=== PATIENT | female | born 1965 | race Caucasian/White ===

== ENCOUNTER 2024-04-18 10:30 | Outpatient (RCR) | payer BC, SELFPAY ==
[2024-04-18 10:52] VITALS: BMI 33.0
== END 2024-07-08 09:36 | disposition home or self-care (01) ==
LOC: ANHDMC 10:30
PROVIDERS: Visit Provider Internal Medicine
DX: E66.89 Other obesity not elsewhere classified (principal); Z71.3 Dietary counseling and surveillance; Z68.33 Body mass index [BMI] 33.0-33.9, adult
CPT/HCPCS: 97802

== ENCOUNTER 2024-08-15 00:47 | Day surgery (SDC) | payer BC, SELFPAY ==
[2024-08-01 14:28] VITALS: BMI 32.9
--- OUTSIDE RECORDS SUMMARY | 2024-08-15 00:50 | XMS_ITS | Clinical Summary ---
Author Organization [facility] Lorena Gaxiola Address [address] [place] [address] Care Team Providers Care Appetizer Packer Name Role Phone Sim Meza MD Primary Care Provider [phone] Source Comments [facility] Lorena Gaxiola,non-owned Affiliates and Associated Physician Practices is amultiple site organization consisting of ambulatory clinics and hospital sitesin [place], [place], [place] and [place]. This disclosure is being madepursuant to the Care Everywhere program and may not contain all information available regarding this patient. Last updated 18.[facility] Lorena Gaxiola Allergies Active Allergy Reactions Criticality Noted Date Comments Codeine Itching,Nausea and/or Vomiting Medium 01/09 Penicillins Urticaria,Swelling Medium 01/09/2019 Medications * Be aware that medications may not be up to date on this document. Alwaysverify current medications with the patient. Medication Sig Dispensed Refills Start Date End Date Status pantoprazole EC (PROTONIX) 40 MG tablet Take 40 mg by mouth once daily Active escitalopram (LEXAPRO) 10 MG tablet Take 10 mg by mouth once daily Active traZODone (DESYREL) 50 MG tablet Take 50 mg by mouth at bedtime Active mirabegron ER 24hr (MYRBETRIQ) 50 MG tablet Take 50 mg by mouth once daily Active Family History Medical History Relation Name Comments CAD (Coronary Artery Disease) Father Cancer - Esophageal Mother Relation Name Status Comments Father Mother Social History Tobacco Use Types Packs/Day Years Used Date Smoking Tobacco: Never Smokeless Tobacco: Never Alcohol Use Standard Drinks/Week Comments No 0 (1 standard drink = 0.6 oz pur e alcohol) Sex and Gender Information Value Date Recorded Sex Assigned at Not on file Gender Identity Not on file Sexual Orientation Not on file Last Filed Vital Signs Vital Sign Reading Time Taken Comments Blood Pressure - - Pulse - - Temperature - - Respiratory Rate - - Oxygen Saturation - - Inhaled Oxygen Concentration - - Weight 75.8 kg (167 lb) 01/09/2019 8:03 AM CDT Height 157.5 cm (5' 2 ) 01/09/2019 8:03 AM CDT Body Mass Index 30.54 01/09/2019 8:03 AM CDT Plan of Treatment Health Maintenance Due Date Last Done Comments COLOGUARD (AGES 45-75) - COL ON CA SCREENING 1963 COLON MONITORING 1963 COLONOSCOPY - COLON CA SCREENING 1963 CT COLONOGRAPHY - COLON CA SCREENING 1963 Colorectal Cancer Screening 1963 FIT - COLON CA SCREENING 1963 FLEX SIG - COLON CA SCREENING 1963 LIPID TESTING 1963 MAMMOGRAM 1963 PAP SMEAR 1963 HIV SCREENING 1978 HEPATITIS C SCREENING 02/10/1981 DTAP/TDAP/TD VACCINES (1 - Tdap) 1982 PNEUMOCOCCAL VACCINE 50+ (1 of 1 - PCV) 2013 ZOSTER VACCINE (1 of 2) 2013 COVID-19 VACCINE ( - 2023-2 5 season) 2024 INFLUENZA VACCINE (#1) 2024 DEPRESSION SCREENING 07/10/2024 Respiratory Syncytial Virus (RSV) Vaccine Pt: or over 60 yrs (1 - 1-dose 75+ series) 2038 HEPATITIS B VACCINE Aged Out No longe r eligible based on patient's age to complete this topic HIB VACCINE Aged Out No longer eligi ble based on patient's age to complete this topic HPV VACCINE Aged Out No longer eligi ble based on patient's age to complete this topic MENINGOCOCCAL (Group B) VACCINE Aged Out No longer eligible based on patient's age to complete this topic MENINGOCOCCAL VACCINE Aged Out No osmin davidson eligible based on patient's age to complete this topic PNEUMOCOCCAL VACCINE Aged Out No long er eligible based on patient's age to complete this topic Care Teams Appetizer Packer Relationship Specialty Start Date End Date Sim Meza MD PCP - General Internal Medicine 01/03/19
--- OUTSIDE RECORDS SUMMARY | 2024-08-15 00:50 | XMS_ITS | Data Portability ---
Author Organization [facility] OMARDaisha Address [address] [facility] [address] 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 [email or web address] Not available 10/21/2023 18:46:48 03/01/2024 03/01/2024 blood work consider halting statin for a while can try coenzyme Q10 ABIs NCS leg we will follow up in 4 months continue other meds [email or web address] Not available 03/02/2024 12:32:53 03/29/2024 03/29/2024 physical therapy for her back healthy lifestyle care instructions for obesity dietary referral as where as well. 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 Healthy lifestyle care instructions discussed. Routine food production associate well-woman referral colonoscopy. Mammogram all ordered all questions answered no changes in medications no side effects from medications and she is taking medications as prescribed follow up in 4 months [email or web address] Not available 06/22/2024 12:46:44 Plan of Treatment Reminders Order Date Submit Date Provider Last Modified By Organization Details Last Modified Time Details Appointments ANY 15 2024 10:30A M Parish Meza MD Not available Not available Not available Lab lipid panel, serum 2023 024 RICARDA Thompson, [address], [place], [address], 10/21/2023 07:13:37 CBC w/ auto diff 2023 024 RICARDA Thompson, [address], [address], [place], [address], 10/21/2023 07:13:39 CMP, serum or plasma 2023 024 RICARDA Thompson, [address], [address], [place], [address], 10/21/2023 07:13:38 TSH, ultra-sen sitive, serum 2023 024 RICARDA Thompson, [address], [address], [place], [address], 10/21/2023 07:13:39 T3, free, serum or plasma 2023 024 RICARDA Thompson, [address], [address], [place], [address], 10/21/2023 07:13:40 unlisted lab - T4, free 2023 024 RICARDA Thompson, [address], [address], [place], [address], 10/21/2023 07:13:37 lipid panel, serum 2023 024 RICARDA Thompson [address], [address], [place], [address], 03/02/2024 08:22:56 TSH, ultra-sen sitive, serum 2023 024 RICARDA Thompson, [address], [address], [place], [address], 03/02/2024 08:22:58 T3, free, serum or plasma 2023 024 [facility], [address], [address], [place], [address], 03/02/2024 08:23:00 unlisted lab - T4, free 2023 024 [facility], [address], [address], [place], [address], 03/02/2024 08:22:56 CBC w/ auto diff 2023 024 [facility], [address], [address], [place], [address], 03/02/2024 08:22:59 CMP, serum or plasma 2023 024 [facility], [address], [address], [place], [address], 03/02/2024 08:22:57 vitamin D, 25-hydrox y, total, serum 2023 024 [facility], [address], [address], [place], [address], 03/02/2024 08:23:00 vitamin B12 + folate, serum or blood 2023 024 [facility], [address], [address], [place], [address], 03/02/2024 08:22:58 CMP, serum or plasma [address], [address], [address], [place], [address], 06/21/2024 13:34:55 lipid panel, serum [email or web address], [address], [address], [place], [address], 06/21/2024 13:34:55 CBC w/ auto diff 2023 025 [email or web address] [facility], [address], [address], [place], [address], 06/21/2024 13:34:55 vitamin D, 25-hydrox y, total, serum 2023 025 [facility], [address], [address], [place], [address], 06/21/2024 13:34:55 Referral nutrition ist/dieti moira referral 2023 024 [facility], [address], [place], [address], 06/07/2024 16:31:56 physical therapist referral 2023 024 [facility] [place], [facility], [place], [address], 04/15/2024 14:11:54 gynecolog ist referral 2023 024 [email or web address] Ирина Rawls MD, [address], [address], [place], [address], 07/16/2024 13:09:35 Procedures colonosco py screening (PROC) [address] [facility], [address], [address], [place], [address], 08/13/2024 11:05:22 Surgeries None recorded. Imaging home sleep study 2023 024 [facility] ([facility]), [address] [facility], [place], [address], 11/24/2023 13:56:28 nerve conductio n study - NCS B/L Legs 2023 024 mariano Archuleta Scheduling, [address] [facility], [place], [address], 06/21/2024 11:44:12 MAMMO, screening , digital, bilateral 2023 024 [facility] (Imaging), [address] [place] [address] [facility] [facility], [place], [address], 07/16/2024 13:06:34 Medication Orders pantopraz ole 40 mg tablet,de layed release [address] [facility] [address] [facility], [address] [place] [address], [address], 10/20/2023 13:56:52 losartan 25 mg tablet [address] [facility], [address] [place] [address], [address], 03/01/2024 12:33:35 ergocalci ferol (vitamin D2) 1,250 mcg (50,000 unit) capsule [address] [facility], [address] [place] [address], [address], 06/21/2024 13:34:55 Patient TargetsNo targets recorded. Patient Instructions Encounter Date Encounter Id Patient Instructions Last Modified By Organization Details Last Modified Time 03/01/2024 [id number] (ALEC) ankle brachial index* - B/L legs [email or web address] Not available 06/21/2024 11:44:39 03/29/2024 [id number] A healthy lifestyle: care instructions [email or web address] Not available 03/29/2024 13:04:48 06/21/2024 [id number] A healthy lifestyle: care instructions [email or web address] Not available 06/21/2024 13:34:55 Reason for Referral Physical Therapist Referral for Low back pain Referring Physician: Parish Meza, Internal Medicine, Encounter Date: 03/29/2024 Chemistry Lab Instructor/dietitian Refer ral for Obesity Referring Physician: Parish Meza, Internal Medicine, Encounter Date: 03/29/2024 Chip Machine Operator Referral for Gy necologic examination Referring Physician: Parish Meza, Internal Medicine, Encounter Date: 06/21/2024 Results Created Date Observation Date Name Description Value Unit Range Abnormal Flag Note LastModifiedBy Organization Detail LastModifiedTime 10/20/19 24 10/21/2023 LIPID PANEL cholesterol, total 210 mg/dL 100-19 9 above high normal Not Available [facility] ([facility]) [address] [place], [address], 10/21/2023 07:13:37 10/20/19 24 10/21/2023 LIPID PANEL triglyceride s 95 mg/dL 0-149 Not Available [facility] ([facility]) [address] [place], [address], 10/21/2023 07:13:37 10/20/19 24 10/21/2023 LIPID PANEL HDL cholesterol 90 mg/dL >39 Not Available [facility] ([facility]) [address] [place], [address], 10/21/2023 07:13:37 10/20/19 24 10/21/2023 LIPID PANEL VLDL cholesterol john 16 mg/dL 5-40 Not Available [facility] ([facility]) [address] [place], [address], 10/21/2023 07:13:37 10/20/19 24 10/21/2023 LIPID PANEL LDL chol calc ([facility]) 104 mg/dL 0-99 above high normal Not Available [facility] ([facility]) [address] [place], [address], 10/21/2023 07:13:37 10/20/19 24 10/21/2023 T4, FREE T4,free(dire ct) 1.48 NG/dL 0.82-1 .77 Not Available [facility] ([facility]) [address] [place], [address], 10/21/2023 07:13:37 10/20/19 24 10/21/2023 COMP. METAB OLIC PANEL (14) glucose 101 mg/dL 70-99 above high normal Not Available [facility] ([facility]) [address] [place], [address], 10/21/2023 07:13:38 10/20/19 24 10/21/2023 COMP. METAB OLIC PANEL (14) BUN 15 mg/dL 8-27 Not Available [facility] ([facility]) [address] [place], [address], 10/21/2023 07:13:38 10/20/19 24 10/21/2023 COMP. METAB OLIC PANEL (14) creatinine 0.89 mg/dL 0.57-1 .00 Not Available [facility] ([facility]) [address] [place], [address], 10/21/2023 07:13:38 10/20/19 24 10/21/2023 COMP. METAB OLIC PANEL (14) eGFR 74 mL/mi n/1.7 3 >59 Not Available [facility] ([facility]) [address] [place], [address], 10/21/2023 07:13:38 10/20/19 24 10/21/2023 COMP. METAB OLIC PANEL (14) BUN/creatini ne ratio 17 12-28 Not Available [facility] ([facility]) [address] [place], [address], 10/21/2023 07:13:38 10/20/19 24 10/21/2023 COMP. METAB OLIC PANEL (14) sodium 145 mmol/ L 134-14 4 above high normal Not Available [facility] ([facility]) [address] [place], [address], 10/21/2023 07:13:38 10/20/19 24 10/21/2023 COMP. METAB OLIC PANEL (14) potassium 4.7 mmol/ L 3.5-5. 2 Not Available [facility] ([facility]) [address] [place], [address], 10/21/2023 07:13:38 10/20/19 24 10/21/2023 COMP. METAB OLIC PANEL (14) chloride 107 mmol/ L 96-106 above high normal Not Available [facility] ([facility]) [address] [place], [address], 10/21/2023 07:13:38 10/20/19 24 10/21/2023 COMP. METAB OLIC PANEL (14) carbon dioxide, total 23 mmol/ L 20-29 Not Available [facility] ([facility]) [address] [facility] [place], [address], 10/21/2023 07:13:38 10/20/19 24 10/21/2023 COMP. METAB OLIC PANEL (14) calcium 9.4 mg/dL 8.7-10 .3 Not Available [facility] ([facility]) [address] [place], [address], 10/21/2023 07:13:38 10/20/19 24 10/21/2023 COMP. METAB OLIC PANEL (14) protein, total 6.8 g/dL 6.0-8. 5 Not Available [facility] ([facility]) [address] [facility] [place], [address], 10/21/2023 07:13:38 10/20/19 24 10/21/2023 COMP. METAB OLIC PANEL (14) albumin 4.5 g/dL 3.8-4. 9 Not Available [facility] ([facility]) [address] [facility] [place], [address], 10/21/2023 07:13:38 10/20/19 24 10/21/2023 COMP. METAB OLIC PANEL (14) globulin, total 2.3 g/dL 1.5-4. 5 Not Available [facility] ([facility]) [address] [facility], [place], [address], 10/21/2023 07:13:38 10/20/19 24 10/21/2023 COMP. METAB OLIC PANEL (14) A/G ratio 2.0 1.2-2. 2 Not Available [facility] ([facility]) [address] [facility], [place], [address], 10/21/2023 07:13:38 10/20/19 24 10/21/2023 COMP. METAB OLIC PANEL (14) bilirubin, total 0.6 mg/dL 0.0-1. 2 Not Available [facility] ([facility]) [address] [facility], [place], [address], 10/21/2023 07:13:38 10/20/19 24 10/21/2023 COMP. METAB OLIC PANEL (14) alkaline phosphatase 74 IU/L 44-121 Not Available [facility] ([facility]) [address] [facility], [place], [address], 10/21/2023 07:13:38 10/20/19 24 10/21/2023 COMP. METAB OLIC PANEL (14) AST (SGOT) 37 IU/L 0-40 Not Available [facility] ([facility]) [address] [facility] [place], [address], 10/21/2023 07:13:38 10/20/19 24 10/21/2023 COMP. METAB OLIC PANEL (14) ALT (SGPT) 48 IU/L 0-32 above high normal Not Available [facility] ([facility]) [address] [facility], [place], [address], 10/21/2023 07:13:38 10/20/19 24 10/21/2023 TSH TSH 3.520 uIU/m L 0.450- 4.500 Not Available [facility] ([facility]) [address] [place], [address], 10/21/2023 07:13:39 10/20/19 24 10/21/2023 CBC WITH DIFFE RENTI AL/PL ATELE T WBC 8.1 x10e3 /uL 3.4-10 .8 Not Available [facility] ([facility]) [address] [facility], [place], [address], 10/21/2023 07:13:39 10/20/19 24 10/21/2023 CBC WITH DIFFE RENTI AL/PL ATELE T RBC 4.97 x10e6 /uL 3.77-5 .28 Not Available [facility] ([facility]) [address] [place], [address], 10/21/2023 07:13:39 10/20/19 24 10/21/2023 CBC WITH DIFFE RENTI AL/PL ATELE T hemoglobin 14.7 g/dL 11.1-1 5.9 Not Available [facility] ([facility]) [address] [place], [address], 10/21/2023 07:13:39 10/20/19 24 10/21/2023 CBC WITH DIFFE RENTI AL/PL ATELE T hematocrit 44.9 % 34.0-4 6.6 Not Available [facility] ([facility]) [address] [place], [address], 10/21/2023 07:13:39 10/20/1910/21/2023 CBC WITH DIFFE RENTI AL/PL ATELE T MCV 90 fL 79-97 Not Available [facility] ([facility]) [address] [place], [address], 10/21/2023 07:13:39 10/20/19 24 10/21/2023 CBC WITH DIFFE RENTI AL/PL ATELE T MCH 29.6 pg 26.6-3 3.0 Not Available [facility] ([facility]) [address] [facility], [place], [address], 10/21/2023 07:13:39 10/20/19 24 10/21/2023 CBC WITH DIFFE RENTI AL/PL ATELE T MCHC 32.7 g/dL 31.5-3 5.7 Not Available [facility] ([facility]) [address] [facility], [place], [address], 10/21/2023 07:13:39 10/20/19 24 10/21/2023 CBC WITH DIFFE RENTI AL/PL ATELE T RDW 12.8 % 11.7-1 5.4 Not Available [facility] ([facility]) [address] [facility], [place], [address], 10/21/2023 07:13:39 10/20/19 24 10/21/2023 CBC WITH DIFFE RENTI AL/PL ATELE T platelets 340 x10e3 /uL 150-45 0 Not Available [facility] ([facility]) [address] [facility], [place], [address], 10/21/2023 07:13:39 10/20/19 24 10/21/2023 CBC WITH DIFFE RENTI AL/PL ATELE T neutrophils 53 % notest ab. Not Available [facility] ([facility]) [address] [facility], [place], [address], 10/21/2023 07:13:39 10/20/19 24 10/21/2023 CBC WITH DIFFE RENTI AL/PL ATELE T lymphs 35 % notest ab. Not Available [facility] ([facility]) [address] [facility], [place], [address], 10/21/2023 07:13:39 10/20/19 24 10/21/2023 CBC WITH DIFFE RENTI AL/PL ATELE T monocytes 8 % notest ab. Not Available [facility] ([facility]) [address] [facility], [place], [address], 10/21/2023 07:13:39 10/20/19 24 10/21/2023 CBC WITH DIFFE RENTI AL/PL ATELE T eos 3 % notest ab. Not Available [facility] ([facility]) [address] [facility], [place], [address], 10/21/2023 07:13:39 10/20/19 24 10/21/2023 CBC WITH DIFFE RENTI AL/PL ATELE T basos 1 % notest ab. Not Available [facility] ([facility]) [address] [facility], [place], [address], 10/21/2023 07:13:39 10/20/19 24 10/21/2023 CBC WITH DIFFE RENTI AL/PL ATELE T neutrophils (absolute) 4.3 x10e3 /uL 1.4-7. 0 Not Available [facility] ([facility]) [address] [facility], [place], [address], 10/21/2023 07:13:39 10/20/19 24 10/21/2023 CBC WITH DIFFE RENTI AL/PL ATELE T lymphs (absolute) 2.9 x10e3 /uL 0.7-3. 1 Not Available [facility] ([facility]) [address] [facility], [place], [address], 10/21/2023 07:13:39 10/20/19 24 10/21/2023 CBC WITH DIFFE RENTI AL/PL ATELE T monocytes(ab solute) 0.7 x10e3 /uL 0.1-0. 9 Not Available [facility] ([facility]) [address] [facility], [place], [address], 10/21/2023 07:13:39 10/20/19 24 10/21/2023 CBC WITH DIFFE RENTI AL/PL ATELE T eos (absolute) 0.2 x10e3 /uL 0.0-0. 4 Not Available [facility] ([facility]) [address] [place], [address], 10/21/2023 07:13:39 10/20/19 24 10/21/2023 CBC WITH DIFFE RENTI AL/PL ATELE T baso (absolute) 0.1 x10e3 /uL 0.0-0. 2 Not Available [facility] ([facility]) [address] [place], [address], 10/21/2023 07:13:39 10/20/1910/21/2023 CBC WITH DIFFE RENTI AL/PL ATELE T immature granulocytes 0 % notest ab. Not Available [facility] ([facility]) [address] [place], [address], 10/21/2023 07:13:39 10/20/19 24 10/21/2023 CBC WITH DIFFE RENTI AL/PL ATELE T immature grans (abs) 0.0 x10e3 /uL 0.0-0. 1 Not Available [facility] ([facility]) [address] [place], [address], 10/21/2023 07:13:39 10/20/1910/21/2023 TRIIO DOTHY BERT E (T3), FREE triiodothyro nine (T3), free 3.8 pg/mL 2.0-4. 4 Not Available [facility] ([facility]) [address] [place], [address], 10/21/2023 07:13:40 03/01/2003/02/2024 LIPID PANEL cholesterol, total 160 mg/dL 100-19 9 Not Available [facility] ([facility]) [address] [place], [address], 03/02/2024 08:22:56 08/23/03/02/2024 LIPID PANEL triglyceride s 69 mg/dL 0-149 Not Available [facility] ([facility]) [address] [place], [address], 03/02/2024 08:22:56 03/01/2003/02/2024 LIPID PANEL HDL cholesterol 83 mg/dL >39 Not Available [facility] ([facility]) [address] [place], [address], 03/02/2024 08:22:56 03/01/2003/02/2024 LIPID PANEL VLDL cholesterol john 13 mg/dL 5-40 Not Available [facility] ([facility]) [address] [place], [address], 03/02/2024 08:22:56 03/01/2003/02/2024 LIPID PANEL LDL chol calc ([facility]) 64 mg/dL 0-99 Not Available [facility] ([facility]) [address] [place], [address], 03/02/2024 08:22:56 03/01/2003/02/2024 T4, FREE T4,free(dire ct) 1.37 NG/dL 0.82-1 .77 Not Available [facility] ([facility]) [address] [place], [address], 03/02/2024 08:22:56 03/01/2003/02/2024 COMP. METAB OLIC PANEL (14) glucose 104 mg/dL 70-99 above high normal Not Available [facility] ([facility]) [address] [place], [address], 03/02/2024 08:22:57 03/01/2003/02/2024 COMP. METAB OLIC PANEL (14) BUN 15 mg/dL 8-27 Not Available [facility] ([facility]) [address] [place], [address], 03/02/2024 08:22:57 03/01/20 24 03/02/2024 COMP. METAB OLIC PANEL (14) creatinine 0.82 mg/dL 0.57-1 .00 Not Available [facility] ([facility]) [address] [facility], [place], [address], 03/02/2024 08:22:57 03/01/2003/02/2024 COMP. METAB OLIC PANEL (14) eGFR 81 mL/mi n/1.7 3 >59 Not Available [facility] ([facility]) [address] [facility], [place], [address], 03/02/2024 08:22:57 03/01/2003/02/2024 COMP. METAB OLIC PANEL (14) BUN/creatini ne ratio 18 12-28 Not Available [facility] ([facility]) [address] [facility], [place], [address], 03/02/2024 08:22:57 03/01/2003/02/2024 COMP. METAB OLIC PANEL (14) sodium 141 mmol/ L 134-14 4 Not Available [facility] ([facility]) [address] [facility] [place], [address], 03/02/2024 08:22:57 03/01/2003/02/2024 COMP. METAB OLIC PANEL (14) potassium 4.6 mmol/ L 3.5-5. 2 Not Available [facility] ([facility]) [address] [facility], [place], [address], 03/02/2024 08:22:57 03/01/2003/02/2024 COMP. METAB OLIC PANEL (14) chloride 105 mmol/ L 96-106 Not Available [facility] ([facility]) [address] [facility], [place], [address], 03/02/2024 08:22:57 03/01/2003/02/2024 COMP. METAB OLIC PANEL (14) carbon dioxide, total 22 mmol/ L 20-29 Not Available [facility] ([facility]) [address] [facility] [place], [address], 03/02/2024 08:22:57 03/01/2003/02/2024 COMP. METAB OLIC PANEL (14) calcium 9.2 mg/dL 8.7-10 .3 Not Available [facility] ([facility]) [address] [facility], [place], [address], 03/02/2024 08:22:57 03/01/2003/02/2024 COMP. METAB OLIC PANEL (14) protein, total 6.5 g/dL 6.0-8. 5 Not Available [facility] ([facility]) [address] [facility], [place], [address], 03/02/2024 08:22:57 03/01/2003/02/2024 COMP. METAB OLIC PANEL (14) albumin 4.4 g/dL 3.9-4. 9 Not Available [facility] ([facility]) [address] [facility] [place], [address], 03/02/2024 08:22:57 03/01/2003/02/2024 COMP. METAB OLIC PANEL (14) globulin, total 2.1 g/dL 1.5-4. 5 Not Available [facility] ([facility]) [address] [facility] [place], [address], 03/02/2024 08:22:57 03/01/2003/02/2024 COMP. METAB OLIC PANEL (14) bilirubin, total 0.4 mg/dL 0.0-1. 2 Not Available [facility] ([facility]) [address] [facility] [place], [address], 03/02/2024 08:22:57 03/01/2003/02/2024 COMP. METAB OLIC PANEL (14) alkaline phosphatase 75 IU/L 44-121 Not Available [facility] ([facility]) [address] [place], [address], 03/02/2024 08:22:57 03/01/2003/02/2024 COMP. METAB OLIC PANEL (14) AST (SGOT) 27 IU/L 0-40 Not Available [facility] ([facility]) [address] [place], [address], 03/02/2024 08:22:57 03/01/2003/02/2024 COMP. METAB OLIC PANEL (14) ALT (SGPT) 37 IU/L 0-32 above high normal Not Available [facility] ([facility]) [address] [facility] [place], [address], 03/02/2024 08:22:57 03/01/2003/02/2024 VITAM IN B12 AND FOLAT E vitamin B12 695 pg/mL 232-12 45 Not Available [facility] ([facility]) [address] [facility] [place], [address], 03/02/2024 08:22:58 03/01/2003/02/2024 VITAM IN B12 AND FOLAT E folate (folic acid), serum 15.5 NG/mL >3.0 A serum folat e violetta ntrat ion of less than 3.1 ng/mL is consi dered to repre sent clini john defic iency . Not Available [facility] ([facility]) [address] [facility], [place], [address], 03/02/2024 08:22:58 03/01/2003/02/2024 TSH TSH 2.620 uIU/m L 0.450- 4.500 Not Available [facility] ([facility]) [address] [facility] [place], [address], 03/02/2024 08:22:58 03/01/2003/02/2024 CBC WITH DIFFE RENTI AL/PL ATELE T WBC 7.4 x10e3 /uL 3.4-10 .8 Not Available [facility] ([facility]) [address] [facility], [place], [address], 03/02/2024 08:22:59 03/01/2003/02/2024 CBC WITH DIFFE RENTI AL/PL ATELE T RBC 4.83 x10e6 /uL 3.77-5 .28 Not Available [facility] ([facility]) [address] [facility], [place], [address], 03/02/2024 08:22:59 03/01/2003/02/2024 CBC WITH DIFFE RENTI AL/PL ATELE T hemoglobin 14.9 g/dL 11.1-1 5.9 Not Available [facility] ([facility]) [address] [facility], [place], [address], 03/02/2024 08:22:59 03/01/2003/02/2024 CBC WITH DIFFE RENTI AL/PL ATELE T hematocrit 45.5 % 34.0-4 6.6 Not Available [facility] ([facility]) [address] [place], [address], 03/02/2024 08:22:59 03/01/2003/02/2024 CBC WITH DIFFE RENTI AL/PL ATELE T MCV 94 fL 79-97 Not Available [facility] ([facility]) [address] [place], [address], 03/02/2024 08:22:59 03/01/2003/02/2024 CBC WITH DIFFE RENTI AL/PL ATELE T MCH 30.8 pg 26.6-3 3.0 Not Available [facility] ([facility]) [address] [place], [address], 03/02/2024 08:22:59 03/01/2003/02/2024 CBC WITH DIFFE RENTI AL/PL ATELE T MCHC 32.7 g/dL 31.5-3 5.7 Not Available [facility] ([facility]) [address] [facility] [address], [place], [address], 03/02/2024 08:22:59 03/01/2003/02/2024 CBC WITH DIFFE RENTI AL/PL ATELE T RDW 12.6 % 11.7-1 5.4 Not Available [facility] ([facility]) [address] [facility] [address], [place], [address], 03/02/2024 08:22:59 03/01/2003/02/2024 CBC WITH DIFFE RENTI AL/PL ATELE T platelets 316 x10e3 /uL 150-45 0 Not Available [facility] ([facility]) [address] [facility] [address], [place], [address], 03/02/2024 08:22:59 03/01/2003/02/2024 CBC WITH DIFFE RENTI AL/PL ATELE T neutrophils 52 % notest ab. Not Available [facility] ([facility]) [address] [facility] [address], [place], [address], 03/02/2024 08:22:59 03/01/2003/02/2024 CBC WITH DIFFE RENTI AL/PL ATELE T lymphs 36 % notest ab. Not Available [facility] ([facility]) [address] [facility] [address], [place], [address], 03/02/2024 08:22:59 03/01/2003/02/2024 CBC WITH DIFFE RENTI AL/PL ATELE T monocytes 8 % notest ab. Not Available [facility] ([facility]) [address] [facility] [address], [place], [address], 03/02/2024 08:22:59 03/01/20 24 03/02/2024 CBC WITH DIFFE RENTI AL/PL ATELE T eos 3 % notest ab. Not Available [facility] ([facility]) [address] [facility] [address], [place], [address], 03/02/2024 08:22:59 03/01/2003/02/2024 CBC WITH DIFFE RENTI AL/PL ATELE T basos 1 % notest ab. Not Available [facility] ([facility]) [address] [facility] [address], [place], [address], 03/02/2024 08:22:59 03/01/2003/02/2024 CBC WITH DIFFE RENTI AL/PL ATELE T neutrophils (absolute) 3.8 x10e3 /uL 1.4-7. 0 Not Available [facility] ([facility]) [address] [facility] [address], [place], [address], 03/02/2024 08:22:59 03/01/2003/02/2024 CBC WITH DIFFE RENTI AL/PL ATELE T lymphs (absolute) 2.7 x10e3 /uL 0.7-3. 1 Not Available [facility] ([facility]) [address] [facility] [address], [place], [address], 03/02/2024 08:22:59 03/01/2003/02/2024 CBC WITH DIFFE RENTI AL/PL ATELE T monocytes(ab solute) 0.6 x10e3 /uL 0.1-0. 9 Not Available [facility] ([facility]) [address] [facility] [address], [place], [address], 03/02/2024 08:22:59 03/01/2003/02/2024 CBC WITH DIFFE RENTI AL/PL ATELE T eos (absolute) 0.2 x10e3 /uL 0.0-0. 4 Not Available [facility] ([facility]) [address] [facility] [address], [place], [address], 03/02/2024 08:22:59 03/01/20 24 03/02/2024 CBC WITH DIFFE RENTI AL/PL ATELE T baso (absolute) 0.1 x10e3 /uL 0.0-0. 2 Not Available [facility] ([facility]) [address] [facility] [address], [place], [address], 03/02/2024 08:22:59 03/01/20 24 03/02/2024 CBC WITH DIFFE RENTI AL/PL ATELE T immature granulocytes 0 % notest ab. Not Available [facility] ([facility]) [address] [facility] [address], [place], [address], 03/02/2024 08:22:59 03/01/20 24 03/02/2024 CBC WITH DIFFE RENTI AL/PL ATELE T immature grans (abs) 0.0 x10e3 /uL 0.0-0. 1 Not Available [facility] ([facility]) [address] [facility] [address], [place], [address], 03/02/2024 08:22:59 03/01/20 24 03/02/2024 TRIIO DOTHY BERT E (T3), FREE triiodothyro nine (T3), free 3.3 pg/mL 2.0-4. 4 Not Available [facility] ([facility]) [address] [place], [address], 03/02/2024 08:22:59 03/01/20 24 03/02/2024 VITAM IN D, 25-HY DROXY vitamin D, 25-hydroxy 24.8 NG/mL 30.0-1 00.0 below low normal Vitam in D defic iency has been defin ed by the Insti tute of Medic ine and an Endoc rine Socie ty pract ice guide line as a level of serum 25-OH vitam in D less than 20 ng/mL (1,2) . The Endoc rine Socie ty went on to furth er defin e vitam in D insuf ficie ncy as a level betwe en 21 and 29 ng/mL (2). 1. IOM (Inst itute of Medic ine). 2010. Dieta ry refer ence samuel es for calci um and D. Honey anaya [place]: [facility] [employer] . 2. Yara LEE, Janey WHALEY, Bisch off-F ashtyn CANO, et al. Evalu ation , treat ment, and preve ntion of vitam in D defic iency : an Endoc rine Socie ty clini john pract ice guide line. JCEM. 2010; 96(7) :191 -. Not Available [facility] ([facility]) [address] [facility] [address], [place], [address], 03/02/2024 08:23:00 06/17/20 24 06/18/2024 VITAM IN D, 25-HY DROXY vitamin D, 25-hydroxy 26.3 NG/mL 30.0-1 00.0 below low normal Vitam in D defic iency has been defin ed by the Insti tute of Medic ine and an Endoc rine Socie ty pract ice guide line as a level of serum 25-OH vitam in D less than 20 ng/mL (1,2) . The Endoc rine Socie ty went on to furth er defin e vitam in D insuf ficie ncy as a level betwe en 21 and 29 ng/mL (2). 1. IOM (Inst itute of Medic ine). 2009. Dieta ry refer ence intak es for calci um and D. Honey anaya [place]: [facility] [employer] . 2. Yara LEE, Janey WHALEY, Nain off-F ashtyn CANO, et al. Evalu ation , treat ment, and preve ntion of vitam in D defic iency : an Endoc rine Socie ty clini john pract ice guide line. JCEM. 2010; 96(7) :191 -. Not Available [facility] ([facility]) [address] [facility] [address], [place], [address], 06/18/2024 07:14:52 Result Notes None recorded. Problems Name Problem SNOMED Code Status Onset Date Resolution Date Notes Provider Name and Address Organization Details Recorded Time Acid reflux 034316096 Active 2023 Dorothea Booker [place] null, [place] - [facility] 4 10:56:47 Environment al allergy 453117197 Active 2023 Dorothea [place] [facility] 4 10:57:31 Hypercholes terolemia 16141436 Active 2023 Dorothea Booker [place] [facility] 4 10:57:53 Hypersomnia 73740010 Active 2023 Lilian Hutson [place] [facility] 4 11:42:24 Fatigue 85309468 Active 2023 Lilian Hut[place] [facility] 4 11:42:25 Chronic rhinitis 19894495 Active 2023 Parish Meza MD Attn: Trini barger[address] [place], [address], [place] - [facility] 4 18:45:34 Vitamin D below reference range 948473849 Active 2023 Parish Meza MD Attn: Trini barger[address] [place], [address], [place] [facility] 4 18:45:46 Pain in bilateral legs 0739861191919 9108 Active 2023 Lilian Hut[place] [facility] 4 12:25:46 Long-term drug therapy Active 2023 Lilian Hut[place] [facility] 4 12:22:21 Reactive airway disease 087967290986 Active 2023 Parish Meza MD Attn: Trini barger[address] [place], [address], [place] [facility] 4 12:45:14 HIV screening declined 3910619152286 00 Active 2023 Parish Meza MD Attn: Trini barger[address] [place], [address], [place] [facility] 4 12:47:03 Problem Notes None recorded. Procedures Surgical History Date Name Laterality Status Provider Name and Address Organization Details Recorded Time Joint Replacement completed Dorothea Booker MA [facility] 10/20/2023 11:02:08 Knee Surgery completed Dorothea Booker MA [facility] 10/20/2023 11:02:15 Total hysterectomy completed Dolly Booker MA [facility] 10/20/2023 11:02:26 Tonsillectomy completed Dorothea Booker MA [facility] 10/20/2023 11:02:41 Imaging Results None recorded. Procedure Notes None recorded. Medical Equipment None Reported. Allergies Allergen ID Allergen Name Allergen Category Reaction Reaction Severity Criticality Documentation Date Start Date Code Code System Note Provider Name and Address Organization Details Recorded Time 915198 codeine medicatio n anaphylax is hives rash Not available Not available Not available high 10/20/2023 2670 RxNorm Not Available Not Available Not Available 233780 Product containin g penicilli n and antibioti c (product) medicatio n hives rash Not available Not available low 10/20/2023 55751 05 SNOMED Not Available Not Available Not Available Medications Name Sig Start Date Stop Date Status Note LastModified by Organization Details LastModified Time prednisone 10 mg tablet TAKE 4 TABS BY MOUTH ON DAYS 1-3, THEN TAKE 3 TABS ON DAYS 4-5, THEN TAKE 2 TABS ON DAY 6 AND 1 TAB ON DAY 7 03/01 completed Not Available Not Available Not Available azithromycin 250 mg tablet TAKE 2 TABLETS BY MOUTH ON DAY 1, AND THEN TAKE 1 TABLET BY MOUTH ONCE A DAY ON DAY 2 THROUGH DAY 5 10/19 completed Not Available Not Available Not Available benzonatate 200 mg capsule TAKE 1 CAPSULE BY MOUTH THREE TIMES DAILY NEEDED FOR COUGH 10/19 completed Not Available Not Available Not Available pantoprazole 40 mg tablet,delay ed release Take 1 tablet by mouth twice daily 2024 active Not Available Not Available Not Avai lable losartan 25 mg tablet Take 1 tablet by mouth once daily active Not Available Not Available No t Available montelukast 10 mg tablet TAKE 1 TABLET BY MOUTH ONCE DAILY active Not Available Not Available No t Available ergocalcifer ol (vitamin D2) 1,250 mcg (50,000 unit) capsule Take 1 capsule every week by oral route. 2023 active Not Available Not Available Not Avai lable albuterol sulfate HFA 90 mcg/actuatio n aerosol inhaler 03/01 completed Not Available Not Available Not Available fluticasone propionate 50 mcg/actuatio n nasal spray,suspen ellyn USE 1 SPRAY(S) IN EACH NOSTRIL ONCE DAILY active Not Available Not Available No t Available rosuvastatin 10 mg tablet Take 1 tablet by mouth once daily 2023 active Not Available Not Available Not Avai lable Breo Ellipta 100 mcg-25 mcg/dose powder for inhalation INHALE 1 PUFF BY MOUTH ONCE DAILY RINSE MOUTH AFTER USE active Not Available Not Available No t Available Arnuity Ellipta 100 mcg/actuatio n powder for inhalation INHALE 1 PUFF BY MOUTH ONCE DAILY 06/21 completed Not Available Not Available Not Available Vitals Date Recorded Body weight Heart rate Oxygen saturation Oxygen saturation in Arterial blood by Pulse oximetry Systolic blood pressure Diastolic blood pressure Provider Name and Address Organization Details Last Updated DateTime 4 18689.9 4 g 97 /min 97 % 97 % 140 mm[Hg] 82 mm[Hg] Dorothea Booker MA [facility] 4 10:54:43 Date Recorded Body height Body mass index (BMI) Body weight Heart rate Oxygen saturation Oxygen saturation in Arterial blood by Pulse oximetry Systolic blood pressure Diastolic blood pressure Provider Name and Address Organization Details Last Updated DateTime 4 157.48 cm 32.9 kg/m2 33533.6 3 g 78 /min 95 % 95 % 150 mm[Hg] 94 mm[Hg] Inocencia Tomlinson MA [facility] 4 11:46:11 Date Recorded Body height Body mass index (BMI) Body weight Heart rate Oxygen saturation Oxygen saturation in Arterial blood by Pulse oximetry Systolic blood pressure Diastolic blood pressure Provider Name and Address Organization Details Last Updated DateTime 4 157.48 cm 32.6 kg/m2 32355.8 g 74 /min 97 % 97 % 122 mm[Hg] 64 mm[Hg] Dorothea Booker MA [facility] 4 10:58:40 Date Recorded Body height Body mass index (BMI) Body weight Heart rate Oxygen saturation Oxygen saturation in Arterial blood by Pulse oximetry Systolic blood pressure Diastolic blood pressure Provider Name and Address Organization Details Last Updated DateTime 4 157.48 cm 33 kg/m2 38529.3 5 g 72 /min 96 % 96 % 126 mm[Hg] 84 mm[Hg] Karen Palacios MA [facility] 11:38:23 Social History Question Answer Notes LastModified by Organizat ion Details LastModified Time Tobacco Smoking Status Never Smoker Dorothea Booker [place] null, [place] - [facility] 10/20/2023 11:00:06 Do You Have An Advance Directive? No Information not available 03/01/2024 What Is Your Level Of Alcohol Consumption? None Information not available 10/20/2023 Are You Blind Or Do You Have Difficulty Seeing? Yes Glasses Information not available 10/20/2023 What Is Your Level Of Caffeine Consumption? Moderate Coffee Information not available 10/20/2023 In The 14 Days Before Symptom Onset, Have You Had Close Contact With A Laboratory-confir med COVID-19 While That Case Was Ill? No Information not available 10/20/2023 In The 14 Days Before Symptom Onset, Have You Had Close Contact With A Person Who Is Under Investigation For COVID-19 While That Person Was Ill? No Information not available 10/20/2023 Have You Been To An Area Known To Be High Risk For COVID-19? No Information not available 10/20/2023 Are You Currently Employed? Yes Information not available 10/20/2023 Are You Deaf Or Do You Have Serious Difficulty Hearing? Yes Ringing In Ears Information not available 10/20/2023 What Type Of Diet Are You Following? REGULAR Information not available 10/20/2023 What Is The Highest Grade Or Level Of School You Have Completed Or The Highest Degree You Have Received? 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 No Information not available 10/20/2023 What Was The Date Of Your Most Recent Tobacco Screening? 06/21/2024 [email or web address] Information not available 06/21/2024 What Is Your Relationship Status? Information not available 10/20/2023 Do You Use Your Seat Belt Or Car Seat Routinely? Yes Information not available 03/01/2024 Do You Have Smoke And Carbon Monoxide Detectors In Your Home? Yes Information not available 10/20/2023 Do You Feel Stressed (tense, Restless, Nervous, Or Anxious, Or Unable To Sleep At Night)? [id number] Information not available 10/20/2023 Do You Use Any Illicit Or Recreational Drugs? No Information not available 10/20/2023 Do You Use Sunscreen Routinely? Yes Information not available 10/20/2023 Has Tobacco Cessation Counseling Been Provided? No Information not available 03/01/2024 Do You Or Have You Ever Used Any Other Forms Of Tobacco Or Nicotine? No Information not available 03/01/2024 Sex: Female Functional Status Question Answer Note LastModified by Organization D etails LastModified Time Are you able to care for yourself? Yes Information not available 10/20/2023 What is your exercise level? Moderate Information not available 10/20/2023 Mental Status None recorded. Family History Relationship Description Onset Age of this Age Resolved Age Notes LastModified by Organization Details LastModified Time Mother Alcohol abuse mebyma Not available 2023 10:58:59 Mother Asthma mebyma Not available 06/2024 10:59:06 Mother Malignant tumor of breast mebyma Not available 2023 10:59:23 Mother Myocardial infarction bandersonma Not available 11:42:18 Mother Cerebrovascu lar accident bandersonma Not available 0 03/01/2024 11:42:51 Father Alcohol abuse mebyma Not available 2023 10:58:59 Father Myocardial infarction bandersonma Not available 11:42:18 Father Cerebrovascu lar accident bandersonma Not available 0 03/01/2024 11:42:51 Brother Alcohol abuse mebyma Not available 2023 10:58:59 Medical History Condition Response Coronary Artery Disease N Atrial Fibrillation N High Blood Pressure N Thyroid Problems N Kidney or Bladder Problems Y Depression N COPD N Blood Clots N GI Problems N Skin Problems Y Anemia Y Heart Attack (IN) N Diabetes N Anxiety Disorder N Muscle, Joint, or Bone Problems Y Seizures/Epilepsy N Acid Reflux (GERD) Y Cancer N Stroke N Allergies Y Asthma N High Cholesterol Y Hepatitis N Liver Disease N Headaches N Osteoporosis Y Heart Failure N Gynecological History Statement/Question Response If Post Menopausal, Age at Menopause 34 Obstetrics History GPAL:G 2 P 0 0 0 2 Type Value Living 2 Total 2 Immunizations Vaccine Type Date Status Note Provider Nam e and Address Organization Details Recorded Time zoster recombinant 10/16/2021 completed CH[place] - [facility] 03/01/2024 11:41:33 zoster recombinant 01/16/2022 [place] [facility] 03/01/2024 11:41:33 COVID-19, mRNA, LNP-S, PF, 100 mcg/0.5mL dose or 50 mcg/0.25mL dose 09/27/2020 [place] CH[place] [facility] 03/01/2024 11:41:33 COVID-19, mRNA, LNP-S, PF, 100 mcg/0.5mL dose or 50 mcg/0.25mL dose 10/02/2020 [place] CHUN [place] [facility] 03/01/2024 11:41:33 COVID-19, mRNA, LNP-S, PF, 100 mcg/0.5mL dose or 50 mcg/0.25mL dose 10/23/2020 [place] CHUN [place] [facility] 03/01/2024 11:41:33 COVID-19, mRNA, LNP-S, PF, 100 mcg/0.5mL dose or 50 mcg/0.25mL dose 05/31/2021 [place] CH[place] [facility] 03/01/2024 11:41:33 Tdap 06/07/2023 completed Inocencia [place] [facility] 03/01/2024 11:41:33 Influenza, split virus, quadrivalent, PF 04/18/2022 [place] [facility] 03/01/2024 11:41:33 Influenza, split virus, quadrivalent, PF 05/17/2020 completed Inocencia [place] [facility] 03/01/2024 11:41:33 Influenza, split virus, quadrivalent, PF 06/04/2019 completed Inocencia [place] [facility] 03/01/2024 11:41:33 Influenza, split virus, quadrivalent, PF 06/07/2023 completed Inocencia [place] [facility] 03/01/2024 11:41:33 Past Encounters Encounter ID Performer Location Encounter Start Date Encounter Closed Date Diagnosis/Indication Diagnosis SNOMED-CT Code Diagnosis ICD10 Code Diagnosis Note [id number] MD Lei Barrios (Adult Med) [address] [place] [address] 10/20/2023 10:27:49 10/20/2023 12:22:31 Hypersomnia 56305308 G47.10 Fatigue 07175899 R53.83 Acid reflux 933582712 K2 1.9 Hypercholesterolemia 136 56620 E78.00 Chronic rhinitis 6590054 6 J31.0 Vitamin D below reference range 327204877 E55.9 [id number] MD Lei Barrios (Adult Med) [address] [place] [address] 03/01/2024 11:21:56 03/01/2024 12:32:55 Fatigue 89393524 R53.83 Pain in bi lateral legs 0070862712 7714391 M79.604 M79.605 Hypercholesterolemia 136 36959 E78.00 Acid reflux 754366727 K2 1.9 Chronic rhinitis 7837441 6 J31.0 Vitamin D below reference range 320060030 E55.9 [id number] MD Lei Barrios (Adult Med) [address] [place] [phone] 0 03/29/2024 10:35:26 03/29/2024 11:57:31 Obesity 450897325 E66.8 Low back pain 063875246 M54.50 [id number] MD Lei Barrios (Adult Med) [address] [place] [phone] 0 06/21/2024 11:22:40 06/21/2024 12:33:51 Body mass index 30+ - obesity 366272522 Z68.33 Obesity 386275532 E66.9 Vitamin D deficiency 347 40321 E55.9 Hypercholesterolemia 136 61496 E78.00 Long-term drug therapy 060407398 Z79.899 Screening mammography 24 707653 Z12.31 Screening for malignant neoplasm of colon 638224360 Z12.11 Gynecologi c examination 87195632 Z01.419 Acid reflux 139445361 K2 1.9 Chronic rhinitis 5363590 6 J31.0 Vitamin D below reference range 367658656 E55.9 Reactive a irway disease 9093105874 06 J45.909 HIV screen ing declined 4727299412 74804 Z53.20 Health Concerns Section Related Observation LastModified by Organization Detai ls LastModified Time None Recorded Concern Status LastModified by Organization Details LastModified Time None Recorded Advance Directives Directive N: Payers Encounter Date Sequence Insurance Name Policy Number Policy Mccain Covered Member ID Mccain Member ID Guarantor Name 10/20/2023 1 [employer] [employer] ([place]O) [id number] 2 Hilary A Sharp [id number] Hilary Sharp 03/01/2024 1 [employer] [employer] [place] [id number] 2 Hilary A Sharp [id number] Hilary Sharp 03/29/2024 1 [employer] [employer] [place]) [id number] 2 Hilary A Sharp [id number] Hilary Sharp 06/21/2024 1 [employer] [place] [employer] [place]) [id number] 2 Hilary A Sharp [id number] Hilary Sharp Notes Date Note Type Note Provider Name and Address Organization Details Recorded Time 10/20/2023 text/html She has been hav ing some hypersomnia and a little bit of fatigue GERD has been relatively stable dyslipidemia she is taking her rosuvastatin osteoarthritis bothers her from time to time with her knees and her chronic rhinitis is doing okay she has had some intermittent problems with cough and she will be seeing pulmonary next month. Parish Meza MD Attn: [address] [place], [address], [facility] 10/21/2023 18:47:06 03/01/2024 text/html complains of lenore e fatigue with no specific complaints referable to that some pain in her legs she can not really say whether it is with activity or without activity dyslipidemia she does take the statin. Insomnia has been fair rhinitis has been controlled GERD no breakthrough Parish Meza MD Attn: Accounting, [address] , [place], [address], [facility] 03/02/2024 12:33:09 03/29/2024 text/html having some low back pain that shoots down the legs from time to time pretty significant and nerve conduction test was denied by her insurance company and she does not want to pay for her pain is afco-tl-morbklnn sometimes severe sometimes hard for her to get out of bed and walk in the morning no bowel or bladder incontinence. Obesity trouble losing weight. Chronic rhinitis stable on fluticasone hypertension no headache or dizziness GERD no nausea no vomiting dyslipidemia taking rosuvastatin and she is trying to follow a low-fat diet Parish Meza MD Attn: Accounting, [address] [facility], [place], [address], [facility] 03/29/2024 22:42:22 06/21/2024 text/html she is not going to pursue the numbness insurance denied nerve conduction and she says she is not going to fight it. Low vitamin-D level needs to be checked she is on supplementation. Needs a mammogram and some other screenings as well her GERD has been doing fine there has been no breakthrough symptoms chronic rhinitis she is taking her fluticasone and there has no signs or symptoms consistent with nasal perforation. Hypertension no headache no dizziness. Dyslipidemia she is taking rosuvastatin trying to follow a low-fat diabetic admittedly could be exercising a little bit more regularly. Parish Meza MD Attn: Accounting, [address] [facility], [place], [address], [facility] 06/22/2024 12:47:29 OBGyn Episode No OBEpisode recorded.
--- OUTSIDE RECORDS SUMMARY | 2024-08-15 00:51 | XMS_ITS | Patient Health Summary ---
Author Organization [facility] [employer] Address [address] [place] [address] Care Team Providers Care Nuclear Equipment Test Engineer Name Role Phone Sim Meza MD Primary Care Provider [phone] Note from [facility],non-owned Affiliates and Associated Physician Practices is amultiple site organization consisting of ambulatory clinics and hospital sitesin [place], [place], [place]. This disclosure is being madepursuant to the Care Everywhere program and may not contain all information available regarding this patient. Last updated 18.[facility] Allergies * Codeine(Itching,Nausea and/or Vomiting) -Medium Criticality * Penicillins(Urticaria,Swelling) -Medium Criticality Medications * Be aware that medications may not be up to date on this document. Alwaysverify current medications with the patient. * pantoprazole EC (PROTONIX) 40 MG tablet Take 40 mg by mouth once daily * escitalopram (LEXAPRO) 10 MG tablet Take 10 mg by mouth once daily * traZODone (DESYREL) 50 MG tablet Take 50 mg by mouth at bedtime * mirabegron ER 24hr (MYRBETRIQ) 50 MG tablet Take 50 mg by mouth once daily Social History Tobacco Use Types Packs/Day Years [...] Mass Index 30.54 01/09/2019 8:03 AM CDT Procedures * ESOPHAGEAL FUNCTION TEST(Performed 01/09/2019) Performed for Gastroesophageal reflux disease, esophagitis presence not specified * MOTILITY ESOPHAGEAL(Performed 01/09/2019) Performed for Gastroesophageal reflux disease, esophagitis presence not specified Care Teams Nuclear Equipment Test Engineer Relationship Specialty Start Date End Date Sim Meza MD PCP - General Internal Medicine 01/03/19
--- OUTSIDE RECORDS SUMMARY | 2024-08-15 00:51 | XMS_ITS | Referral Summary ---
Author Organization [facility] [employer] Address [address] [place] [address] Care Team Providers Care Proposal Coordinator Name Role Phone Sim Meza MD Primary Care Provider [phone] Source Comments [facility] [employer],non-owned Affiliates and Associated Physician Practices is amultiple site organization consisting of ambulatory clinics and hospital sitesin [place], [place], [place] and [place]. This disclosure is being madepursuant to the Care Everywhere program and may not contain all information available regarding this patient. Last updated 18.[facility] [employer] Allergies Active Allergy Reactions Criticality Noted Date [...] 50 mg by mouth once daily Active Social History Tobacco Use Types Packs/Day Years [...] 01/09/2019 8:03 AM CDT Plan of Treatment Not on file Care Teams Proposal Coordinator Relationship Specialty Start Date End Date Sim Meza MD PCP - General Internal Medicine 01/03/19
--- OUTSIDE RECORDS SUMMARY | 2024-08-15 00:51 | XMS_ITS | CONTINUITY OF CARE DOCUMENT ---
Author Name edmund shaffer Address Unknown Organization [facility] Address [address] [place] [id number] Phone [phone] Care Team Providers Care Production Director Name Role Phone Brady Fox MD Unavailable [phone] Brady Fox MD Unavailable [phone] PARISH EVANS MD Unavailable INSURANCE PROVIDERS Payer name Policy type / Coverage type [employer] party ID [facility] [id number]
--- OUTSIDE RECORDS SUMMARY | 2024-08-15 00:51 | XMS_ITS | Data Portability ---
Author Organization [facility], Main Office Address [address] [place] [address] Care Team Providers Care Extraction Supervisor Name Role Phone PARISH MEZA Primary Care Provider [phone] PARISH MEZA Referring Provider Assessment Encounter Date Assessment Date Assessment LastModified by Organization Details LastModified Time 12/30/2022 12/30/2022 Continue current therapy diagnosis discussed follow-up in 4 months [email or web address] Not available 07/02/2023 15:48:54 04/27/2023 04/27/2023 HPI: 58-year-old female came in today for evaluation of her right knee pain. Pain started about a month ago. She had been doing a lot a walking for exercise outside. She also has a job that involves her being feet for 8-10 a day. She started having more pain in the medial aspect of the knee about a month ago. She does not recall any injury or trauma that happened. She is not having any catching locking type sensations. She is just having soreness and pain over the medial aspect of the knee that occasionally radiate into the upper medial tibia. Patient has been taking Aleve usually home at night. She tries to limit the Aleve because there are lot times anti-inflammatori es will bother her stomach but if she takes it on very careful basis she avoids these side effects. Patient has had a history of partial knee replacement done on the left by Dr Reyna about 2 years ago. Physical exam: 58-year-old female alert pleasant. She is 5 ft 1 and 180 lb her BMI is 34. She walks without limp. She has a mild effusion right knee. She tends to hold the knee at about a 10 degree flexion contracture and it is painful for her to try to extend further than that. She flexes to 130 with moderate pain in the knee. Moderate tenderness over the medial joint line. No lateral joint line tenderness. No patellofemoral grind. Hip range of motion is full without discomfort. No swelling in the right lower extremity. 2+ dorsalis pedis pulse. After ChloraPrep was used on the skin 20 mg Kenalog and 3 cc of 0.5% ropivacaine was injected into the right knee. Risk of infection discussed. After the injection I did range her knee for several minutes to let the ropivacaine take effect. She was able to flex to 135 without any discomfort at that point. And she was also able to extend her knee to about 3 shy of extension. She has about the same degree of flexion contracture in the left knee. Impression: 58-year-old female who has early osteoarthritis medial compartment right knee. She most likely aggravated this from the excessive amount of walking for exercise as well as also having a job that requires her to be on her feet for 8-10 hours a day. I discussed options with her. Anti-inflammatori es are not a good option due to intolerance. Talked about cortisone injection in the knee to see if this would help quiet her symptoms down and she would like to proceed with that. She did have good relief after the injection initially, so hopefully this will work. We will see her in 3 weeks for re-evaluation. If she has continued symptoms then the next step would be is to get an MRI scan of the knee. Looking back at her x-rays on her left knee she did have an MRI scan which showed a tear of the root of the medial meniscus and did have a knee scope done by Dr. Tomlinson in the past. Unfortunately she had rapid progression of the arthritis necessitating partial knee replacement. There is always a possibility this could be what is happening again with her at this point as well. If she has satisfactory improvement from the cortisone injection she can repeat these often as every 3 months and this was discussed as well. 30 minutes was spent in treatment patient more half of this in [id number] conversation Not available 04/27/2023 12:09:01 05/03/2023 05/03/2023 Continue current therapy follow-up in 4 months [email or web address] Not available 05/06/2023 16:53:46 08/10/2023 08/10/2023 HPI: Patient returns. She is here for a cortisone injection in the right knee. She had a cortisone injection in April of last year which helped dramatically for almost 3 months. She has early medial compartment osteoarthritis in the knee. She is not able take anti-inflammatori es due to GI intolerance. She wished to have another injection today physical exam: 58-year-old female alert pleasant. She walks very well today without limp. She has a mild effusion in the right knee. Range of motion is from 3-135 degrees. Mild tenderness over the medial joint line to palpation. No increased swelling in either lower extremity. After Betadine and alcohol prep 20 mg Kenalog and 3 cc of pain% ropivacaine was injected into the right knee impression: 58-year-old female who has mild medial compartment osteoarthritis in the right knee. Cortisone injections are working very well for her. She will call when she feels she needs additional injection. [email or web address] Not available 08/10/2023 11:32:58 Plan of Treatment Reminders Order Date Submit Date Provider Last Modified By Organization Details Last Modified Time Details Appointments None recorded. Lab None recorded. Referral None recorded. Procedures injection/a spiration joint/bursa (PROC) - in office procedure, administere d by provider 2022 023 In-Office Order, Internal Use Only DO Not Attach Compendium DO Not Attach Compendium, Do Not Delete/merge, [id number] 12:03:13 injection/a spiration joint/bursa (PROC) - in office procedure, administere d by provider 2023 024 [email or web address] In-Office Order, Internal Use Only DO Not Attach Compendium DO Not Attach Compendium, Do Not Delete/merge, [id number] 4 11:10:36 Surgeries None recorded. Imaging XR, knee 2022 023 [email or web address] [facility], [place], [address], 3 12:40:46 Medication Orders Kenalog 10 mg/mL suspension for injection 2022 023 [facility] [facility], [place], [address], 3 12:03:13 ropivacaine (PF) 5 mg/mL (0.5 %) injection solution [address] [facility], [address] [place], [address], 3 12:03:13 Kenalog 10 mg/mL suspension for injection [address] [facility], [address] [place] [address], [address], 4 11:27:23 ropivacaine (PF) 5 mg/mL (0.5 %) injection solution [address], [address] [place] [address], [address], 4 11:27:23 Patient TargetsNo targets recorded. Patient Instructions Encounter Date Encounter Id Patient Instructions Last Modified By Organization Details Last Modified Time 12/29/2022 [id number] patient understands there is no current treatment for tinnitus. [email or web address] Not available 12/29/2022 10:50:54 Reason for Referral None Reported. Results Created Date Observation Date Name Description Value Unit Range Abnormal Flag Note LastModifiedBy Organization Detail LastModifiedTime 12/13/19 23 audio gram + tympa nogra m No observ ation record ed. [email or web address] Not Available 2022 14:44:54 04/27/20 23 XR, knee No observ ation record ed. [facility] [address] [facility], [place], [address], 04/27/2023 12:04:14 Result Notes None recorded. Problems Name Problem SNOMED Code Status Onset Date Resolution Date Notes Provider Name and Address Organization Details Recorded Time Edema of lower extremity 201133465 Active 2021 Not Available [facility] 3 06:03:14 Asthenia 96065220 Active Not Available [facility] 3 06:03:14 Chondromal acia of left knee 0178999034644 9102 Active 2019 Not Available [facility] 3 06:03:14 Abdominal pain 02976707 Active Not Available [facility] 3 06:03:14 Gastroesop hageal reflux disease 503342392 Active Not Available [facility] 3 06:03:14 Pure hyperchole sterolemia 182031583 Active Not Available [facility] 3 06:03:14 Malaise and fatigue 798309010 Active Not Available [facility] 3 06:03:14 Low back pain 852268339 Active Not Available [facility] 3 06:03:14 Current tear of medial cartilage AND/OR meniscus of knee Active 2019 Not Available [facility] 3 06:03:14 Vitamin D deficiency 45375368 Active Not Available [facility] 3 06:03:15 Pain of left knee joint 3627384352611 07 Active 2021 Not Available [facility] 3 06:03:15 Dysuria 43221377 Active 2021 Not Available [facility] 3 06:03:15 Cough 06231416 Active 2022 Not Available [facility] 3 06:03:15 Upper respirator y infection 94179027 Active Not Available [facility] 3 06:03:15 Hyperlipid emia 88011323 Active 2021 Not Available [facility] 3 06:03:15 Joint pain 15624817 Active Not Available [facility] 3 06:03:15 Osteoporos is 70034657 Active Not Available [facility] 3 06:03:15 Bilateral tinnitus 2342538252947 Active 2022 MARIVEL Barba, [facility] 3 10:23:54 Pain of right knee joint 9897629456139 00 Active 2022 Roselyn quintero, [facility] [employer] [facility] 3 16:15:03 Rhinitis 45627320 Active 2022 Parish Meza MD [address] [facility], [facility] [address], [place], [address] , [facility] [employer] [facility] 3 15:48:39 Osteoarthr itis of right knee joint 7776911518274 00 Active 2023 Asia Sellers, RMA null, [facility] [employer] [facility] 4 11:08:50 Problem Notes None recorded. Procedures Surgical History Date Name Laterality Status Provider Name and Address Organization Details Recorded Time 03/08/20 22 Knee Replacement completed Not Available [facility] 09/07/2022 05:56:31 02/10/20 21 Knee arthroscopy/ron debbie completed Not Available [facility] 09/07/2022 05:56:31 08/16/19 17 Excisions - Specify completed Not Available [facility] 09/07/2022 05:56:31 08/16/19 17 Exc tr-ext b9+margie 1.1-2 cm completed Not Available [facility] 09/07/2022 05:56:31 Arthrd ant ntrbd min dsc crv completed Not Available [facility] 09/07/2022 05:56:31 Breast Surgery completed Not Available [facility] 09/07/2022 05:56:31 Imaging Results Imaging Date Name Status LastModified by Organiz ation Details LastModified Time 12/12/2022 audiogram + tympanogram completed [email or web address] Information not available 12/12/2022 14:44:54 04/27/2023 XR, knee completed [facility] [place] [address] [facility], [place], [address], 04/27/2023 12:04:14 Procedure Notes None recorded. Medical Equipment None Reported. Allergies Allergen ID Allergen Name Allergen Category Reaction Reaction Severity Criticality Documentation Date Start Date Code Code System Note Provider Name and Address Organization Details Recorded Time 13954 tramadol medicatio n itching Not available Not available 09/07/2022 41227 RxNorm Not Available [facility] 06:08:55 19180 Product containin g penicilli n and antibioti c (product) medicatio n hives Not available Not available 09/07/2022 97209 05 SNOMED Not Available [facility] 3 06:08:55 63345 codeine medicatio n nausea vomiting Not available Not available Not available 09/07/2022 2670 RxNorm Not Available [facility] 3 06:08:56 Medications Name Sig Start Date Stop Date Status Note LastModified by Organization Details LastModified Time quetiapine 25 mg tablet 09/19 completed Not Available Not Available Not Available celecoxib 200 mg capsule Take 1 capsule every day by oral route. 06/04 completed Not Available Not Available Not Available cyclobenzap rine 10 mg tablet 04/06 completed Not Available Not Available Not Available prednisone 10 mg tablet TAKE 4 TABS BY MOUTH ON DAYS 1-3, THEN TAKE 3 TABS ON DAYS 4-5, THEN TAKE 2 TABS ON DAY 6 AND 1 TAB ON DAY 7 08/10 completed Not Available Not Available Not Available Carafate 100 mg/mL oral suspension 04/06 completed Not Available Not Available Not Available trazodone 50 mg tablet 09/19 completed Not Available Not Available Not Available atorvastati n 10 mg tablet TAKE 1 TABLET BY MOUTH ONCE DAILY active Not Available Not Available No t Available azithromyci n 250 mg tablet TAKE 2 TABLETS BY MOUTH ON DAY 1, AND THEN TAKE 1 TABLET BY MOUTH ONCE A DAY ON DAY 2 THROUGH DAY 5 11/18 completed Not Available Not Available Not Available benzonatate 200 mg capsule TAKE 1 CAPSULE BY MOUTH THREE TIMES DAILY NEEDED FOR COUGH 08/10 completed Not Available Not Available Not Available hydrocodone 5 mg-acetamin ophen 325 mg tablet 08/22 completed Not Available Not Available Not Available meloxicam 15 mg tablet TAKE 1 TABLET BY MOUTH ONCE DAILY 08/16 completed Not Available Not Available Not Available prednisone 20 mg tablet Take 2 tablets every day by oral route for 7 days. active Not Available Not Available No t Available sertraline 100 mg tablet 09/19 completed Not Available Not Available Not Available prednisone 5 mg tablet TAKE 1 TABLET BY MOUTH ONCE DAILY 08/16 completed Not Available Not Available Not Available ciprofloxac in 250 mg tablet Take 1 tablet every 12 hours by oral route for 7 days. 02/13 completed Not Available Not Available Not Available sulfamethox azole 800 mg-trimetho prim 160 mg tablet 02/13 completed Not Available Not Available Not Available aspirin 81 mg tablet,ame yed release TAKE 1 TABLET BY MOUTH TWICE DAILY 04/18 completed Not Available Not Available Not Available tramadol 50 mg tablet TAKE 1 TABLET BY MOUTH EVERY 4 HOURS NEEDED 03/18 completed Not Available Not Available Not Available ondansetron 8 mg disintegrat ing tablet 02/13 completed Not Available Not Available Not Available prednisone 10 mg tablets in a dose pack Take 1 tab by mouth, 3 times a day for 3 daysTake 1 tab by mouth 2 times a day for 2 daysTake 1 tab by mouth once a day for 1 day 04/06 completed Not Available Not Available Not Available meloxicam 7.5 mg tablet 06/04 completed Not Available Not Available Not Available methocarbam ol 750 mg tablet 04/06 completed Not Available Not Available Not Available temazepam 15 mg capsule 02/12 completed Not Available Not Available Not Available Kenalog 10 mg/mL suspension for injection in office 2023 active [facility]: 0003- 0494- 20 Not Available Not Available Not Available amitriptyli ne 10 mg tablet TAKE 2 TABLETS BY MOUTH EVERY NIGHT AT BEDTIME 11/12 completed Not Available Not Available Not Available pantoprazol e 40 mg tablet,ame yed release TAKE 1 TABLET BY MOUTH TWICE DAILY active Not Available Not Available No t Available acyclovir 5 % topical ointment APPLY TO THE AFFECTED AREA(S) BY TOPICAL ROUTE EVERY 3 HOURS 6 TIMES PER DAY 06/04 completed Not Available Not Available Not Available halobetasol propionate 0.05 % topical ointment 06/04 completed Not Available Not Available Not Available gabapentin 300 mg capsule TAKE 1 CAPSULE BY MOUTH NIGHTLY NEEDED 08/16 completed Not Available Not Available Not Available diclofenac sodium 75 mg tablet,ame yed release Take 1 tablet twice a day by oral route for 30 days. 01/16 completed Not Available Not Available Not Available montelukast 10 mg tablet TAKE 1 TABLET BY MOUTH ONCE DAILY active Not Available Not Available No t Available mupirocin 2 % topical ointment APPLY TO NOSTRILS TWICE A DAY FOR 5 DAYS PRIOR TO SURGERY 03/21 completed Not Available Not Available Not Available zolpidem 5 mg tablet TAKE 1 TABLET BY MOUTH EVERY NIGHT AT BEDTIME NEEDED FOR INSOMNIA 11/24 completed Not Available Not Available Not Available furosemide 20 mg tablet TAKE 1/2 TABLET (CUT 20MG IN HALF) BY MOUTH EVERY DAY FOR 10 DAYS 08/16 completed Not Available Not Available Not Available estradiol 0.5 mg tablet 08/24 completed Not Available Not Available Not Available levofloxaci n 500 mg tablet Take 1 tablet every 24 hours by oral route for 10 days. 03/03 completed Not Available Not Available Not Available albuterol sulfate HFA 90 mcg/actuati on aerosol inhaler INHALE 2 PUFFS BY MOUTH EVERY 4 HOURS 05/03 completed Not Available Not Available Not Available propranolol 20 mg tablet 02/13 completed Not Available Not Available Not Available fluticasone propionate 50 mcg/actuati on nasal spray,suspe nsion USE 1 SPRAY(S) IN EACH NOSTRIL ONCE DAILY active Not Available Not Available No t Available sertraline 50 mg tablet 09/19 completed Not Available Not Available Not Available dicyclomine 10 mg capsule 02/21 completed Not Available Not Available Not Available dextroamphe tamine-amph etamine 5 mg tablet 07/17 completed Not Available Not Available Not Available naproxen 500 mg tablet 09/19 completed Not Available Not Available Not Available Vitamin B-12 1,000 mcg tablet Take by oral route. 02/24 completed Not Available Not Available Not Available oxycodone 5 mg tablet TAKE 1 TABLET BY MOUTH EVERY 4 HOURS NEEDED FOR PAIN 03/21 completed Not Available Not Available Not Available escitalopra m 10 mg tablet TAKE 1 TABLET BY MOUTH ONCE DAILY IN THE MORNING 06/04 completed Not Available Not Available Not Available Vitamin D3 25 mcg (1,000 unit) capsule Take by oral route. 02/24 completed Not Available Not Available Not Available rosuvastati n 10 mg tablet active Not Available Not Available Not Available rosuvastati n 20 mg tablet Take 0.5 tablets every day by oral route. 08/10 completed Not Available Not Available Not Available Pain Reliever (acetaminop hen) 500 mg tablet TAKE 2 TABLETS BY MOUTH EVERY 8 HOURS 08/16 completed Not Available Not Available Not Available duloxetine 20 mg capsule,del ayed release 02/21 completed Not Available Not Available Not Available duloxetine 30 mg capsule,del ayed release TAKE 2 CAPSULES BY MOUTH ONCE DAILY 06/04 completed Not Available Not Available Not Available duloxetine 60 mg capsule,del ayed release 09/19 completed Not Available Not Available Not Available Vesicare 5 mg tablet 04/06 completed Not Available Not Available Not Available eszopiclone 2 mg tablet TAKE 1 TABLET BY MOUTH ONCE DAILY AT NIGHT AT BEDTIME 01/05 completed Not Available Not Available Not Available tizanidine 4 mg capsule Take 1 capsule every day by oral route at bedtime. active Not Available Not Available No t Available pregabalin 75 mg capsule TAKE 1 CAPSULE BY MOUTH EVERY 12 HOURS FOR 14 DAYS 04/18 completed Not Available Not Available Not Available Zovirax 03/03 completed Not Available Not Available Not Available levothyroxi ne 200 mg 02/24 completed Not Available Not Available Not Available Lipitor 01/05 completed Not Available Not Available Not Available Calcium 600 02/24 completed Not Available Not Available Not Available multivitami n 04/18 completed Not Available Not Available Not Available oxybutynin 10 mg 02/24 completed Not Available Not Available Not Available lidocaine (PF) 10 mg/mL (1 %) injection solution In office injection administe red by the provider 04/06 completed [facility]: 0409- 4276- 17 Not Available Not Available Not Available Amitiza 8 mcg capsule 02/21 completed Not Available Not Available Not Available Suprep Bowel Prep Kit 17.5 gram-3.13 gram-1.6 gram oral solution 02/21 completed Not Available Not Available Not Available ropivacaine (PF) 5 mg/mL (0.5 %) injection solution in office 2023 active Not Available Not Available Not Avai lable zolpidem 3.[address] 1 TABLET UNDER THE TONGUE ONCE DAILY AT NIGHT AT BEDTIME FOR INSOMNIA 11/24 completed Not Available Not Available Not Available Myrbetriq 50 mg tablet,exte nded release TAKE 1 TABLET BY MOUTH ONCE DAILY 06/04 completed Not Available Not Available Not Available Breo Ellipta 100 mcg-25 mcg/dose powder for inhalation INHALE 1 PUFF BY MOUTH ONCE DAILY, RINSE AND SPIT active Not Available Not Available No t Available Arnuity Ellipta 100 mcg/actuati on powder for inhalation INHALE 1 PUFF BY MOUTH ONCE DAILY 08/10 completed Not Available Not Available Not Available diclofenac 75 mg oral tablet delay rel-capsaic in 0.025 % topical cream 02/24 completed Not Available Not Available Not Available Fluzone Quad (PF) 60 mcg (15 mcg x 4)/0.5 mL IM syringe PHARMACIS T ADMINISTE RED IMMUNIZAT ION ADMINISTE RED AT TIME OF DISPENSIN G active Not Available Not Available No t Available Vitals Date Recorded Body height Body mass index (BMI) Body weight Body temperature Provider Name and Address Organization Details Last Updated DateTime 12/29/2022 157.48 cm 33.7 kg/m2 91731 g 97.6 [degF] Kelly Taylor RN [facility] 12/29/2022 10:36:46 Date Recorded Body height Body mass index (BMI) Body weight Body temperature Heart rate Oxygen saturation Oxygen saturation in Arterial blood by Pulse oximetry Systolic blood pressure Diastolic blood pressure Provider Name and Address Organization Details Last Updated DateTime 3 157.48 cm 33.7 kg/m2 12502 g 98.2 [degF] 80 /min 95 % 95 % 124 mm[Hg] 80 mm[Hg] Leidy Gary RN [facility] 3 12:28:13 Date Recorded Body height Body mass index (BMI) Body weight Provider Name and Address Organization Details Last Updated DateTime 04/27/2023 154.94 cm 34 kg/m2 30587.63 g MARIVEL More[place] Follica [facility] 04/27/2023 11:18:45 Date Recorded Body height Body mass index (BMI) Body weight Body temperature Heart rate Systolic blood pressure Diastolic blood pressure Provider Name and Address Organization Details Last Updated DateTime 3 154.94 cm 33.8 kg/m2 60798.0 3 g 97.2 [degF] 74 /min 136 mm[Hg] 86 mm[Hg] Rhea Gutierrez [place] [facility] 10:44:51 Date Recorded Body height Provider Name an d Address Organization Details Last Updated DateTime 08/10/2023 154.94 cm Asia Sellers [place] [facility] 08/10/2023 11:08:05 Social History Question Answer Notes LastModified by Organization Details LastModified Time Tobacco Smoking Status Never Smoker Not Available [facility] 09/07/2022 05:55:58 Do You Have An Advance Directive? No [id number] Information not available 09/07/2022 What Is Your Level Of Alcohol Consumption? None [id number].[id number] [id number] Information not available 09/07/2022 What Is Your Level Of Caffeine Consumption? Moderate MIGRATION.[id number] [id number] Information not available 09/07/2022 How Much Tobacco Do You Chew? None MIGRATION.0301 [id number] Information not available 09/07/2022 In The 14 Days Before Symptom Onset, Have You Had Close Contact With A Laboratory-confi rmed COVID-19 While That Case Was Ill? No [id number] Information not available 09/07/2022 In The 14 Days Before Symptom Onset, Have You Had Close Contact With A Person Who Is Under Investigation For COVID-19 While That Person Was Ill? No [id number].[id number] [id number] Information not available 09/07/2022 What Type Of Diet Are You Following? REGULAR MIGRATION.0301 [id number] Information not available 09/07/2022 Which Illicit Or Recreational Drugs Have You Used? None [email or web address].[id number] [id number] Information not available 09/07/2022 Do You Or Have You Ever Used E-cigarettes Or Vape? Never Used Electronic Cigarettes [id number] Information not available 09/07/2022 What Is The Highest Grade Or Level Of School You Have Completed Or The Highest Degree You Have Received? 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 No MIGRATION.0301 [id number] Information not available 09/07/2022 What Is The Fluoride Status Of Your Home? Unknown MIGRATION.0301 [id number] Information not available 09/07/2022 Are There Any Guns Present In Your Home? Yes MIGRATION.0301 [id number] Information not available 09/07/2022 Do You Use Insect Repellent Routinely? No MIGRATION.0301 [id number] Information not available 09/07/2022 Where Do You Live? SingleLevelHouse MIGRATION.0301 [id number] Information not available 09/07/2022 Do You Have A Medical Power Of String Winding Machine Operator? No MIGRATION.0301 [id number] Information not available 09/07/2022 What Was The Date Of Your Most Recent Tobacco Screening? 05/03/2023 [email or web address] Information not available 05/03/2023 Do You Have Any Pets? Yes MIGRATION.0301 [id number] Information not available 09/07/2022 What Is Your Relationship Status? [id number] [id number] Information not available 09/07/2022 Do You Use Your Seat Belt Or Car Seat Routinely? Yes MIGRATION.0301 [id number] Information not available 09/07/2022 Do You Have Smoke And Carbon Monoxide Detectors In Your Home? Yes MIGRATION.0301 [id number] Information not available 09/07/2022 Are You Passively Exposed To Smoke? No MIGRATION.0301 [id number] Information not available 09/07/2022 Do You Or Have You Ever Used Smokeless Tobacco? Never Used Smokeless Tobacco MIGRATION.0301 [id number] Information not available 09/07/2022 Are There Any Smokers In Your House? No MIGRATION.0301 [id number] Information not available 09/07/2022 How Much Tobacco Do You Smoke? No MIGRATION.0301 [id number] Information not available 09/07/2022 What Types Of Sporting Activities Do You Participate In? None MIGRATION.0301 [id number] Information not available 09/07/2022 Do You Feel Stressed (tense, Restless, Nervous, Or Anxious, Or Unable To Sleep At Night)? [id number] MIGRATION.0301 [id number] Information not available 09/07/2022 Do You Use Any Illicit Or Recreational Drugs? No MIGRATION.0301 130745 Information not available 09/07/2022 Do You Use Sunscreen Routinely? Yes MIGRATION.0301 [id number] Information not available 09/07/2022 Has Tobacco Cessation Counseling Been Provided? No Not Needed-n ever Smoked MIGRATION.0301 [id number] Information not available 09/07/2022 How Many Years Have You Smoked Tobacco? 0 MIGRATION.030 270529 Information not available 09/07/2022 Have You Recently Traveled Abroad? No MIGRATION.030 059008 Information not available 09/07/2022 Do You Have Any Dietary Restrictions? No MIGRATION.030 690330 Information not available 09/07/2022 Do You Or Have You Ever Used Any Other Forms Of Tobacco Or Nicotine? No MIGRATION.030 569862 Information not available 09/07/2022 Sex: Female Functional Status Question Answer Note LastModified by Organizat ion Details LastModified Time What is your exercise level? Occasional [id number] Information not available 09/07/2022 Mental Status None recorded. Family History Relationship Description Onset Age of this Age Resolved Age Notes LastModified by Organization Details LastModified Time Mother Malignant neoplastic disease MIGRATION.889 [id number] Not available 09/07/2022 05:56:38 Mother Alcoholism MIGRATION.815 [id number] Not available 09/07/2022 05:56:38 Mother Hypertensive disorder MIGRATION.834 [id number] Not available 09/07/2022 05:56:38 Mother Heart disease MIGRATION.040 [id number] Not available 09/07/2022 05:56:38 Mother Family history of stroke MIGRATION.621 [id number] Not available 09/07/2022 05:56:38 Father Alcoholism MIGRATION.330 [id number] Not available 09/07/2022 05:56:38 Father Heart disease MIGRATION.038 [id number] Not available 09/07/2022 05:56:38 Brother Alcoholism MIGRATION.842 [id number] Not available 09/07/2022 05:56:38 Brother Heart disease MIGRATION.647 [id number] Not available 09/07/2022 05:56:38 Brother Chronic obstructive pulmonary disease MIGRATION.887 [id number] Not available 09/07/2022 05:56:38 Unspecified Relation Diabetes mellitus MIGRATION.853 [id number] Not available 09/07/2022 05:56:38 Medical History Condition Response NERVE DISEASE N BLINDNESS N RHEUMATIC FEVER N KIDNEY STONES N BLADDER PROBLEMS N MRSA N OTHER # 1 N POLIO N LUNG DISEASE/DISORDER N RADIATION / CHEMOTHERAPY N COPD N Other # 2 N BLOOD DISEASES N EAR OR HEARING PROBLEMS N MUMPS N BOWEL PROBLEMS N DEPRESSION (INCLUDING POST ) N STROKE/TIA N ULCERS N BENIGN PROSTATIC HYPERPLASIA N MEASLES N MYOCARDIAL INFARCTION N OBESITY N GERD/NAUSEA Y ANEURYSM N URINARY/BLADDER/KIDNEY PROBLEMS N CORONARY ARTERY DISEASE (CAD) N ADDICTION CONCERNS N ENDOMETRIOSIS N Impotence N USE OF BLOOD THINNERS N SKIN PROBLEMS N GASTROINTESTINAL DISORDER N PERIPHERAL VASCULAR DISEASE N MUSCLE,JOINT OR BONE PROBLEMS N GASTROINTESTINAL BLEEDING N BLOOD CLOTS N ASTHMA N CATARACTS N ERECTILE DYSFUNCTION N VARICOSITIES N GI PROBLEMS N Low Testosterone N INFERTILITY N AIDS/HIV N CHEMOTHERAPY / RADIATION N LIVER DISEASE N MALE HYPOGONADISM N HYPERTENSION N Deficiency Y TOURETTE'S N ANXIETY DISORDER N BLOOD TRANSFUSION N ANEMIA/BLOOD DISORDER N CHRONIC EAR INFECTIONS N BRONCHITIS N TUBERCULOSIS N GLAUCOMA N FOOT PROBLEM N DIVERTICULITIS N SLEEP APNEA N CHICKENPOX N INFECTIOUS DISEASE N HEART ARRHYTHMIA N PROSTATE N INSOMNIA N HIGH CHOLESTEROL / HYPERLIPIDEMIA Y HYPERTHYROIDISM N EYE PROBLEMS N EDEMA N CHRONIC PAIN SYNDROME N HYPOTHYROIDISM N CAROTID BLOCKAGE N CONSTIPATION N BACK / NECK PROBLEMS Y HAVE YOU BEEN HOSPITALIZED OR SEEN IN [facility] ER IN THE PAST YEAR ? N ATHEROSCLEROSIS N BREAST PROBLEMS N DIALYSIS N ECZEMA N OSTEOPOROSIS Y ARTHRITIS N APPENDICITIS N DIABETES, TYPE N BAD TEETH N ENT N HEARTBURN / REFLUX N AUTISM SPECTRUM DISORDER (ASD) N HEPATITIS / LIVER DISEASE N GOUT N SLEEP DISORDER N ALZHEIMER'S DISEASE N Brain Problems N HERPES N DEMENTIA N HEADACHES/MIGRAINES N SEIZURES/EPILEPSY N VASCULAR DISEASE N PACEMAKER N Blood Disorder N DIZZINESS N HEART DISEASE/HEART PROBLEMS N KIDNEY DISEASE N MULTIPLE SCLEROSIS N CARDIAC ARRHYTHMIA N CANCER: SPECIFY N ANESTHESIA COMPLICATIONS Y ATRIAL FIBRILLATION N Gall Stones N PULMONARY EMBOLISM N AUTOIMMUNE DISEASE N Gynecological HistoryNo gynecological history recorded. Obstetrics History GPAL:G 0 P 0 0 0 0 Immunizations Vaccine Type Date Status Note Provider Nam e and Address Organization Details Recorded Time COVID-19, mRNA, LNP-S, PF, 100 mcg/0.5mL dose or 50 mcg/0.25mL dose 05/31/2021 completed Not Available [facility] 3 06:08:47 COVID-19, mRNA, LNP-S, PF, 100 mcg/0.5mL dose or 50 mcg/0.25mL dose 10/23/2020 completed Not Available [facility] 3 06:08:47 COVID-19, mRNA, LNP-S, PF, 100 mcg/0.5mL dose or 50 mcg/0.25mL dose 09/27/2020 completed Not Available [facility] 3 06:08:48 Influenza, split virus, quadrivalent, PF 06/04/2019 completed Not Available [facility] 3 06:08:48 Influenza, split virus, quadrivalent, PF 04/18/2022 completed Not Available [facility] 3 06:08:48 Past Encounters Encounter ID Performer Location Encounter Start Date Encounter Closed Date Diagnosis/Indication Diagnosis SNOMED-CT Code Diagnosis ICD10 Code Diagnosis Note [id number] [facility] [place] [address], [place] [address] 11/12/2020 00:00:00 11/12/2020 22:33:37 [id number] [facility] [place] [address] [facility] [address] [place] [address] 11/26/2020 00:00:00 11/26/2020 16:11:26 [id number] [facility] [place] [address] [place] [address] 01/05/2021 00:00:00 01/11/2021 21:55:15 [id number] [facility] [place] [address] [facility] [address] [place] [address] 02/04/2021 00:00:00 02/04/2021 09:13:51 [id number] [facility] [address] [address] 02/23/2021 00:00:00 02/23/2021 10:52:46 [id number] [facility] [place] [address] [facility] [address] [place] [address] 03/18/2021 00:00:00 03/18/2021 09:53:12 [id number] [facility] [place] [address] [place] [address] 04/06/2021 00:00:00 04/06/2021 22:52:24 [id number] [facility] [address] [place] [address] [place] [address] 08/09/2021 00:00:00 08/12/2021 21:30:54 [id number] [facility] [address] [place], [place] [address]e., [address] [address] 11/24/2021 00:00:00 11/28/2021 12:29:31 [id number] [facility] [address] [address] 12/14/2021 00:00:00 12/14/2021 18:45:43 [id number] [facility] [address] [address] 03/21/2022 00:00:00 03/22/2022 09:07:07 [id number] [facility] [address] [address] 04/18/2022 00:00:00 04/24/2022 15:12:56 [id number] [facility] [address] [address] 08/16/2022 00:00:00 08/16/2022 15:09:44 [id number] Parish Meza MD [facility] [address] [address] 11/18/2022 09:26:54 11/18/2022 10:22:14 Hyperlipidemia 16607446 E78.5 Cough 76329519 R05.9 Bilateral tinnitus 47927 05424 102 H93.13 [id number] Tera Brandt MD [facility] [place] [address] [place] [address] 12/29/2022 09:43:30 12/29/2022 10:56:26 Bilateral tinnitus 2789615650 102 H93.13 [id number] Parish Meza MD [facility] [address] [place] [address] Ave[address] [facility] [address] [place] [address] 12/30/2022 11:34:39 12/30/2022 12:45:23 Gastroesophageal reflux disease 087955211 K21.9 Hyperlipidemia 38728850 E78.5 Rhinitis 63079441 J00 [id number] SERGEY Piña [facility] [address] [address] 04/27/2023 10:20:21 04/27/2023 12:40:46 Pain of right knee joint 7152989254 15976 M25.102 [id number] Parish Meza MD [facility] [address] [place] [address] 1 05/03/2023 10:28:22 05/03/2023 11:17:41 Gastroesophageal reflux disease 090858262 K21.9 Hyperlipidemia 79216535 E78.5 Pure hypercholesterolemia 645973250 E78.00 [id number] SERGEY Piña [facility] [address] [address] 08/10/2023 11:00:43 08/10/2023 11:51:49 Osteoarthritis of right knee joint 5672307913 70598 M17.11 Health Concerns Section Related Observation LastModified by Organization Detai ls LastModified Time None Recorded Concern Status LastModified by Organization Details LastModified Time None Recorded Advance Directives Directive N: Payers Encounter Date Sequence Insurance Name Policy Number Policy Mccain Covered Member ID Mccain Member ID Guarantor Name 12/29/2022 1 [place] [id number] 2 Hilary A Sharp [id number] Hilary Sharp 12/30/2022 1 [place] [id number] 2 Hilary A Sharp [id number] Hilary Sharp 04/27/2023 1 [place] [id number] 2 Hilary A Sharp [id number] Hilary Sharp 05/03/2023 1 [place] [id number] 2 Hilary A Sharp [id number] Hilary Sharp 08/10/2023 1 [place] [id number] 2 Hilary Cox [id number] Hilary Cox Notes Date Note Type Note Provider Name and Address Organization Details Recorded Time 12/29/2022 text/html This patient developed tinnitus after receiving the COVID vaccine. She had an audiogram demonstrating mild high-frequency hearing loss with normal word recognition scores. Tera Brandt MD [address], [place], [address], [employer] 12/29/2022 10:51:26 12/30/2022 text/html Rhinitis stable GERD fine dyslipidemia trying to follow a low-fat diet Parish Meza MD [address], [place], [address], [employer] 07/02/2023 15:49:19 05/03/2023 text/html Rhinitis stable GERD fine dyslipidemia trying to follow low-fat knee seeing Ortho Parish Meza MD [address] [employer], [place], [address], [employer] [facility] [place] 05/06/2023 16:54:18 OBGyn Episode No OBEpisode recorded.
[2024-08-15 07:26] VITALS: BP 128/79; PULSE 97; RESP 16; TEMP 36.4; O2SAT 97; BMI 31.7
--- NOTE | 2024-08-15 07:28 | P.PNAN_ITS ---
Anes - Initial Pre Proc Eval Procedure: Operation Date: 08/15/24 09:00 Proposed Procedures p Screening Colonoscopy - Aakash Kapadia MD Date/Time: 08/15/24 07:28 Surgeon: Aakash Kapadia MD Pre Op Diagnosis: Screening Patient Data Age: 59 Gender: F Height: 1.57 m Weight: 78.8 kg Last Vital Signs Temp 36.4 C 08/15/24 07:26 Pulse 97 08/15/24 07:26 Resp 16 08/15/24 07:26 BP 128/79 08/15/24 07:26 Pulse Ox 97 08/15/24 07:26 O2 Del Method Room Air 08/15/24 07:26 Allergies Allergy/AdvReac Type Severity Reaction Status Date / Time Cephalosporins Allergy Mild HIVES Verified 08/15/24 07:25 codeine Allergy Unknown flushed Verified 08/15/24 07:25 hydrocodone Allergy Unknown swelling Verified 08/15/24 07:25 Penicillins Allergy Unknown Hives Verified 08/15/24 07:25 Sulfa (Sulfonamide Allergy Unknown hives Verified 08/15/24 07:25 Antibiotics) CEFACLOR (Generic Allergy) Allergy Unknown Y Uncoded 08/15/24 07:25 Home Medications ?Medication ?Instructions ?Recorded ?Confirmed ?Type ergocalciferol (vitamin D2) 1,250 1,250 mcg PO WEEKLY 08/01/24 08/15/24 History mcg (50,000 unit) capsule losartan 25 mg tablet 25 mg PO DAILY 08/01/24 08/15/24 History pantoprazole 40 mg tablet,delayed 40 mg PO DAILY 08/01/24 08/15/24 History release rosuvastatin 10 mg tablet 10 mg PO DAILY 08/01/24 08/15/24 History Patient hx anesthesia problems: none Family hx anesthesia problems: none Results Review: All pre-operative results and documents have been reviewed as part of the pre-operative evaluation. [facility] Past Medical History Medical History (Updated 08/15/24 @ 07:31 by Curly Jose MD) Hyperlipidemia Obesity HTN (hypertension) Surgical History Surgical History (Updated 08/15/24 @ 07:32 by Curly Jose MD) History of partial knee replacement H/O cervical spine surgery Social History Social History Smoking status: Never smoker Substance use type: does not use Living arrangements: alone Spiritual care concerns: No Anes - Eval Final PreProcedure Day of Procedure 08/15/24 07:28 Patient weight: obese Heart: regular rate and rhythm Lungs: clear to auscultation Airway: Mallampati scale class II Neurological: alert and oriented Last oral intake: >/= 8 hours ASA classification: III Emergent: no Anesthetic plan: proceed Anesthesia type and monitoring: general GIVS and standard monitoring Results Review: All pre-operative results and documents have been reviewed as part of the pre- operative evaluation. Informed Consent: The patient's anesthetic plan and its attendant risks and benefits were discussed with the patient/family/POA. Questions were solicited and answers provided to the satisfaction of the patient/family/POA.
[2024-08-15] MEDS: LACTATED RINGERS 1,000 ML 150 ML IV CONT (07:44)
--- NOTE | 2024-08-15 08:45 | P.HP_ITS ---
H&P: HPI History of Present Illness Date/Time: 08/15/24 08:45 Chief Complaint: Screening colonoscopy Narrative: This is the patient's 2nd colonoscopy. she had a normal screening more than 10 years ago. There are no GI symptoms and there is no family history of colorectal cancer. Review of Systems Review of Systems: All systems reviewed & are unremarkable except as noted in HPI and below PMFSH Past Medical History Medical History (Updated 08/15/24 @ 08:46 by Aakash Kapadia MD) Hyperlipidemia Obesity HTN (hypertension) Surgical History Surgical History (Updated 08/15/24 @ 07:32 by Curly Jose MD) History of partial knee replacement H/O cervical spine surgery Social History Social History Smoking status: Never smoker Substance use type: does not use Living arrangements: alone Spiritual care concerns: No Meds Home Medications and Allergies Home Medications ?Medication ?Instructions ?Recorded ?Confirmed ?Type ergocalciferol (vitamin D2) 1,250 1,250 mcg PO WEEKLY 08/01/24 08/15/24 History mcg (50,000 unit) capsule losartan 25 mg tablet 25 mg PO DAILY 08/01/24 08/15/24 History pantoprazole 40 mg tablet,delayed 40 mg PO DAILY 08/01/24 08/15/24 History release rosuvastatin 10 mg tablet 10 mg PO DAILY 08/01/24 08/15/24 History Allergies Allergy/AdvReac Type Severity Reaction Status Date / Time Cephalosporins Allergy Mild HIVES Verified 08/15/24 07:25 codeine Allergy Unknown flushed Verified 08/15/24 07:25 hydrocodone Allergy Unknown swelling Verified 08/15/24 07:25 Penicillins Allergy Unknown Hives Verified 08/15/24 07:25 Sulfa (Sulfonamide Allergy Unknown hives Verified 08/15/24 07:25 Antibiotics) CEFACLOR (Generic Allergy) Allergy Unknown Y Uncoded 08/15/24 07:25 Vital Signs Vital Signs - 24 hr 08/15/24 07:26 Temperature 97.6 F Pulse Rate 97 Respiratory Rate 16 Blood Pressure 128/79 Pulse Oximetry 97 Oxygen Delivery Room Air Exam Const: General: cooperative and healthy appearing Resp: Effort & Inspection: normal respiratory effort and able to speak in complete sentences Auscultation: clear to auscultation bilaterally Cardio: Rate: regular rate Rhythm: regular rhythm GI: Inspection: normal to inspection GI Palp: No No hepatosplenomegaly present Auscultation: normal bowel sounds Rectal Exam: deferred Skin: General skin exam: normal color Psych: Appearance: grossly normal Mental Status: mental status grossly n ormal Assessment and Plan Assessment and plan (1) Encounter for screening colonoscopy: Code(s): Z12.11 - Encounter for screening for malignant neoplasm of colon Status: Acute Assessment and Plan: The patient is deemed a good candidate for the procedure. Consent signed. Will proceed.
[2024-08-15 09:20] VITALS: BP 128/79; PULSE 74; RESP 20; O2SAT 98
[2024-08-15 09:30] VITALS: BP 134/82; PULSE 67; RESP 20; O2SAT 98
[2024-08-15 09:40] VITALS: BP 153/89; PULSE 66; RESP 18; O2SAT 99
== END 2024-08-15 09:54 | disposition home or self-care (01) ==
PROVIDERS: PCP Internal Medicine; Visit Provider Internal Medicine Gastroenterology
PROC: 0DJD8ZZ Inspection of Lower Intestinal Tract, Via Natural or Artificial Opening Endoscopic (ICD-10-PCS; CPT 45378; principal; 2024-08-15 09:00)
DX: Z12.11 Encounter for screening for malignant neoplasm of colon (principal); I10 Essential (primary) hypertension; E78.5 Hyperlipidemia, unspecified; E66.9 Obesity, unspecified; Z68.31 Body mass index [BMI] 31.0-31.9, adult
CPT/HCPCS: 45378; J2003; J2704; J7120

== ENCOUNTER 2024-11-17 18:03 | Emergency (ER) | payer BC, SELFPAY ==
--- NOTE | ~2024-11-17 | XR_ITS ---
XR wrist LT min 3V Ordering provider: Omar Roblero History: . injury . Comparison: None. FINDINGS: BONES: Comminuted fracture in the distal left radius extending to the joint space. Minimal posterior displacement is noted. With mild angulation of about 23 degrees.. JOINT SPACES: Well maintained. SOFT TISSUES: Normal. IMPRESSION: Comminuted fracture in the distal left radius. Reviewed, dictated and finalized at location A.
[2024-11-17 18:05] VITALS: BP 153/81; PULSE 94; RESP 18; TEMP 36.7; O2SAT 95
--- OUTSIDE RECORDS SUMMARY | 2024-11-17 18:05 | XMS_ITS | Data Portability ---
Author Organization [facility] Address [address] [place] [address] Care Team Providers Care Warper Creeler Name Role Phone PARISH MEZA Primary Care Provider Assessment Encounter Date Assessment Date Assessment LastModified by Organization Details LastModified Time 10/20/2023 10/20/2023 Home sleep study blood work diagnosis have been discussed old records will be retrieved she will follow-up with me in 4 months she did have some fatigue before and we stopped her cholesterol medicine which really did not make a whole lot of difference. Not available 10/21/2023 18:46:48 03/01/2024 03/01/2024 blood work consider halting statin for a while can try coenzyme Q10 ABIs NCS leg we will follow up in 4 months continue other meds [email or web address] Not available 03/02/2024 12:32:53 03/29/2024 03/29/2024 physical therapy for her back healthy lifestyle care instructions for obesity dietary referral as where as well. 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 Healthy lifestyle care instructions discussed. 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 Mammogram all ordered all questions answered no changes in medications no side effects from medications and she is taking medications as prescribed follow up in 4 months [email or web address] Not available 06/22/2024 12:46:44 10/18/2024 10/18/2024 Blood work healthy lifestyle care instructions sleep study follow up 4 months still needs to go see the data entry processor for routine visit Prevnar 20 today continue current therapy [email or web address] Not available 10/19/2024 13:23:46 Plan of Treatment Reminders Order Date Submit Date Provider Last Modified By Organization Details Last Modified Time Details Appointments ANY 15 2024 10:30A M Parish Meza MD Not available Not available Not available Lab [facility] w/ auto diff [facility]25 [facility] [address], [place], [address], 10/19/2024 09:06:09 CMP, serum or plasma 2024 025 CARTHAGE Sumitakcasper, [address], [address], [place], [address], 10/19/2024 09:06:08 lipid panel, serum 2024 025 CARTHAGE Jay, [address], [address], [place], [address], 10/19/2024 09:06:07 vitamin D, 25-hydrox y, total, serum 2024 025 [facility] [address], [address], [place], [address], 10/19/2024 09:06:11 CMP, serum or plasma 2023 025 mariano Thompson, [address], [address], [place], [address], 11/06/2024 12:55:19 lipid panel, serum 2023 025 mariano Thompson, [address], [address], [place], [address], 11/06/2024 12:55:04 CBC w/ auto diff 2023 025 marcelany Jay, [address], [address], [place], [address], 11/06/2024 12:54:51 vitamin D, 25-hydrox y, total, serum 2023 025 [facility], [address], [address], [place], [address], 11/06/2024 12:55:32 lipid panel, serum 2023 024 [facility], [address], [address], [place], [address], 03/02/2024 08:22:56 TSH, ultra-sen sitive, serum 2023 024 [facility], [address], [address], [place], [address], 03/02/2024 08:22:58 T3, free, serum or plasma 2023 024 [facility], [address], [address], [place], [address], 03/02/2024 08:23:00 unlisted lab - T4, free 2023 024 [facility], [address], [address], [place], [address], 03/02/2024 08:22:56 CBC w/ auto diff 2023 024 [facility], [address], [address], [place], [address], 03/02/2024 08:22:59 CMP, serum or plasma 2023 024 [facility], [address], [address], [place], [address], 03/02/2024 08:22:57 vitamin D, 25-hydrox y, total, serum 2023 024 [facility], [address], [address], [place], [address], 03/02/2024 08:23:00 vitamin B12 + folate, serum or blood 2023 024 [facility], [address], [address], [place], [address], 03/02/2024 08:22:58 lipid panel, serum 2023 024 [facility], [address], [address], [place], [address], 10/21/2023 07:13:37 CBC w/ auto diff 2023 024 [facility], [address], [address], [place], [address], 10/21/2023 07:13:39 CMP, serum or plasma 2023 024 [facility], [address], [address], [place], [address], 10/21/2023 07:13:38 TSH, ultra-sen sitive, serum 2023 [facility], [address], [address], [place], [address], 10/21/2023 07:13:39 T3, free, serum or plasma 2023 024 [facility], [address], [address], [place], [address], 10/21/2023 07:13:40 unlisted lab - T4, free 2023 [facility], [address], [address], [place], [address], 10/21/2023 07:13:37 Referral gynecolog ist referral 2023 024 [facility] Ирина Rawls MD, [address], [address], [place], [address], 11/11/2024 10:34:15 nutrition ist/dieti moira referral 2023 024 [facility], [address], [place], [address], 06/07/2024 16:31:56 physical therapist referral 2023 024 [facility] [place], [facility], [place], [address], 04/15/2024 14:11:54 Procedures home sleep testing (PROC) - Per Leidy this was approved auth number [id number] start 10/28/24-. 2024 025 [facility], [address], [address], [place], [address], 11/17/2024 12:16:58 colonosco py screening (PROC) 2023 024 [facility], [address], [address], [place], [address], 08/22/2024 09:49:57 Surgeries None recorded. Imaging MAMMO, screening , digital, bilateral 2023 024 [facility] (Imaging), [address], [place], [address], 11/14/2024 11:32:54 nerve conductio n study - NCS B/L Legs 2023 024 [facility], [address] [place], [address], 06/21/2024 11:44:12 home sleep study 2023 024 [facility] [address] [place], [address], 11/24/2023 13:56:28 Medication Orders ergocalci ferol (vitamin D2) 1,250 mcg (50,000 unit) capsule [address] [facility] [address] [facility], [address] [place] [address], [address], 06/21/2024 13:34:55 losartan 25 mg tablet [address] [facility] [address] [facility], [address] [place] [address], [address], 03/01/2024 12:33:35 pantopraz ole 40 mg tablet,de layed release [address] [facility], [address] [place] [address], [address], 10/20/2023 13:56:52 Patient TargetsNo targets recorded. Patient Instructions Encounter Date Encounter Id Patient Instructions Last Modified By Organization Details Last Modified Time 03/01/2024 [id number] (ALEC) ankle brachial index* - B/L legs [email or web address] Not available 06/21/2024 11:44:39 03/29/2024 [id number] A healthy lifestyle: care instructions Not available 03/29/2024 13:04:48 06/21/2024 [id number] A healthy lifestyle: care instructions [email or web address] Not available 06/21/2024 13:34:55 10/18/2024 [id number] A healthy lifestyle: care instructions [email or web address] Not available 10/18/2024 13:41:08 Reason for Referral Physical Therapist Referral for Low back pain Referring Physician: Parish Meza, Internal Medicine, Encounter Date: 03/29/2024 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 Manager/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 Refer ral for Obesity Referring Physician: Parish Meza, Internal Medicine, Encounter Date: 03/29/2024 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 necologic 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 Referring Physician: Parish Meza, Internal Medicine, Encounter Date: 06/21/2024 Results Created Date Observation Date Name Description Value Unit Range Abnormal Flag Note LastModifiedBy Organization Detail LastModifiedTime 10/20/19 24 10/21/2023 LIPID PANEL cholesterol, total 210 mg/dL 100-19 9 above high normal Not Available [facility] [address] [place], [address], 10/21/2023 07:13:37 10/20/19 24 10/21/2023 LIPID PANEL triglyceride s 95 mg/dL 0-149 Not Available [facility] [address] [place], [address], 10/21/2023 07:13:37 10/20/19 24 10/21/2023 LIPID PANEL HDL cholesterol 90 mg/dL >39 Not Available [facility] [address] [place], [address], 10/21/2023 07:13:37 10/20/19 24 10/21/2023 LIPID PANEL VLDL cholesterol john 16 mg/dL 5-40 Not Available [facility] [address] [place], [address], 10/21/2023 07:13:37 10/20/19 24 10/21/2023 LIPID PANEL LDL chol calc ([facility]) 104 mg/dL 0-99 above high normal Not Available [facility] [address] [place], [address], 10/21/2023 07:13:37 10/20/19 24 10/21/2023 T4, FREE T4,free(dire ct) 1.48 NG/dL 0.82-1 .77 Not Available [facility] [address] [place], [address], 10/21/2023 07:13:37 10/20/19 24 10/21/2023 COMP. METAB OLIC PANEL (14) glucose 101 mg/dL 70-99 above high normal Not Available [facility] [address] [place], [address], 10/21/2023 07:13:38 10/20/19 24 10/21/2023 COMP. METAB OLIC PANEL (14) BUN 15 mg/dL 8-27 Not Available [facility] [address] [place], [address], 10/21/2023 07:13:38 10/20/19 24 10/21/2023 COMP. METAB OLIC PANEL (14) creatinine 0.89 mg/dL 0.57-1 .00 Not Available [facility] [address] [facility], [place], [address], 10/21/2023 07:13:38 10/20/19 24 10/21/2023 COMP. METAB OLIC PANEL (14) eGFR 74 mL/mi n/1.7 3 >59 Not Available [facility] [address] [place], [address], 10/21/2023 07:13:38 10/20/19 24 10/21/2023 COMP. METAB OLIC PANEL (14) BUN/creatini ne ratio 17 12-28 Not Available [facility] [address] [place], [address], 10/21/2023 07:13:38 10/20/19 24 10/21/2023 COMP. METAB OLIC PANEL (14) sodium 145 mmol/ L 134-14 4 above high normal Not Available [facility] [address] [place], [address], 10/21/2023 07:13:38 10/20/19 24 10/21/2023 COMP. METAB OLIC PANEL (14) potassium 4.7 mmol/ L 3.5-5. 2 Not Available [facility] [address] [place], [address], 10/21/2023 07:13:38 10/20/19 24 10/21/2023 COMP. METAB OLIC PANEL (14) chloride 107 mmol/ L 96-106 above high normal Not Available [facility] [address] [place], [address], 10/21/2023 07:13:38 10/20/19 24 10/21/2023 COMP. METAB OLIC PANEL (14) carbon dioxide, total 23 mmol/ L 20-29 Not Available [facility] [address] [place], [address], 10/21/2023 07:13:38 10/20/19 24 10/21/2023 COMP. METAB OLIC PANEL (14) calcium 9.4 mg/dL 8.7-10 .3 Not Available [facility] [address], [place], [address], 10/21/2023 07:13:38 10/20/19 24 10/21/2023 COMP. METAB OLIC PANEL (14) protein, total 6.8 g/dL 6.0-8. 5 Not Available [facility] [address] [facility] [place], [address], 10/21/2023 07:13:38 10/20/19 24 10/21/2023 COMP. METAB OLIC PANEL (14) albumin 4.5 g/dL 3.8-4. 9 Not Available [facility] [address] [facility] [place], [address], 10/21/2023 07:13:38 10/20/19 24 10/21/2023 COMP. METAB OLIC PANEL (14) globulin, total 2.3 g/dL 1.5-4. 5 Not Available [facility] [address] [facility] [place], [address], 10/21/2023 07:13:38 10/20/19 24 10/21/2023 COMP. METAB OLIC PANEL (14) A/G ratio 2.0 1.2-2. 2 Not Available [facility] [address] [facility], [place], [address], 10/21/2023 07:13:38 10/20/19 24 10/21/2023 COMP. METAB OLIC PANEL (14) bilirubin, total 0.6 mg/dL 0.0-1. 2 Not Available [facility] [address] [facility] [place], [address], 10/21/2023 07:13:38 10/20/19 24 10/21/2023 COMP. METAB OLIC PANEL (14) alkaline phosphatase 74 IU/L 44-121 Not Available [facility] [address] [facility], [place], [address], 10/21/2023 07:13:38 10/20/19 24 10/21/2023 COMP. METAB OLIC PANEL (14) AST (SGOT) 37 IU/L 0-40 Not Available [facility] [address] [facility], [place], [address], 10/21/2023 07:13:38 10/20/19 24 10/21/2023 COMP. METAB OLIC PANEL (14) ALT (SGPT) 48 IU/L 0-32 above high normal Not Available [facility] [address] [facility], [place], [address], 10/21/2023 07:13:38 10/20/19 24 10/21/2023 TSH TSH 3.520 uIU/m L 0.450- 4.500 Not Available [facility] [address] [facility], [place], [address], 10/21/2023 07:13:39 10/20/19 24 10/21/2023 CBC WITH DIFFE RENTI AL/PL ATELE T WBC 8.1 x10e3 /uL 3.4-10 .8 Not Available [facility] [address] [facility], [place], [address], 10/21/2023 07:13:39 10/20/19 24 10/21/2023 CBC WITH DIFFE RENTI AL/PL ATELE T RBC 4.97 x10e6 /uL 3.77-5 .28 Not Available [facility] [address] [place], [address], 10/21/2023 07:13:39 10/20/19 24 10/21/2023 CBC WITH DIFFE RENTI AL/PL ATELE T hemoglobin 14.7 g/dL 11.1-1 5.9 Not Available [facility] [address] [place], [address], 10/21/2023 07:13:39 10/20/19 24 10/21/2023 CBC WITH DIFFE RENTI AL/PL ATELE T hematocrit 44.9 % 34.0-4 6.6 Not Available [facility] [address] [place], [address], 10/21/2023 07:13:39 10/20/19 24 10/21/2023 CBC WITH DIFFE RENTI AL/PL ATELE T MCV 90 fL 79-97 Not Available [facility] [address] [place], [address], 10/21/2023 07:13:39 10/20/19 24 10/21/2023 CBC WITH DIFFE RENTI AL/PL ATELE T MCH 29.6 pg 26.6-3 3.0 Not Available [facility] [address] [place], [address], 10/21/2023 07:13:39 10/20/19 24 10/21/2023 CBC WITH DIFFE RENTI AL/PL ATELE T MCHC 32.7 g/dL 31.5-3 5.7 Not Available [facility] [address] [facility], [place], [address], 10/21/2023 07:13:39 10/20/19 24 10/21/2023 CBC WITH DIFFE RENTI AL/PL ATELE T RDW 12.8 % 11.7-1 5.4 Not Available [facility] [address] [facility], [place], [address], 10/21/2023 07:13:39 10/20/19 24 10/21/2023 CBC WITH DIFFE RENTI AL/PL ATELE T platelets 340 x10e3 /uL 150-45 0 Not Available [facility] [address] [facility], [place], [address], 10/21/2023 07:13:39 10/20/19 24 10/21/2023 CBC WITH DIFFE RENTI AL/PL ATELE T neutrophils 53 % notest ab. Not Available [facility] [address] [facility], [place], [address], 10/21/2023 07:13:39 10/20/19 24 10/21/2023 CBC WITH DIFFE RENTI AL/PL ATELE T lymphs 35 % notest ab. Not Available [facility] [address] [facility], [place], [address], 10/21/2023 07:13:39 10/20/19 24 10/21/2023 CBC WITH DIFFE RENTI AL/PL ATELE T monocytes 8 % notest ab. Not Available [facility] [address] [facility], [place], [address], 10/21/2023 07:13:39 10/20/19 24 10/21/2023 CBC WITH DIFFE RENTI AL/PL ATELE T eos 3 % notest ab. Not Available [facility] [address] [facility], [place], [address], 10/21/2023 07:13:39 10/20/19 24 10/21/2023 CBC WITH DIFFE RENTI AL/PL ATELE T basos 1 % notest ab. Not Available [facility] [address] [facility], [place], [address], 10/21/2023 07:13:39 10/20/19 24 10/21/2023 CBC WITH DIFFE RENTI AL/PL ATELE T neutrophils (absolute) 4.3 x10e3 /uL 1.4-7. 0 Not Available [facility] [address] [facility], [place], [address], 10/21/2023 07:13:39 10/20/19 24 10/21/2023 CBC WITH DIFFE RENTI AL/PL ATELE T lymphs (absolute) 2.9 x10e3 /uL 0.7-3. 1 Not Available [facility] [address] [facility], [place], [address], 10/21/2023 07:13:39 10/20/19 24 10/21/2023 CBC WITH DIFFE RENTI AL/PL ATELE T monocytes(ab solute) 0.7 x10e3 /uL 0.1-0. 9 Not Available [facility] [address] [place], [address], 10/21/2023 07:13:39 10/20/19 24 10/21/2023 CBC WITH DIFFE RENTI AL/PL ATELE T eos (absolute) 0.2 x10e3 /uL 0.0-0. 4 Not Available [facility] [address] [facility], [place], [address], 10/21/2023 07:13:39 0410/21/2023 CBC WITH DIFFE RENTI AL/PL ATELE T baso (absolute) 0.1 x10e3 /uL 0.0-0. 2 Not Available [facility] [address] [place], [address], 10/21/2023 07:13:39 10/20/1910/21/2023 CBC WITH DIFFE RENTI AL/PL ATELE T immature granulocytes 0 % notest ab. Not Available [facility] [address] [facility], [place], [address], 10/21/2023 07:13:39 10/20/1910/21/2023 CBC WITH DIFFE RENTI AL/PL ATELE T immature grans (abs) 0.0 x10e3 /uL 0.0-0. 1 Not Available [facility] [address] [place], [address], 10/21/2023 07:13:39 10/20/1910/21/2023 TRIIO DOTHY BERT E (T3), FREE triiodothyro nine (T3), free 3.8 pg/mL 2.0-4. 4 Not Available [facility] [address] [place], [address], 10/21/2023 07:13:40 03/01/2003/02/2024 LIPID PANEL cholesterol, total 160 mg/dL 100-19 9 Not Available [facility] [address] [place], [address], 03/02/2024 08:22:56 03/01/2003/02/2024 LIPID PANEL triglyceride s 69 mg/dL 0-149 Not Available [facility] [address] [place], [address], 03/02/2024 08:22:56 03/01/2003/02/2024 LIPID PANEL HDL cholesterol 83 mg/dL >39 Not Available [facility] [address] [facility] [place], [address], 03/02/2024 08:22:56 03/01/2003/02/2024 LIPID PANEL VLDL cholesterol john 13 mg/dL 5-40 Not Available [facility] [address] [place], [address], 03/02/2024 08:22:56 03/01/2003/02/2024 LIPID PANEL LDL chol calc ([facility]) 64 mg/dL 0-99 Not Available [facility] [address] [place], [address], 03/02/2024 08:22:56 03/01/2003/02/2024 T4, FREE T4,free(dire ct) 1.37 NG/dL 0.82-1 .77 Not Available [facility] [address] [place], [address], 03/02/2024 08:22:56 03/01/2003/02/2024 COMP. METAB OLIC PANEL (14) glucose 104 mg/dL 70-99 above high normal Not Available [facility] [address] [place], [address], 03/02/2024 08:22:57 03/01/2003/02/2024 COMP. METAB OLIC PANEL (14) BUN 15 mg/dL 8-27 Not Available [facility] [address] [place], [address], 03/02/2024 08:22:57 03/01/2003/02/2024 COMP. METAB OLIC PANEL (14) creatinine 0.82 mg/dL 0.57-1 .00 Not Available [facility] [address] [place], [address], 03/02/2024 08:22:57 03/01/20 24 03/02/2024 COMP. METAB OLIC PANEL (14) eGFR 81 mL/mi n/1.7 3 >59 Not Available [facility] [address] [facility], [place], [address], 03/02/2024 08:22:57 03/01/20 24 03/02/2024 COMP. METAB OLIC PANEL (14) BUN/creatini ne ratio 18 12-28 Not Available [facility] [address] [facility], [place], [address], 03/02/2024 08:22:57 03/01/2003/02/2024 COMP. METAB OLIC PANEL (14) sodium 141 mmol/ L 134-14 4 Not Available [facility] [address] [facility], [place], [address], 03/02/2024 08:22:57 03/01/2003/02/2024 COMP. METAB OLIC PANEL (14) potassium 4.6 mmol/ L 3.5-5. 2 Not Available [facility] [address] [facility], [place], [address], 03/02/2024 08:22:57 03/01/20 24 03/02/2024 COMP. METAB OLIC PANEL (14) chloride 105 mmol/ L 96-106 Not Available [facility] [address] [place], [address], 03/02/2024 08:22:57 03/01/2003/02/2024 COMP. METAB OLIC PANEL (14) carbon dioxide, total 22 mmol/ L 20-29 Not Available [facility] [address] [place], [address], 03/02/2024 08:22:57 03/01/20 24 03/02/2024 COMP. METAB OLIC PANEL (14) calcium 9.2 mg/dL 8.7-10 .3 Not Available [facility] [address] [facility] [place], [address], 03/02/2024 08:22:57 03/01/20 24 03/02/2024 COMP. METAB OLIC PANEL (14) protein, total 6.5 g/dL 6.0-8. 5 Not Available [facility] [address] [facility] [place], [address], 03/02/2024 08:22:57 03/01/2003/02/2024 COMP. METAB OLIC PANEL (14) albumin 4.4 g/dL 3.9-4. 9 Not Available [facility] [address] [facility] [place], [address], 03/02/2024 08:22:57 03/01/20 24 03/02/2024 COMP. METAB OLIC PANEL (14) globulin, total 2.1 g/dL 1.5-4. 5 Not Available [facility] [address] [facility] [place], [address], 03/02/2024 08:22:57 03/01/20 24 03/02/2024 COMP. METAB OLIC PANEL (14) bilirubin, total 0.4 mg/dL 0.0-1. 2 Not Available [facility] [address] [facility] [place], [address], 03/02/2024 08:22:57 03/01/2003/02/2024 COMP. METAB OLIC PANEL (14) alkaline phosphatase 75 IU/L 44-121 Not Available [facility] [address] [facility] [place], [address], 03/02/2024 08:22:57 03/01/20 24 03/02/2024 COMP. METAB OLIC PANEL (14) AST (SGOT) 27 IU/L 0-40 Not Available [facility] [address] [facility] [place], [address], 03/02/2024 08:22:57 03/01/20 24 03/02/2024 COMP. METAB OLIC PANEL (14) ALT (SGPT) 37 IU/L 0-32 above high normal Not Available [facility] [address] [facility], [place], [address], 03/02/2024 08:22:57 03/01/20 24 03/02/2024 VITAM IN B12 AND FOLAT E vitamin B12 695 pg/mL 232-12 45 Not Available [facility] [address] [facility], [place], [address], 03/02/2024 08:22:58 03/01/2003/02/2024 VITAM IN B12 AND FOLAT E folate (folic acid), serum 15.5 NG/mL >3.0 A serum folat e violetta ntrat ion of less than 3.1 ng/mL is consi dered to repre sent clini john defic iency . Not Available [facility] [address] [facility], [place], [address], 03/02/2024 08:22:58 03/01/2003/02/2024 TSH TSH 2.620 uIU/m L 0.450- 4.500 Not Available [facility] [address] [facility], [place], [address], 03/02/2024 08:22:58 03/01/2003/02/2024 CBC WITH DIFFE RENTI AL/PL ATELE T WBC 7.4 x10e3 /uL 3.4-10 .8 Not Available [facility] [address] [facility] [place], [address], 03/02/2024 08:22:59 03/01/2003/02/2024 CBC WITH DIFFE RENTI AL/PL ATELE T RBC 4.83 x10e6 /uL 3.77-5 .28 Not Available [facility] [address] [facility], [place], [address], 03/02/2024 08:22:59 03/01/2003/02/2024 CBC WITH DIFFE RENTI AL/PL ATELE T hemoglobin 14.9 g/dL 11.1-1 5.9 Not Available [facility] [address] [facility], [place], [address], 03/02/2024 08:22:59 03/01/2003/02/2024 CBC WITH DIFFE RENTI AL/PL ATELE T hematocrit 45.5 % 34.0-4 6.6 Not Available [facility] [address] [facility], [place], [address], 03/02/2024 08:22:59 03/01/2003/02/2024 CBC WITH DIFFE RENTI AL/PL ATELE T MCV 94 fL 79-97 Not Available [facility] [address] [place], [address], 03/02/2024 08:22:59 03/01/2003/02/2024 CBC WITH DIFFE RENTI AL/PL ATELE T MCH 30.8 pg 26.6-3 3.0 Not Available [facility] [address] [facility], [place], [address], 03/02/2024 08:22:59 03/01/2003/02/2024 CBC WITH DIFFE RENTI AL/PL ATELE T MCHC 32.7 g/dL 31.5-3 5.7 Not Available [facility] [address] [place], [address], 03/02/2024 08:22:59 03/01/2003/02/2024 CBC WITH DIFFE RENTI AL/PL ATELE T RDW 12.6 % 11.7-1 5.4 Not Available [facility] [address] [facility], [place], [address], 03/02/2024 08:22:59 03/01/2003/02/2024 CBC WITH DIFFE RENTI AL/PL ATELE T platelets 316 x10e3 /uL 150-45 0 Not Available [facility] [address] [facility], [place], [address], 03/02/2024 08:22:59 03/01/2003/02/2024 CBC WITH DIFFE RENTI AL/PL ATELE T neutrophils 52 % notest ab. Not Available [facility] [address] [facility], [place], [address], 03/02/2024 08:22:59 03/01/2003/02/2024 CBC WITH DIFFE RENTI AL/PL ATELE T lymphs 36 % notest ab. Not Available [facility] [address] [facility], [place], [address], 03/02/2024 08:22:59 03/01/2003/02/2024 CBC WITH DIFFE RENTI AL/PL ATELE T monocytes 8 % notest ab. Not Available [facility] [address] [facility], [place], [address], 03/02/2024 08:22:59 03/01/2003/02/2024 CBC WITH DIFFE RENTI AL/PL ATELE T eos 3 % notest ab. Not Available [facility] [address] [facility], [place], [address], 03/02/2024 08:22:59 03/01/2003/02/2024 CBC WITH DIFFE RENTI AL/PL ATELE T basos 1 % notest ab. Not Available [facility] [address] [facility], [place], [address], 03/02/2024 08:22:59 03/01/2003/02/2024 CBC WITH DIFFE RENTI AL/PL ATELE T neutrophils (absolute) 3.8 x10e3 /uL 1.4-7. 0 Not Available [facility] [address] [facility], [place], [address], 03/02/2024 08:22:59 03/01/2003/02/2024 CBC WITH DIFFE RENTI AL/PL ATELE T lymphs (absolute) 2.7 x10e3 /uL 0.7-3. 1 Not Available [facility] [address] [facility], [place], [address], 03/02/2024 08:22:59 03/01/2003/02/2024 CBC WITH DIFFE RENTI AL/PL ATELE T monocytes(ab solute) 0.6 x10e3 /uL 0.1-0. 9 Not Available [facility] [address] [place], [address], 03/02/2024 08:22:59 03/01/2003/02/2024 CBC WITH DIFFE RENTI AL/PL ATELE T eos (absolute) 0.2 x10e3 /uL 0.0-0. 4 Not Available [facility] [address] [place], [address], 03/02/2024 08:22:59 03/01/2003/02/2024 CBC WITH DIFFE RENTI AL/PL ATELE T baso (absolute) 0.1 x10e3 /uL 0.0-0. 2 Not Available [facility] [address] [place], [address], 03/02/2024 08:22:59 03/01/2003/02/2024 CBC WITH DIFFE RENTI AL/PL ATELE T immature granulocytes 0 % notest ab. Not Available [facility] [address] [facility], [place], [address], 03/02/2024 08:22:59 03/01/2003/02/2024 CBC WITH DIFFE RENTI AL/PL ATELE T immature grans (abs) 0.0 x10e3 /uL 0.0-0. 1 Not Available [facility] [address] [facility], [place], [address], 03/02/2024 08:22:59 03/01/2003/02/2024 TRIIO DOTHY BERT E (T3), FREE triiodothyro nine (T3), free 3.3 pg/mL 2.0-4. 4 Not Available [facility] [address] [facility], [place], [address], 03/02/2024 08:22:59 03/01/2003/02/2024 VITAM IN D, 25-HY DROXY vitamin D, 25-hydroxy 24.8 NG/mL 30.0-1 00.0 below low normal Vitam in D defic iency has been defin ed by the Insti tute of Medic ine and an Endoc rine Socie ty pract ice guide line as a level of serum 25-OH vitam in D less than 20 ng/mL (1,2) . [facility] went on to furth er defin e vitam in D insuf ficie ncy as a level betwe en 21 and 29 ng/mL (2). 1. IOM (Inst itute of Medic ine). 2010. Dieta ry refer ence samuel es for calci um and D. Honey anaya [place]: The [facility] Press . 2. Yara k MF, Binkl ey [place], Nain off-F errar i CANO, et al. Evalu ation , treat ment, and preve ntion of vitam in D defic iency : an Endoc rine Socie ty clini john pract ice guide line. JCEM. 2010; 96(7) :191 -. Not Available [facility] [address] [facility], [place], [address], 03/02/2024 08:23:00 06/17/20 24 06/18/2024 VITAM IN [...] Medic ine). 2009. Dieta ry refer ence samuel es for calci um and D. Honey anaya [place]: The Natio nal [facility] Press . 2. Yara donahue MF, Janey araujo [place], Nain off-F errar i CANO, et al. Evalu ation , treat ment, and preve ntion of vitam in D defic iency : an Endoc rine Socie ty clini john pract ice guide line. JCEM. 2010; 96(7) :191 -. Not Available [facility] [address] [facility], [place], [address], 06/18/2024 07:14:52 10/19/19 25 10/19/2024 LIPID PANEL cholesterol, total 171 mg/dL 100-19 9 Not Available [facility] [address] [facility], [place], [address], 10/19/2024 09:06:07 10/19/19 25 10/19/2024 LIPID PANEL triglyceride s 87 mg/dL 0-149 Not Available [facility] [address] [facility], [place], [address], 10/19/2024 09:06:07 10/19/19 25 10/19/2024 LIPID PANEL HDL cholesterol 81 mg/dL >39 Not Available [facility] [address] [place], [address], 10/19/2024 09:06:07 10/19/19 25 10/19/2024 LIPID PANEL VLDL cholesterol john 16 mg/dL 5-40 Not Available [facility] [address] [place], [address], 10/19/2024 09:06:07 10/19/19 25 10/19/2024 LIPID PANEL LDL chol calc ([facility]) 74 mg/dL 0-99 Not Available [facility] [address] [place], [address], 10/19/2024 09:06:07 10/19/19 25 10/19/2024 COMP. METAB OLIC PANEL (14) glucose 98 mg/dL 70-99 Not Available [facility] [address] [place], [address], 10/19/2024 09:06:08 10/19/19 25 10/19/2024 COMP. METAB OLIC PANEL (14) BUN 13 mg/dL 8-27 Not Available [facility] [address] [place], [address], 10/19/2024 09:06:08 10/19/19 25 10/19/2024 COMP. METAB OLIC PANEL (14) creatinine 0.76 mg/dL 0.57-1 .00 Not Available [facility] [address] [place], [address], 10/19/2024 09:06:08 10/19/19 25 10/19/2024 COMP. METAB OLIC PANEL (14) eGFR 89 mL/mi n/1.7 3 >59 Not Available [facility] [address] [facility], [place], [address], 10/19/2024 09:06:08 10/19/19 25 10/19/2024 COMP. METAB OLIC PANEL (14) BUN/creatini ne ratio 17 12-28 Not Available [facility] [address] [facility], [place], [address], 10/19/2024 09:06:08 10/19/19 25 10/19/2024 COMP. METAB OLIC PANEL (14) sodium 140 mmol/ L 134-14 4 Not Available [facility] [address] [facility], [place], [address], 10/19/2024 09:06:08 10/19/19 25 10/19/2024 COMP. METAB OLIC PANEL (14) potassium 4.3 mmol/ L 3.5-5. 2 Not Available [facility] [address] [facility], [place], [address], 10/19/2024 09:06:08 10/19/19 25 10/19/2024 COMP. METAB OLIC PANEL (14) chloride 106 mmol/ L 96-106 Not Available [facility] [address] [facility], [place], [address], 10/19/2024 09:06:08 10/19/19 25 10/19/2024 COMP. METAB OLIC PANEL (14) carbon dioxide, total 20 mmol/ L 20-29 Not Available [facility] [address] [facility], [place], [address], 10/19/2024 09:06:08 10/19/19 25 10/19/2024 COMP. METAB OLIC PANEL (14) calcium 9.2 mg/dL 8.7-10 .3 Not Available [facility] [address] [facility], [place], [address], 10/19/2024 09:06:08 10/19/19 25 10/19/2024 COMP. METAB OLIC PANEL (14) protein, total 6.7 g/dL 6.0-8. 5 Not Available [facility] [address], [place], [address], 10/19/2024 09:06:08 10/19/19 25 10/19/2024 COMP. METAB OLIC PANEL (14) albumin 4.4 g/dL 3.9-4. 9 Not Available [facility] [address], [place], [address], 10/19/2024 09:06:08 10/19/19 25 10/19/2024 COMP. METAB OLIC PANEL (14) globulin, total 2.3 g/dL 1.5-4. 5 Not Available [facility] [address] [facility], [place], [address], 10/19/2024 09:06:08 10/19/19 25 10/19/2024 COMP. METAB OLIC PANEL (14) bilirubin, total 0.6 mg/dL 0.0-1. 2 Not Available [facility] [address] [facility], [place], [address], 10/19/2024 09:06:08 10/19/19 25 10/19/2024 COMP. METAB OLIC PANEL (14) alkaline phosphatase 69 IU/L 44-121 Not Available [facility] [address] [facility], [place], [address], 10/19/2024 09:06:08 10/19/19 25 10/19/2024 COMP. METAB OLIC PANEL (14) AST (SGOT) 32 IU/L 0-40 Not Available [facility] [address] [facility], [place], [address], 10/19/2024 09:06:08 10/19/1910/19/2024 COMP. METAB OLIC PANEL (14) ALT (SGPT) 42 IU/L 0-32 above high normal Not Available [facility] [address] [facility], [place], [address], 10/19/2024 09:06:08 10/19/1910/19/2024 CBC WITH DIFFE RENTI AL/PL ATELE T WBC 7.9 x10e3 /uL 3.4-10 .8 Not Available [facility] [address] [facility], [place], [address], 10/19/2024 09:06:09 10/19/1910/19/2024 CBC WITH DIFFE RENTI AL/PL ATELE T RBC 4.68 x10e6 /uL 3.77-5 .28 Not Available [facility] [address] [facility], [place], [address], 10/19/2024 09:06:09 10/19/1910/19/2024 CBC WITH DIFFE RENTI AL/PL ATELE T hemoglobin 14.6 g/dL 11.1-1 5.9 Not Available [facility] [address] [facility], [place], [address], 10/19/2024 09:06:09 10/19/1910/19/2024 CBC WITH DIFFE RENTI AL/PL ATELE T hematocrit 43.2 % 34.0-4 6.6 Not Available [facility] [address] [facility], [place], [address], 10/19/2024 09:06:09 10/19/1910/19/2024 CBC WITH DIFFE RENTI AL/PL ATELE T MCV 92 fL 79-97 Not Available [facility] [address] [facility], [place], [address], 10/19/2024 09:06:09 10/19/19 25 10/19/2024 CBC WITH DIFFE RENTI AL/PL ATELE T MCH 31.2 pg 26.6-3 3.0 Not Available [facility] [address] [facility], [place], [address], 10/19/2024 09:06:09 10/19/19 25 10/19/2024 CBC WITH DIFFE RENTI AL/PL ATELE T MCHC 33.8 g/dL 31.5-3 5.7 Not Available [facility] [address] [facility], [place], [address], 10/19/2024 09:06:09 10/19/1910/19/2024 CBC WITH DIFFE RENTI AL/PL ATELE T RDW 12.6 % 11.7-1 5.4 Not Available [facility] [address] [facility], [place], [address], 10/19/2024 09:06:09 10/19/1910/19/2024 CBC WITH DIFFE RENTI AL/PL ATELE T platelets 335 x10e3 /uL 150-45 0 Not Available [facility] [address] [facility], [place], [address], 10/19/2024 09:06:09 10/19/1910/19/2024 CBC WITH DIFFE RENTI AL/PL ATELE T neutrophils 52 % notest ab. Not Available [facility] [address] [place], [address], 10/19/2024 09:06:09 10/19/1910/19/2024 CBC WITH DIFFE RENTI AL/PL ATELE T lymphs 37 % notest ab. Not Available [facility] [address] [place], [address], 10/19/2024 09:06:09 10/19/19 10/19/2024 CBC WITH DIFFE RENTI AL/PL ATELE T monocytes 7 % notest ab. Not Available [facility] [address] [facility], [place], [address], 10/19/2024 09:06:09 10/19/1910/19/2024 CBC WITH DIFFE RENTI AL/PL ATELE T eos 3 % notest ab. Not Available [facility] [address] [facility], [place], [address], 10/19/2024 09:06:09 10/19/1910/19/2024 CBC WITH DIFFE RENTI AL/PL ATELE T basos 1 % notest ab. Not Available [facility] [address] [facility], [place], [address], 10/19/2024 09:06:09 10/19/1910/19/2024 CBC WITH DIFFE RENTI AL/PL ATELE T neutrophils (absolute) 4.1 x10e3 /uL 1.4-7. 0 Not Available [facility] [address] [facility], [place], [address], 10/19/2024 09:06:09 10/19/1910/19/2024 CBC WITH DIFFE RENTI AL/PL ATELE T lymphs (absolute) 2.9 x10e3 /uL 0.7-3. 1 Not Available [facility] [address] [facility], [place], [address], 10/19/2024 09:06:09 10/19/1910/19/2024 CBC WITH DIFFE RENTI AL/PL ATELE T monocytes(ab solute) 0.5 x10e3 /uL 0.1-0. 9 Not Available [facility] [address] [facility], [place], [address], 10/19/2024 09:06:09 10/19/1910/19/2024 CBC WITH DIFFE RENTI AL/PL ATELE T eos (absolute) 0.2 x10e3 /uL 0.0-0. 4 Not Available [facility] [address] [facility], [place], [address], 10/19/2024 09:06:09 10/19/1910/19/2024 CBC WITH DIFFE RENTI AL/PL ATELE T baso (absolute) 0.1 x10e3 /uL 0.0-0. 2 Not Available [facility] [address] [facility], [place], [address], 10/19/2024 09:06:09 10/19/1910/19/2024 CBC WITH DIFFE RENTI AL/PL ATELE T immature granulocytes 0 % notest ab. Not Available [facility] [address] [facility], [place], [address], 10/19/2024 09:06:09 10/19/1910/19/2024 CBC WITH DIFFE RENTI AL/PL ATELE T immature grans (abs) 0.0 x10e3 /uL 0.0-0. 1 Not Available [facility] [address] [facility], [place], [address], 10/19/2024 09:06:09 10/19/1910/19/2024 VITAM IN D, 25-HY DROXY vitamin D, 25-hydroxy 34.5 NG/mL 30.0-1 00.0 Vitam in D defic iency has been [...] Medic ine). 2010. Dieta ry refer ence intak es for calci um and D. Honey anaya [place]: [facility] Press . 2. Yara donahue MF, Janey araujo [place], Nain off-F darciar i CANO, et al. Evalu ation , treat ment, and preve ntion of vitam in D defic iency : an Endoc rine Socie ty clini john pract ice guide line. JCEM. 2010; 96(7) :1911 -30. Not Available [facility] [address] [facility], [place], [address], 10/19/2024 09:06:11 11/18/19 25 11/06/2024 home sleep testi alexis (PROC ) No observ ation record ed. [facility] [address], [address], [place], [address], 11/17/2024 12:16:58 Result Notes None recorded. Problems Name Problem SNOMED Code Status Onset Date Resolution Date Notes Provider Name and Address Organization Details Recorded Time Acid reflux 745347597 Active 2023 Dorothea Booker [place] null, [place] - [facility] 10:56:47 Environment al allergy 759444941 Active 2023 Dorothea Booker [place], [place] [facility] 4 10:57:31 Hypercholes terolemia 53785655 Active 2023 Dorothea Booker [place], [place] [facility] 10:57:53 Hypersomnia 15189753 Active 2023 Lilian Hutson [place], [place] [facility] 4 11:42:24 Fatigue 14098449 Active 2023 Lilian Hutson [place], [place] [facility] 4 11:42:25 Chronic rhinitis 73056767 Active 2023 Parish Meza MD Attn: Trini barger,[address] [facility], [place], [address], [place] - [facility] 4 18:45:34 Vitamin D below reference range 931458328 Active 2023 Parish Meza MD Attn: Trini barger,[address] [facility], [place], [address], [place] - [facility] 4 18:45:46 Pain in bilateral legs 7323781551549 9108 Active 2023 Lilian Hutson [place] null, [place] - [facility] 4 12:25:46 Long-term drug therapy Active 2023 Lilian Hutson [place], [place] - [facility] 4 12:22:21 Reactive airway disease 767668193587 Active 2023 Parish Meza MD Attn: Trini barger,[address] [facility], [place], [address], [facility] - [facility] 4 12:45:14 HIV screening declined 0943007311791 00 Active 2023 Parish Meza MD Attn: Trini denita,[address] [place], [address], [place] - [facility] 4 12:47:03 Problem Notes None recorded. Procedures Surgical History Date Name Laterality Status Provider Name and Address Organization Details Recorded Time Joint Replacement completed Dorothea Booker MA [place] - [facility] 10/20/2023 11:02:08 Knee Surgery completed Dorothea Booker [place] - [facility] 10/20/2023 11:02:15 Total hysterectomy completed Dolly Booker MA [place] - [facility] 10/20/2023 11:02:26 Tonsillectomy completed Dorothea Booker MA [place] - [facility] 10/20/2023 11:02:41 Imaging Results Imaging Date Name Status LastModified by Organiz ation Details LastModified Time 11/06/2024 home sleep testing (PROC) active [facility] [address] [facility], [address], [place], [address], 11/17/2024 12:16:58 Procedure Notes None recorded. Medical Equipment None Reported. Allergies Allergen ID Allergen Name Allergen Category Reaction Reaction Severity Criticality Documentation Date Start Date Code Code System Note Provider Name and Address Organization Details Recorded Time 291612 codeine medicatio n anaphylax is hives rash Not available Not available Not available high 10/20/2023 2670 RxNorm Dorothea Booker [place] null, [place] - [facility] 4 10:55:47 536364 Product containin g penicilli n (product) medicatio n hives rash Not available Not available low 10/20/2023 59866 8001 SNOMED Dorothea Booker [place], [place] - [facility] 4 10:56:09 139571 tramadol medicatio n itching Not available Not available 10/18/2024 42456 RxNorm Karen Palacios MA null, [place] - [facility] 5 11:46:13 Medications Name Sig Start Date Stop Date [...] 1 CAPSULE BY MOUTH THREE TIMES DAILY 10/18 completed Not Available Not Available Not Available pantoprazole 40 mg tablet,delay ed release TAKE 1 TABLET BY MOUTH TWICE DAILY active Not Available Not Available No t Available oseltamivir 75 mg capsule TAKE 1 CAPSULE BY MOUTH TWICE DAILY 10/18 completed Not Available Not Available Not Available losartan 25 mg tablet TAKE 1 TABLET BY MOUTH ONCE DAILY active Not Available Not Available No t Available montelukast 10 mg tablet Take 1 tablet by mouth once daily active Not Available Not Available No t Available ergocalcifer ol (vitamin D2) 1,250 mcg (50,000 unit) capsule TAKE 1 CAPSULE BY MOUTH ONCE A WEEK active Not Available Not Available No t Available albuterol sulfate HFA 90 mcg/actuatio n aerosol inhaler 03/01 completed Not Available Not Available Not Available fluticasone propionate 50 mcg/actuatio n nasal spray,suspen ellyn USE 1 SPRAY(S) IN EACH NOSTRIL ONCE DAILY active Not Available Not Available No t Available rosuvastatin 10 mg tablet TAKE 1 TABLET BY MOUTH ONCE DAILY active Not Available Not Available No t Available Breo Ellipta 100 mcg-25 mcg/dose powder for inhalation INHALE 1 PUFF BY MOUTH ONCE DAILY RINSE MOUTH AFTER USE 10/18 completed Not Available Not Available Not Available Arnuity Ellipta 100 mcg/actuatio n powder for inhalation INHALE 1 PUFF BY MOUTH ONCE DAILY 10/18 completed Not Available Not Available Not Available Vitals Date Recorded Body weight Heart rate Oxygen saturation Oxygen saturation in Arterial blood by Pulse oximetry Systolic blood pressure Diastolic blood pressure Provider Name and Address Organization Details Last Updated DateTime 4 26631.9 4 g 97 /min 97 % 97 % 140 mm[Hg] 82 mm[Hg] Dorothea Booker MA [facility] 4 10:54:43 Date Recorded Body height Body mass index (BMI) Body weight Heart rate Oxygen saturation Oxygen saturation in Arterial blood by Pulse oximetry Systolic blood pressure Diastolic blood pressure Provider Name and Address Organization Details Last Updated DateTime 4 157.48 cm 32.9 kg/m2 57164.6 3 g 78 /min 95 % 95 % 150 mm[Hg] 94 mm[Hg] Inocencia Tomlinson MA [facility] 4 11:46:11 Date Recorded Body height Body mass index (BMI) Body weight Heart rate Oxygen saturation Oxygen saturation in Arterial blood by Pulse oximetry Systolic blood pressure Diastolic blood pressure Provider Name and Address Organization Details Last Updated DateTime 4 157.48 cm 32.6 kg/m2 91474.8 g 74 /min 97 % 97 % 122 mm[Hg] 64 mm[Hg] Dorothea Booker MA [facility] 4 10:58:40 Date Recorded Body height Body mass index (BMI) Body weight Heart rate Oxygen saturation Oxygen saturation in Arterial blood by Pulse oximetry Systolic blood pressure Diastolic blood pressure Provider Name and Address Organization Details Last Updated DateTime 4 157.48 cm 33 kg/m2 44285.3 5 g 72 /min 96 % 96 % 126 mm[Hg] 84 mm[Hg] Karen Palacios MA [facility] 4 11:38:23 Date Recorded Body height Body mass index (BMI) Body weight Heart rate Oxygen saturation Oxygen saturation in Arterial blood by Pulse oximetry Systolic blood pressure Diastolic blood pressure Provider Name and Address Organization Details Last Updated DateTime 5 157.48 cm 32.4 kg/m2 05755.5 7 g 88 /min 96 % 96 % 132 mm[Hg] 82 mm[Hg] Karenmynor Palacios MA [facility] 11:45:51 Social History Question Answer Notes LastModified by Organizat ion Details LastModified Time Tobacco Smoking Status Never Smoker Dorothea CHUN Booker null, [place] - [facility] 10/20/2023 11:00:06 Do You Have An Advance [...] Or The Highest Degree You Have Received? 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 No Information not available 10/20/2023 What Was The Date Of Your Most Recent Tobacco Screening? 10/18/2024 [email or web address] Information not available 10/18/2024 What Is Your Relationship Status? Information not available 10/20/2023 Do You Use Your Seat Belt Or Car Seat Routinely? Yes Information not available 03/01/2024 Do You Have Smoke And Carbon Monoxide Detectors In Your Home? Yes Information not available 10/20/2023 Do You Feel Stressed (tense, Restless, Nervous, Or Anxious, Or Unable To Sleep At Night)? [id number] Information not available 10/20/2023 Do You Use [...] LastModified by Organization Details LastModified Time Mother Harmful pattern of use of alcohol mebyma Not available 2023 10:58:59 Mother Asthma mebyma Not available 06/2024 10:59:06 Mother Malignant tumor of breast mebyma Not available 2023 10:59:23 Mother Myocardial infarction bandersonma Not available 11:42:18 Mother Cerebrovascu lar accident bandersonma Not available 0 03/01/2024 11:42:51 Father Harmful pattern of use of alcohol mebyma Not available 2023 10:58:59 Father Myocardial infarction bandersonma Not available 11:42:18 Father Cerebrovascu lar accident bandersonma Not available 0 03/01/2024 11:42:51 Brother Harmful pattern of use of alcohol mebyma Not available 2023 10:58:59 Medical History Condition Response Coronary Artery Disease N High Blood Pressure N Atrial Fibrillation N Kidney or Bladder Problems Y Thyroid Problems N GI Problems N Depression N COPD N Blood Clots N Skin Problems Y Anemia Y Heart Attack ([place]) N Anxiety Disorder N Diabetes N Muscle, Joint, or Bone Problems Y Seizures/Epilepsy N Acid Reflux (GERD) Y Cancer N Stroke N Asthma N Allergies Y High Cholesterol Y Hepatitis N Liver Disease N Headaches N Osteoporosis Y Heart Failure N Gynecological History Statement/Question Response If Post Menopausal, Age at Menopause 34 Obstetrics History GPAL:G 2 P 0 0 0 2 Type Value Living 2 Total 2 Immunizations Vaccine Type Date Status Note Provider Nam e and Address Organization Details Recorded Time zoster recombinant 2 completed CHUN [place], [place] - [facility] 03/01/2024 11:41:33 zoster recombinant 2 completed CHUN [place], [place] - [facility] 03/01/2024 11:41:33 COVID-19, mRNA, LNP-S, PF, 100 mcg/0.5mL dose or 50 mcg/0.25mL dose 1 completed CHUN [place], [place] - [facility] 03/01/2024 11:41:33 COVID-19, mRNA, LNP-S, PF, 100 mcg/0.5mL dose or 50 mcg/0.25mL dose 1 completed CHUN [place], [place] [facility] 03/01/2024 11:41:33 COVID-19, mRNA, LNP-S, PF, 100 mcg/0.5mL dose or 50 mcg/0.25mL dose 1 completed CHUN [place], [place] [facility] 03/01/2024 11:41:33 COVID-19, mRNA, LNP-S, PF, 100 mcg/0.5mL dose or 50 mcg/0.25mL dose 1 completed CHUN [place] [facility] 03/01/2024 11:41:33 Tdap 3 completed CHUN [place] [facility] 03/01/2024 11:41:33 Influenza, split virus, quadrivalent, PF 2 completed Inocencia Tomlinson [place], [place] [facility] 03/01/2024 11:41:33 Influenza, split virus, quadrivalent, PF 0 completed Inocencia Tom[place] [facility] 03/01/2024 11:41:33 Influenza, split virus, quadrivalent, PF 9 completed Inocencia Tom[place] [facility] 03/01/2024 11:41:33 Influenza, split virus, quadrivalent, PF 3 completed Inocencia Tom[place] [facility] 03/01/2024 11:41:33 Pneumococcal conjugate PCV20, polysaccharide [id number] conjugate, adjuvant, PF 5 completed Parish Meza MD Attn: Accounting[address] [place], [address], [place] [facility] 10/19/2024 13:22:43 Past Encounters Encounter ID Performer Location Encounter Start Date Encounter Closed Date Diagnosis/Indication Diagnosis SNOMED-CT Code Diagnosis ICD10 Code Diagnosis Note [id number] Parish Meza MD [facility] (Adult Med) [address] [place] [address] [id number] 10/20/2023 10:27:49 10/20/2023 12:22:31 Hypersomnia 06110766 G47.10 Fatigue 76597888 R53.83 Acid reflux 513820754 K2 1.9 Hypercholesterolemia 136 21303 E78.00 Chronic rhinitis 1598380 6 J31.0 Vitamin D below reference range 695047221 E55.9 [id number] [address] MD [facility] (Adult Med) [address] [place] [address] [id number] 03/01/2024 11:21:56 03/01/2024 12:32:55 Fatigue 04113845 R53.83 Pain in bi lateral legs 1420446871 9086843 M79.604 M79.605 Hypercholesterolemia 136 92803 E78.00 Acid reflux 996517920 K2 1.9 Chronic rhinitis 6169708 6 J31.0 Vitamin D below reference range 947710270 E55.9 [id number] [facility] [address] [place] [address] [phone] 0 03/29/2024 10:35:26 03/29/2024 11:57:31 Obesity 800893815 E66.8 Low back pain 515898184 M54.50 [id number] MD Lei Mcclain (Adult Med) [address] [place] [address] [phone] 0 06/21/2024 11:22:40 06/21/2024 12:33:51 Body mass index 30+ - obesity 250363846 Z68.33 Obesity 125391777 E66.9 Vitamin D deficiency 347 25361 E55.9 Hypercholesterolemia 136 12811 E78.00 Long-term drug therapy 977921999 Z79.899 Screening mammography 24 707963 Z12.31 Screening for malignant neoplasm of colon 869787781 Z12.11 Gynecologi c examination 78879764 Z01.419 Acid reflux 091058548 K2 1.9 Chronic rhinitis 5731957 6 J31.0 Vitamin D below reference range 998405929 E55.9 Reactive a irway disease 8349760389 06 J45.909 HIV screen ing declined 5398164216 37028 Z53.20 [id number] MD Lei Mcclain (Adult Med) [address] [place] [address] [phone] 0 10/18/2024 11:20:57 10/18/2024 12:30:40 Body mass index 30+ - obesity 792070663 Z68.33 Obesity 400147156 E66.9 Administra tion of pneumococcal vaccine 89597497 Z23 Hypercholesterolemia 136 52326 E78.00 Chronic rhinitis 1616742 6 J31.0 Acid reflux 854548864 K2 1.9 Vitamin D below reference range 156278752 E55.9 Sleep disorder 31167204 G47.9 Health Concerns Section Related Observation LastModified by Organization Detai ls LastModified Time None Recorded Concern Status LastModified by Organization Details LastModified Time None Recorded Advance Directives Directive N: Payers Encounter Date Sequence Insurance Name Policy Number Policy Mccain Covered Member ID Mccain Member ID Guarantor Name 10/20/2023 1 [employer] ([place]O) [id number] 2 Hilary A Sharp [id number] Hilary Sharp 03/01/2024 1 [employer] [employer] [place] [id number] 2 Hilary A Sharp [id number] 92 Hilary Sharp 03/29/2024 1 [employer] [employer] [place]) [id number] 2 Hilary A Sharp [id number] 92 Hilary Sharp 06/21/2024 1 [employer] [employer] [place]) [id number] 2 Hilary A Sharp [id number] 92 Hilary Sharp 10/18/2024 1 [employer] ([place]) [id number] 2 Hilary A Sharp [id number] Hilary Sharp Notes Date Note Type [...] month. Parish Meza MD Attn: Accounting[address] [place], [address], [facility] [place] 10/21/2023 18:47:06 03/01/2024 text/html complains of lenore e fatigue with no specific complaints referable to that some pain in her legs she can not really say whether it is with activity or without activity dyslipidemia she does take the statin. Insomnia has been fair rhinitis has been controlled GERD no breakthrough Parish Meza MD Attn: Accounting[address] [place], [address], [facility] 03/02/2024 12:33:09 03/29/2024 text/html having some low back pain that shoots down the legs from time to time pretty significant and nerve conduction test was denied by her insurance company and she does not want to pay for her pain is [id number] sometimes severe sometimes hard for her to get out of bed and walk in the morning no bowel or bladder incontinence. Obesity trouble losing weight. Chronic rhinitis stable on fluticasone hypertension no headache or dizziness GERD no nausea no vomiting dyslipidemia taking rosuvastatin and she is trying to follow a low-fat diet Parish Meza MD Attn: Accounting[address] , [place], [address], [facility] 03/29/2024 22:42:22 06/21/2024 text/html [...] bit more regularly. Parish Meza MD Attn: Accounting[address] , [place], [address], [facility] 06/22/2024 12:47:29 10/18/2024 text/html She had a colonoscopy done and she apparently had apneic spells and desaturation and they said get a sleep study she does have some fatigue during the course of the day dyslipidemia tries to follow a low-fat diet her rhinitis is doing good GERD seems to be stable needs a vitamin-D level to follow up on her low vitamin-D. Karen Palacios MA [facility], [place] - [facility] 10/21/2024 09:12:48 OBGyn Episode No OBEpisode recorded.
--- OUTSIDE RECORDS SUMMARY | 2024-11-17 18:05 | XMS_ITS | Data Portability ---
Author Organization [facility], Main Office Address [address] [place] [address] Care Team Providers Care Group Program Manager Name Role Phone PARISH MEZA Primary Care Provider PARISH MZEA Referring Provider Assessment Encounter Date Assessment Date Assessment LastModified by Organization Details LastModified Time 12/30/2022 12/30/2022 Continue current therapy diagnosis discussed follow-up in 4 months [email or web address] Not available 07/02/2023 15:48:54 04/27/2023 04/27/2023 HPI: [...] treatment patient more half of this in [email or web address] conversation Not available 04/27/2023 12:09:01 05/03/2023 05/03/2023 Continue current therapy follow-up in 4 months [email or web address] Not available 05/06/2023 16:53:46 08/10/2023 08/10/2023 HPI: [...] when she feels she needs additional injection. Not available 08/10/2023 11:32:58 Plan of Treatment Reminders Order Date Submit Date Provider Last Modified By Organization Details Last Modified Time Details Appointments None recorded. Lab None recorded. Referral None recorded. Procedures injection/a spiration joint/bursa (PROC) - in office procedure, administere d by provider 2023 024 [email or web address] In-Office Order, Internal Use Only DO Not Attach Compendium DO Not Attach Compendium, Do Not Delete/merge, [id number] 11:10:36 injection/a spiration joint/bursa (PROC) - in office procedure, administere d by provider 2022 023 In-Office Order, Internal Use Only DO Not Attach Compendium DO Not Attach Compendium, Do Not Delete/merge, [id number] 3 12:03:13 Surgeries None recorded. Imaging XR, knee 2022 023 [email or web address] [facility]_[address], [place], [address], 3 12:40:46 Medication Orders Kenalog 10 mg/mL suspension for injection 2023 024 [email or web address] [facility], [address] [facility], [place], [address], 4 11:27:23 ropivacaine (PF) 5 mg/mL (0.5 %) injection solution 2023 024 [email or web address] [facility] [address], [address] [place] [address], [address], 4 11:27:23 Kenalog 10 mg/mL suspension for injection [address] [facility] [address], [address] [place] [address], [address], 3 12:03:13 ropivacaine (PF) 5 mg/mL (0.5 %) injection solution [address], [address] [place] [address], [address], 3 12:03:13 Patient TargetsNo targets recorded. Patient Instructions Encounter Date Encounter Id Patient Instructions Last Modified By Organization Details Last Modified Time 12/29/2022 [id number] patient understands there is no current treatment [...] No observ ation record ed. [facility] [place] [address] [facility], [place], [address], 04/27/2023 12:04:14 Result Notes None recorded. Problems Name Problem SNOMED Code Status Onset Date Resolution Date Notes Provider Name and Address Organization Details Recorded Time Edema of lower extremity 249196124 Active 2021 Not Available [facility] 3 06:03:14 Asthenia 62462216 Active Not Available [facility] 3 06:03:14 Chondromal acia of left knee 2400901114506 9102 Active 2019 Not Available [facility] 3 06:03:14 Abdominal pain 79941789 Active Not Available [facility] 3 06:03:14 Gastroesop hageal reflux disease 813662309 Active Not Available [facility] 3 06:03:14 Pure hyperchole sterolemia 525949247 Active Not Available [facility] 3 06:03:14 Malaise and fatigue 990111691 Active Not Available [facility] 3 06:03:14 Low back pain 172912083 Active Not Available [facility] 3 06:03:14 Current tear of medial cartilage AND/OR meniscus of knee Active 2019 Not Available [facility] 3 06:03:14 Vitamin D deficiency 26484754 Active Not Available [facility] 3 06:03:15 Pain of left knee joint 3297719873211 07 Active 2021 Not Available [facility] 3 06:03:15 Dysuria 44569724 Active 2021 Not Available [facility] 3 06:03:15 Cough 38763119 Active 2022 Not Available [facility] 3 06:03:15 Upper respirator y infection 64115948 Active Not Available [facility] 3 06:03:15 Hyperlipid emia 38048032 Active 2021 Not Available [facility] 3 06:03:15 Pain of joint 02274726 Active Not Available [facility] 3 06:03:15 Osteoporos is 05558039 Active Not Available [facility] 3 06:03:15 Bilateral tinnitus 0623741829639 Active 2022 MARIVEL Barba, [facility] 3 10:23:54 Pain of right knee joint 0072283116543 00 Active 2022 Roselyn quintero, [facility] 3 16:15:03 Rhinitis 67083235 Active 2022 Parish Meza MD [address] [place] [address], [facility] [address], [place], [address] , [facility] [employer] [facility] 3 15:48:39 Osteoarthr itis of right knee joint 4630660878605 00 Active 2023 Asia Sellers, RMA null, [facility] [employer] [facility] 4 11:08:50 Problem Notes None recorded. Procedures Surgical History Date Name Laterality Status Provider Name and Address Organization Details Recorded Time 03/08/20 22 Knee Replacement completed Not Available [facility] 09/07/2022 05:56:31 02/10/20 21 Knee arthroscopy/ron debbie completed Not Available [facility] 09/07/2022 05:56:31 08/16/19 17 Excisions - Specify completed Not Available [facility] 09/07/2022 05:56:31 08/16/19 17 Exc tr-ext b9+margie 1.1-2 cm completed Not Available [facility] 09/07/2022 05:56:31 Arthrd ant ntrbd min dsc crv completed Not Available [facility] 09/07/2022 05:56:31 Breast Surgery completed Not Available [facility] 09/07/2022 05:56:31 Imaging Results Imaging Date Name Status LastModified by Organiz ation Details LastModified Time 12/12/2022 audiogram + tympanogram completed [email or web address] Information not available 12/12/2022 14:44:54 04/27/2023 XR, knee completed [facility] [place] [id number] [facility], [place], [address], 04/27/2023 12:04:14 Procedure Notes None recorded. Medical Equipment None Reported. Allergies Allergen ID Allergen Name Allergen Category Reaction Reaction Severity Criticality Documentation Date Start Date Code Code System Note Provider Name and Address Organization Details Recorded Time 79607 tramadol medicatio n itching Not available Not available 09/07/2022 34059 RxNorm Not Available [facility] 06:08:55 38446 Product containin g penicilli n (product) medicatio n hives Not available Not available 09/07/2022 77165 8001 SNOMED Not Available [facility] 3 06:08:55 20673 codeine medicatio n nausea vomiting Not available Not available Not available 09/07/2022 2670 RxNorm Not Available [facility] 3 06:08:56 Medications Name Sig Start Date [...] suspension for injection in office 2023 active [facility]: 0003- 0494- 20 Not Available Not Available [...] administe red by the provider 04/06 completed [facility]: 0409- 4276- 17 Not Available Not Available [...] Updated DateTime 12/29/2022 157.48 cm 33.7 kg/m2 16805 g 97.6 [degF] Kelly Taylor RN [facility] 12/29/2022 10:36:46 Date Recorded Body height Body mass index (BMI) Body weight Body temperature Heart rate Oxygen saturation Oxygen saturation in Arterial blood by Pulse oximetry Systolic blood pressure Diastolic blood pressure Provider Name and Address Organization Details Last Updated DateTime 3 157.48 cm 33.7 kg/m2 48934 g 98.2 [degF] 80 /min 95 % 95 % 124 mm[Hg] 80 mm[Hg] Leidy Gary RN [facility] 3 12:28:13 Date Recorded Body height Body mass index (BMI) Body weight Provider Name and Address Organization Details Last Updated DateTime 04/27/2023 154.94 cm 34 kg/m2 33376.63 g MARIVEL Moreno [place] [employer] [facility] [employer] [facility] 04/27/2023 11:18:45 Date Recorded Body height Body mass index (BMI) Body weight Body temperature Heart rate Systolic blood pressure Diastolic blood pressure Provider Name and Address Organization Details Last Updated DateTime 3 154.94 cm 33.8 kg/m2 67597.0 3 g 97.2 [degF] 74 /min 136 mm[Hg] 86 mm[Hg] Rhea Gutierrez [place] [facility] 10:44:51 Date Recorded Body height Provider Name an d Address Organization Details Last Updated DateTime 08/10/2023 154.94 cm Asia Sellers [place] [facility] [place] [employer] [facility] 08/10/2023 11:08:05 Social History Question Answer Notes LastModified by Organization Details LastModified Time Tobacco Smoking Status Never Smoker Not Available [facility] 09/07/2022 05:55:58 Do You Have An Advance Directive? No MIGRATION.0301 [id number] Information not available 09/07/2022 What Is Your Level Of Alcohol Consumption? None MIGRATION.0301 291129 Information not available 09/07/2022 What Is Your Level Of Caffeine Consumption? Moderate MIGRATION.0301 659022 Information not available 09/07/2022 How Much Tobacco Do You Chew? None MIGRATION.030 826311 Information not available 09/07/2022 In The 14 Days Before Symptom Onset, Have You Had Close Contact With A Laboratory-confi rmed COVID-19 While That Case Was Ill? No MIGRATION.030 304658 Information not available 09/07/2022 In The 14 Days Before Symptom Onset, Have You Had Close Contact With A Person Who Is Under Investigation For COVID-19 While That Person Was Ill? No MIGRATION.0301 268789 Information not available 09/07/2022 What Type Of Diet Are You Following? REGULAR MIGRATION.0301 642994 Information not available 09/07/2022 Which Illicit Or Recreational Drugs Have You Used? None MIGRATION.0301 245152 Information not available 09/07/2022 Do You Or Have You Ever Used E-cigarettes Or Vape? Never Used Electronic Cigarettes MIGRATION.030 871653 Information not available 09/07/2022 What Is The Highest Grade Or Level Of School You Have Completed Or The Highest Degree You Have Received? 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 No MIGRATION.030 179112 Information not available 09/07/2022 What Is The Fluoride Status Of Your Home? Unknown MIGRATION.0301 725408 Information not available 09/07/2022 Are There Any Guns Present In Your Home? Yes MIGRATION.0301 240356 Information not available 09/07/2022 Do You Use Insect Repellent Routinely? No MIGRATION.0301 986168 Information not available 09/07/2022 Where Do You Live? SingleLevelHouse MIGRATION.0301 852174 Information not available 09/07/2022 Do You Have A Medical Power Of Neurophysiological Technician? No MIGRATION.0301 475553 Information not available 09/07/2022 What Was The Date Of Your Most Recent Tobacco Screening? 05/03/2023 [email or web address] Information not available 05/03/2023 Do You Have Any Pets? Yes MIGRATION.0301 538531 Information not available 09/07/2022 What Is Your Relationship Status? MIGRATION.0301 987131 Information not available 09/07/2022 Do You Use Your Seat Belt Or Car Seat Routinely? Yes MIGRATION.0301 679739 Information not available 09/07/2022 Do You Have Smoke And Carbon Monoxide Detectors In Your Home? Yes MIGRATION.0301 544749 Information not available 09/07/2022 Are You Passively Exposed To Smoke? No MIGRATION.0301 942278 Information not available 09/07/2022 Do You Or Have You Ever Used Smokeless Tobacco? Never Used Smokeless Tobacco MIGRATION.0301 484282 Information not available 09/07/2022 Are There Any Smokers In Your House? No MIGRATION.0301 427553 Information not available 09/07/2022 How Much Tobacco Do You Smoke? No MIGRATION.0301 351703 Information not available 09/07/2022 What Types Of Sporting Activities Do You Participate In? None MIGRATION.0301 066219 Information not available 09/07/2022 Do You Feel Stressed (tense, Restless, Nervous, Or Anxious, Or Unable To Sleep At Night)? [id number] MIGRATION.0301 678496 Information not available 09/07/2022 Do You Use Any Illicit Or Recreational Drugs? No MIGRATION.0301 741339 Information not available 09/07/2022 Do You Use Sunscreen Routinely? Yes MIGRATION.0301 930939 Information not available 09/07/2022 Has Tobacco Cessation Counseling Been Provided? No Not Needed-n ever Smoked MIGRATION.0301 922535 Information not available 09/07/2022 How Many Years Have You Smoked Tobacco? 0 MIGRATION.0301 581433 Information not available 09/07/2022 Have You Recently Traveled Abroad? No MIGRATION.0301 270996 Information not available 09/07/2022 Do You Have Any Dietary Restrictions? No MIGRATION.0301 962887 Information not available 09/07/2022 Do You Or Have You Ever Used Any Other Forms Of Tobacco Or Nicotine? No MIGRATION.0301 958238 Information not available 09/07/2022 Sex: Female Functional Status Question Answer Note LastModified by Organizat ion Details LastModified Time What is your exercise level? Occasional MIGRATION.[id number] 26 Information not available 09/07/2022 Mental Status None recorded. Family History Relationship Description Onset Age of this Age Resolved Age Notes LastModified by Organization Details LastModified Time Mother Malignant neoplastic disease MIGRATION.857 [id number] Not available 09/07/2022 05:56:38 Mother Alcoholism MIGRATION.100 2812246 Not available 09/07/2022 05:56:38 Mother Hypertensive disorder MIGRATION.815 9665389 Not available 09/07/2022 05:56:38 Mother Heart disease MIGRATION.922 0019937 Not available 09/07/2022 05:56:38 Mother Family history of stroke MIGRATION.777 4640372 Not available 09/07/2022 05:56:38 Father Alcoholism MIGRATION.748 2186993 Not available 09/07/2022 05:56:38 Father Heart disease MIGRATION.353 1170276 Not available 09/07/2022 05:56:38 Brother Alcoholism MIGRATION.645 7905818 Not available 09/07/2022 05:56:38 Brother Heart disease MIGRATION.303 7623801 Not available 09/07/2022 05:56:38 Brother Chronic obstructive pulmonary disease MIGRATION.836 1640399 Not available 09/07/2022 05:56:38 Unspecified Relation Diabetes mellitus MIGRATION.028 2052700 Not available 09/07/2022 05:56:38 Medical History Condition [...] ARTERY DISEASE (CAD) N ADDICTION CONCERNS N Impotence N ENDOMETRIOSIS N USE OF BLOOD THINNERS N SKIN [...] APNEA N CHICKENPOX N INFECTIOUS DISEASE N PROSTATE N HEART ARRHYTHMIA N INSOMNIA N HIGH CHOLESTEROL / HYPERLIPIDEMIA Y EYE PROBLEMS N HYPERTHYROIDISM N EDEMA N CHRONIC PAIN SYNDROME N HYPOTHYROIDISM N CONSTIPATION N CAROTID BLOCKAGE N BACK / NECK PROBLEMS Y HAVE YOU BEEN HOSPITALIZ[facility] OR [facility] THE PAST YEAR ? N ATHEROSCLEROSIS N BREAST PROBLEMS N DIALYSIS N ECZEMA N OSTEOPOROSIS Y ARTHRITIS N APPENDICITIS N DIABETES, TYPE N BAD TEETH N ENT N HEARTBURN / REFLUX N AUTISM SPECTRUM DISORDER (ASD) N HEPATITIS / LIVER DISEASE N GOUT N SLEEP DISORDER N ALZHEIMER'S DISEASE N Brain Problems N DEMENTIA N HERPES N SEIZURES/EPILEPSY N HEADACHES/MIGRAINES N VASCULAR DISEASE N PACEMAKER N Blood Disorder N DIZZINESS N HEART DISEASE/HEART PROBLEMS N KIDNEY DISEASE N MULTIPLE SCLEROSIS N CANCER: SPECIFY N CARDIAC ARRHYTHMIA N ANESTHESIA COMPLICATIONS Y ATRIAL FIBRILLATION N Gall Stones N PULMONARY EMBOLISM N AUTOIMMUNE DISEASE N Gynecological HistoryNo gynecological history recorded. Obstetrics History GPAL:G 0 P 0 0 0 0 Immunizations Vaccine Type Date Status Note Provider Nam e and Address Organization Details Recorded Time COVID-19, mRNA, LNP-S, PF, 100 mcg/0.5mL dose or 50 mcg/0.25mL dose 05/31/2021 completed Not Available [facility] 3 06:08:47 COVID-19, mRNA, LNP-S, PF, 100 mcg/0.5mL dose or 50 mcg/0.25mL dose 10/23/2020 completed Not Available [facility] 3 06:08:47 COVID-19, mRNA, LNP-S, PF, 100 mcg/0.5mL dose or 50 mcg/0.25mL dose 09/27/2020 completed Not Available [facility] 3 06:08:48 Influenza, split virus, quadrivalent, PF 06/04/2019 completed Not Available [facility] 3 06:08:48 Influenza, split virus, quadrivalent, PF 04/18/2022 completed Not Available [facility] 3 06:08:48 Past Encounters Encounter ID Performer Location Encounter Start Date Encounter Closed Date Diagnosis/Indication Diagnosis SNOMED-CT Code Diagnosis ICD10 Code Diagnosis Note [id number] Parish Meza MD [facility] [place] [address] [facility] [address] , [place] [address] 11/12/2020 00:00:00 11/12/2020 22:33:37 [id number] SERGEY Lozano [facility] [place] [address] [facility] [address] [place] [address] 11/26/2020 00:00:00 11/26/2020 16:11:26 [id number] Parish Meza MD [facility] [place] [address] [place] [address] y , [place] [address] 01/05/2021 00:00:00 01/11/2021 21:55:15 [id number] Yariel Tomlinson MD [facility] [place] [address] [facility] [address] [place] [address] 02/04/2021 00:00:00 02/04/2021 09:13:51 [id number] Yariel Tomlinson MD [address] [address] 02/23/2021 00:00:00 02/23/2021 10:52:46 [id number] Yariel Tomlinson MD [facility] [place] [address] [facility] [address] [place] [address] 03/18/2021 00:00:00 03/18/2021 09:53:12 [id number] Parish Meza MD [facility] [place] [address] [facility] [address] , [place] [address] 04/06/2021 00:00:00 04/06/2021 22:52:24 [id number] Parish Meza MD [facility] [address] [address] 08/09/2021 00:00:00 08/12/2021 21:30:54 [id number] Parish Meza MD [facility] [address] [address] 11/24/2021 00:00:00 11/28/2021 12:29:31 [id number] Parish Meza MD [facility] [address] [address] 12/14/2021 00:00:00 12/14/2021 18:45:43 [id number] Parish Meza MD [facility] [address] [facility] [address] [address] 03/21/2022 00:00:00 03/22/2022 09:07:07 [id number] Parish Meza MD [facility] [address] [address] 04/18/2022 00:00:00 04/24/2022 15:12:56 [id number] Parish Meza MD [facility] [address] [facility] [address] [address] 08/16/2022 00:00:00 08/16/2022 15:09:44 [id number] Parish Meza MD [facility] [address] [place] [address] Mary, [address] [address] 11/18/2022 09:26:54 11/18/2022 10:22:14 [facility] 06088708 E78.5 Cough 26809313 R05.9 Bilateral tinnitus 73537 06324 102 H93.13 [id number] Tera Brandt MD [facility] [place] [address] [place] [address] 12/29/2022 09:43:30 12/29/2022 10:56:26 Bilateral tinnitus 5244065146 102 H93.13 [id number] Parish Meza MD [facility] [address] [place] [address] 1 12/30/2022 11:34:39 12/30/2022 12:45:23 Gastroesophageal reflux disease 900824487 K21.9 Hyperlipidemia 88307931 E78.5 Rhinitis 47698049 J00 [id number] SERGEY Piña [place] [address] 04/27/2023 10:20:21 04/27/2023 12:40:46 Pain of right knee joint 8935877545 72093 M25.552 [id number] Parish Meza MD [facility] [address] [place] [address] 05/03/2023 10:28:22 05/03/2023 11:17:41 Gastroesophageal reflux disease 457947802 K21.9 Hyperlipidemia 70148170 E78.5 Pure hypercholesterolemia 902810906 E78.00 [id number] Roberto Day MD [place] [address] 08/10/2023 11:00:43 08/10/2023 11:51:49 Osteoarthritis of right knee joint 2687402377 29760 M17.11 Health Concerns Section Related Observation LastModified by Organization Detai ls LastModified Time None Recorded Concern Status LastModified by Organization Details LastModified Time None Recorded Advance Directives Directive N: Payers Encounter Date Sequence Insurance Name Policy Number Policy Mccain Covered Member ID Mccain Member ID Guarantor Name 12/29/2022 1 [place] [id number] 2 Hilary A Sharp [id number] Hilary Sharp 12/30/2022 1 [place] [id number] 2 Hilary A Sharp [id number] Hilary Sharp 04/27/2023 1 [place] [id number] 2 Hilary A Sharp [id number] 192 Hilary Sharp 05/03/2023 1 [place] [id number] 2 Hilary A Sharp [id number] 192 Hilary Sharp 08/10/2023 1 [place] [id number] 2 Hilary A Sharp [id number] Hilary Sharp Notes Date Note Type Note Provider Name and Address Organization Details Recorded Time 12/29/2022 text/html This patient developed tinnitus after receiving the COVID vaccine. She had an audiogram demonstrating mild high-frequency hearing loss with normal word recognition scores. Tera Brandt MD [address] [place] [address], [place], [address], [email or web address] [facility] 12/29/2022 10:51:26 12/30/2022 text/html Rhinitis stable GERD fine dyslipidemia trying to follow a low-fat diet Parish Meza MD [address] [place] [address], [place], [address], [email or web address] 07/02/2023 15:49:19 05/03/2023 text/html Rhinitis stable GERD fine dyslipidemia trying to follow low-fat knee seeing Ortho Parish Meza MD [address] [place] [employer], [place], [address], [email or web address] [facility] 05/06/2023 16:54:18 OBGyn Episode No OBEpisode recorded.
--- OUTSIDE RECORDS SUMMARY | 2024-11-17 18:06 | XMS_ITS | Referral Summary ---
Author Organization [facility] Address [address] [place] [address] Care Team Providers Care Bake Room Worker Name Role Phone Sim Meza MD Primary Care Provider [phone] Allergies Active Allergy Reactions Criticality Noted Date Comments Codeine Itching,Nausea And Vomiting Medium 01/10/20 19 Penicillins Swelling,Urticaria Medium 01/09/2019 Tramadol Rash,Nausea only Medium 01/31/2022 Medications cholecalciferol (VITAMIN D-3) 2000 unit capsule Take 2,000 Units by mouth every morning Activ e pantoprazole DR (PROTONIX) 40 mg EC tablet Take 40 mg by mouth 2 (two) times a day 01/29/20 22 Active rosuvastatin (CRESTOR) 10 mg tabletIndications :hyperlipidemia Take 10 mg by mouth nightly 01/15/20 22 Active traZODone (DESYREL) 50 mg tablet Take 50 mg by mouth nightly Active oxyCODONE (ROXICODONE) 5 mg immediate release tabletIndications :Pain Take 1 tablet (5 mg total) by mouth every 4 (four) hours as needed for pain 30 tablet 03/08/20 22 Active pregabalin (LYRICA) 75 mg capsule Take 1 capsule (75 mg total) by mouth every 12 (twelve) hours for 14 days 28 capsule 03/08/20 22 Active acetaminophen (TYLENOL) 500 mg tablet Take 2 tablets (1,000 mg total) by mouth every 8 (eight) hours 90 tablet 1 03/08/20 22 Active aspirin 81 mg enteric coated tabletIndications :prevention of thrombosis Take 1 tablet (81 mg total) by mouth 2 (two) times a day 60 tablet 03/08/20 22 Active senna-docusate (Senna-S) 8.6-50 mg Take 2 tablets by mouth 2 (two) times a day 80 tablet 1 03/08/20 22 Active acyclovir (ZOVIRAX) 5 % ointment acyclovir 5 % topical ointment Active atorvastatin (LIPITOR) 10 mg tablet atorvastatin 10 mg tablet TAKE 1 TABLET BY MOUTH ONCE DAILY Active ciprofloxacin (CIPRO) 250 mg tablet ciprofloxacin 250 mg tablet Active dextroamphetamine -amphetamine (ADDERALL) 5 mg tablet dextroamphetamine-a mphetamine 5 mg tablet Active diclofenac DR (VOLTAREN) 75 mg EC tablet diclofenac sodium 75 mg tablet,delayed release Active multivit with minerals/lutein (MULTIVITAMIN 50 PLUS ORAL) multivitamin 08/13/[address] (CYMBALTA) 30 mg capsule duloxetine 30 mg capsule,delayed release TAKE 2 CAPSULES BY MOUTH ONCE DAILY Active escitalopram (LEXAPRO) 10 mg tablet escitalopram 10 mg tablet Active eszopiclone (LUNESTA) 2 mg tablet eszopiclone 2 mg tablet Active influenza quadrivalent 6299-1361 (Fluzone Quad 5206-5448, PF,) 60 mcg (15 mcg x 4)/0.5 mL syringe Fluzone Quad 5006-6542 (PF) 60 mcg (15 mcg x 4)/0.5 mL IM syringe Active halobetasol (ULTRAVATE) 0.05 % ointment halobetasol propionate 0.05 % topical ointment Active mirabegron ER (MYRBETRIQ) 50 mg tablet extended release 24 hr Myrbetriq 50 mg tablet,extended release TAKE 1 TABLET BY MOUTH ONCE DAILY Active montelukast (SINGULAIR) 10 mg tablet montelukast 10 mg tablet Active ondansetron ODT (ZOFRAN-ODT) 8 mg disintegrating tablet ondansetron 8 mg disintegrating tablet Active predniSONE (DELTASONE) 20 mg tablet prednisone 20 mg tablet Active propranoloL (INDERAL) 20 mg tablet propranolol 20 mg tablet Active QUEtiapine (SEROquel) 25 mg tablet quetiapine 25 mg tablet Active sertraline (ZOLOFT) 100 mg tablet sertraline 100 mg tablet Active sulfamethoxazole- trimethoprim (BACTRIM DS) 800-160 mg per tablet sulfamethoxazole 800 mg-trimethoprim 160 mg tablet Active temazepam (RESTORIL) 15 mg capsule temazepam 15 mg capsule Active furosemide (LASIX) 20 mg tablet Take 10mg (cut 20mg in half) po every day for 10 days 5 tablet 05/18/20 Active predniSONE (DELTASONE) 5 mg tablet Take 1 tablet (5 mg) by mouth daily 30 tablet 05/18/20 Active meloxicam (MOBIC) 15 mg tablet Take 1 tablet (15 mg total) by mouth daily 30 tablet 06/20/20 Active gabapentin (NEURONTIN) 300 mg capsule Take 1 capsule (300 mg total) by mouth nightly as needed (prn) 30 capsule 2 06/20/20 Active Active Problems Problem Noted Date Diagnosed Date Osteoarthritis of left knee, unspecified osteoarthritis type 03/08/2022 Primary osteoarthritis of left knee 01/31/2022 Overview (01/31/2022): Added automatically from request for surgery [id number] Abnormal mammogram 12/22/2016 Social History Tobacco Use Types Packs/Day Years Used Date Smoking Tobacco: Former Cigarettes 1 5 1 983 - 1987 Smokeless Tobacco: Never AUDIT-C Answer Date Recorded Q1: How often do you have a drink containing alc ohol? 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 Gender Identity Not on file Sexual Orientation Not on file Last Filed Vital Signs Vital Sign Reading Time Taken Comments Blood Pressure 132/89 03/24/2022 9:21 AM CDT Pulse 89 03/24/2022 9:21 AM CDT Temperature 36.7 C (98.1 F) 03/24/2022 9:21 AM CDT Respiratory Rate 18 03/24/2022 9:21 AM CDT Oxygen Saturation 95% 03/24/2022 9:21 AM CDT Inhaled Oxygen Concentration - - Weight 79.8 kg (176 lb) 03/09/2022 10:03 AM CDT Height 157.5 cm (5' 2 ) 03/09/2022 10:03 AM CDT Body Mass Index 32.19 03/09/2022 10:03 AM CDT Plan of Treatment Not on file Medical Devices Implanted Type Area Filler Mixer Device Identifier Shelf Expiration Date Model / Serial / Lot Depuy Orthopa[employer] Smartset Medium Viscosity Cement 40gm Bone Sterile 312-040 - Sna - [id number] Implanted:Qty: 1 on 03/08/2022 by Nicolas White MD at [facility] Bone Cement Left: Knee Depuy [employer]ed[employer] Inc 09/07/20232-040 / NA / [id number] [employer] Bsplt Tibial 3 Knee Left Medial Right Lat Mck System 369389 - Sna - [id number] Implanted:Qty: 1 on 03/08/2022 by Nicolas White MD at [facility] Other - see comments Left: Knee [employer] [id number] / NA / [employer] Cmpnt Fem 4 Std Knee Condyle Left Medial Right Lat 437288 - Sna - [id number] Implanted:Qty: 1 on 03/08/2022 by Nicolas White MD at [facility] Other - see comments Left: Knee [employer] [id number] / NA / Damien X3 Uni Onlay Tibial Insert Implanted:Qty: 1 on 03/08/2022 by Nicolas White MD at [facility] Other - see comments Left: Knee [employer] DUP [id number] 06/23/2026 669558-9 -E / NA / [id number] Description:Implant pause pe rformed on all implants 600. 158659-5-A discontinued Plate N/A: Neck Explanted Type Area Filler Mixer Device Identifier Shelf Expiration Date Model / Serial / Lot [employer] 4mm 110mm Pin Fixation Sterile [id number] - Sna - [id number] Explanted:Qty: 1 on 03/08/2022 by Nicolas White MD at [facility] Other - see comments Left: Knee [employer] [id number] 12/24/2026 [id number] / NA / [id number] Description:Not intended for implant, for fixational purposes only. [employer] 4mm 140mm Knee Straight Pin Fixation Sterile [id number] - Sna - [id number] Explanted:Qty: 1 on 03/08/2022 by Nicolas White MD at [facility] Other - see comments Left: Knee [employer] [id number] 09/28/2026 [id number] / NA / [id number] Description:Not intended for implant, for fixational purposes only. Insurance [employer] ACCESS CHOICE Nutrition Address: [place] [address] [employer] ACCESS CHOICE Nutrition Address: [place] [address] [employer] ACCESS CHOICE Advance Directives For more information, please contact: [phone] Documents on File Type Date Recorded Patient Speeder Frame Tender Expl anation Power of Enterprise Architect 03/08/2022 5:15 AM * Full Code (Latest Code Status on File) Date Activated Date Inactivated Comments 03/08/2022 8:36 AM 03/08/2022 3:40 PM Care Teams Bake Room Worker Relationship Specialty Start Date End Date Sim Meza MD PCP - General 12/22/16
--- OUTSIDE RECORDS SUMMARY | 2024-11-17 18:06 | XMS_ITS | CONTINUITY OF CARE DOCUMENT ---
Author Name edmund shaffer Address Unknown Organization [facility] Address [address] [place] [address] Phone [phone] Care Team Providers Care Scouring Train Operator Name Role Phone Brady Fox MD Unavailable [phone] Brady Fox MD Unavailable [phone] PARISH EVANS MD Unavailable INSURANCE PROVIDERS Payer name Policy type / Coverage type Sebastien red republican ID [facility] [id number]
--- OUTSIDE RECORDS SUMMARY | 2024-11-17 18:06 | XMS_ITS | Clinical Summary ---
Author Organization [facility] Address [address] [place] [address] Care Team Providers Care Patent Leather Sorter Name Role Phone Sim Meza MD Primary Care Provider [phone] Source Comments [facility],non-owned Affiliates and Associated Physician Practices is amultiple site organization consisting of ambulatory clinics and hospital sitesin [place], [place], [place] and [place]. This disclosure is being madepursuant to the Care Everywhere program and may not contain all information available regarding this patient. Last updated 18.[facility] Allergies Active Allergy Reactions Criticality Noted Date Comments Codeine Itching,Nausea and/or Vomiting Medium 01/09 Penicillins Urticaria,Swelling Medium 01/09/2019 Medications * Be aware that medications may not be up to date on this document. Alwaysverify current medications with the patient. pantoprazole EC (PROTONIX) 40 MG tablet Take [...] drink = 0.6 oz pur e alcohol) Comments Unknown Sex and Gender Information Value Date Recorded Sex Assigned at Not on file Legal Sex Female 2:28 PM CDT Gender Identity Not on file Sexual Orientation [...] SCREENING 1963 LIPID TESTING 1963 MAMMOGRAM 1963 HIV SCREENING 1978 HEPATITIS C SCREENING 02/10/1981 DTAP/TDAP/TD VACCINES (1 - Tdap) 1982 PNEUMOCOCCAL VACCINE 50+ (1 of 1 - PCV) 2013 ZOSTER VACCINE (1 of 2) 2013 COVID-19 VACCINE ( - 2023-2 5 season) 2024 DEPRESSION SCREENING 07/10/2024 INFLUENZA VACCINE (Season Ended) 2025 Respiratory Syncytial Virus (RSV) Vaccine Pt: or [...] to complete this topic MENINGOCOCCAL (Group B) VACC INE SHARED DECISION-MAKING Aged Out No longer eligibl e based on patient's age to complete this topic MENINGOCOCCAL GROUPS A/C/Y/W VACCINE Aged Out No longer eligible b ased on patient's age to complete this topic Insurance ANTHEM ANTHEM Care Teams Patent Leather Sorter Relationship Specialty Start Date End Date Sim Meza MD PCP - General Internal Medicine 01/03/19
--- OUTSIDE RECORDS SUMMARY | 2024-11-17 18:06 | XMS_ITS | Clinical Summary ---
Author Organization [facility] Address [facility] [place] [address] Care Team Providers Care Biometric Screener Name Role Phone Sim Meza MD Primary Care Provider [phone] Allergies Active Allergy Reactions Criticality Noted Date [...] eszopiclone 2 mg tablet Active influenza quadrivalent 2118-2584 (Fluzone Quad 3629-7882, PF,) 60 mcg (15 mcg x 4)/0.5 mL syringe Fluzone Quad 0918-6301 (PF) 60 mcg (15 mcg x 4)/0.5 [...] total) by mouth daily 30 tablet 06/20/20 22 Active gabapentin (NEURONTIN) 300 mg capsule Take 1 capsule (300 mg total) by mouth nightly as needed (prn) 30 capsule 2 06/20/20 22 Active Active Problems Problem Noted Date Diagnosed Date Osteoarthritis of left knee, unspecified osteoarthritis type 03/08/2022 Primary osteoarthritis of left knee 01/31/2022 Overview (01/31/2022): Added automatically from request for surgery [id number] Abnormal mammogram 12/22/2016 Surgical History Surgery Date Site/Laterality Comments KNEE ARTHROSCOPY 02/09/2021 Left partial meniscectomy - [facility] [place] BACK SURGERY 07/10/2009 - 07/09/2010 C5/6-C6/7 - fusion? HYSTERECTOMY 07/10/1994 - 07/09/1995 Medical History Medical History Date Comments PONV (postoperative nausea and vomiting) Motion sickness Family History Medical History Relation Name Comments Esophageal cancer Mother Family his tory of malignant neoplasm of esophagus - (Added by TW Conv) Anesthesia problems Neg Hx Relation Name Status Comments Mother Social History Tobacco Use Types Packs/Day Years Used Date Smoking Tobacco: Former Cigarettes 1 5 1 3 - 1987 Smokeless Tobacco: Never AUDIT-C Answer Date Recorded Q1: How often do you have a drink containing alc ohol? 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 Gender Identity Not on file Sexual Orientation Not on file Obstetrics History Last Filed Vital Signs Vital Sign Reading [...] 03/09/2022 10:03 AM CDT Plan of Treatment Health Maintenance Due Date Last Done Comments Breast Cancer Screening-Mammogram 1965 Colon Cancer Screening-Colonoscopy 1963 Depression Screening 1963 Hepatitis C Screening 1963 DTaP/Tdap/Td Vaccine (1 - Tdap) 1974 Hepatitis B Screening 1981 Regular Well Visit/Exam 18-64 1981 Covid-19 Vaccine (4 2023-2 5 season) 2024 05/31/2021, 10/23/2020, 10/02/2020 Influenza Vaccine (#1) 2024 , 05/17/2020, 06/04/2019 Zoster Vaccine Completed 01/16/2022, 10/16/2021 Pneumococcal vaccine <65 Aged Out No longer eligible based on patient's age to complete this topic Medical Devices Implanted Type Area Director Of Vocational Training Device Identifier Shelf Expiration Date Model / Serial / Lot Depuy Orthopa[employer] Smartset Medium Viscosity Cement 40gm Bone Sterile 3122-040 - Sna - [id number] Implanted:Qty: 1 on 03/08/2022 by Nicolas White MD at [facility] Bone Cement Left: Knee [employer]ed[employer] Inc 09/07/2023 3122-040 / NA / [id number] [employer] Bsplt Tibial 3 Knee Left Medial Right Lat Mck System 714113 - Sna - [id number] Implanted:Qty: 1 on 03/08/2022 by Nicolas White MD at [facility] Other - see comments Left: Knee [employer] [id number] / NA / [employer] Cmpnt Fem 4 Std Knee Condyle Left Medial Right Lat [id number] - Sna - [id number] Implanted:Qty: 1 on 03/08/2022 by Nicolas White MD at [facility] Other - see comments Left: Knee [employer] [id number] / NA / Damien X3 Uni Onlay Tibial Insert Implanted:Qty: 1 on 03/08/2022 by Nicolas White MD at [facility] Other - see comments Left: Knee [employer] DUP [id number] 06/23/2026 558898-5 -E / NA / [id number] Description:Implant pause pe rformed on all implants 600. 370933-0-O discontinued Plate N/A: Neck Explanted Type Area Director Of Vocational Training Device Identifier Shelf Expiration Date Model / Serial / Lot [employer] 4mm 110mm Pin Fixation Sterile 008808 - Sna - [id number] Explanted:Qty: 1 on 03/08/2022 by Nicolas White MD at [facility] Other - see comments Left: Knee [employer] [id number] 12/24/2026 250705 / NA / [id number] Description:Not intended for implant, for fixational purposes only. [employer] 4mm 140mm Knee Straight Pin Fixation Sterile 101969 - Sna - [id number] Explanted:Qty: 1 on 03/08/2022 by Nicolas White MD at [facility] Other - see comments Left: Knee [employer] [id number] 09/28/2026 [id number] / NA / [id number] Description:Not intended for implant, for fixational purposes only. Insurance [facility] ACCESS CHOICE Bucc[employer] CHOICE Advance Directives For more information, please contact: [phone] Documents on File Type Date Recorded Patient Clinical Safety Manager Expl anation Power of Driver'S License Reviewing Officer 03/08/2022 5:15 AM * Full Code (Latest Code Status on File) Date Activated Date Inactivated Comments 03/08/2022 8:36 AM 03/08/2022 3:40 PM Care Teams Biometric Screener Relationship Specialty Start Date End Date Sim Meza MD PCP - General 12/22/16
--- NOTE | 2024-11-17 19:40 | ED.UPPEXIN ---
HPI - Extremity Injury (Upper) General Chief Complaint: Extremity Injury, Upper Stated Complaint: Injury to left wrist-fell Time Seen by Provider: 11/17/24 19:34 History of Present Illness HPI narrative: 59-year-old female presenting to the emergency room with left wrist injury. She missed 1 step on her porch and fell forward onto an outstretched left hand. She felt immediate pain in left wrist and came to the emergency department. No numbness or tingling in the fingers and she has good range of motion of each of the fingers. States that the pain is mostly on the back of the wrist distally. No other injuries. No head trauma or loss of consciousness. Did not take anything for pain prior to arrival. He no blood thinner use. No loss of civil laboratory technician strength or sensation changes. Related Data Home Medications ?Medication ?Instructions ?Recorded ?Confirmed ?Last Taken ?Type ergocalciferol (vitamin D2) 1,250 1,250 mcg PO WEEKLY 08/01/24 08/15/24 08/13/24 History mcg (50,000 unit) capsule losartan 25 mg tablet 25 mg PO DAILY 08/01/24 08/15/24 08/13/24 History pantoprazole 40 mg tablet,delayed 40 mg PO DAILY 08/01/24 08/15/24 08/13/24 History release rosuvastatin 10 mg tablet 10 mg PO DAILY 08/01/24 08/15/24 08/13/24 History Allergies Allergy/AdvReac Type Severity Reaction Status Date / Time Cephalosporins Allergy Mild HIVES Verified 11/17/24 19:46 codeine Allergy Unknown flushed Verified 11/17/24 19:46 hydrocodone Allergy Unknown swelling Verified 11/17/24 19:46 Penicillins Allergy Unknown Hives Verified 11/17/24 19:46 CEFACLOR (Generic Allergy) Allergy Unknown Y Uncoded 11/17/24 18:12 Review of Systems Review of Systems: As reviewed above in HPI PMFSH Past Medical History Medical History Hyperlipidemia Obesity HTN (hypertension) Surgical History Surgical History History of partial knee replacement H/O cervical spine surgery Social History Social History Smoking status: Never smoker Substance use type: does not use Living arrangements: alone Spiritual care concerns: No Exam Narrative: GENERAL: [Well-appearing, well-nourished, and in no acute distress.] HEAD: [Normocephalic, atraumatic.] EYES: [PERRLA and EOMI.] ENT: Nares clear, no rhinorrhea or epistaxis. Mucous membranes moist. NECK: Supple. CHEST: [Clear to auscultation. No respiratory distress.] HEART: [Regular rate and rhythm]. No murmur heard. [Normal peripheral pulses.] ABDOMEN: [Soft, nondistended], [nontender], [No rigidity or guarding] EXTREMITIES: Minor swelling in the dorsal aspect of the distal left forearm, 2+ palpable radial and ulnar pulses, good civil laboratory technician strength with ability to move at each major joint line PIP MCP and the IP joint. Able to oppose each digit, make a thumbs-up sign and okay sign. Moving the wrist elicits pain. No elbow injuries or restricted range of motion of the elbow or proximal left arm. SKIN: Warm, dry, no rash. NEURO: [No focal deficits]. Alert and oriented [x3.] PSYCH: [Normal mood and affect.] Course Vital Signs Vital signs: Vital Signs Temperature 36.7 C 11/17/24 18:05 Pulse Rate 94 11/17/24 18:05 Respiratory Rate 18 11/17/24 18:05 Blood Pressure 153/81 H 11/17/24 18:05 Pulse Oximetry 95 11/17/24 18:05 Oxygen Delivery Room Air 11/17/24 18:05 Temperature 36.7 C 11/17/24 18:05 Pulse Rate 94 11/17/24 18:05 Respiratory Rate 18 11/17/24 18:05 Blood Pressure 153/81 H 11/17/24 18:05 Pulse Oximetry 95 11/17/24 18:05 Oxygen Delivery Room Air 11/17/24 18:05 Procedures Orthopedic Splinting/Casting Injury #1: Splinting/Casting Date: 11/17/24 Splinting/Casting Time: 19:44 Side: left Upper Extremity Injury Location: upper arm Upper Extremity Immobilizer: volar splint Splint: customized in ED Pre-Procedure Neuro Vascular Exam: normal Post-Procedure Neuro Vascular Exam: normal MDM - Extremity Injury (Upper) [facility] Narrative Medical decision making narrative: 59-year-old female presenting after falling onto her left outstretched hand. She has what seems to be signs and symptoms of a distal radius/distal ulnar fracture on examination. She has good civil laboratory technician strength, able to oppose each digit, able to make a thumbs up and okay sign. Good distal neuro vasculature with capillary refill. Normal 2+ radial pulse, warm extremity. Normal vital signs here. X-rays were obtained that showed a distal comminuted radial fracture. Patient's pain is [id number] at this time and she requests Tylenol and ibuprofen which was provided. Volar wrist splint was placed and patient was counseled on management at this time which will be for outpatient orthopedics evaluation for potential conservative therapy versus surgical interventions. Patient will be sent home with pain medications and safely discharged home at this time. Medical Records Attestation: I reviewed the patient's medical records. Imaging Data Attestation: I personally reviewed and interpreted this imaging study as follows: My impression: Impressions Wrist X-Ray 11/17/24 18:49 IMPRESSION: Comminuted fracture in the distal left radius. Discharge Plan Discharge Clinical Impression: Fracture of distal end of radius with dorsal angulation Patient Disposition: Home Condition: Stable Instructions: Antibiotic Form, Wrist Fracture in Adults (ED) Additional Instructions: Take Tylenol 1000 mg every 8 hours, ibuprofen 800 mg every 8 hours. Maintain the splint for comfort and stability, follow-up with the provider compound specialist. Return with any emergent concerns, discoloration of the fingers, loss of sensation, increasing pain or any other concerns. Patient Language: Bolivian Prescriptions: New ibuprofen 800 mg tablet 800 mg PO TID PRN (Reason: pain) Qty: 30 0RF acetaminophen [Tylenol Extra Strength] 500 mg tablet 1,000 mg PO TID PRN (Reason: pain) Qty: 30 0RF No Action ergocalciferol (vitamin D2) 1,250 mcg (50,000 unit) capsule 1,250 mcg PO WEEKLY rosuvastatin 10 mg tablet 10 mg PO DAILY pantoprazole 40 mg tablet,delayed release (DR/EC) 40 mg PO DAILY losartan 25 mg tablet 25 mg PO DAILY Follow-up/Referrals: Derrick,MD Sim [Primary Care Provider] - Severiano Fletcher MD [Physician] - 1 Week (Left comminuted distal radius fracture) Time of Disposition: 19:46
--- OUTSIDE RECORDS SUMMARY | 2024-11-17 19:45 | XMS_ITS | Clinical Summary ---
Author Organization [facility] [employer] Address [address] [place] [address] Care Team Providers Care Bushler Name Role Phone Sim Meza MD Primary Care Provider [phone] Source Comments [facility],non-owned Affiliates and Associated Physician Practices is amultiple site organization consisting of ambulatory clinics and hospital sitesin [place], [place], [place] and [place]. This disclosure is being madepursuant to the Care Everywhere program and may not contain all information available regarding this patient. Last updated 18.[facility] Allergies Active Allergy Reactions Criticality Noted Date [...] this topic Insurance ANTHEM ANTHEM Care Teams Bushler Relationship Specialty Start Date End Date Sim Meza MD PCP - General Internal Medicine 01/03/19
--- OUTSIDE RECORDS SUMMARY | 2024-11-17 19:46 | XMS_ITS | CONTINUITY OF CARE DOCUMENT ---
Author Name edmund shaffer Address Unknown Organization [facility] Address [address] [place] [address] Phone [phone] Care Team Providers Care Home Health Care Worker Name Role Phone Brady Fox MD Unavailable [phone] Brady Fox MD Unavailable [phone] PARISH EVANS MD Unavailable INSURANCE PROVIDERS Payer name Policy type / Coverage type Sebastien red alliance party ID [facility] [id number]
[2024-11-17 19:47] VITALS: BP 161/94; PULSE 92; RESP 18; O2SAT 97
[2024-11-17] MEDS: IBUPROFEN 400 MG TABLET 800 MG PO (19:57)
[2024-11-17] MEDS: ACETAMINOPHEN 500 MG TABLET 1000 MG PO (19:57)
== END 2024-11-17 20:26 | disposition home or self-care (01) ==
PROVIDERS: Emergency Provider Student in an Organized Health Care Education/Training Program; PCP Internal Medicine
DX: S52.592A Other fractures of lower end of left radius, initial encounter for closed fracture (principal); I10 Essential (primary) hypertension; E78.5 Hyperlipidemia, unspecified; E66.9 Obesity, unspecified; Z68.32 Body mass index [BMI] 32.0-32.9, adult; Z96.659 Presence of unspecified artificial knee joint; W10.8XXA Fall (on) (from) other stairs and steps, initial encounter
CPT/HCPCS: 29125; 73110; 99284; A4565; A9270

== ENCOUNTER 2024-11-22 09:01 | Outpatient (CLI) | payer BC, SELFPAY ==
--- NOTE | 2024-11-22 09:19 | ECG_ITS ---
Test Date: 2024-11-22 09:31:38 Measurements Intervals [place] Rate: 66 P: 37 MT: 141 QRS: 3 QRSD: 94 T: 11 QT: 411 QTc: 433 Interpretive Statements SINUS RHYTHM MODERATE T-WAVE ABNORMALITY, CONSIDER ANTERIOR AND LATERAL ISCHEMIA [-0.1+ mV T WAVE IN V3/V4] ABNORMAL ECG No previous ECG available for comparison Electronically Signed On 11-22-2024 09:59:16 CDT by Edin Malin M.D.
--- OUTSIDE RECORDS SUMMARY | 2024-11-22 09:20 | XMS_ITS | Data Portability ---
Author Organization [facility] Harri, Main Office Address [address] [place] [address] Care Team Providers Care Sprayer Automatic Spray Machine Name Role Phone PARISH MEZA Primary Care Provider PARISH MEZA Referring Provider Assessment Encounter Date Assessment Date Assessment LastModified by Organization Details LastModified Time 12/30/2022 12/30/2022 Continue current therapy diagnosis discussed follow-up in 4 months [email or web address] Not available 07/02/2023 15:48:54 04/27/2023 04/27/2023 HPI: [...] treatment patient more half of this in bosr-np-tffb conversation Not available 04/27/2023 12:09:01 05/03/2023 05/03/2023 Continue current therapy follow-up in 4 months [email or web address] Not available 05/06/2023 16:53:46 08/10/2023 08/10/2023 HPI: [...] procedure, administere d by provider 2023 024 [email or web address] In-Office Order, Internal Use Only DO Not Attach Compendium DO Not Attach Compendium, Do Not Delete/merge, [id number] 4 11:10:36 injection/a spiration joint/bursa (PROC) - in office procedure, administere d by provider 2022 023 In-Office Order, Internal Use Only DO Not Attach Compendium DO Not Attach Compendium, Do Not Delete/merge, [id number] 3 12:03:13 Surgeries None recorded. Imaging XR, knee 2022 023 [email or web address] [facility]_[address], [place], [address], 3 12:40:46 Medication Orders Kenalog 10 mg/mL suspension for injection [email or web address] [place] [address] Pharmacy 1761, [address] [facility], [place], [address], 4 11:27:23 ropivacaine (PF) 5 mg/mL (0.5 %) injection solution 2023 024 [email or web address] [facility]61, [address] [place] [address], [address], 4 11:27:23 Kenalog 10 mg/mL suspension for injection [address] Pharm[facility] 1761, [address] [place], [address], 3 12:03:13 ropivacaine (PF) 5 mg/mL (0.5 %) injection solution [address], [address] [place] [address], [address], 3 12:03:13 Patient TargetsNo targets recorded. Patient Instructions Encounter Date Encounter Id Patient Instructions Last Modified By Organization Details Last Modified Time 12/29/2022 [id number] patient understands there is no current treatment [...] No observ ation record ed. [facility] [place] [address] [facility], [place], [address], 04/27/2023 12:04:14 Result Notes None recorded. Problems Name Problem SNOMED Code Status Onset Date Resolution Date Notes Provider Name and Address Organization Details Recorded Time Edema of lower extremity 379669133 Active 2021 Not Available [facility] 3 06:03:14 Asthenia 94639208 Active Not Available [facility] 3 06:03:14 Chondromal acia of left knee 6020120184774 9102 Active 2019 Not Available [facility] 3 06:03:14 Abdominal pain 79482104 Active Not Available [facility] 3 06:03:14 Gastroesop hageal reflux disease 055474096 Active Not Available [facility] 3 06:03:14 Pure hyperchole sterolemia 042985876 Active Not Available [facility] 3 06:03:14 Malaise and fatigue 760786649 Active Not Available [facility] 3 06:03:14 Low back pain 785603628 Active Not Available [facility] 3 06:03:14 Current tear of medial cartilage AND/OR meniscus of knee Active 2019 Not Available [facility] 3 06:03:14 Vitamin D deficiency 19320187 Active Not Available [facility] 3 06:03:15 Pain of left knee joint 2407792368741 07 Active 2021 Not Available [facility] 3 06:03:15 Dysuria 84049554 Active 2021 Not Available [facility] 3 06:03:15 Cough 07423579 Active 2022 Not Available [facility] 3 06:03:15 Upper respirator y infection 41366643 Active Not Available [facility] 3 06:03:15 Hyperlipid emia 69152304 Active 2021 Not Available [facility] 3 06:03:15 Pain of joint 32881029 Active Not Available [facility] 3 06:03:15 Osteoporos is 97058383 Active Not Available [facility] 3 06:03:15 Bilateral tinnitus 2681649732097 Active 2022 MARIVEL Barba, [facility] 3 10:23:54 Pain of right knee joint 5392940112811 00 Active 2022 Roselyn quintero, [facility] 3 16:15:03 Rhinitis 08347081 Active 2022 Parish Meza MD [address] [facility], [facility] [address], [place], [address] , [facility] 3 15:48:39 Osteoarthr itis of right knee joint 5232474621442 00 Active 2023 Asia Sellers, RMA null, [facility] 4 11:08:50 Problem Notes None recorded. Procedures Surgical History Date Name Laterality Status Provider Name and Address Organization Details Recorded Time 03/08/20 22 Knee Replacement completed Not Available [facility] 09/07/2022 05:56:31 02/10/20 21 Knee arthroscopy/ron debbie completed Not Available [facility] 09/07/2022 05:56:31 08/16/19 17 Excisions - Specify completed Not Available [facility] 09/07/2022 05:56:31 08/16/19 17 Exc tr-ext b9+margie 1.1-2 cm completed Not Available [facility] 09/07/2022 05:56:31 Arthrd ant ntrbd min dsc crv completed Not Available [facility] 09/07/2022 05:56:31 Breast Surgery completed Not Available [facility] 09/07/2022 05:56:31 Imaging Results Imaging Date Name Status LastModified by Organiz ation Details LastModified Time 12/12/2022 audiogram + tympanogram completed [email or web address] Information not available 12/12/2022 14:44:54 04/27/2023 XR, knee completed [facility] [place] [id number] [facility], [place], [address], 04/27/2023 12:04:14 Procedure Notes None recorded. Medical Equipment None Reported. Allergies Allergen ID Allergen Name Allergen Category Reaction Reaction Severity Criticality Documentation Date Start Date Code Code System Note Provider Name and Address Organization Details Recorded Time 09910 tramadol medicatio n itching Not available Not available 09/07/2022 33490 RxNorm Not Available [facility] 06:08:55 02342 Product containin g penicilli n (product) medicatio n hives Not available Not available 09/07/2022 33816 8001 SNOMED Not Available [facility] 3 06:08:55 59401 codeine medicatio n nausea vomiting Not available Not available Not available 09/07/2022 2670 RxNorm Not Available [facility] 3 06:08:56 Medications Name Sig Start Date [...] suspension for injection in office 2023 active [facility]: 0003- 0494- 20 Not Available Not Available [...] administe red by the provider 04/06 completed [facility]: 0409- 4276- 17 Not Available Not Available [...] Updated DateTime 12/29/2022 157.48 cm 33.7 kg/m2 77109 g 97.6 [degF] Kelly Taylor RN [facility] Harri 12/29/2022 10:36:46 Date Recorded Body height Body mass index (BMI) Body weight Body temperature Heart rate Oxygen saturation Oxygen saturation in Arterial blood by Pulse oximetry Systolic blood pressure Diastolic blood pressure Provider Name and Address Organization Details Last Updated DateTime 3 157.48 cm 33.7 kg/m2 28822 g 98.2 [degF] 80 /min 95 % 95 % 124 mm[Hg] 80 mm[Hg] Leidy Gary RN [facility] Harri 3 12:28:13 Date Recorded Body height Body mass index (BMI) Body weight Provider Name and Address Organization Details Last Updated DateTime 04/27/2023 154.94 cm 34 kg/m2 09925.63 g MARIVEL Moreno [place] [employer] [facility] Harri 04/27/2023 11:18:45 Date Recorded Body height Body mass index (BMI) Body weight Body temperature Heart rate Systolic blood pressure Diastolic blood pressure Provider Name and Address Organization Details Last Updated DateTime 3 154.94 cm 33.8 kg/m2 63805.0 3 g 97.2 [degF] 74 /min 136 mm[Hg] 86 mm[Hg] Rhea Gutierrez [place] [facility] [employer] [facility] 3 10:44:51 Date Recorded Body height Provider Name an d Address Organization Details Last Updated DateTime 08/10/2023 154.94 cm Asia Sellers [place] [facility] [place] [employer] [facility] 08/10/2023 11:08:05 Social History Question Answer Notes LastModified by Organizat ion Details LastModified Time Tobacco Smoking Status Never Smoker Not Available [facility] 09/07/2022 05:55:58 Do You Have An Advance Directive? No MIGRATION.53384 73562 Information not available 09/07/2022 What Is Your Level Of Caffeine Consumption? Moderate MIGRATION.17409 67730 Information not available 09/07/2022 How Much Tobacco Do You Chew? None MIGRATION.03952 08598 Information not available 09/07/2022 In The 14 Days Before Symptom Onset, Have You Had Close Contact With A Laboratory-confi rmed COVID-19 While That Case Was Ill? No MIGRATION.64199 11414 Information not available 09/07/2022 In The 14 Days Before Symptom Onset, Have You Had Close Contact With A Person Who Is Under Investigation For COVID-19 While That Person Was Ill? No MIGRATION.63789 59061 Information not available 09/07/2022 What Type Of Diet Are You Following? REGULAR MIGRATION.96458 88185 Information not available 09/07/2022 Which Illicit Or Recreational Drugs Have You Used? None MIGRATION.62203 25222 Information not available 09/07/2022 What Is The Highest Grade Or Level Of School You Have Completed Or The Highest Degree You Have Received? UV32569-5 MIGRATION.99992 47649 Information not available 09/07/2022 Have There Been Any Changes To Your Family Or Social Situation? No MIGRATION.32026 76933 Information not available 09/07/2022 What Is The Fluoride Status Of Your Home? Unknown MIGRATION.84142 48002 Information not available 09/07/2022 Are There Any Guns Present In Your Home? Yes MIGRATION.04078 11019 Information not available 09/07/2022 Do You Use Insect Repellent Routinely? No MIGRATION.23523 96901 Information not available 09/07/2022 Where Do You Live? [place]House MIGRATION.82909 42602 Information not available 09/07/2022 Do You Have A Medical Power Of Vp Strategic Planning? No MIGRATION.41148 97079 Information not available 09/07/2022 What Was The Date Of Your Most Recent Tobacco Screening? 05/03/2023 [email or web address] Information not available 05/03/2023 Do You Have Any Pets? Yes MIGRATION.46152 46306 Information not available 09/07/2022 What Is Your Relationship Status? MIGRATION.58903 28260 Information not available 09/07/2022 Do You Use Your Seat Belt Or Car Seat Routinely? Yes MIGRATION.55676 12399 Information not available 09/07/2022 Do You Have Smoke And Carbon Monoxide Detectors In Your Home? Yes MIGRATION.18346 52300 Information not available 09/07/2022 Are You Passively Exposed To Smoke? No MIGRATION.42305 07829 Information not available 09/07/2022 Are There Any Smokers In Your House? No MIGRATION.61380 74742 Information not available 09/07/2022 How Much Tobacco Do You Smoke? No MIGRATION.08427 76013 Information not available 09/07/2022 What Types Of Sporting Activities Do You Participate In? None MIGRATION.00139 53845 Information not available 09/07/2022 Do You Use Sunscreen Routinely? Yes MIGRATION.99368 01255 Information not available 09/07/2022 Has Tobacco Cessation Counseling Been Provided? No Not Needed-ne mayela Smoked MIGRATION.14287 47408 Information not available 09/07/2022 How Many Years Have You Smoked Tobacco? 0 MIGRATION.93223 83286 Information not available 09/07/2022 Have You Recently Traveled Abroad? No MIGRATION.29133 42799 Information not available 09/07/2022 Do You Have Any Dietary Restrictions? No MIGRATION.72998 63275 Information not available 09/07/2022 Sex: Female Functional Status Question Answer Note LastModified by Organizat ion Details LastModified Time Do you use any illicit or recreational drugs? No MIGRATION.846349 1334 Information not available 09/07/2022 Do you or have you ever used any other forms of tobacco or nicotine? No MIGRATION.324712 1729 Information not available 09/07/2022 What is your level of alcohol consumption? None MIGRATION.524298 3679 Information not available 09/07/2022 Do you or have you ever used smokeless tobacco? 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 Never used electronic cigarettes MIGRATION.426654 0432 Information not available 09/07/2022 What is your exercise level? Occasional MIGRATION.805120 6547 Information not available 09/07/2022 Mental Status Question Answer Note LastModified by Organizat ion Details LastModified Time Do you feel stressed (tense, restless, nervous, or anxious, or unable to sleep at night)? [id number] MIGRATION.799417192 6 Information not available 09/07/2022 Family History Relationship Description Onset Age of this Age Resolved Age Notes LastModified by Organization Details LastModified Time Mother Malignant neoplastic disease MIGRATION.700 [id number] Not available 09/07/2022 05:56:38 Mother Alcoholism MIGRATION.166 0193915 Not available 09/07/2022 05:56:38 Mother Hypertensive disorder MIGRATION.267 2200589 Not available 09/07/2022 05:56:38 Mother Heart disease MIGRATION.325 2721544 Not available 09/07/2022 05:56:38 Mother Family history of stroke MIGRATION.127 6183624 Not available 09/07/2022 05:56:38 Father Alcoholism MIGRATION.998 8650829 Not available 09/07/2022 05:56:38 Father Heart disease MIGRATION.738 8260123 Not available 09/07/2022 05:56:38 Brother Alcoholism MIGRATION.248 3391105 Not available 09/07/2022 05:56:38 Brother Heart disease MIGRATION.330 7816363 Not available 09/07/2022 05:56:38 Brother Chronic obstructive pulmonary disease 905068|[id number]|2024-11-22 09:20:00|2024-11-22 09:20:00|XMS_ITS|FRAN STEVENS|External Medical Summaries|[id number]|" Data Portability Created on: November 22, 2024 Hilary Cox .[id number] : 1965 Sex: Female Author Organization [facility] Luke Address [address] [facility] [place] [address] Care Team Providers Care Sprayer Automatic Spray Machine Name Role Phone PARISH MEZA Primary Care Provider [phone] Assessment Encounter Date Assessment Date Assessment LastModified by Organization Details LastModified Time 10/20/2023 10/20/2023 Home sleep study blood work diagnosis have been discussed old records will be retrieved she will follow-up with me in 4 months she did have some fatigue before and we stopped her cholesterol medicine which really did not make a whole lot of difference. [email or web address] Not available 10/21/2023 18:46:48 03/01/2024 03/01/2024 blood work consider halting statin for a while can try coenzyme Q10 ABIs NCS leg we will follow up in 4 months continue other meds Not available 03/02/2024 12:32:53 03/29/2024 03/29/2024 physical therapy for her back healthy lifestyle care instructions for obesity dietary referral as where as well. Continue current therapy for her hypertension GERD dyslipidemia and chronic rhinitis obtain records from her raspberry checker advised to stay up on today on screenings and immunizations and follow up with me in 2 months [email or web address] Not available 03/29/2024 22:42:00 06/21/2024 06/21/2024 continue current therapy blood work has been ordered. Healthy lifestyle care instructions discussed. Routine human resources analyst well-woman referral colonoscopy. Mammogram all ordered all questions answered no changes in medications no side effects from medications and she is taking medications as prescribed follow up in 4 months Not available 06/22/2024 12:46:44 10/18/2024 10/18/2024 Blood work healthy lifestyle care instructions sleep study follow up 4 months still needs to go see the aerospace products sales engineer for routine visit Prevnar 20 today continue current therapy [email or web address] Not available 10/19/2024 13:23:46 Plan of Treatment Reminders Order Date Submit Date Provider Last Modified By Organization Details Last Modified Time Details Appointments ANY 15 2024 10:30A Oksana Meza MD Not available Not available Not available Lab CBC w/ auto diff 2024 025 [facility], [address], [place], [address], 10/19/2024 09:06:09 CMP, serum or plasma 2024 025 [facility], [address], [address], [place], [address], 10/19/2024 09:06:08 lipid panel, serum 2024 025 [facility], [address], [address], [place], [address], 10/19/2024 09:06:07 vitamin D, 25-hydrox y, total, serum 2024 025 [facility], [address], [address], [place], [address], 10/19/2024 09:06:11 CMP, serum or plasma 2023 025 [facility], [address], [address], [place], [address], 11/06/2024 12:55:19 lipid panel, serum 2023 025 [facility], [address], [address], [place], [address], 11/06/2024 12:55:04 CBC w/ auto diff 2023 025 [facility], [address], [address], [place], [address], 11/06/2024 12:54:51 vitamin D, 25-hydrox y, total, serum 2023 025 [facility], [address], [address], [place], [address], 11/06/2024 12:55:32 lipid panel, serum 2023 024 [facility], [address], [address], [place], [address], 03/02/2024 08:22:56 TSH, ultra-sen sitive, serum 2023 024 [facility] [place], [address], [address], [place], [address], 03/02/2024 08:22:58 T3, free, serum or plasma 2023 024 [facility], [address], [address], [place], [address], 03/02/2024 08:23:00 unlisted lab - T4, free 2023 024 [facility], [address], [address], [place], [address], 03/02/2024 08:22:56 CBC w/ auto diff 2023 024 [facility], [address], [address], [place], [address], 03/02/2024 08:22:59 CMP, serum or plasma 2023 024 [facility], [address], [address], [place], [address], 03/02/2024 08:22:57 vitamin D, 25-hydrox y, total, serum 2023 024 [facility], [address], [address], [place], [address], 03/02/2024 08:23:00 vitamin B12 + folate, serum or blood 2023 024 [facility], [address], [address], [place], [address], 03/02/2024 08:22:58 lipid panel, serum 2023 024 [facility], [address], [address], [place], [address], 10/21/2023 07:13:37 CBC w/ auto diff 2023 024 [facility], [address], [address], [place], [address], 10/21/2023 07:13:39 CMP, serum or plasma 2023 024 [facility], [address], [address], [place], [address], 10/21/2023 07:13:38 TSH, ultra-sen sitive, serum 2023 024 [facility], [address], [address], [place], [address], 10/21/2023 07:13:39 T3, free, serum or plasma 2023 024 [facility], [address], [address], [place], [address], 10/21/2023 07:13:40 unlisted lab - T4, free 2023 024 [facility], [address], [address], [place], [address], 10/21/2023 07:13:37 Referral gynecolog ist referral 2023 024 [email or web address] Rawls MD, [address], [address], [place], [address], 11/11/2024 10:34:15 nutrition ist/dieti moira referral 2023 024 [facility], [address], [place], [address], 06/07/2024 16:31:56 physical therapist referral 2023 024 [facility] [place], [address] [facility], [place], [address], 04/15/2024 14:11:54 Procedures home sleep testing (PROC) - Per Leidy this was approved auth number [id number] start 10/28/24-. 2024 025 [facility] Diagnostic, [address] [facility] , [place] [address], [place], [address], 11/17/2024 12:16:58 colonosco py screening (PROC) 2023 024 [facility], [address], [address], [place], [address], 08/22/2024 09:49:57 Surgeries None recorded. Imaging MAMMO, screening , digital, bilateral 2023 024 [facility] (Imaging), [address], [place], [address], 11/14/2024 11:32:54 nerve conductio n study - NCS B/L Legs 2023 024 [facility] [place] [facility] Scheduling, [address] [facility] , [place], [address], 06/21/2024 11:44:12 home sleep study 2023 024 [facility] [address] [facility], [place], [address], 11/24/2023 13:56:28 Medication Orders ergocalci ferol (vitamin D2) 1,250 mcg (50,000 unit) capsule 2023 024 [email or web address] [facility], [address] [place] [address], [address], 06/21/2024 13:34:55 losartan 25 mg tablet [address] [facility], [address] [place] [address], [address], 03/01/2024 12:33:35 pantopraz ole 40 mg tablet,de layed release [address] [facility], [address] [place] [address], [address], 10/20/2023 13:56:52 Patient TargetsNo targets recorded. Patient Instructions Encounter Date Encounter Id Patient Instructions Last Modified By Organization Details Last Modified Time 03/01/2024 [id number] ([facility]) ankle brachial index* - B/L legs [email or web address] Not available 06/21/2024 11:44:39 03/29/2024 [id number] A healthy lifestyle: care instructions [email or web address] Not available 03/29/2024 13:04:48 06/21/2024 [id number] A healthy lifestyle: care instructions [email or web address] Not available 06/21/2024 13:34:55 10/18/2024 [id number] A healthy lifestyle: care instructions [email or web address] Not available 10/18/2024 13:41:08 Reason for Referral Physical Therapist Referral for Low back pain Referring Physician: Parish Meza, Internal Medicine, Encounter Date: 03/29/2024 Gum Scoring Machine Operator/dietitian Refer ral for Obesity Referring Physician: Parish Meza, Internal Medicine, Encounter Date: 03/29/2024 Net Architect Referral for Gy necologic examination Referring Physician: Parish Meza, Internal Medicine, Encounter Date: 06/21/2024 Results Created Date Observation Date Name Description Value Unit Range Abnormal Flag Note LastModifiedBy Organization Detail LastModifiedTime 10/20/1910/21/2023 LIPID PANEL cholesterol, total 210 mg/dL 100-19 9 above high normal Not Available [facility] ([facility]) [address] [place], [address], 10/21/2023 07:13:37 10/20/19 24 10/21/2023 LIPID PANEL triglyceride s 95 mg/dL 0-149 Not Available [facility] ([facility]) [address] [place], [address], 10/21/2023 07:13:37 10/20/19 24 10/21/2023 LIPID PANEL HDL cholesterol 90 mg/dL >39 Not Available [facility] ([facility]) [address] [place], [address], 10/21/2023 07:13:37 10/20/19 24 10/21/2023 LIPID PANEL VLDL cholesterol john 16 mg/dL 5-40 Not Available [facility] ([facility]) [address] [place], [address], 10/21/2023 07:13:37 10/20/19 24 10/21/2023 LIPID PANEL LDL chol calc ([facility]) 104 mg/dL 0-99 above high normal Not Available [facility] ([facility]) [address] [place], [address], 10/21/2023 07:13:37 10/20/19 24 10/21/2023 T4, FREE T4,free(dire ct) 1.48 NG/dL 0.82-1 .77 Not Available [facility] ([facility]) [address] [place], [address], 10/21/2023 07:13:37 10/20/19 24 10/21/2023 COMP. METAB OLIC PANEL (14) glucose 101 mg/dL 70-99 above high normal Not Available [facility] ([facility]) [address] [place], [address], 10/21/2023 07:13:38 10/20/19 24 10/21/2023 COMP. METAB OLIC PANEL (14) BUN 15 mg/dL 8-27 Not Available [facility] ([facility]) [address] [facility] [place], [address], 10/21/2023 07:13:38 10/20/19 24 10/21/2023 COMP. METAB OLIC PANEL (14) creatinine 0.89 mg/dL 0.57-1 .00 Not Available [facility] ([facility]) [address] [facility] [place], [address], 10/21/2023 07:13:38 10/20/19 24 10/21/2023 COMP. METAB OLIC PANEL (14) eGFR 74 mL/mi n/1.7 3 >59 Not Available [facility] ([facility]) [address] [facility] [place], [address], 10/21/2023 07:13:38 10/20/19 24 10/21/2023 COMP. METAB OLIC PANEL (14) BUN/creatini ne ratio 17 12-28 Not Available [facility] ([facility]) [address] [facility], [place], [address], 10/21/2023 07:13:38 10/20/19 24 10/21/2023 COMP. METAB OLIC PANEL (14) sodium 145 mmol/ L 134-14 4 above high normal Not Available [facility] ([facility]) [address] [place], [address], 10/21/2023 07:13:38 10/20/19 24 10/21/2023 COMP. METAB OLIC PANEL (14) potassium 4.7 mmol/ L 3.5-5. 2 Not Available [facility] ([facility]) [address] [facility], [place], [address], 10/21/2023 07:13:38 10/20/19 24 10/21/2023 COMP. METAB OLIC PANEL (14) chloride 107 mmol/ L 96-106 above high normal Not Available [facility] ([facility]) [address] [facility] [place], [address], 10/21/2023 07:13:38 10/20/19 24 10/21/2023 COMP. METAB OLIC PANEL (14) carbon dioxide, total 23 mmol/ L 20-29 Not Available [facility] ([facility]) [address] [facility] [place], [address], 10/21/2023 07:13:38 10/20/19 24 10/21/2023 COMP. METAB OLIC PANEL (14) calcium 9.4 mg/dL 8.7-10 .3 Not Available [facility] ([facility]) [address] [facility] [place], [address], 10/21/2023 07:13:38 10/20/19 24 10/21/2023 COMP. METAB OLIC PANEL (14) protein, total 6.8 g/dL 6.0-8. 5 Not Available [facility] ([facility]) [address] [facility] [place], [address], 10/21/2023 07:13:38 10/20/19 24 10/21/2023 COMP. METAB OLIC PANEL (14) albumin 4.5 g/dL 3.8-4. 9 Not Available [facility] ([facility]) [address] [facility] [place], [address], 10/21/2023 07:13:38 10/20/19 24 10/21/2023 COMP. METAB OLIC PANEL (14) globulin, total 2.3 g/dL 1.5-4. 5 Not Available [facility] ([facility]) [address] [facility] [place], [address], 10/21/2023 07:13:38 10/20/19 24 10/21/2023 COMP. METAB OLIC PANEL (14) A/G ratio 2.0 1.2-2. 2 Not Available [facility] ([facility]) [address] [facility] [place], [address], 10/21/2023 07:13:38 10/20/19 24 10/21/2023 COMP. METAB OLIC PANEL (14) bilirubin, total 0.6 mg/dL 0.0-1. 2 Not Available [facility] ([facility]) [address] [facility] [place], [address], 10/21/2023 07:13:38 10/20/19 24 10/21/2023 COMP. METAB OLIC PANEL (14) alkaline phosphatase 74 IU/L 44-121 Not Available [facility] ([facility]) [address] [facility], [place], [address], 10/21/2023 07:13:38 10/20/19 24 10/21/2023 COMP. METAB OLIC PANEL (14) AST (SGOT) 37 IU/L 0-40 Not Available [facility] ([facility]) [address] [facility], [place], [address], 10/21/2023 07:13:38 10/20/19 24 10/21/2023 COMP. METAB OLIC PANEL (14) ALT (SGPT) 48 IU/L 0-32 above high normal Not Available [facility] ([facility]) [address] [facility], [place], [address], 10/21/2023 07:13:38 10/20/19 24 10/21/2023 TSH TSH 3.520 uIU/m L 0.450- 4.500 Not Available [facility] ([facility]) [address] [place], [address], 10/21/2023 07:13:39 10/20/19 24 10/21/2023 CBC WITH DIFFE RENTI AL/PL ATELE T WBC 8.1 x10e3 /uL 3.4-10 .8 Not Available [facility] ([facility]) [address] [facility], [place], [address], 10/21/2023 07:13:39 10/20/19 24 10/21/2023 CBC WITH DIFFE RENTI AL/PL ATELE T RBC 4.97 x10e6 /uL 3.77-5 .28 Not Available [facility] ([facility]) [address] [facility], [place], [address], 10/21/2023 07:13:39 10/20/19 24 10/21/2023 CBC WITH DIFFE RENTI AL/PL ATELE T hemoglobin 14.7 g/dL 11.1-1 5.9 Not Available [facility] ([facility]) [address] [facility], [place], [address], 10/21/2023 07:13:39 10/20/19 24 10/21/2023 CBC WITH DIFFE RENTI AL/PL ATELE T hematocrit 44.9 % 34.0-4 6.6 Not Available [facility] ([facility]) [address] [facility], [place], [address], 10/21/2023 07:13:39 10/20/19 24 10/21/2023 CBC WITH DIFFE RENTI AL/PL ATELE T MCV 90 fL 79-97 Not Available [facility] ([facility]) [address] [facility], [place], [address], 10/21/2023 07:13:39 10/20/19 24 10/21/2023 CBC WITH DIFFE RENTI AL/PL ATELE T MCH 29.6 pg 26.6-3 3.0 Not Available [facility] ([facility]) [address] [place], [address], 10/21/2023 07:13:39 10/20/19 24 10/21/2023 CBC WITH DIFFE RENTI AL/PL ATELE T MCHC 32.7 g/dL 31.5-3 5.7 Not Available [facility] ([facility]) [address] [facility], [place], [address], 10/21/2023 07:13:39 10/20/19 24 10/21/2023 CBC WITH DIFFE RENTI AL/PL ATELE T RDW 12.8 % 11.7-1 5.4 Not Available [facility] ([facility]) [address] [facility], [place], [address], 10/21/2023 07:13:39 10/20/19 24 10/21/2023 CBC WITH DIFFE RENTI AL/PL ATELE T platelets 340 x10e3 /uL 150-45 0 Not Available [facility] ([facility]) [address] [facility], [place], [address], 10/21/2023 07:13:39 10/20/19 24 10/21/2023 CBC WITH DIFFE RENTI AL/PL ATELE T neutrophils 53 % notest ab. Not Available [facility] ([facility]) [address] [facility], [place], [address], 10/21/2023 07:13:39 10/20/19 24 10/21/2023 CBC WITH DIFFE RENTI AL/PL ATELE T lymphs 35 % notest ab. Not Available [facility] ([facility]) [address] [facility], [place], [address], 10/21/2023 07:13:39 10/20/19 24 10/21/2023 CBC WITH DIFFE RENTI AL/PL ATELE T monocytes 8 % notest ab. Not Available [facility] ([facility]) [address] [facility], [place], [address], 10/21/2023 07:13:39 10/20/19 24 10/21/2023 CBC WITH DIFFE RENTI AL/PL ATELE T eos 3 % notest ab. Not Available [facility] ([facility]) [address] [facility], [place], [address], 10/21/2023 07:13:39 10/20/19 24 10/21/2023 CBC WITH DIFFE RENTI AL/PL ATELE T basos 1 % notest ab. Not Available [facility] ([facility]) [address] [facility], [place], [address], 10/21/2023 07:13:39 10/20/19 24 10/21/2023 CBC WITH DIFFE RENTI AL/PL ATELE T neutrophils (absolute) 4.3 x10e3 /uL 1.4-7. 0 Not Available [facility] ([facility]) [address] [facility], [place], [address], 10/21/2023 07:13:39 10/20/19 24 10/21/2023 CBC WITH DIFFE RENTI AL/PL ATELE T lymphs (absolute) 2.9 x10e3 /uL 0.7-3. 1 Not Available [facility] ([facility]) [address] [facility], [place], [address], 10/21/2023 07:13:39 10/20/19 24 10/21/2023 CBC WITH DIFFE RENTI AL/PL ATELE T monocytes(ab solute) 0.7 x10e3 /uL 0.1-0. 9 Not Available [facility] ([facility]) [address] [place], [address], 10/21/2023 07:13:39 10/20/19 24 10/21/2023 CBC WITH DIFFE RENTI AL/PL ATELE T eos (absolute) 0.2 x10e3 /uL 0.0-0. 4 Not Available [facility] ([facility]) [address] [place], [address], 10/21/2023 07:13:39 10/20/19 24 10/21/2023 CBC WITH DIFFE RENTI AL/PL ATELE T baso (absolute) 0.1 x10e3 /uL 0.0-0. 2 Not Available [facility] ([facility]) [address] [facility], [place], [address], 10/21/2023 07:13:39 10/20/1910/21/2023 CBC WITH DIFFE RENTI AL/PL ATELE T immature granulocytes 0 % notest ab. Not Available [facility] ([facility]) [address] [facility], [place], [address], 10/21/2023 07:13:39 10/20/1910/21/2023 CBC WITH DIFFE RENTI AL/PL ATELE T immature grans (abs) 0.0 x10e3 /uL 0.0-0. 1 Not Available [facility] ([facility]) [address] [facility], [place], [address], 10/21/2023 07:13:39 10/20/1910/21/2023 TRIIO DOTHY BERT E (T3), FREE triiodothyro nine (T3), free 3.8 pg/mL 2.0-4. 4 Not Available [facility] ([facility]) [address] [facility], [place], [address], 10/21/2023 07:13:40 03/01/2003/02/2024 LIPID PANEL cholesterol, total 160 mg/dL 100-19 9 Not Available [facility] ([facility]) [address] [facility], [place], [address], 03/02/2024 08:22:56 03/01/2003/02/2024 LIPID PANEL triglyceride s 69 mg/dL 0-149 Not Available [facility] ([facility]) [address] [facility], [place], [address], 03/02/2024 08:22:56 03/01/2003/02/2024 LIPID PANEL HDL cholesterol 83 mg/dL >39 Not Available [facility] ([facility]) [address] [facility], [place], [address], 03/02/2024 08:22:56 03/01/20 24 03/02/2024 LIPID PANEL VLDL cholesterol john 13 mg/dL 5-40 Not Available [facility] ([facility]) [address] [place], [address], 03/02/2024 08:22:56 03/01/20 24 03/02/2024 LIPID PANEL LDL chol calc ([facility]) 64 mg/dL 0-99 Not Available [facility] ([facility]) [address] [place], [address], 03/02/2024 08:22:56 03/01/2003/02/2024 T4, FREE T4,free([facility] ct) 1.37 NG/dL 0.82-1 .77 Not Available [facility] ([facility]) [address] [place], [address], 03/02/2024 08:22:56 03/01/2003/02/2024 COMP. METAB OLIC PANEL (14) glucose 104 mg/dL 70-99 above high normal Not Available [facility] ([facility]) [address] [place], [address], 03/02/2024 08:22:57 03/01/2003/02/2024 COMP. METAB OLIC PANEL (14) BUN 15 mg/dL 8-27 Not Available [facility] ([facility]) [address] [place], [address], 03/02/2024 08:22:57 03/01/20 24 03/02/2024 COMP. METAB OLIC PANEL (14) creatinine 0.82 mg/dL 0.57-1 .00 Not Available [facility] ([facility]) [address] [place], [address], 03/02/2024 08:22:57 03/01/20 24 03/02/2024 COMP. METAB OLIC PANEL (14) eGFR 81 mL/mi n/1.7 3 >59 Not Available [facility] ([facility]) [address], [place], [address], 03/02/2024 08:22:57 03/01/2003/02/2024 COMP. METAB OLIC PANEL (14) BUN/creatini ne ratio 18 12-28 Not Available [facility] ([facility]) [address] [facility], [place], [address], 03/02/2024 08:22:57 03/01/2003/02/2024 COMP. METAB OLIC PANEL (14) sodium 141 mmol/ L 134-14 4 Not Available [facility] ([facility]) [address] [facility], [place], [address], 03/02/2024 08:22:57 03/01/20 24 03/02/2024 COMP. METAB OLIC PANEL (14) potassium 4.6 mmol/ L 3.5-5. 2 Not Available [facility] ([facility]) [address] [facility], [place], [address], 03/02/2024 08:22:57 03/01/20 24 03/02/2024 COMP. METAB OLIC PANEL (14) chloride 105 mmol/ L 96-106 Not Available [facility] ([facility]) [address] [facility], [place], [address], 03/02/2024 08:22:57 03/01/20 24 03/02/2024 COMP. METAB OLIC PANEL (14) carbon dioxide, total 22 mmol/ L 20-29 Not Available [facility] ([facility]) [address] [facility], [place], [address], 03/02/2024 08:22:57 03/01/20 24 03/02/2024 COMP. METAB OLIC PANEL (14) calcium 9.2 mg/dL 8.7-10 .3 Not Available [facility] ([facility]) [address] [facility], [place], [address], 03/02/2024 08:22:57 03/01/20 24 03/02/2024 COMP. METAB OLIC PANEL (14) protein, total 6.5 g/dL 6.0-8. 5 Not Available [facility] ([facility]) [address] [facility], [place], [address], 03/02/2024 08:22:57 03/01/20 24 03/02/2024 COMP. METAB OLIC PANEL (14) albumin 4.4 g/dL 3.9-4. 9 Not Available [facility] ([facility]) [address] [facility], [place], [address], 03/02/2024 08:22:57 03/01/20 24 03/02/2024 COMP. METAB OLIC PANEL (14) globulin, total 2.1 g/dL 1.5-4. 5 Not Available [facility] ([facility]) [address] [facility], [place], [address], 03/02/2024 08:22:57 03/01/20 24 03/02/2024 COMP. METAB OLIC PANEL (14) bilirubin, total 0.4 mg/dL 0.0-1. 2 Not Available [facility] ([facility]) [address] [facility], [place], [address], 03/02/2024 08:22:57 03/01/20 24 03/02/2024 COMP. METAB OLIC PANEL (14) alkaline phosphatase 75 IU/L 44-121 Not Available [facility] ([facility]) [address] [facility], [place], [address], 03/02/2024 08:22:57 03/01/2003/02/2024 COMP. METAB OLIC PANEL (14) AST (SGOT) 27 IU/L 0-40 Not Available [facility] ([facility]) [address] [facility], [place], [address], 03/02/2024 08:22:57 03/01/2003/02/2024 COMP. METAB OLIC PANEL (14) ALT (SGPT) 37 IU/L 0-32 above high normal Not Available [facility] ([facility]) [address] [facility], [place], [address], 03/02/2024 08:22:57 03/01/2003/02/2024 VITAM IN B12 AND FOLAT E vitamin B12 695 pg/mL 232-12 45 Not Available [facility] ([facility]) [address] [facility], [place], [address], 03/02/2024 08:22:58 03/01/2003/02/2024 VITAM IN B12 AND FOLAT E folate (folic acid), serum 15.5 NG/mL >3.0 A serum folat e violetta ntrat ion of less than 3.1 ng/mL is consi dered to repre sent clini john defic iency . Not Available [facility] ([facility]) [address] [facility], [place], [address], 03/02/2024 08:22:58 03/01/2003/02/2024 TSH TSH 2.620 uIU/m L 0.450- 4.500 Not Available [facility] ([facility]) [address] [facility], [place], [address], 03/02/2024 08:22:58 03/01/2003/02/2024 CBC WITH DIFFE RENTI AL/PL ATELE T WBC 7.4 x10e3 /uL 3.4-10 .8 Not Available [facility] ([facility]) [address] [place], [address], 03/02/2024 08:22:59 03/01/2003/02/2024 CBC WITH DIFFE RENTI AL/PL ATELE T RBC 4.83 x10e6 /uL 3.77-5 .28 Not Available [facility] ([facility]) [address] [place], [address], 03/02/2024 08:22:59 03/01/2003/02/2024 CBC WITH DIFFE RENTI AL/PL ATELE T hemoglobin 14.9 g/dL 11.1-1 5.9 Not Available [facility] ([facility]) [address] [facility], [place], [address], 03/02/2024 08:22:59 03/01/2003/02/2024 CBC WITH DIFFE RENTI AL/PL ATELE T hematocrit 45.5 % 34.0-4 6.6 Not Available [facility] ([facility]) [address] [facility], [place], [address], 03/02/2024 08:22:59 03/01/2003/02/2024 CBC WITH DIFFE RENTI AL/PL ATELE T MCV 94 fL 79-97 Not Available [facility] ([facility]) [address] [facility], [place], [address], 03/02/2024 08:22:59 03/01/2003/02/2024 CBC WITH DIFFE RENTI AL/PL ATELE T MCH 30.8 pg 26.6-3 3.0 Not Available [facility] ([facility]) [address] [place], [address], 03/02/2024 08:22:59 03/01/2003/02/2024 CBC WITH DIFFE RENTI AL/PL ATELE T MCHC 32.7 g/dL 31.5-3 5.7 Not Available [facility] ([facility]) [address] [place], [address], 03/02/2024 08:22:59 03/01/2003/02/2024 CBC WITH DIFFE RENTI AL/PL ATELE T RDW 12.6 % 11.7-1 5.4 Not Available [facility] ([facility]) [address] [place], [address], 03/02/2024 08:22:59 03/01/2003/02/2024 CBC WITH DIFFE RENTI AL/PL ATELE T platelets 316 x10e3 /uL 150-45 0 Not Available [facility] ([facility]) [address] [facility], [place], [address], 03/02/2024 08:22:59 03/01/2003/02/2024 CBC WITH DIFFE RENTI AL/PL ATELE T neutrophils 52 % notest ab. Not Available [facility] ([facility]) [address] [facility], [place], [address], 03/02/2024 08:22:59 03/01/2003/02/2024 CBC WITH DIFFE RENTI AL/PL ATELE T lymphs 36 % notest ab. Not Available [facility] ([facility]) [address] [facility], [place], [address], 03/02/2024 08:22:59 03/01/2003/02/2024 CBC WITH DIFFE RENTI AL/PL ATELE T monocytes 8 % notest ab. Not Available [facility] ([facility]) [address] [facility], [place], [address], 03/02/2024 08:22:59 03/01/2003/02/2024 CBC WITH DIFFE RENTI AL/PL ATELE T eos 3 % notest ab. Not Available [facility] ([facility]) [address] [facility], [place], [address], 03/02/2024 08:22:59 03/01/2003/02/2024 CBC WITH DIFFE RENTI AL/PL ATELE T basos 1 % notest ab. Not Available [facility] ([facility]) [address] [facility], [place], [address], 03/02/2024 08:22:59 03/01/20
--- OUTSIDE RECORDS SUMMARY | 2024-11-22 09:20 | XMS_ITS | CONTINUITY OF CARE DOCUMENT ---
Author Name edmund shaffer Address Unknown Organization [facility] Address [address] [place] [id number] Phone [phone] Care Team Providers Care Animal Tech Name Role Phone Brady Fox MD Unavailable [phone] Brady Fox MD Unavailable [phone] PARISH EVANS MD Unavailable INSURANCE PROVIDERS Payer name Policy type / Coverage type Sebastien red green party ID [facility] [id number]
--- OUTSIDE RECORDS SUMMARY | 2024-11-22 09:20 | XMS_ITS | Referral Summary ---
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 Gender Identity Not on file Sexual Orientation [...] on file Medical Devices Implanted Type Area Electrical Technician Device Identifier Shelf Expiration Date Model / Serial / Lot [employer] Smartset Medium Viscosity Cement 40gm Bone Sterile 312-040 - Sna - [id number] Implanted:Qty: 1 on 03/08/2022 by Nicolas White MD at [facility] Bone Cement Left: Knee [employer] 09/07/20232-040 / NA / [id number] [employer] Bsplt Tibial 3 Knee Left Medial Right Lat Mck System 027569 - Sna - [id number] Implanted:Qty: 1 on 03/08/2022 by Nicolas White MD at [facility] Other - see comments Left: Knee [employer] 080068 / NA / [employer] Cmpnt Fem 4 Std Knee Condyle Left Medial Right Lat 309486 - Sna - [id number] Implanted:Qty: 1 on 03/08/2022 by Nicolas White MD at [facility] Other - see comments Left: Knee [employer] 000755 / NA / Damien X3 Uni Onlay Tibial Insert Implanted:Qty: 1 on 03/08/2022 by Nicolas White MD at [facility] Other - see comments Left: Knee [employer] DUP [id number] 06/23/2026 211894-0 -E / NA / [id number] Description:Implant pause pe rformed on all implants 600. 052769-1-P discontinued Plate N/A: Neck Explanted Type Area Electrical Technician Device Identifier Shelf Expiration Date Model / Serial / Lot [employer] 4mm 110mm Pin Fixation Sterile 953487 - Sna - [id number] Explanted:Qty: 1 on 03/08/2022 by Nicolas White MD at [facility] Other - see comments Left: Knee [employer] [id number] 12/24/2026 446343 / NA / [id number] Description:Not intended for implant, for fixational purposes only. [employer] 4mm 140mm Knee Straight Pin Fixation Sterile 317337 - Sna - [id number] Explanted:Qty: 1 on 03/08/2022 by Nicolas White MD at [facility] Other - see comments Left: Knee [employer] [id number] 09/28/2026 175931 / NA / [id number] Description:Not intended for implant, for fixational purposes only. Insurance [employer] ACCESS CHOICE [employer] ACCESS CHOICE ARELI ACCESS CHOICE Advance Directives For more information, please contact: [phone] Documents on File Type Date Recorded Patient Events Manager Expl anation Power of Bezel Cutter 03/08/2022 5:15 AM * Full Code (Latest Code Status on File) Date Activated Date Inactivated Comments 03/08/2022 8:36 AM 03/08/2022 3:40 PM Care Teams Reporting Manager Relationship Specialty Start Date End Date Sim Meza MD PCP - General 12/22/16
--- OUTSIDE RECORDS SUMMARY | 2024-11-22 09:20 | XMS_ITS | Clinical Summary ---
Author Organization [facility] Address [facility] [place] [address] Care Team Providers Care Special Education Administrator Name Role Phone Sim Meza MD Primary Care Provider + [phone] Allergies Active Allergy Reactions Criticality Noted Date [...] eszopiclone 2 mg tablet Active influenza quadrivalent 9272-6354 (Fluzone Quad 8318-1544, PF,) 60 mcg (15 mcg x 4)/0.5 mL syringe Fluzone Quad 4290-9305 (PF) 60 mcg (15 mcg x 4)/0.5 [...] (01/31/2022): Added automatically from request for surgery [id number] Abnormal mammogram 12/22/2016 Surgical History Surgery Date Site/Laterality Comments KNEE ARTHROSCOPY 02/09/2021 Left partial meniscectomy - [facility] [place] BACK SURGERY 07/10/2009 - 07/09/2010 C5/6-C6/7 - [...] on file Legal Sex Female 12:43 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 Gender Identity Not on file Sexual Orientation [...] this topic Medical Devices Implanted Type Area Podiatrist Orthopedic Device Identifier Shelf Expiration Date Model / Serial / Lot [employer] Smartset Medium Viscosity Cement 40gm Bone Sterile 3122-040 - Sna - [id number] Implanted:Qty: 1 on 03/08/2022 by Nicolas White MD at [facility] Bone Cement Left: Knee [employer] 09/07/2023 3122-040 / NA / [id number] [employer] Bsplt Tibial 3 Knee Left Medial Right Lat Mck System 726980 - Sna - [id number] Implanted:Qty: 1 on 03/08/2022 by Nicolas White MD at [facility] Other - see comments Left: Knee [employer] 020782 / NA / [employer] Cmpnt Fem 4 Std Knee Condyle Left Medial Right Lat 544263 - Sna - [id number] Implanted:Qty: 1 on 03/08/2022 by Nicolas White MD at [facility] Other - see comments Left: Knee [employer] 467398 / NA / Damien X3 Uni Onlay Tibial Insert Implanted:Qty: 1 on 03/08/2022 by Nicolas White MD at [facility] Other - see comments Left: Knee [employer] DUP [id number] 06/23/2026 048019-8 -E / NA / [id number] Description:Implant pause pe rformed on all implants 600. 062232-4-P discontinued Plate N/A: Neck Explanted Type Area Podiatrist Orthopedic Device Identifier Shelf Expiration Date Model / Serial / Lot [employer] 4mm 110mm Pin Fixation Sterile 065620 - Sna - [id number] Explanted:Qty: 1 on 03/08/2022 by Nicolas White MD at [facility] Other - see comments Left: Knee [employer] [id number] 12/24/2026 978082 / NA / [id number] Description:Not intended for implant, for fixational purposes only. [employer] 4mm 140mm Knee Straight Pin Fixation Sterile 853880 - Sna - [id number] Explanted:Qty: 1 on 03/08/2022 by Nicolas White MD at [facility] Other - see comments Left: Knee [employer] [id number] 09/28/2026 033219 / NA / [id number] Description:Not intended for implant, for fixational purposes only. Insurance [facility] ACCESS CHOICE [employer] CHOICE Advance Directives For more information, please contact: [phone] Documents on File Type Date Recorded Patient Bank Vault Custodian Expl anation Power of Radio Electronics Officer 03/08/2022 5:15 AM * Full Code (Latest Code Status on File) Date Activated Date Inactivated Comments 03/08/2022 8:36 AM 03/08/2022 3:40 PM Care Teams Special Education Administrator Relationship Specialty Start Date End Date Sim Meza MD PCP - General 12/22/16
--- OUTSIDE RECORDS SUMMARY | 2024-11-22 09:20 | XMS_ITS | Clinical Summary ---
Author Organization [facility] [employer] Address [address] [place] [address] Care Team Providers Care Balance Assembler Name Role Phone Sim Meza MD Primary Care Provider [phone] Source Comments [facility] [employer]non-owned Affiliates and Associated Physician Practices is amultiple site organization consisting of ambulatory clinics and hospital sitesin [place], [place], [place] and [place]. This disclosure is being madepursuant to the Care Everywhere program and may not contain all information available regarding this patient. Last updated 18.[facility] [employer] Allergies Active Allergy Reactions Criticality Noted Date [...] this topic Insurance ANTHEM ANTHEM Care Teams Balance Assembler Relationship Specialty Start Date End Date Sim Meza MD PCP - General Internal Medicine 01/03/19
== END 2024-11-22 09:02 | disposition home or self-care (01) ==
LOC: ANHSURGERY 09:08
PROVIDERS: PCP Internal Medicine; Visit Provider Orthopaedic Surgery
DX: I10 Essential (primary) hypertension (principal); Z01.818 Encounter for other preprocedural examination
CPT/HCPCS: 93005

== ENCOUNTER 2024-11-27 10:36 | Outpatient (CLI) | payer BC, SELFPAY ==
--- NOTE | ~2024-11-27 | MM_ITS ---
EXAMINATION: MM screening [facility] BI w rhona HISTORY: Screening TECHNIQUE: Craniocaudal and mediolateral oblique 3-D tomosynthesis images were obtained and synthetic 2-D images were generated. CAD analysis was submitted and interpreted. COMPARISON: Comparison to multiple prior studies sequentially, with oldest reviewed study dated 10/26. BREAST PARENCHYMAL COMPOSITION: Not dense: There are scattered areas of fibroglandular density. FINDINGS: There are multiple developing masses in the right breast, largest measuring 3 cm. There are no suspicious calcifications or architectural distortion. There are multiple left breast masses whic h are stable or decreased in size compared with prior examinations, consistent with benign masses. IMPRESSION: 1. Developing right breast masses. 2. Additional mammographic views and possible breast ultrasound are recommended. BI-RADS Category 0: Incomplete: Needs additional imaging evaluation. Reviewed, dictated and finalized at location B. IMPRESSION: 1. Developing right breast masses. 2. Additional mammographic views and possible breast ultrasound are recommended . BI-RADS Category 0: Incomplete: Needs additional imaging evaluation.
== END 2024-11-27 10:37 | disposition home or self-care (01) ==
PROVIDERS: PCP Internal Medicine; Visit Provider Internal Medicine
DX: Z12.31 Encounter for screening mammogram for malignant neoplasm of breast (principal); R92.8 Other abnormal and inconclusive findings on diagnostic imaging of breast
CPT/HCPCS: 77063; 77067

== ENCOUNTER 2024-12-06 01:17 | Day surgery (SDC) | payer BC, SELFPAY ==
[2024-11-21 13:14] VITALS: BMI 33.0
--- NOTE | 2024-11-21 13:23 | PC.NURSE ---
Addendum entered by Joey Carolina RN 12/04/24 09:07: Patient says she saw Dr Fox yesterday and he cleared her for surgery. Said he saw no problem with the EKG. Patient says no changes in health history. Informed patient to be here at 0700 on 12-06-2024 for surgery at 0900. All other instructions the same. Patient has a paper copy of the instructions. Original Note: Report to the Outpatient Waiting Room, entrance under the green pavilion located off [facility], at time _1030_ on date _[phone]_. Planned Procedure Time: _1230_.? Time changes happen often and if your time is changed the preop area will call you the afternoon before. - You and your visitor will be asked to self-screen and do not enter if you have any COVID symptoms. Please call surgeon if you need to reschedule. - A mask is optional within the hospital at this time. Patients may have clear liquids (water, carbonated beverages, clear teas, apple juice) until 3 hours prior to surgery with a maximum of 20 ounces. - No food from midnight until time of surgery and no smoking, or chewing tobacco (or any form of nicotine). No chewing gum, candy or mints. Take only the following medications with a SIP of water on the morning of surgery: ___If needed may take Tylenol/Acetaminophen____ DO NOT STOP ANY OF YOUR OTHER PRESCRIPTION MEDICATIONS PRIOR TO SURGERY EXCEPT THE FOLLOWING Hold all vitamins and supplements for 3 days per anesthesiologist. Please check with Dr Fletcher if need to hold Ibuprofen. Medications to discontinue per physician Date to take last dose Please no make-up, nail greenlandic, hairspray, perfume, deodorant, or body powder the day of surgery.? No jewelry (including any body piercings) or valuables the day of surgery, leave them at home.? Please take a shower or bath the night before, or the morning of, surgery with an antibacterial soap.? Wear comfortable, loose fitting clothing.? - Jewelry must be removed prior to entering the operating room.? Rings and piercings that are not removed may be cut off. - The hospital will not accept responsibility for valuables.? - Please leave all valuables, including medications, at home the day of surgery. If you are going home after surgery, a licensed otr driver must drive you home.? - NO public transportation without another adult if you receive anesthesia. - We recommend that an adult stay with you for 24 hours following discharge. - We also recommend that you do not drive, make important decision, drink alcoholic beverages, or take any drugs that were not prescribed by your health care provider for at least 24 hours after your discharge time. Follow any additional instructions given to you from your surgeon. Telephone instructions given to __Hilary___and asked if any additional questions and then verbalized understanding. Patient advised to call surgeon office or pre surgery nurse liaison [phone] if any additional questions.
--- OUTSIDE RECORDS SUMMARY | 2024-11-28 02:44 | XMS_ITS | Data Portability ---
Author Organization [facility] [employer], Main Office Address [address] [place] [address] Care Team Providers Care Service Team Leader Name Role Phone PARISH MEZA Primary Care Provider PARISH MEZA Referring Provider Assessment Encounter Date Assessment Date Assessment LastModified by Organization Details LastModified Time 12/30/2022 12/30/2022 Continue current therapy diagnosis discussed follow-up in 4 months [email or web address] Not available 07/02/2023 15:48:54 04/27/2023 04/27/2023 HPI: [...] treatment patient more half of this in [email or web address]-[email or web address] conversation Not available 04/27/2023 12:09:01 05/03/2023 05/03/2023 Continue current therapy follow-up in 4 months [email or web address] Not available 05/06/2023 16:53:46 08/10/2023 08/10/2023 HPI: [...] procedure, administere d by provider 2023 024 [email or web address] In-Office Order, Internal Use Only DO Not Attach Compendium DO Not Attach Compendium, Do Not Delete/merge, [id number] 4 11:10:36 injection/a spiration joint/bursa (PROC) - in office procedure, administere d by provider 2022 023 In-Office Order, Internal Use Only DO Not Attach Compendium DO Not Attach Compendium, Do Not Delete/merge, [id number] 3 12:03:13 Surgeries None recorded. Imaging XR, knee 2022 023 [email or web address] [facility]_[address], [place], [address], 3 12:40:46 Medication Orders Kenalog 10 mg/mL suspension for injection 2023 024 [email or web address] [facility], [address] [facility], [place], [address], 4 11:27:23 ropivacaine (PF) 5 mg/mL (0.5 %) injection solution 2023 024 [email or web address] [facility], [address] [place] [address], [address], 4 11:27:23 Kenalog 10 mg/mL suspension for injection [address] [facility], [address] [place] [address], [address], 3 12:03:13 ropivacaine (PF) 5 mg/mL (0.5 %) injection solution [address], [address] [place] [address], [address], 3 12:03:13 Patient TargetsNo targets recorded. Patient Instructions Encounter Date Encounter Id Patient Instructions Last Modified By Organization Details Last Modified Time 12/29/2022 [id number] patient understands there is no current treatment [...] No observ ation record ed. [facility] [id number] [facility], [place], [address], 04/27/2023 12:04:14 Result Notes None recorded. Problems Name Problem SNOMED Code Status Onset Date Resolution Date Notes Provider Name and Address Organization Details Recorded Time Edema of lower extremity 625789449 Active 2021 Not Available [employer] 3 06:03:14 Asthenia 17530693 Active Not Available [employer] 3 06:03:14 Chondromal acia of left knee 6917258175201 9102 Active 2019 Not [address] [facility] 3 06:03:14 Abdominal pain 93802838 Active Not Available [facility] 3 06:03:14 Gastroesop hageal reflux disease 020852634 Active Not Available [facility] 3 06:03:14 Pure hyperchole sterolemia 822178957 Active Not Available [facility] 3 06:03:14 Malaise and fatigue 091953759 Active Not Available [facility] 3 06:03:14 Low back pain 826368529 Active Not Available [facility] 3 06:03:14 Current tear of medial cartilage AND/OR meniscus of knee Active 2019 Not [address] [facility] 3 06:03:14 Vitamin D deficiency 79493320 Active Not Available [facility] 3 06:03:15 Pain of left knee joint 6510522756296 07 Active 2021 Not Available [facility] 3 06:03:15 Dysuria 78357945 Active 2021 Not Available [facility] 3 06:03:15 Cough 73858476 Active 2022 Not [address] [facility] 3 06:03:15 Upper respirator y infection 09663691 Active Not Available [facility] 3 06:03:15 Hyperlipid emia 13988507 Active 2021 Not Available [facility] 3 06:03:15 Pain of joint 94129999 Active Not Available [facility] 3 06:03:15 Osteoporos is 53815625 Active Not Available [facility] 3 06:03:15 Bilateral tinnitus 0162866088943 Active 2022 MARIVEL Barba, [facility] 3 10:23:54 Pain of right knee joint 0339473188571 00 Active 2022 Roselyn quintero, [facility] 3 16:15:03 Rhinitis 56240103 Active 2022 Parish Meza MD [address] [place] [address], [facility] [address], [place], [address] , [facility] [employer] [facility] 3 15:48:39 Osteoarthr itis of right knee joint 5053928622052 00 Active 2023 Asia Sellers, RMA null, [facility] [employer] [facility] 4 11:08:50 Problem Notes None recorded. Procedures Surgical History Date Name Laterality Status Provider Name and Address Organization Details Recorded Time 03/08/20 22 Knee Replacement completed Not Available [facility] 09/07/2022 05:56:31 02/10/20 21 Knee arthroscopy/ron debbie completed Not Available [facility] 09/07/2022 05:56:31 08/16/19 17 Excisions - Specify completed Not Available [facility] 09/07/2022 05:56:31 08/16/19 17 Exc tr-ext b9+margie 1.1-2 cm completed Not Available [facility] 09/07/2022 05:56:31 Arthrd ant ntrbd min dsc crv completed Not Available [facility] 09/07/2022 05:56:31 Breast Surgery completed Not Available [facility] 09/07/2022 05:56:31 Imaging Results Imaging Date Name Status LastModified by Organiz ation Details LastModified Time 12/12/2022 audiogram + tympanogram completed [email or web address] Information not available 12/12/2022 14:44:54 04/27/2023 XR, knee completed [facility] [place] [id number] [facility], [place], [address], 04/27/2023 12:04:14 Procedure Notes None recorded. Medical Equipment None Reported. Allergies Allergen ID Allergen Name Allergen Category Reaction Reaction Severity Criticality Documentation Date Start Date Code Code System Note Provider Name and Address Organization Details Recorded Time 61312 tramadol medicatio n itching Not available Not available 09/07/2022 65910 RxNorm Not Available [facility] 06:08:55 87576 Product containin g penicilli n (product) medicatio n hives Not available Not available 09/07/2022 92990 8001 SNOMED Not Available [facility] 3 06:08:55 77626 codeine medicatio n nausea vomiting Not available Not available Not available 09/07/2022 2670 RxNorm Not Available [facility] 3 06:08:56 Medications Name Sig Start [...] suspension for injection in office 2023 active [facility]: 0003- 0494- 20 Not Available Not Available [...] administe red by the provider 04/06 completed [facility]: 0409- [phone]- 17 Not Available Not Available [...] Updated DateTime 12/29/2022 157.48 cm 33.7 kg/m2 50967 g 97.6 [degF] Kelly Taylor RN [facility] [employer] 12/29/2022 10:36:46 Date Recorded Body height Body mass index (BMI) Body weight Body temperature Heart rate Oxygen saturation Oxygen saturation in Arterial blood by Pulse oximetry Systolic blood pressure Diastolic blood pressure Provider Name and Address Organization Details Last Updated DateTime 3 157.48 cm 33.7 kg/m2 95228 g 98.2 [degF] 80 /min 95 % 95 % 124 mm[Hg] 80 mm[Hg] Leidy Gary RN [facility] [employer] 3 12:28:13 Date Recorded Body height Body mass index (BMI) Body weight Provider Name and Address Organization Details Last Updated DateTime 04/27/2023 154.94 cm 34 kg/m2 54272.63 g MARIVEL Moreno [place] [employer] [facility] [employer] [facility] 04/27/2023 11:18:45 Date Recorded Body height Body mass index (BMI) Body weight Body temperature Heart rate Systolic blood pressure Diastolic blood pressure Provider Name and Address Organization Details Last Updated DateTime 3 154.94 cm 33.8 kg/m2 07622.0 3 g 97.2 [degF] 74 /min 136 mm[Hg] 86 mm[Hg] Rhea Gutierrez [place] [facility] [employer] [facility] 10:44:51 Date Recorded Body height Provider Name an d Address Organization Details Last Updated DateTime 08/10/2023 154.94 cm MARIVEL [place]no [place] [facility] [employer] [facility] 08/10/2023 11:08:05 Social History Question Answer Notes LastModified by Organizat ion Details LastModified Time Tobacco Smoking Status Never Smoker Not Available [employer] 09/07/2022 05:55:58 Do You Have An Advance Directive? No MIGRATION.87887 00499 Information not available 09/07/2022 What Is Your Level Of Caffeine Consumption? Moderate MIGRATION.02920 30842 Information not available 09/07/2022 How Much Tobacco Do You Chew? None MIGRATION.76832 27225 Information not available 09/07/2022 In The 14 Days Before Symptom Onset, Have You Had Close Contact With A Laboratory-confi rmed COVID-19 While That Case Was Ill? No MIGRATION.98038 13118 Information not available 09/07/2022 In The 14 Days Before Symptom Onset, Have You Had Close Contact With A Person Who Is Under Investigation For COVID-19 While That Person Was Ill? No MIGRATION.67211 35817 Information not available 09/07/2022 What Type Of Diet Are You Following? REGULAR MIGRATION.78683 60535 Information not available 09/07/2022 Which Illicit Or Recreational Drugs Have You Used? None MIGRATION.15885 96706 Information not available 09/07/2022 What Is The Highest Grade Or Level Of School You Have Completed Or The Highest Degree You Have Received? [id number] MIGRATION.00097 60957 Information not available 09/07/2022 Have There Been Any Changes To Your Family Or Social Situation? No MIGRATION.98987 02023 Information not available 09/07/2022 What Is The Fluoride Status Of Your Home? Unknown MIGRATION.56715 86047 Information not available 09/07/2022 Are There Any Guns Present In Your Home? Yes MIGRATION.99887 80653 Information not available 09/07/2022 Do You Use Insect Repellent Routinely? No MIGRATION.86771 44149 Information not available 09/07/2022 Where Do You Live? [place] MIGRATION.66064 59900 Information not available 09/07/2022 Do You Have A Medical Power Of Credit Processor? No MIGRATION.88414 12671 Information not available 09/07/2022 What Was The Date Of Your Most Recent Tobacco Screening? 05/03/2023 [email or web address] Information not available 05/03/2023 Do You Have Any Pets? Yes MIGRATION.50484 35422 Information not available 09/07/2022 What Is Your Relationship Status? MIGRATION.61005 11046 Information not available 09/07/2022 Do You Use Your Seat Belt Or Car Seat Routinely? Yes MIGRATION.57753 11672 Information not available 09/07/2022 Do You Have Smoke And Carbon Monoxide Detectors In Your Home? Yes MIGRATION.64203 12367 Information not available 09/07/2022 Are You Passively Exposed To Smoke? No MIGRATION.34728 81386 Information not available 09/07/2022 Are There Any Smokers In Your House? No MIGRATION.16665 74137 Information not available 09/07/2022 How Much Tobacco Do You Smoke? No MIGRATION.66709 59824 Information not available 09/07/2022 What Types Of Sporting Activities Do You Participate In? None MIGRATION.14408 12997 Information not available 09/07/2022 Do You Use Sunscreen Routinely? Yes MIGRATION.52288 58995 Information not available 09/07/2022 Has Tobacco Cessation Counseling Been Provided? No Not Needed-ne mayela Smoked MIGRATION.23921 38567 Information not available 09/07/2022 How Many Years Have You Smoked Tobacco? 0 MIGRATION.81312 18942 Information not available 09/07/2022 Have You Recently Traveled Abroad? No MIGRATION.41105 06888 Information not available 09/07/2022 Do You Have Any Dietary Restrictions? No MIGRATION.81145 02042 Information not available 09/07/2022 Sex: Female Functional Status Question Answer Note LastModified by Organizat ion Details LastModified Time Do you use any illicit or recreational drugs? No MIGRATION.822748 3958 Information not available 09/07/2022 Do you or have you ever used any other forms of tobacco or nicotine? No MIGRATION.420525 0768 Information not available 09/07/2022 What is your level of alcohol consumption? None MIGRATION.103500 0960 Information not available 09/07/2022 Do you or have you ever used smokeless tobacco? 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 Never used electronic cigarettes MIGRATION.551563 2276 Information not available 09/07/2022 What is your exercise level? Occasional MIGRATION.996849 3267 Information not available 09/07/2022 Mental Status Question Answer Note LastModified by Organizat ion Details LastModified Time Do you feel stressed (tense, restless, nervous, or anxious, or unable to sleep at night)? [id number] MIGRATION.765688103 6 Information not available 09/07/2022 Family History Relationship Description Onset Age of this Age Resolved Age Notes LastModified by Organization Details LastModified Time Mother Malignant neoplastic disease MIGRATION.080 5042411 Not available 09/07/2022 05:56:38 Mother Alcoholism MIGRATION.818 5156679 Not available 09/07/2022 05:56:38 Mother Hypertensive disorder MIGRATION.014 5683429 Not available 09/07/2022 05:56:38 Mother Heart disease MIGRATION.101 1095271 Not available 09/07/2022 05:56:38 Mother Family history of stroke MIGRATION.440 3613295 Not available 09/07/2022 05:56:38 Father Alcoholism MIGRATION.149 0718194 Not available 09/07/2022 05:56:38 Father Heart disease MIGRATION.565 7213304 Not available 09/07/2022 05:56:38 Brother Alcoholism MIGRATION.588 8570848 Not available 09/07/2022 05:56:38 Brother Heart disease MIGRATION.719 8823950 Not available 09/07/2022 05:56:38 Brother Chronic obstructive pulmonary disease MIGRATION.549 0507235 Not available 09/07/2022 05:56:38 Unspecified Relation Diabetes mellitus MIGRATION.464 3175544 Not available 09/07/2022 05:56:38 Medical History Condition [...] HAVE YOU BEEN HOSPITALIZED OR SEEN IN [facility] IN THE PAST YEAR ? N [...] 50 mcg/0.25mL dose 05/31/2021 completed Not Available [facility] 3 06:08:47 COVID-19, mRNA, LNP-S, PF, 100 mcg/0.5mL dose or 50 mcg/0.25mL dose 10/23/2020 completed Not Available [facility] 3 06:08:47 COVID-19, mRNA, LNP-S, PF, 100 mcg/0.5mL dose or 50 mcg/0.25mL dose 09/27/2020 completed Not Available [facility] 3 06:08:48 Influenza, split virus, quadrivalent, PF 06/04/2019 completed Not Available [facility] 3 06:08:48 Influenza, split virus, quadrivalent, PF 04/18/2022 completed Not Available [facility] 3 06:08:48 Past Encounters Encounter ID Performer Location Encounter Start Date Encounter Closed Date Diagnosis/Indication Diagnosis SNOMED-CT Code Diagnosis ICD10 Code Diagnosis Note [id number] Parish Meza MD [facility] [place] [address] [place] [address] [place] [address] 11/12/2020 00:00:00 11/12/2020 22:33:37 [id number] SERGEY Lozano [facility] [place] [address] [place] [address] 11/26/2020 00:00:00 11/26/2020 16:11:26 [id number] Parish Meza MD [facility] [place] [address] [place] [address] [place] [address] 01/05/2021 00:00:00 01/11/2021 21:55:15 [id number] Yariel Tomlinson MD [facility] [place] [address] [place] [address] 02/04/2021 00:00:00 02/04/2021 09:13:51 [id number] Yariel Tomlinson MD [facility]_[address] [address] 02/23/2021 00:00:00 02/23/2021 10:52:46 [id number] Yariel Tomlinson MD [facility] [place] [address] [place] [address] 03/18/2021 00:00:00 03/18/2021 09:53:12 [id number] Parish Meza MD [facility] [place] [address] [place] [address] [place] [address] 04/06/2021 00:00:00 04/06/2021 22:52:24 [id number] Parish Meza MD [facility] [address] [place], [place] [address]., [facility] [address] [place] [address] 08/09/2021 00:00:00 08/12/2021 21:30:54 [id number] Parish Meza MD [facility] [address] [place], [place] [address]., [address] [address] 11/24/2021 00:00:00 11/28/2021 12:29:31 [id number] Parish Meza MD [facility] [address] [facility] [address] [address] 12/14/2021 00:00:00 12/14/2021 18:45:43 [id number] Parish Meza MD [facility] [address] [place] [address]., [address] [address] 03/21/2022 00:00:00 03/22/2022 09:07:07 [id number] Parish Meza MD [facility] 15 [address] [facility] [address] [address] 04/18/2022 00:00:00 04/24/2022 15:12:56 [id number] Parish Meza MD [facility] [address] [place] [address]., [address] [address] 08/16/2022 00:00:00 08/16/2022 15:09:44 [id number] Parish Meza MD [facility] [address] [place] [address]., [address] [address] 11/18/2022 09:26:54 11/18/2022 10:22:14 Hyperlipidemia 32059145 E78.5 Cough 32413003 R05.9 Bilateral tinnitus 77887 15725 102 H93.13 [id number] Tera Brandt MD [facility] [place] [address] [place] [address] 12/29/2022 09:43:30 12/29/2022 10:56:26 Bilateral tinnitus 4707402091 102 H93.13 [id number] Parish Meza MD S_[facility] Internal Med [facility] [address] [place] [address] 12/30/2022 11:34:39 12/30/2022 12:45:23 Gastroesophageal reflux disease 815586303 K21.9 Hyperlipidemia 87697304 E78.5 Rhinitis 80373158 J00 [id number] SERGEY Piña [place] [address] 04/27/2023 10:20:21 04/27/2023 12:40:46 Pain of right knee joint 5958996897 55798 M25.033 [id number] Parish Meza MD S_[facility] Internal Med [facility] [address] [address] 05/03/2023 10:28:22 05/03/2023 11:17:41 Gastroesophageal reflux disease 168493622 K21.9 Hyperlipidemia 30310321 E78.5 Pure hypercholesterolemia 981755562 E78.00 [id number] Roberto Day MD [facility] [address] 08/10/2023 11:00:43 08/10/2023 11:51:49 Osteoarthritis of right knee joint 7842952819 30016 M17.11 Health Concerns Section Related Observation LastModified by Organization Detai ls LastModified Time None Recorded Concern Status LastModified by Organization Details LastModified Time None Recorded Advance Directives Directive N: Payers Encounter Date Sequence Insurance Name Policy Number Policy Mccain Covered Member ID Mccain Member ID Guarantor Name 12/29/2022 1 [place] [id number] 2 Hilary A Sharp [id number] Hilary Sharp 12/30/2022 1 [place] [id number] 2 Hilary A Sharp [id number] 192 Hilary Sharp 04/27/2023 1 [place] [id number] 2 Hilary A Sharp [id number] Hilary Sharp 05/03/2023 1 [place] [id number] 2 Hilary A Sharp [id number] Hilary Sharp 08/10/2023 1 [place] [id number] 2 Hilary A Sharp [id number] Hilary Sharp Notes Date Note Type Note Provider Name and Address Organization Details Recorded Time 12/29/2022 text/html This patient developed tinnitus after receiving the COVID vaccine. She had an audiogram demonstrating mild high-frequency hearing loss with normal word recognition scores. Tera Brandt MD [address], [place], [address], [place] 12/29/2022 10:51:26 12/30/2022 text/html Rhinitis stable GERD fine dyslipidemia trying to follow a low-fat diet Parish Meza MD [address], [place], [address], [place] 07/02/2023 15:49:19 05/03/2023 text/html Rhinitis stable GERD fine dyslipidemia trying to follow low-fat knee seeing Ortho Parish Meza MD [address], [place], [address], [place] 05/06/2023 16:54:18 OBGyn Episode No OBEpisode recorded.
--- OUTSIDE RECORDS SUMMARY | 2024-11-28 02:45 | XMS_ITS | Data Portability ---
Author Organization [facility] OMARDaisha Address [address] [place] [address] Care Team Providers Care Chief Relay Tester Name Role Phone PARISH MEZA Primary Care [...] up in 4 months continue other meds [email or web address] Not available 03/02/2024 12:32:53 03/29/2024 03/29/2024 physical therapy for her back healthy lifestyle care instructions for obesity dietary referral as where as well. 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 Healthy lifestyle care instructions discussed. 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 Mammogram all ordered all questions answered no changes in medications no side effects from medications and she is taking medications as prescribed follow up in 4 months [email or web address] Not available 06/22/2024 12:46:44 10/18/2024 10/18/2024 Blood work healthy lifestyle care instructions sleep study follow up 4 months still needs to go see the cut pressman for routine visit Prevnar 20 today continue current therapy [email or web address] Not available 10/19/2024 13:23:46 Plan of Treatment Reminders Order Date Submit Date Provider Last Modified By Organization Details Last Modified Time Details Appointments ANY 15 2024 10:30A M Parish Meza MD Not available Not available Not available Lab [facility] w/ auto diff [facility]24 [facility]25 [facility] [address], [place], [address], 10/19/2024 09:06:09 CMP, serum or plasma 2024 025 D HANIS Sumitnjcasper, [address], [address], [place], [address], 10/19/2024 09:06:08 lipid panel, serum 2024 025 D HANIS Jay, [address], [address], [place], [address], 10/19/2024 09:06:07 vitamin D, 25-hydrox y, total, serum 2024 025 [facility], [address], [address], [place], [address], 10/19/2024 09:06:11 CMP, serum or plasma 2023 025 mariano Thompson, [address], [address], [place], [address], 11/06/2024 12:55:19 lipid panel, serum 2023 025 mariano Thompson, [address], [address], [place], [address], 11/06/2024 12:55:04 CBC w/ auto diff 2023 025 marcelaor Jay, [address], [address], [place], [address], 11/06/2024 12:54:51 vitamin D, 25-hydrox y, total, serum 2023 025 [facility], [address], [address], [place], [address], 11/06/2024 12:55:32 lipid panel, serum 2023 024 [facility], [address], [address], [place], [address], 03/02/2024 08:22:56 TSH, ultra-sen sitive, serum 2023 024 [facility], [address], [address], [place], [address], 03/02/2024 08:22:58 T3, free, serum or plasma 2023 024 [facility], [address], [address], [place], [address], 03/02/2024 08:23:00 unlisted lab - T4, free 2023 024 [facility], [address], [address], [place], [address], 03/02/2024 08:22:56 CBC w/ auto diff 2023 024 [facility], [address], [address], [place], [address], 03/02/2024 08:22:59 CMP, serum or plasma 2023 024 [facility], [address], [address], [place], [address], 03/02/2024 08:22:57 vitamin D, 25-hydrox y, total, serum 2023 024 [facility], [address], [address], [place], [address], 03/02/2024 08:23:00 vitamin B12 + folate, serum or blood 2023 024 [facility], [address], [address], [place], [address], 03/02/2024 08:22:58 lipid panel, serum 2023 024 [facility], [address], [address], [place], [address], 10/21/2023 07:13:37 CBC w/ auto diff 2023 024 [facility], [address], [address], [place], [address], 10/21/2023 07:13:39 CMP, serum or plasma 2023 024 [facility], [address], [address], [place], [address], 10/21/2023 07:13:38 TSH, ultra-sen sitive, serum 2023 [facility], [address], [address], [place], [address], 10/21/2023 07:13:39 T3, free, serum or plasma 2023 024 [facility], [address], [address], [place], [address], 10/21/2023 07:13:40 unlisted lab - T4, free 2023 [facility], [address], [address], [place], [address], 10/21/2023 07:13:37 Referral gynecolog ist referral 2023 024 [facility] Ирина Rawls MD, [address], [address], [place], [address], 11/11/2024 10:34:15 nutrition ist/dieti moira referral 2023 024 [facility], [address], [place], [address], 06/07/2024 16:31:56 physical therapist referral 2023 024 [facility] [place], [facility], [place], [address], 04/15/2024 14:11:54 Procedures home sleep testing (PROC) - Per Leidy this was approved auth number [id number] start 10/28/24-. 2024 025 [facility], [address], [address], [place], [address], 11/17/2024 12:16:58 colonosco py screening (PROC) 2023 024 [facility], [address], [address], [place], [address], 08/22/2024 09:49:57 Surgeries None recorded. Imaging MAMMO, screening , digital, bilateral 2023 024 [facility] (Imaging), [address], [place], [address], 11/27/2024 12:59:28 nerve conductio n study - NCS B/L Legs 2023 [facility], [address] [facility] [place], [address], 06/21/2024 11:44:12 home sleep study 2023 024 [facility] [address] [place], [address], 11/24/2023 13:56:28 Medication Orders ergocalci ferol (vitamin D2) 1,250 mcg (50,000 unit) capsule [address] [facility] [address] [facility], [address] [place] [address], [address], 06/21/2024 13:34:55 losartan 25 mg tablet [address] [facility], [address] [place] [address], [address], 03/01/2024 12:33:35 pantopraz ole 40 mg tablet,de layed release [address] [facility], [address] [place] [address], [address], 10/20/2023 13:56:52 Patient TargetsNo targets recorded. Patient Instructions Encounter Date Encounter Id Patient Instructions Last Modified By Organization Details Last Modified Time 03/01/2024 [id number] (ALEC) ankle brachial index* - B/L legs [email or web address] Not available 06/21/2024 11:44:39 03/29/2024 [id number] A healthy lifestyle: care instructions [email or web address] Not available 03/29/2024 13:04:48 06/21/2024 [id number] A healthy lifestyle: care instructions Not available 06/21/2024 13:34:55 10/18/2024 [id number] A healthy lifestyle: care instructions [email or web address] Not available 10/18/2024 13:41:08 Reason for Referral Physical Therapist Referral for Low back pain Referring Physician: Parish Meza, Internal Medicine, Encounter Date: 03/29/2024 [employer] Officer/dietitian Refer ral for Obesity Referring Physician: Parish Meza, Internal Medicine, Encounter Date: 03/29/2024 Resaw Tailer Referral for Gy necologic examination Referring Physician: Parish Meza, Internal Medicine, Encounter Date: 06/21/2024 Results Created Date Observation Date Name Description Value Unit Range Abnormal Flag Note LastModifiedBy Organization Detail LastModifiedTime 10/20/19 24 10/21/2023 LIPID PANEL cholesterol, total 210 mg/dL 100-19 9 above high normal Not Available [facility] ([facility]) [address] [place], [address], 10/21/2023 07:13:37 10/20/19 24 10/21/2023 LIPID PANEL triglyceride s 95 mg/dL 0-149 Not Available [facility] ([facility]) [address] [place], [address], 10/21/2023 07:13:37 10/20/19 24 10/21/2023 LIPID PANEL HDL cholesterol 90 mg/dL >39 Not Available [facility] [address] [place], [address], 10/21/2023 07:13:37 10/20/19 24 10/21/2023 LIPID PANEL VLDL cholesterol john 16 mg/dL 5-40 Not Available [facility] ([facility]) [address] [place], [address], 10/21/2023 07:13:37 10/20/19 24 10/21/2023 LIPID PANEL LDL chol calc (rust) 104 mg/dL 0-99 above high normal Not Available [facility] ([facility]) [address] [place], [address], 10/21/2023 07:13:37 10/20/19 24 10/21/2023 T4, FREE T4,free(dire ct) 1.48 NG/dL 0.82-1 .77 Not Available [facility] ([facility]) [address] [place], [address], 10/21/2023 07:13:37 10/20/19 24 10/21/2023 COMP. METAB OLIC PANEL (14) glucose 101 mg/dL 70-99 above high normal Not Available [facility] ([facility]) [address] [place], [address], 10/21/2023 07:13:38 10/20/19 24 10/21/2023 COMP. METAB OLIC PANEL (14) BUN 15 mg/dL 8-27 Not Available [facility] ([facility]) [address] [place], [address], 10/21/2023 07:13:38 10/20/19 24 10/21/2023 COMP. METAB OLIC PANEL (14) creatinine 0.89 mg/dL 0.57-1 .00 Not Available [facility] ([facility]) [address] [facility], [place], [address], 10/21/2023 07:13:38 10/20/19 24 10/21/2023 COMP. METAB OLIC PANEL (14) eGFR 74 mL/mi n/1.7 3 >59 Not Available [facility] ([facility]) [address] [place], [address], 10/21/2023 07:13:38 10/20/19 24 10/21/2023 COMP. METAB OLIC PANEL (14) BUN/creatini ne ratio 17 12-28 Not Available [facility] ([facility]) [address] [place], [address], 10/21/2023 07:13:38 10/20/19 24 10/21/2023 COMP. METAB OLIC PANEL (14) sodium 145 mmol/ L 134-14 4 above high normal Not Available [facility] ([facility]) [address] [place], [address], 10/21/2023 07:13:38 10/20/19 24 10/21/2023 COMP. METAB OLIC PANEL (14) potassium 4.7 mmol/ L 3.5-5. 2 Not Available [facility] ([facility]) [address] [place], [address], 10/21/2023 07:13:38 10/20/19 24 10/21/2023 COMP. METAB OLIC PANEL (14) chloride 107 mmol/ L 96-106 above high normal Not Available [facility] ([facility]) [address] [place], [address], 10/21/2023 07:13:38 10/20/19 24 10/21/2023 COMP. METAB OLIC PANEL (14) carbon dioxide, total 23 mmol/ L 20-29 Not Available [facility] ([facility]) [address] [place], [address], 10/21/2023 07:13:38 10/20/19 24 10/21/2023 COMP. METAB OLIC PANEL (14) calcium 9.4 mg/dL 8.7-10 .3 Not Available [facility] ([facility]) [address] [place], [address], 10/21/2023 07:13:38 10/20/19 24 10/21/2023 COMP. METAB OLIC PANEL (14) protein, total 6.8 g/dL 6.0-8. 5 Not Available [facility] ([facility]) [address] [place], [address], 10/21/2023 07:13:38 10/20/19 24 10/21/2023 COMP. METAB OLIC PANEL (14) albumin 4.5 g/dL 3.8-4. 9 Not Available [facility] ([facility]) [address] [place], [address], 10/21/2023 07:13:38 10/20/19 24 10/21/2023 COMP. METAB OLIC PANEL (14) globulin, total 2.3 g/dL 1.5-4. 5 Not Available [facility] ([facility]) [address] [place], [address], 10/21/2023 07:13:38 10/20/19 24 10/21/2023 COMP. METAB OLIC PANEL (14) A/G ratio 2.0 1.2-2. 2 Not Available [facility] ([facility]) [address] [facility], [place], [address], 10/21/2023 07:13:38 10/20/19 24 10/21/2023 COMP. METAB OLIC PANEL (14) bilirubin, total 0.6 mg/dL 0.0-1. 2 Not Available [facility] ([facility]) [address] [facility] [place], [address], 10/21/2023 07:13:38 10/20/19 24 10/21/2023 COMP. METAB OLIC PANEL (14) alkaline phosphatase 74 IU/L 44-121 Not Available [facility]) [address] [facility] [place], [address], 10/21/2023 07:13:38 10/20/19 24 10/21/2023 COMP. METAB OLIC PANEL (14) AST (SGOT) 37 IU/L 0-40 Not Available [facility] ([facility]) [address] [facility], [place], [address], 10/21/2023 07:13:38 10/20/19 24 10/21/2023 COMP. METAB OLIC PANEL (14) ALT (SGPT) 48 IU/L 0-32 above high normal Not Available [facility] ([facility]) [address] [facility], [place], [address], 10/21/2023 07:13:38 10/20/19 24 10/21/2023 TSH TSH 3.520 uIU/m L 0.450- 4.500 Not Available [facility] ([facility]) [address] [facility] [place], [address], 10/21/2023 07:13:39 10/20/19 24 10/21/2023 CBC WITH DIFFE RENTI AL/PL ATELE T WBC 8.1 x10e3 /uL 3.4-10 .8 Not Available [facility] ([facility]) [address] [facility], [place], [address], 10/21/2023 07:13:39 10/20/19 24 10/21/2023 CBC WITH DIFFE RENTI AL/PL ATELE T RBC 4.97 x10e6 /uL 3.77-5 .28 Not Available [facility] ([facility]) [address] [place], [address], 10/21/2023 07:13:39 10/20/1910/21/2023 CBC WITH DIFFE RENTI AL/PL ATELE T hemoglobin 14.7 g/dL 11.1-1 5.9 Not Available [facility] ([facility]) [address] [place], [address], 10/21/2023 07:13:39 10/20/19 24 10/21/2023 CBC WITH DIFFE RENTI AL/PL ATELE T hematocrit 44.9 % 34.0-4 6.6 Not Available [facility] ([facility]) [address] [place], [address], 10/21/2023 07:13:39 10/20/1910/21/2023 CBC WITH DIFFE RENTI AL/PL ATELE T MCV 90 fL 79-97 Not Available [facility] ([facility]) [address] [place], [address], 10/21/2023 07:13:39 10/20/1910/21/2023 CBC WITH DIFFE RENTI AL/PL ATELE T MCH 29.6 pg 26.6-3 3.0 Not Available [facility] ([facility]) [address] [place], [address], 10/21/2023 07:13:39 10/20/1910/21/2023 CBC WITH DIFFE RENTI AL/PL ATELE T MCHC 32.7 g/dL 31.5-3 5.7 Not Available [facility] ([facility]) [address] [facility], [place], [address], 10/21/2023 07:13:39 10/20/19 24 10/21/2023 CBC WITH DIFFE RENTI AL/PL ATELE T RDW 12.8 % 11.7-1 5.4 Not Available [facility] ([facility]) [address] [facility], [place], [address], 10/21/2023 07:13:39 10/20/19 24 10/21/2023 CBC WITH DIFFE RENTI AL/PL ATELE T platelets 340 x10e3 /uL 150-45 0 Not Available [facility] ([facility]) [address] [facility], [place], [address], 10/21/2023 07:13:39 10/20/19 24 10/21/2023 CBC WITH DIFFE RENTI AL/PL ATELE T neutrophils 53 % notest ab. Not Available [facility] ([facility]) [address] [facility], [place], [address], 10/21/2023 07:13:39 10/20/19 24 10/21/2023 CBC WITH DIFFE RENTI AL/PL ATELE T lymphs 35 % notest ab. Not Available [facility] ([facility]) [address] [facility], [place], [address], 10/21/2023 07:13:39 10/20/19 24 10/21/2023 CBC WITH DIFFE RENTI AL/PL ATELE T monocytes 8 % notest ab. Not Available [facility] ([facility]) [address] [facility], [place], [address], 10/21/2023 07:13:39 10/20/19 24 10/21/2023 CBC WITH DIFFE RENTI AL/PL ATELE T eos 3 % notest ab. Not Available [facility] ([facility]) [address] [facility], [place], [address], 10/21/2023 07:13:39 10/20/19 24 10/21/2023 CBC WITH DIFFE RENTI AL/PL ATELE T basos 1 % notest ab. Not Available [facility] ([facility]) [address] [facility], [place], [address], 10/21/2023 07:13:39 10/20/19 24 10/21/2023 CBC WITH DIFFE RENTI AL/PL ATELE T neutrophils (absolute) 4.3 x10e3 /uL 1.4-7. 0 Not Available [facility] ([facility]) [address] [facility], [place], [address], 10/21/2023 07:13:39 10/20/19 24 10/21/2023 CBC WITH DIFFE RENTI AL/PL ATELE T lymphs (absolute) 2.9 x10e3 /uL 0.7-3. 1 Not Available [facility] ([facility]) [address] [facility], [place], [address], 10/21/2023 07:13:39 10/20/19 24 10/21/2023 CBC WITH DIFFE RENTI AL/PL ATELE T monocytes(ab solute) 0.7 x10e3 /uL 0.1-0. 9 Not Available [facility] ([facility]) [address] [place], [address], 10/21/2023 07:13:39 10/20/19 24 10/21/2023 CBC WITH DIFFE RENTI AL/PL ATELE T eos (absolute) 0.2 x10e3 /uL 0.0-0. 4 Not Available [facility] ([facility]) [address] [facility], [place], [address], 10/21/2023 07:13:39 04/06/28 2410/21/2023 CBC WITH DIFFE RENTI AL/PL ATELE T baso (absolute) 0.1 x10e3 /uL 0.0-0. 2 Not Available [facility] ([facility]) [address] [place], [address], 10/21/2023 07:13:39 10/20/1910/21/2023 CBC WITH DIFFE RENTI AL/PL ATELE T immature granulocytes 0 % notest ab. Not Available [facility] ([facility]) [address] [facility], [place], [address], 10/21/2023 07:13:39 10/20/1910/21/2023 CBC WITH DIFFE RENTI AL/PL ATELE T immature grans (abs) 0.0 x10e3 /uL 0.0-0. 1 Not Available [facility] ([facility]) [address] [place], [address], 10/21/2023 07:13:39 10/20/1910/21/2023 TRIIO DOTHY BERT E (T3), FREE triiodothyro nine (T3), free 3.8 pg/mL 2.0-4. 4 Not Available [facility] ([facility]) [address] [place], [address], 10/21/2023 07:13:40 03/01/2003/02/2024 LIPID PANEL cholesterol, total 160 mg/dL 100-19 9 Not Available [facility] ([facility]) [address] [place], [address], 03/02/2024 08:22:56 03/01/2003/02/2024 LIPID PANEL triglyceride s 69 mg/dL 0-149 Not Available [facility] ([facility]) [address] [place], [address], 03/02/2024 08:22:56 03/01/2003/02/2024 LIPID PANEL HDL cholesterol 83 mg/dL >39 Not Available [facility] ([facility]) [address] [facility] [place], [address], 03/02/2024 08:22:56 03/01/2003/02/2024 LIPID PANEL VLDL cholesterol john 13 mg/dL 5-40 Not Available [facility] ([facility]) [address] [place], [address], 03/02/2024 08:22:56 03/01/2003/02/2024 LIPID PANEL LDL chol calc (rust) 64 mg/dL 0-99 Not Available [facility] ([facility]) [address] [place], [address], 03/02/2024 08:22:56 03/01/2003/02/2024 T4, FREE T4,free(dire ct) 1.37 NG/dL 0.82-1 .77 Not Available [facility] ([facility]) [address] [place], [address], 03/02/2024 08:22:56 03/01/2003/02/2024 COMP. METAB OLIC PANEL (14) glucose 104 mg/dL 70-99 above high normal Not Available [facility] ([facility]) [address] [place], [address], 03/02/2024 08:22:57 03/01/2003/02/2024 COMP. METAB OLIC PANEL (14) BUN 15 mg/dL 8-27 Not Available [facility] ([facility]) [address] [place], [address], 03/02/2024 08:22:57 03/01/2003/02/2024 COMP. METAB OLIC PANEL (14) creatinine 0.82 mg/dL 0.57-1 .00 Not Available [facility] ([facility]) [address] [place], [address], 03/02/2024 08:22:57 03/01/20 24 03/02/2024 COMP. METAB OLIC PANEL (14) eGFR 81 mL/mi n/1.7 3 >59 Not Available [facility] ([facility]) [address] [facility], [place], [address], 03/02/2024 08:22:57 03/01/20 24 03/02/2024 COMP. METAB OLIC PANEL (14) BUN/creatini ne ratio 18 12-28 Not Available [facility] ([facility]) [address] [facility], [place], [address], 03/02/2024 08:22:57 03/01/2003/02/2024 COMP. METAB OLIC PANEL (14) sodium 141 mmol/ L 134-14 4 Not Available [facility] ([facility]) [address] [facility], [place], [address], 03/02/2024 08:22:57 03/01/2003/02/2024 COMP. METAB OLIC PANEL (14) potassium 4.6 mmol/ L 3.5-5. 2 Not Available [facility] ([facility]) [address] [facility], [place], [address], 03/02/2024 08:22:57 03/01/20 24 03/02/2024 COMP. METAB OLIC PANEL (14) chloride 105 mmol/ L 96-106 Not Available [facility] ([facility]) [address] [place], [address], 03/02/2024 08:22:57 03/01/2003/02/2024 COMP. METAB OLIC PANEL (14) carbon dioxide, total 22 mmol/ L 20-29 Not Available [facility] ([facility]) [address] [facility], [place], [address], 03/02/2024 08:22:57 03/01/20 24 03/02/2024 COMP. METAB OLIC PANEL (14) calcium 9.2 mg/dL 8.7-10 .3 Not Available [facility] ([facility]) [address] [facility] [place], [address], 03/02/2024 08:22:57 03/01/20 24 03/02/2024 COMP. METAB OLIC PANEL (14) protein, total 6.5 g/dL 6.0-8. 5 Not Available [facility] ([facility]) [address] [facility] [place], [address], 03/02/2024 08:22:57 03/01/2003/02/2024 COMP. METAB OLIC PANEL (14) albumin 4.4 g/dL 3.9-4. 9 Not Available [facility] ([facility]) [address] [facility] [place], [address], 03/02/2024 08:22:57 03/01/2003/02/2024 COMP. METAB OLIC PANEL (14) globulin, total 2.1 g/dL 1.5-4. 5 Not Available [facility] ([facility]) [address] [facility] [place], [address], 03/02/2024 08:22:57 03/01/20 24 03/02/2024 COMP. METAB OLIC PANEL (14) bilirubin, total 0.4 mg/dL 0.0-1. 2 Not Available [facility] ([facility]) [address] [facility] [place], [address], 03/02/2024 08:22:57 03/01/2003/02/2024 COMP. METAB OLIC PANEL (14) alkaline phosphatase 75 IU/L 44-121 Not Available [facility]) [address] [facility] [place], [address], 03/02/2024 08:22:57 03/01/20 24 03/02/2024 COMP. METAB OLIC PANEL (14) AST (SGOT) 27 IU/L 0-40 Not Available [facility] ([facility]) [address] [facility] [place], [address], 03/02/2024 08:22:57 03/01/2003/02/2024 COMP. METAB OLIC PANEL (14) ALT (SGPT) 37 IU/L 0-32 above high normal Not Available [facility] ([facility]) [address] [facility], [place], [address], 03/02/2024 08:22:57 03/01/2003/02/2024 VITAM IN B12 AND FOLAT E vitamin B12 695 pg/mL 232-12 45 Not Available [facility] ([facility]) [address] [facility], [place], [address], 03/02/2024 08:22:58 03/01/2003/02/2024 VITAM IN B12 AND FOLAT E folate (folic acid), serum 15.5 NG/mL >3.0 A serum folat e violetta ntrat ion of less than 3.1 ng/mL is consi dered to repre sent clini john defic iency . Not Available [facility] ([facility]) [address] [facility], [place], [address], 03/02/2024 08:22:58 03/01/2003/02/2024 TSH TSH 2.620 uIU/m L 0.450- 4.500 Not Available [facility] ([facility]) [address] [facility], [place], [address], 03/02/2024 08:22:58 03/01/2003/02/2024 CBC WITH DIFFE RENTI AL/PL ATELE T WBC 7.4 x10e3 /uL 3.4-10 .8 Not Available [facility] ([facility]) [address] [facility], [place], [address], 03/02/2024 08:22:59 03/01/2003/02/2024 CBC WITH DIFFE RENTI AL/PL ATELE T RBC 4.83 x10e6 /uL 3.77-5 .28 Not Available [facility] ([facility]) [address] [facility], [place], [address], 03/02/2024 08:22:59 03/01/2003/02/2024 CBC WITH DIFFE RENTI AL/PL ATELE T hemoglobin 14.9 g/dL 11.1-1 5.9 Not Available [facility] ([facility]) [address] [facility], [place], [address], 03/02/2024 08:22:59 03/01/2003/02/2024 CBC WITH DIFFE RENTI AL/PL ATELE T hematocrit 45.5 % 34.0-4 6.6 Not Available [facility] ([facility]) [address] [facility], [place], [address], 03/02/2024 08:22:59 03/01/2003/02/2024 CBC WITH DIFFE RENTI AL/PL ATELE T MCV 94 fL 79-97 Not Available [facility] ([facility]) [address] [place], [address], 03/02/2024 08:22:59 03/01/2003/02/2024 CBC WITH DIFFE RENTI AL/PL ATELE T MCH 30.8 pg 26.6-3 3.0 Not Available [facility] ([facility]) [address] [facility], [place], [address], 03/02/2024 08:22:59 03/01/2003/02/2024 CBC WITH DIFFE RENTI AL/PL ATELE T MCHC 32.7 g/dL 31.5-3 5.7 Not Available [facility] ([facility]) [address] [place], [address], 03/02/2024 08:22:59 03/01/2003/02/2024 CBC WITH DIFFE RENTI AL/PL ATELE T RDW 12.6 % 11.7-1 5.4 Not Available [facility] ([facility]) [address] [facility] [place], [place], [address], 03/02/2024 08:22:59 03/01/2003/02/2024 CBC WITH DIFFE RENTI AL/PL ATELE T platelets 316 x10e3 /uL 150-45 0 Not Available [facility] ([facility]) [address] [facility] [place], [place], [address], 03/02/2024 08:22:59 03/01/2003/02/2024 CBC WITH DIFFE RENTI AL/PL ATELE T neutrophils 52 % notest ab. Not Available [facility] ([facility]) [address] [facility] [address], [place], [address], 03/02/2024 08:22:59 03/01/2003/02/2024 CBC WITH DIFFE RENTI AL/PL ATELE T lymphs 36 % notest ab. Not Available [facility] ([facility]) [address] [facility] [address], [place], [address], 03/02/2024 08:22:59 03/01/2003/02/2024 CBC WITH DIFFE RENTI AL/PL ATELE T monocytes 8 % notest ab. Not Available [facility] ([facility]) [address] [facility] [address], [place], [address], 03/02/2024 08:22:59 03/01/2003/02/2024 CBC WITH DIFFE RENTI AL/PL ATELE T eos 3 % notest ab. Not Available [facility] ([facility]) [address] [facility] [address], [place], [address], 03/02/2024 08:22:59 03/01/2003/02/2024 CBC WITH DIFFE RENTI AL/PL ATELE T basos 1 % notest ab. Not Available [facility] ([facility]) [address] [facility] [address], [place], [address], 03/02/2024 08:22:59 03/01/2003/02/2024 CBC WITH DIFFE RENTI AL/PL ATELE T neutrophils (absolute) 3.8 x10e3 /uL 1.4-7. 0 Not Available [facility] ([facility]) [address] [facility] [address], [place], [address], 03/02/2024 08:22:59 03/01/2003/02/2024 CBC WITH DIFFE RENTI AL/PL ATELE T lymphs (absolute) 2.7 x10e3 /uL 0.7-3. 1 Not Available [facility] ([facility]) [address] [facility] [address], [place], [address], 03/02/2024 08:22:59 03/01/2003/02/2024 CBC WITH DIFFE RENTI AL/PL ATELE T monocytes(ab solute) 0.6 x10e3 /uL 0.1-0. 9 Not Available [facility] ([facility]) [address] [facility] [address], [place], [address], 03/02/2024 08:22:59 03/01/2003/02/2024 CBC WITH DIFFE RENTI AL/PL ATELE T eos (absolute) 0.2 x10e3 /uL 0.0-0. 4 Not Available [facility] ([facility]) [address] [place], [address], 03/02/2024 08:22:59 03/01/2003/02/2024 CBC WITH DIFFE RENTI AL/PL ATELE T baso (absolute) 0.1 x10e3 /uL 0.0-0. 2 Not Available [facility] ([facility]) [address] [facility] [address], [place], [address], 03/02/2024 08:22:59 03/01/2003/02/2024 CBC WITH DIFFE RENTI AL/PL ATELE T immature granulocytes 0 % notest ab. Not Available [facility] ([facility]) [address] [facility] [address], [place], [address], 03/02/2024 08:22:59 03/01/2003/02/2024 CBC WITH DIFFE RENTI AL/PL ATELE T immature grans (abs) 0.0 x10e3 /uL 0.0-0. 1 Not Available [facility] ([facility]) [address] [facility] [address], [place], [address], 03/02/2024 08:22:59 03/01/2003/02/2024 TRIIO DOTHY BERT E (T3), FREE triiodothyro nine (T3), free 3.3 pg/mL 2.0-4. 4 Not Available [facility] ([facility]) [address] [facility] [address], [place], [address], 03/02/2024 08:22:59 03/01/2003/02/2024 VITAM IN D, 25-HY [...] Honey anaya DC: The [facility] . 2. Yara donahue MF, [place], Nain off-F errar i CANO, et al. Evalu ation , treat ment, and preve ntion of vitam in D defic iency : an Endoc rine Socie ty clini john pract ice guide line. JCEM. 2010; 96(7) :191 -. Not Available [facility] ([facility]) [address] [facility] [address], [place], [address], 03/02/2024 08:23:00 06/17/20 24 06/18/2024 VITAM IN [...] Honey anaya DC: The [facility]io [facility] . 2. Yara donahue MF, Janey araujo [place], Nain off-F errar i CANO, et al. Evalu ation , treat ment, and preve ntion of vitam in D defic iency : an Endoc rine Socie ty clini john pract ice guide line. JCEM. 2010; 96(7) :191 -. Not Available [facility] ([facility]) [address] [facility] [address], [place], [address], 06/18/2024 07:14:52 10/19/19 25 10/19/2024 LIPID PANEL cholesterol, total 171 mg/dL 100-19 9 Not Available [facility] ([facility]) [address] [facility] [address], [place], [address], 10/19/2024 09:06:07 10/19/19 25 10/19/2024 LIPID PANEL triglyceride s 87 mg/dL 0-149 Not Available [facility] ([facility]) [address] [facility] [address], [place], [address], 10/19/2024 09:06:07 10/19/19 25 10/19/2024 LIPID PANEL HDL cholesterol 81 mg/dL >39 Not Available [facility]) [address] [place], [address], 10/19/2024 09:06:07 10/19/19 25 10/19/2024 LIPID PANEL VLDL cholesterol john 16 mg/dL 5-40 Not Available [facility] ([facility]) [address] [place], [address], 10/19/2024 09:06:07 10/19/19 25 10/19/2024 LIPID PANEL LDL chol calc (rust) 74 mg/dL 0-99 Not Available [facility] ([facility]) [address] [place], [address], 10/19/2024 09:06:07 10/19/19 25 10/19/2024 COMP. METAB OLIC PANEL (14) glucose 98 mg/dL 70-99 Not Available [facility] ([facility]) [address] [place], [address], 10/19/2024 09:06:08 10/19/19 25 10/19/2024 COMP. METAB OLIC PANEL (14) BUN 13 mg/dL 8-27 Not Available [facility] ([facility]) [address] [place], [address], 10/19/2024 09:06:08 10/19/19 25 10/19/2024 COMP. METAB OLIC PANEL (14) creatinine 0.76 mg/dL 0.57-1 .00 Not Available [facility] ([facility]) [address] [place], [address], 10/19/2024 09:06:08 10/19/19 25 10/19/2024 COMP. METAB OLIC PANEL (14) eGFR 89 mL/mi n/1.7 3 >59 Not Available [facility] ([facility]) [address], [place], [address], 10/19/2024 09:06:08 10/19/19 25 10/19/2024 COMP. METAB OLIC PANEL (14) BUN/creatini ne ratio 17 12-28 Not Available [facility] ([facility]) [address] [facility] [address], [place], [address], 10/19/2024 09:06:08 10/19/19 25 10/19/2024 COMP. METAB OLIC PANEL (14) sodium 140 mmol/ L 134-14 4 Not Available [facility] ([facility]) [address] [facility] [address], [place], [address], 10/19/2024 09:06:08 10/19/19 25 10/19/2024 COMP. METAB OLIC PANEL (14) potassium 4.3 mmol/ L 3.5-5. 2 Not Available [facility] ([facility]) [address] [facility] [address], [place], [address], 10/19/2024 09:06:08 10/19/19 25 10/19/2024 COMP. METAB OLIC PANEL (14) chloride 106 mmol/ L 96-106 Not Available [facility] ([facility]) [address] [facility] [address], [place], [address], 10/19/2024 09:06:08 10/19/19 25 10/19/2024 COMP. METAB OLIC PANEL (14) carbon dioxide, total 20 mmol/ L 20-29 Not Available [facility] ([facility]) [address] [facility] [address], [place], [address], 10/19/2024 09:06:08 10/19/19 25 10/19/2024 COMP. METAB OLIC PANEL (14) calcium 9.2 mg/dL 8.7-10 .3 Not Available [facility] ([facility]) [address] [facility] [address], [place], [address], 10/19/2024 09:06:08 10/19/19 25 10/19/2024 COMP. METAB OLIC PANEL (14) protein, total 6.7 g/dL 6.0-8. 5 Not Available [facility] ([facility]) [address] [facility] [address], [place], [address], 10/19/2024 09:06:08 10/19/19 25 10/19/2024 COMP. METAB OLIC PANEL (14) albumin 4.4 g/dL 3.9-4. 9 Not Available [facility] ([facility]) [address] [facility] [address], [place], [address], 10/19/2024 09:06:08 10/19/19 25 10/19/2024 COMP. METAB OLIC PANEL (14) globulin, total 2.3 g/dL 1.5-4. 5 Not Available [facility] ([facility]) [address] [facility] [address], [place], [address], 10/19/2024 09:06:08 10/19/19 25 10/19/2024 COMP. METAB OLIC PANEL (14) bilirubin, total 0.6 mg/dL 0.0-1. 2 Not Available [facility] ([facility]) [address] [facility] [address], [place], [address], 10/19/2024 09:06:08 10/19/19 25 10/19/2024 COMP. METAB OLIC PANEL (14) alkaline phosphatase 69 IU/L 44-121 Not Available [facility]) [address] [facility] [address], [place], [address], 10/19/2024 09:06:08 10/19/19 25 10/19/2024 COMP. METAB OLIC PANEL (14) AST (SGOT) 32 IU/L 0-40 Not Available [facility] ([facility]) [address] [facility] [address], [place], [address], 10/19/2024 09:06:08 10/19/1910/19/2024 COMP. METAB OLIC PANEL (14) ALT (SGPT) 42 IU/L 0-32 above high normal Not Available [facility] ([facility]) [address] [facility] [address], [place], [address], 10/19/2024 09:06:08 10/19/1910/19/2024 CBC WITH DIFFE RENTI AL/PL ATELE T WBC 7.9 x10e3 /uL 3.4-10 .8 Not Available [facility] ([facility]) [address] [facility] [address], [place], [address], 10/19/2024 09:06:09 10/19/1910/19/2024 CBC WITH DIFFE RENTI AL/PL ATELE T RBC 4.68 x10e6 /uL 3.77-5 .28 Not Available [facility] ([facility]) [address] [facility] [address], [place], [address], 10/19/2024 09:06:09 10/19/1910/19/2024 CBC WITH DIFFE RENTI AL/PL ATELE T hemoglobin 14.6 g/dL 11.1-1 5.9 Not Available [facility] ([facility]) [address] [facility] [address], [place], [address], 10/19/2024 09:06:09 10/19/1910/19/2024 CBC WITH DIFFE RENTI AL/PL ATELE T hematocrit 43.2 % 34.0-4 6.6 Not Available [facility] ([facility]) [address] [facility] [address], [place], [address], 10/19/2024 09:06:09 10/19/1910/19/2024 CBC WITH DIFFE RENTI AL/PL ATELE T MCV 92 fL 79-97 Not Available [facility] ([facility]) [address] [place], [address], 10/19/2024 09:06:09 10/19/1910/19/2024 CBC WITH DIFFE RENTI AL/PL ATELE T MCH 31.2 pg 26.6-3 3.0 Not Available [facility] ([facility]) [address] [facility] [address], [place], [address], 10/19/2024 09:06:09 10/19/1910/19/2024 CBC WITH DIFFE RENTI AL/PL ATELE T MCHC 33.8 g/dL 31.5-3 5.7 Not Available [facility] ([facility]) [address] [facility] [address], [place], [address], 10/19/2024 09:06:09 10/19/1910/19/2024 CBC WITH DIFFE RENTI AL/PL ATELE T RDW 12.6 % 11.7-1 5.4 Not Available [facility] ([facility]) [address] [facility] [address], [place], [address], 10/19/2024 09:06:09 10/19/1910/19/2024 CBC WITH DIFFE RENTI AL/PL ATELE T platelets 335 x10e3 /uL 150-45 0 Not Available [facility] ([facility]) [address] [facility] [address], [place], [address], 10/19/2024 09:06:09 10/19/1910/19/2024 CBC WITH DIFFE RENTI AL/PL ATELE T neutrophils 52 % notest ab. Not Available [facility] ([facility]) [address] [facility] [address], [place], [address], 10/19/2024 09:06:09 10/19/1910/19/2024 CBC WITH DIFFE RENTI AL/PL ATELE T lymphs 37 % notest ab. Not Available [facility] ([facility]) [address] [place], [address], 10/19/2024 09:06:09 10/19/1910/19/2024 CBC WITH DIFFE RENTI AL/PL ATELE T monocytes 7 % notest ab. Not Available [facility] ([facility]) [address] [facility] [address] [facility], [place], [address], 10/19/2024 09:06:09 10/19/1910/19/2024 CBC WITH DIFFE RENTI AL/PL ATELE T eos 3 % notest ab. Not Available [facility] ([facility]) [address] [facility] [address] [facility], [place], [address], 10/19/2024 09:06:09 10/19/19 25 10/19/2024 CBC WITH DIFFE RENTI AL/PL ATELE T basos 1 % notest ab. Not Available [facility] ([facility]) [address] [facility] [address], [place], [address], 10/19/2024 09:06:09 10/19/1910/19/2024 CBC WITH DIFFE RENTI AL/PL ATELE T neutrophils (absolute) 4.1 x10e3 /uL 1.4-7. 0 Not Available [facility] ([facility]) [address] [facility] [address], [place], [address], 10/19/2024 09:06:09 10/19/1910/19/2024 CBC WITH DIFFE RENTI AL/PL ATELE T lymphs (absolute) 2.9 x10e3 /uL 0.7-3. 1 Not Available [facility] ([facility]) [address] [facility] [address], [place], [address], 10/19/2024 09:06:09 10/19/1910/19/2024 CBC WITH DIFFE RENTI AL/PL ATELE T monocytes(ab solute) 0.5 x10e3 /uL 0.1-0. 9 Not Available [facility] ([facility]) [address] [facility] [address] [facility], [place], [address], 10/19/2024 09:06:09 10/19/19 10/19/2024 CBC WITH DIFFE RENTI AL/PL ATELE T eos (absolute) 0.2 x10e3 /uL 0.0-0. 4 Not Available [facility] ([facility]) [address] [place], [address], 10/19/2024 09:06:09 10/19/1910/19/2024 CBC WITH DIFFE RENTI AL/PL ATELE T baso (absolute) 0.1 x10e3 /uL 0.0-0. 2 Not Available [facility] ([facility]) [address] [place], [address], 10/19/2024 09:06:09 10/19/1910/19/2024 CBC WITH DIFFE RENTI AL/PL ATELE T immature granulocytes 0 % notest ab. Not Available [facility] ([facility]) [address] [place], [address], 10/19/2024 09:06:09 10/19/1910/19/2024 CBC WITH DIFFE RENTI AL/PL ATELE T immature grans (abs) 0.0 x10e3 /uL 0.0-0. 1 Not Available [facility] ([facility]) [address] [place], [address], 10/19/2024 09:06:09 10/19/1910/19/2024 VITAM IN D, 25-HY [...] um and D. Honey anaya DC: [facility] . 2. Yara donahue MF, Janey araujo NC, Nain off-F errar i CANO, et al. Evalu ation , treat ment, and preve ntion of vitam in D defic iency : an Endoc rine Socie ty clini john pract ice guide line. JCEM. 2010; 96(7) :1911 -30. Not Available [facility] ([facility]) [address] [facility] [address], [place], [address], 10/19/2024 09:06:11 11/18/19 25 11/06/2024 home sleep testi alexis (PROC ) No observ ation record ed. D HANIS [facility] [address], [address], [place], [address], 11/20/2024 10:40:01 11/18/19 25 11/17/2024 XR, wrist No observ ation record ed. [address], [place], [address], 11/19/2024 21:23:16 11/26/19 25 11/22/2024 rhyth m strip , EKG* No observ ation record ed. [address], [place], [address], 11/26/2024 21:44:54 11/28/19 25 11/27/2024 MAMMO , scree meghan, digit al, bilat eral No observ ation record ed. [facility] [address], [place], [address], 11/27/2024 12:59:28 11/28/19 25 11/27/2024 MAMMO , scree meghan, digit al, bilat eral No observ ation record ed. [facility] [address], [place], [address], 11/27/2024 17:14:51 Result Notes None recorded. Problems Name Problem SNOMED Code Status Onset Date Resolution Date Notes Provider Name and Address Organization Details Recorded Time Acid reflux 905581316 Active 2023 CHUN Vog[place], [place] - [facility] 4 10:56:47 Environment al allergy 952921473 Active 2023 Dorothea Booker [place] null, [place] [facility] 4 10:57:31 Hypercholes terolemia 91796058 Active 2023 Dorothea [place] [facility] 4 10:57:53 Hypersomnia 86433911 Active 2023 Lilian Hutson [place], [place] [facility] 4 11:42:24 Fatigue 84033438 Active 2023 Lilian Hutson [place] null[place] [facility] 4 11:42:25 Chronic rhinitis 69249456 Active 2023 Parish Meza MD Attn: Trini barger,[address] [place], [address], [place] - [facility] 4 18:45:34 Vitamin D below reference range 704776980 Active 2023 Parish Meza MD Attn: Trini barger,[address] [place], [address], [place] [facility] 4 18:45:46 Pain in bilateral legs 2998191488076 9108 Active 2023 Lilian Hutson [place] [facility] 4 12:25:46 Long-term drug therapy Active 2023 CHUN Bar[place], [place] - [facility] 4 12:22:21 Reactive airway disease 218457983612 Active 2023 Parish Meza MD Attn: Trini barger,[address] [facility], [place], [address], [place] - [facility] 4 12:45:14 HIV screening declined 8749648447436 00 Active 2023 Parish Meza MD Attn: Trini barger,[address] [facility], [place], [address], [facility] - [facility] 12:47:03 Problem Notes None recorded. Procedures Surgical History Date Name Laterality Status Provider Name and Address Organization Details Recorded Time Joint Replacement completed Dorothea Booker MA CT - [facility] 10/20/2023 11:02:08 Knee Surgery completed Dorothea Booker MA CT - [facility] 10/20/2023 11:02:15 Total hysterectomy completed Dolly Booker MA CT - [facility] 10/20/2023 11:02:26 Tonsillectomy completed Dorothea Booker MA [facility] 10/20/2023 11:02:41 Imaging Results Imaging Date Name Status LastModified by Organiz ation Details LastModified Time 11/06/2024 home sleep testing (PROC) completed [facility] [address], [address], [place], [address], 11/20/2024 10:40:01 11/17/2024 XR, wrist completed [address], [address], 11/19/2024 21:23:16 11/22/2024 rhythm strip, EKG* completed [address], [address], 11/26/2024 21:44:54 11/27/2024 MAMMO, screening, digital, bilateral active [facility] [address], [place], [address], 11/27/2024 12:59:28 11/27/2024 MAMMO, screening, digital, bilateral active [facility] [address], [place], [address], 11/27/2024 17:14:51 Procedure Notes None recorded. Medical Equipment None Reported. Allergies Allergen ID Allergen Name Allergen Category Reaction Reaction Severity Criticality Documentation Date Start Date Code Code System Note Provider Name and Address Organization Details Recorded Time 379533 codeine medicatio n anaphylax is hives rash Not available Not available Not available high 10/20/2023 2670 RxNorm Dorothea Booker [place] null, [place] [facility] 4 10:55:47 143169 Product containin g penicilli n (product) medicatio n hives rash Not available Not available low 10/20/2023 61253 8001 SNOMED Dorothea Booker [place] null, [place] - [facility] 4 10:56:09 445180 tramadol medicatio n itching Not available Not available 10/18/2024 09054 RxNorm Karen Palacios MA null, [place] - [facility] 5 11:46:13 Medications Name Sig Start Date [...] Take 1 tablet by mouth once daily 2024 active Not Available Not Available Not Avai lable ergocalcifer ol (vitamin D2) 1,250 mcg (50,000 [...] Address Organization Details Last Updated DateTime 4 [address]708.9 4 g 97 /min 97 % 97 % 140 mm[Hg] 82 mm[Hg] Dorothea Booker MA [facility] 4 10:54:43 Date Recorded Body height Body mass index (BMI) Body weight Heart rate Oxygen saturation Oxygen saturation in Arterial blood by Pulse oximetry Systolic blood pressure Diastolic blood pressure Provider Name and Address Organization Details Last Updated DateTime 4 157.48 cm 32.9 kg/m2 46623.6 3 g 78 /min 95 % 95 % 150 mm[Hg] 94 mm[Hg] Inocencia Tomlinson MA [facility] 4 11:46:11 Date Recorded Body height Body mass index (BMI) Body weight Heart rate Oxygen saturation Oxygen saturation in Arterial blood by Pulse oximetry Systolic blood pressure Diastolic blood pressure Provider Name and Address Organization Details Last Updated DateTime 4 157.48 cm 32.6 kg/m2 40545.8 g 74 /min 97 % 97 % 122 mm[Hg] 64 mm[Hg] Dorothea Booker MA [facility] 4 10:58:40 Date Recorded Body height Body mass index (BMI) Body weight Heart rate Oxygen saturation Oxygen saturation in Arterial blood by Pulse oximetry Systolic blood pressure Diastolic blood pressure Provider Name and Address Organization Details Last Updated DateTime 4 157.48 cm 33 kg/m2 77345.3 5 g 72 /min 96 % 96 % 126 mm[Hg] 84 mm[Hg] Karen Palacios MA [facility] 4 11:38:23 Date Recorded Body height Body mass index (BMI) Body weight Heart rate Oxygen saturation Oxygen saturation in Arterial blood by Pulse oximetry Systolic blood pressure Diastolic blood pressure Provider Name and Address Organization Details Last Updated DateTime 5 157.48 cm 32.4 kg/m2 13117.5 7 g 88 /min 96 % 96 % 132 mm[Hg] 82 mm[Hg] Karen Palacios MA CT - [facility] 5 11:45:51 Social History Question Answer Notes LastModified by Organizat ion Details LastModified Time Tobacco Smoking Status Never Smoker Dorothea CHUN [facility], [place] - [facility] 10/20/2023 11:00:06 Do You Have An Advance Directive? No Information not available 03/01/2024 Are You Blind Or Do You Have [...] No Information not available 10/20/2023 Are You Deaf Or Do You Have Serious Difficulty Hearing? Yes Ringing In Ears Information not available 10/20/2023 What Type Of Diet Are You Following? REGULAR Information not available 10/20/2023 What Is The Highest Grade Or Level Of School You Have Completed Or The Highest Degree You Have Received? [id number] Information not available 10/20/2023 Are There Any [...] Yes Information not available 10/20/2023 Do You Use Sunscreen Routinely? Yes Information not available 10/20/2023 Has Tobacco Cessation Counseling Been Provided? No Information not available 03/01/2024 Sex: Female Functional Status Question Answer Note LastModified by Organizat ion Details LastModified Time Do you use any illicit or recreational drugs? No Information not available 10/20/2023 Do you or have you ever used any other forms of tobacco or nicotine? No Information not available 03/01/2024 What is your level of alcohol consumption? None Information not available 10/20/2023 Are you currently employed? Yes Information not available 10/20/2023 Are you able to care for yourself? 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 Moderate Information not available 10/20/2023 Mental Status Question Answer Note LastModified by Organization D etails LastModified Time Do you feel stressed (tense, restless, nervous, or anxious, or unable to sleep at night)? [id number] Information not available 10/20/2023 Family History Relationship Description Onset Age of [...] Atrial Fibrillation N High Blood Pressure N Kidney or Bladder Problems Y Thyroid Problems N GI Problems N Depression N COPD N Blood Clots N Skin Problems Y Anemia Y Heart Attack ([place]) N Anxiety Disorder N Diabetes N Muscle, Joint, or Bone Problems Y Seizures/Epilepsy N Acid Reflux (GERD) Y Cancer N Stroke N Asthma N Allergies Y High Cholesterol Y Hepatitis N Liver Disease N Headaches N Heart Failure N Osteoporosis Y Gynecological History Statement/Question Response If Post Menopausal, Age at Menopause 34 Obstetrics History GPAL:G 2 P 0 0 0 2 Type Value Living 2 Total 2 Immunizations Vaccine Type Date Status Note Provider Nam e and Address Organization Details Recorded Time zoster recombinant 2 completed Inocencia Toml[place], [place] [facility] 03/01/2024 11:41:33 zoster recombinant 2 completed CHUN [place] [facility] 03/01/2024 11:41:33 COVID-19, mRNA, LNP-S, PF, 100 mcg/0.5mL dose or 50 mcg/0.25mL dose 1 completed CHUN [place] [facility] 03/01/2024 11:41:33 COVID-19, mRNA, LNP-S, PF, 100 mcg/0.5mL dose or 50 mcg/0.25mL dose completed CHUN [place] [facility] 03/01/2024 11:41:33 COVID-19, mRNA, LNP-S, PF, 100 mcg/0.5mL dose or 50 mcg/0.25mL dose completed CHUN [place] [facility] 03/01/2024 11:41:33 COVID-19, mRNA, LNP-S, PF, 100 mcg/0.5mL dose or 50 mcg/0.25mL dose completed CHUN [place] [facility] 03/01/2024 11:41:33 Tdap 3 completed Inocencia Tomlinson [place] null, [place] [...] [facility] 03/01/2024 11:41:33 Pneumococcal conjugate PCV20, polysaccharide [id number] conjugate, adjuvant, PF 5 completed Parish Meza MD Attn: Accounting[address] [place], [address], [place] [facility] 10/19/2024 13:22:43 Past Encounters Encounter ID Performer Location Encounter Start Date Encounter Closed Date Diagnosis/Indication Diagnosis SNOMED-CT Code Diagnosis ICD10 Code Diagnosis Note [id number] Parish Meza MD [facility] (Adult Med) [address] [place] [id number] 10/20/2023 10:27:49 10/20/2023 12:22:31 Hypersomnia 03939468 G47.10 Fatigue 94605737 R53.83 Acid reflux 364101057 K2 1.9 Hypercholesterolemia 136 58337 E78.00 Chronic rhinitis 6209447 6 J31.0 Vitamin D below reference range 954612243 E55.9 [id number] MD Lei [facility]clain (Adult Med) [address] [place] [phone] 03/01/2024 11:21:56 03/01/2024 12:32:55 Fatigue 75628372 R53.83 Pain in bi lateral legs 5625866755 0554199 M79.604 M79.605 Hypercholesterolemia 136 21599 E78.00 Acid reflux 571022728 K2 1.9 Chronic rhinitis 6880229 6 J31.0 Vitamin D below reference range 395449928 E55.9 [id number] MD Lei Mcclain (Adult Med) [address] [place] [id number] 03/29/2024 10:35:26 03/29/2024 11:57:31 Obesity 997222256 E66.8 Low back pain 763091575 M54.50 [id number] Parish Meza MD [facility] (Adult Med) [address] [place] [id number] 06/21/2024 11:22:40 06/21/2024 12:33:51 Body mass index 30+ - obesity 530374809 Z68.33 Obesity 416274439 E66.9 Vitamin D deficiency 347 39631 E55.9 Hypercholesterolemia 136 19010 E78.00 Long-term drug therapy 971810340 Z79.899 Screening mammography 24 010274 Z12.31 Screening for malignant neoplasm of colon 222395217 Z12.11 Gynecologi c examination 45748067 Z01.419 Acid reflux 056671466 K2 1.9 Chronic rhinitis [id number] J31.0 Vitamin D below reference range [id number] E55.9 Reactive a irway disease [id number] 06 J45.909 HIV screen ing declined [id number] 44925 Z53.20 [id number] Parish Meza MD [facility] (Adult Med) [address] [place] [address] 0 10/18/2024 11:20:57 10/18/2024 12:30:40 Body mass index 30+ - obesity 220046796 Z68.33 Obesity 690393084 E66.9 Administra tion of pneumococcal vaccine 02005371 Z23 Hypercholesterolemia 136 95428 E78.00 Chronic rhinitis 4810632 6 J31.0 Acid reflux 392400841 K2 1.9 Vitamin D below reference range 629943402 E55.9 Sleep disorder 56738349 G47.9 Health Concerns Section Related Observation LastModified by Organization Detai ls LastModified Time None Recorded Concern Status LastModified by Organization Details LastModified Time None Recorded Advance Directives Directive N: Payers Encounter Date Sequence Insurance Name Policy Number Policy Mccain Covered Member ID Mccain Member ID Guarantor Name 10/20/2023 1 [employer] [id number] 2 Hilary A Sharp [id number] Hilary Sharp 03/01/2024 1 [employer] [id number] 2 Hilary A Sharp [id number] Hilary Sharp 03/29/2024 1 [employer] [id number] 2 Hilary A Sharp [id number] Hilary Sharp 06/21/2024 1 [employer] [id number] 2 Hilary A Sharp [id number] 92 Hilary Sharp 10/18/2024 1 [employer] [id number] 2 Hilary A Sharp [id number] Hilary Sharp Notes Date Note Type [...] month. Parish Meza MD Attn: [address] [place], [address], [facility] - [place] 10/21/2023 18:47:06 03/01/2024 text/html complains of lenore e fatigue with no specific complaints referable to that some pain in her legs she can not really say whether it is with activity or without activity dyslipidemia she does take the statin. Insomnia has been fair rhinitis has been controlled GERD no breakthrough Parish Meza MD Attn: [address] [place], [address], [facility] - [facility] 03/02/2024 12:33:09 03/29/2024 text/html having some low back pain that shoots down the legs from time to time pretty significant and nerve conduction test was denied by her insurance company and she does not want to pay for her pain is [id number] sometimes severe sometimes hard for her to get out of bed and walk in the morning no bowel or bladder incontinence. Obesity trouble losing weight. Chronic rhinitis stable on fluticasone hypertension no headache or dizziness GERD no nausea no vomiting dyslipidemia taking rosuvastatin and she is trying to follow a low-fat diet Parish Meza MD Attn: [address] [facility], [place], [address], [facility] - [facility] 03/29/2024 22:42:22 06/21/2024 text/html she [...] Parish Meza MD Attn: [address] [facility], [place], [address], [facility] - [facility] 06/22/2024 12:47:29 10/18/2024 text/html She had a [...] on her low vitamin-D. Karen Palacios MA [facility], [place] - [place] 10/21/2024 09:12:48 OBGyn Episode No OBEpisode recorded.
--- OUTSIDE RECORDS SUMMARY | 2024-11-28 02:45 | XMS_ITS | Referral Summary ---
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 Gender Identity Not on file Sexual Orientation [...] 10:03 AM CDT Height 157.5 cm (5' 2) 03/09/2022 10:03 AM CDT Body Mass Index 32.19 03/09/2022 10:03 AM CDT Plan of Treatment Not on file Medical Devices Implanted Type Area Benzene Still Utility Operator Device Identifier Shelf Expiration Date Model / Serial / Lot [employer] Smartset Medium Viscosity Cement 40gm Bone Sterile 312-040 - Sna - [id number] Implanted:Qty: 1 on 03/08/2022 by Nicolas White MD at [facility] Bone Cement Left: Knee [employer] 09/07/20232-040 / NA / [id number] [employer] Bsplt Tibial 3 Knee Left Medial Right Lat Mck System 101478 - Sna - [id number] Implanted:Qty: 1 on 03/08/2022 by Nicolas White MD at [facility] Other - see comments Left: Knee [employer] 278459 / NA / [employer] Cmpnt Fem 4 Std Knee Condyle Left Medial Right Lat 921582 - Sna - [id number] Implanted:Qty: 1 on 03/08/2022 by Nicoals White MD at [facility] Other - see comments Left: Knee [employer] 221508 / NA / Damien X3 Uni Onlay Tibial Insert Implanted:Qty: 1 on 03/08/2022 by Nicolas White MD at [facility] Other - see comments Left: Knee [employer] DUP [id number] 06/23/2026 276245-2 -E / NA / [id number] Description:Implant pause pe rformed on all implants 600. 112457-8-I discontinued Plate N/A: Neck Explanted Type Area Benzene Still Utility Operator Device Identifier Shelf Expiration Date Model / Serial / Lot [employer] 4mm 110mm Pin Fixation Sterile 789988 - Sna - [id number] Explanted:Qty: 1 on 03/08/2022 by Nicolas White MD at [facility] Other - see comments Left: Knee [employer] [id number] 12/24/2026 220649 / NA / [id number] Description:Not intended for implant, for fixational purposes only. [employer] 4mm 140mm Knee Straight Pin Fixation Sterile 110000 - Sna - [id number] Explanted:Qty: 1 on 03/08/2022 by Nicolas White MD at [facility] Other - see comments Left: Knee [employer] [id number] 09/28/2026 958917 / NA / [id number] Description:Not intended for implant, for fixational purposes only. Insurance [employer] ACCESS CHOICE [employer] ACCESS CHOICE ARELI ACCESS CHOICE Advance Directives For more information, please contact: [phone] Documents on File Type Date Recorded Patient Online Media Director Expl anation Power of Paste Plant Supervisor 03/08/2022 5:15 AM * Full Code (Latest Code Status on File) Date Activated Date Inactivated Comments 03/08/2022 8:36 AM 03/08/2022 3:40 PM Care Teams Master Coastal Waters Relationship Specialty Start Date End Date Sim Meza MD PCP - General 12/22/16
--- OUTSIDE RECORDS SUMMARY | 2024-11-28 02:45 | XMS_ITS | Clinical Summary ---
Author Organization [facility] Address [facility] [place] [address] Care Team Providers Care Neuropsychology Director Name Role Phone Sim Meza MD Primary Care Provider + [phone] Allergies Active Allergy Reactions Criticality Noted Date [...] eszopiclone 2 mg tablet Active influenza quadrivalent 6241-1620 (Fluzone Quad 5678-7309, PF,) 60 mcg (15 mcg x 4)/0.5 mL syringe Fluzone Quad 3109-2539 (PF) 60 mcg (15 mcg x 4)/0.5 [...] (01/31/2022): Added automatically from request for surgery [id number] Abnormal mammogram 12/22/2016 Surgical History Surgery Date Site/Laterality Comments KNEE ARTHROSCOPY 02/09/2021 Left partial meniscectomy - [facility] - [facility] BACK SURGERY 07/10/2009 - 07/09/2010 C5/6-C6/7 - [...] on file 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 Gender Identity Not on file Sexual Orientation [...] this topic Medical Devices Implanted Type Area Hearing Screen Coordinator Device Identifier Shelf Expiration Date Model / Serial / Lot [employer] Smartset Medium Viscosity Cement 40gm Bone Sterile 3122-040 - Sna - [id number] Implanted:Qty: 1 on 03/08/2022 by Nicolas White MD at [facility] Bone Cement Left: Knee [employer] 09/07/2023 3122-040 / NA / [id number] [employer] Bsplt Tibial 3 Knee Left Medial Right Lat Mck System 171373 - Sna - [id number] Implanted:Qty: 1 on 03/08/2022 by Nicolas White MD at [facility] Other - see comments Left: Knee [employer] 093050 / NA / [employer] Cmpnt Fem 4 Std Knee Condyle Left Medial Right Lat 509678 - Sna - [id number] Implanted:Qty: 1 on 03/08/2022 by Nicolas White MD at [facility] Other - see comments Left: Knee [employer] 406360 / NA / Damien X3 Uni Onlay Tibial Insert Implanted:Qty: 1 on 03/08/2022 by Nicolas White MD at [facility] Other - see comments Left: Knee [employer] DUP [id number] 06/23/2026 115259-9 -E / NA / [id number] Description:Implant pause pe rformed on all implants 600. 511937-7-[id number] discontinued Plate N/A: Neck Explanted Type Area Hearing Screen Coordinator Device Identifier Shelf Expiration Date Model / Serial / Lot [employer] 4mm 110mm Pin Fixation Sterile 837382 - Sna - [id number] Explanted:Qty: 1 on 03/08/2022 by Nicolas White MD at [facility] Other - see comments Left: Knee [employer] [id number] 12/24/2026 354084 / NA / [id number] Description:Not intended for implant, for fixational purposes only. [employer] 4mm 140mm Knee Straight Pin Fixation Sterile 333086 - Sna - [id number] Explanted:Qty: 1 on 03/08/2022 by Nicolas White MD at [facility] Other - see comments Left: Knee [employer] [id number] 09/28/2026 354256 / NA / [id number] Description:Not intended for implant, for fixational purposes only. Insurance [employer] [facility] [facility] ACCESS CHOICE [employer] Thermodynamic Process Control CHOICE Advance Directives For more information, please contact: [phone] Documents on File Type Date Recorded Patient Senior Designer Expl anation Power of A&P Mechanic 03/08/2022 5:15 AM * Full Code (Latest Code Status on File) Date Activated Date Inactivated Comments 03/08/2022 8:36 AM 03/08/2022 3:40 PM Care Teams Neuropsychology Director Relationship Specialty Start Date End Date Sim Meza MD PCP - General 12/22/16
--- OUTSIDE RECORDS SUMMARY | 2024-11-28 02:45 | XMS_ITS | Clinical Summary ---
Author Organization [facility] [employer] Address [address] [place] [address] Care Team Providers Care Audio Visual Secretary Name Role Phone Sim Meza MD Primary Care Provider Source Comments [facility] [employer],non-owned Affiliates and Associated Physician Practices is amultiple site organization consisting of ambulatory clinics and hospital sitesin [place], [place], [place] and [place]. This disclosure is being madepursuant to the Care Everywhere program and may not contain all information available regarding this patient. Last updated 18.[facility] [employer] Allergies Active Allergy Reactions Criticality Noted Date [...] 8:03 AM CDT Height 157.5 cm (5' 2) 01/09/2019 8:03 AM CDT Body Mass Index [...] this topic Insurance ANTHEM ANTHEM Care Teams Audio Visual Secretary Relationship Specialty Start Date End Date Sim Meza MD PCP - General Internal Medicine 01/03/19
--- OUTSIDE RECORDS SUMMARY | 2024-11-28 02:46 | XMS_ITS | CONTINUITY OF CARE DOCUMENT ---
Author Name edmund shaffer Address Unknown Organization [place] Office Address [address] [place] [address] Phone [phone] Care Team Providers Care Television Writer Name Role Phone Brady Fox MD Unavailable [phone] Brady Fox MD Unavailable [phone] PARISH EVANS MD Unavailable INSURANCE PROVIDERS Payer name Policy type / Coverage type Sebastien red green party ID [facility] [id number]
[2024-12-06] VITALS (17 sets, daily range): BP systolic 98–161; BP diastolic 56–87; PULSE 67–98; RESP 10–20; TEMP 36.2–36.5; O2SAT 92–97; BMI 32.3
--- NOTE | ~2024-12-06 | XR_ITS ---
EXAMINATION: XR surgery orthopedic DATE: 12/06/2024 10:31 INDICATION: ORIF left wrist fracture TECHNIQUE: 4 fluoroscopic images of the left wrist were obtained during procedure performed by Dr. Luan ralph. Radiologist was not present for the imaging or procedure. The amount of fluoroscopy time used during this procedure was 2.3 minutes. Total DAP was 0.796 Gycm^2. COMPARISON: 11/17/2024 FINDINGS: Interval open reduction and volar plate and screw fixation of the previously identified comminuted in tra-articular fracture of the distal left radius. Alignment appears near-anatomic with normal slight volar tilt of the distal articular surface. There appears to be 1.5 mm residual step-off along the ar ticular surface at the junction of the lunate and scaphoid fossae. No new fractures identified. Joint space at the wrist and proximal carpus appear relatively preserved. IMPRESSION: 1. Near-anatomic alignment post open reduction internal fixation of a comminuted intra-articular frac ture of the distal left radius. Reviewed, dictated and finalized at location A. IMPRESSION: 1. Near-anatomic alignment post open reduction internal fixation of a comminute d intra-articular fracture of the distal left radius.
--- OUTSIDE RECORDS SUMMARY | 2024-12-06 01:20 | XMS_ITS | Data Portability ---
Author Organization [facility] OMARDaisha Address [address] [place] [address] Care Team Providers Care Band Singer Name Role Phone PARISH MEZA Primary Care [...] not make a whole lot of difference. [email or web address] Not available 10/21/2023 18:46:48 03/01/2024 03/01/2024 blood work consider halting statin for a while can try coenzyme Q10 ABIs NCS leg we will follow up in 4 months continue other meds [email or web address] Not available 03/02/2024 12:32:53 03/29/2024 03/29/2024 physical therapy for her back healthy lifestyle care instructions for obesity dietary referral as where as well. 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 Healthy lifestyle care instructions discussed. 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 examiner for routine visit Prevnar 20 today continue current therapy [email or web address] Not available 10/19/2024 13:23:46 Plan of Treatment Reminders Order Date Submit Date Provider Last Modified By Organization Details Last Modified Time Details Appointments ANY 15 2024 10:30A M Parish Meza MD Not available Not available Not available Lab [facility] w/ auto diff 2024 025 [facility] [address], [place], [address], 10/19/2024 09:06:09 CMP, serum or plasma 2024 025 DUMFRI[facility] Sumitkycasper, [address], [address], [place], [address], 10/19/2024 09:06:08 lipid panel, serum 2024 025 DUMFRIES Jay, [address], [address], [place], [address], 10/19/2024 09:06:07 vitamin D, 25-hydrox y, total, serum 2024 025 [facility] [address], [address], [place], [address], 10/19/2024 09:06:11 CMP, serum or plasma 2023 025 mariano Thompson, [address], [address], [place], [address], 11/06/2024 12:55:19 lipid panel, serum 2023 025 mariano Thompson, [address], [address], [place], [address], 11/06/2024 12:55:04 CBC w/ auto diff 2023 025 marcelahi Jay, [address], [address], [place], [address], 11/06/2024 12:54:51 vitamin D, 25-hydrox y, total, serum 2023 025 [facility], [address], [address], [place], [address], 11/06/2024 12:55:32 lipid panel, serum 2023 024 [facility], [address], [address], [place], [address], 03/02/2024 08:22:56 TSH, ultra-sen sitive, serum 2023 024 [facility], [address], [address], [place], [address], 03/02/2024 08:22:58 T3, free, serum or plasma 2023 024 [facility], [address], [address], [place], [address], 03/02/2024 08:23:00 unlisted lab - T4, free 2023 024 [facility], [address], [address], [place], [address], 03/02/2024 08:22:56 CBC w/ auto diff 2023 024 [facility], [address], [address], [place], [address], 03/02/2024 08:22:59 CMP, serum or plasma 2023 024 [facility], [address], [address], [place], [address], 03/02/2024 08:22:57 vitamin D, 25-hydrox y, total, serum 2023 024 [facility], [address], [address], [place], [address], 03/02/2024 08:23:00 vitamin B12 + folate, serum or blood 2023 024 [facility], [address], [address], [place], [address], 03/02/2024 08:22:58 lipid panel, serum 2023 024 [facility], [address], [address], [place], [address], 10/21/2023 07:13:37 CBC w/ auto diff 2023 024 [facility], [address], [address], [place], [address], 10/21/2023 07:13:39 CMP, serum or plasma 2023 024 [facility], [address], [address], [place], [address], 10/21/2023 07:13:38 TSH, ultra-sen sitive, serum 2023 [facility], [address], [address], [place], [address], 10/21/2023 07:13:39 T3, free, serum or plasma 2023 024 [facility], [address], [address], [place], [address], 10/21/2023 07:13:40 unlisted lab - T4, free 2023 [facility], [address], [address], [place], [address], 10/21/2023 07:13:37 Referral gynecolog ist referral 2023 024 [facility] Ирина Rawls MD, [address], [address], [place], [address], 11/11/2024 10:34:15 nutrition ist/dieti moira referral 2023 024 [facility], [address], [place], [address], 06/07/2024 16:31:56 physical therapist referral 2023 024 [facility] [place], [address], [place], [address], 04/15/2024 14:11:54 Procedures home sleep testing (PROC) - Per Leidy this was approved auth number [id number] start 10/28/24-. 2024 025 [facility], [address], [address], [place], [address], 11/17/2024 12:16:58 colonosco py screening (PROC) 2023 024 [facility], [address], [address], [place], [address], 08/22/2024 09:49:57 Surgeries None recorded. Imaging MAMMO, screening , digital, bilateral 2023 024 [facility] (Imaging), [address], [place], [address], 11/29/2024 09:14:40 nerve conductio n study - NCS B/L Legs 2023 024 [facility], [address] [place], [address], 06/21/2024 11:44:12 home sleep study 2023 024 [facility] ([facility]), [address] [place], [address], 11/24/2023 13:56:28 Medication Orders ergocalci ferol (vitamin D2) 1,250 mcg (50,000 unit) capsule [address] [facility], [address] [place] [address], [address], 06/21/2024 13:34:55 losartan 25 mg tablet [address] [facility], [address] [place] [address], [address], 03/01/2024 12:33:35 pantopraz ole 40 mg tablet,de layed release [address] [facility], [address] [place] [address], [address], 10/20/2023 13:56:52 Patient TargetsNo targets recorded. Patient Instructions Encounter Date Encounter Id Patient Instructions Last Modified By Organization Details Last Modified Time 03/01/2024 [id number] (ALEC) ankle brachial index* - B/L legs [email or web address] Not available 06/21/2024 11:44:39 03/29/2024 [id number] A healthy lifestyle: care instructions [email or web address] Not available 03/29/2024 13:04:48 06/21/2024 [id number] A healthy lifestyle: care instructions Not available 06/21/2024 13:34:55 10/18/2024 [id number] A healthy lifestyle: care instructions [email or web address] Not available 10/18/2024 13:41:08 Reason for Referral Physical Therapist Referral for Low back pain Referring Physician: Parish Meza, Internal Medicine, Encounter Date: 03/29/2024 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 Refer ral for Obesity Referring Physician: Parish Meza, Internal Medicine, Encounter Date: 03/29/2024 Turbine Engineer Referral for Gy necologic examination Referring Physician: Parish Meza, Internal Medicine, Encounter Date: 06/21/2024 Results Created Date Observation Date Name Description Value Unit Range Abnormal Flag Note LastModifiedBy Organization Detail LastModifiedTime 10/20/19 24 10/21/2023 LIPID PANEL cholesterol, total 210 mg/dL 100-19 9 above high normal Not Available [facility] ([facility]) [address] [place], [address], 10/21/2023 07:13:37 10/20/19 24 10/21/2023 LIPID PANEL triglyceride s 95 mg/dL 0-149 Not Available [facility] ([facility]) [address] [place], [address], 10/21/2023 07:13:37 10/20/19 24 10/21/2023 LIPID PANEL HDL cholesterol 90 mg/dL >39 Not Available [facility] ([facility]) [address] [place], [address], 10/21/2023 07:13:37 10/20/19 24 10/21/2023 LIPID PANEL VLDL cholesterol john 16 mg/dL 5-40 Not Available [facility] ([facility]) [address] [place], [address], 10/21/2023 07:13:37 10/20/19 24 10/21/2023 LIPID PANEL LDL chol calc ([facility]) 104 mg/dL 0-99 above high normal Not Available [facility] ([facility]) [address] [place], [address], 10/21/2023 07:13:37 10/20/19 24 10/21/2023 T4, FREE T4,free(dire ct) 1.48 NG/dL 0.82-1 .77 Not Available [facility] ([facility]) [address] [place], [address], 10/21/2023 07:13:37 10/20/19 24 10/21/2023 COMP. METAB OLIC PANEL (14) glucose 101 mg/dL 70-99 above high normal Not Available [facility] ([facility]) [address] [place], [address], 10/21/2023 07:13:38 10/20/19 24 10/21/2023 COMP. METAB OLIC PANEL (14) BUN 15 mg/dL 8-27 Not Available [facility] ([facility]) [address] [place], [address], 10/21/2023 07:13:38 10/20/19 24 10/21/2023 COMP. METAB OLIC PANEL (14) creatinine 0.89 mg/dL 0.57-1 .00 Not Available [facility] ([facility]) [address] [facility], [place], [address], 10/21/2023 07:13:38 10/20/19 24 10/21/2023 COMP. METAB OLIC PANEL (14) eGFR 74 mL/mi n/1.7 3 >59 Not Available [facility] ([facility]) [address] [place], [address], 10/21/2023 07:13:38 10/20/19 24 10/21/2023 COMP. METAB OLIC PANEL (14) BUN/creatini ne ratio 17 12-28 Not Available [facility] ([facility]) [address] [place], [address], 10/21/2023 07:13:38 10/20/19 24 10/21/2023 COMP. METAB OLIC PANEL (14) sodium 145 mmol/ L 134-14 4 above high normal Not Available [facility] ([facility]) [address] [place], [address], 10/21/2023 07:13:38 10/20/19 24 10/21/2023 COMP. METAB OLIC PANEL (14) potassium 4.7 mmol/ L 3.5-5. 2 Not Available [facility] ([facility]) [address] [place], [address], 10/21/2023 07:13:38 10/20/19 24 10/21/2023 COMP. METAB OLIC PANEL (14) chloride 107 mmol/ L 96-106 above high normal Not Available [facility] ([facility]) [address] [place], [address], 10/21/2023 07:13:38 10/20/19 24 10/21/2023 COMP. METAB OLIC PANEL (14) carbon dioxide, total 23 mmol/ L 20-29 Not Available [facility] ([facility]) [address] [place], [address], 10/21/2023 07:13:38 10/20/19 24 10/21/2023 COMP. METAB OLIC PANEL (14) calcium 9.4 mg/dL 8.7-10 .3 Not Available [facility] ([facility]) [address] [place], [address], 10/21/2023 07:13:38 10/20/19 24 10/21/2023 COMP. METAB OLIC PANEL (14) protein, total 6.8 g/dL 6.0-8. 5 Not Available [facility] ([facility]) [address] [place], [address], 10/21/2023 07:13:38 10/20/19 24 10/21/2023 COMP. METAB OLIC PANEL (14) albumin 4.5 g/dL 3.8-4. 9 Not Available [facility] ([facility]) [address] [place], [address], 10/21/2023 07:13:38 10/20/19 24 10/21/2023 COMP. METAB OLIC PANEL (14) globulin, total 2.3 g/dL 1.5-4. 5 Not Available [facility] ([facility]) [address] [place], [address], 10/21/2023 07:13:38 10/20/19 24 10/21/2023 COMP. METAB OLIC PANEL (14) A/G ratio 2.0 1.2-2. 2 Not Available [facility] ([facility]) [address] [facility], [place], [address], 10/21/2023 07:13:38 10/20/19 24 10/21/2023 COMP. METAB OLIC PANEL (14) bilirubin, total 0.6 mg/dL 0.0-1. 2 Not Available [facility] ([facility]) [address] [facility], [place], [address], 10/21/2023 07:13:38 10/20/19 24 10/21/2023 COMP. METAB OLIC PANEL (14) alkaline phosphatase 74 IU/L 44-121 Not Available [facility] ([facility]) [address] [facility], [place], [address], 10/21/2023 07:13:38 10/20/19 24 10/21/2023 COMP. METAB OLIC PANEL (14) AST (SGOT) 37 IU/L 0-40 Not Available [facility] ([facility]) [address] [facility], [place], [address], 10/21/2023 07:13:38 10/20/19 24 10/21/2023 COMP. METAB OLIC PANEL (14) ALT (SGPT) 48 IU/L 0-32 above high normal Not Available [facility] ([facility]) [address] [facility], [place], [address], 10/21/2023 07:13:38 10/20/19 24 10/21/2023 TSH TSH 3.520 uIU/m L 0.450- 4.500 Not Available [facility] ([facility]) [address] [facility], [place], [address], 10/21/2023 07:13:39 10/20/19 24 10/21/2023 CBC WITH DIFFE RENTI AL/PL ATELE T WBC 8.1 x10e3 /uL 3.4-10 .8 Not Available [facility] ([facility]) [address] [facility], [place], [address], 10/21/2023 07:13:39 10/20/19 24 10/21/2023 CBC WITH DIFFE RENTI AL/PL ATELE T RBC 4.97 x10e6 /uL 3.77-5 .28 Not Available [facility] ([facility]) [address] [facility], [place], [address], 10/21/2023 07:13:39 10/20/19 24 10/21/2023 CBC WITH DIFFE RENTI AL/PL ATELE T hemoglobin 14.7 g/dL 11.1-1 5.9 Not Available [facility] ([facility]) [address] [facility], [place], [address], 10/21/2023 07:13:39 10/20/19 24 10/21/2023 CBC WITH DIFFE RENTI AL/PL ATELE T hematocrit 44.9 % 34.0-4 6.6 Not Available [facility] ([facility]) [address] [facility], [place], [address], 10/21/2023 07:13:39 10/20/19 24 10/21/2023 CBC WITH DIFFE RENTI AL/PL ATELE T MCV 90 fL 79-97 Not Available [facility] ([facility]) [address] [place], [address], 10/21/2023 07:13:39 10/20/19 24 10/21/2023 CBC WITH DIFFE RENTI AL/PL ATELE T MCH 29.6 pg 26.6-3 3.0 Not Available [facility] ([facility]) [address] [place], [address], 10/21/2023 07:13:39 10/20/19 10/21/2023 CBC WITH DIFFE RENTI AL/PL ATELE T MCHC 32.7 g/dL 31.5-3 5.7 Not Available [facility] ([facility]) [address] [facility], [place], [address], 10/21/2023 07:13:39 10/20/19 24 10/21/2023 CBC WITH DIFFE RENTI AL/PL ATELE T RDW 12.8 % 11.7-1 5.4 Not Available [facility] ([facility]) [address] [facility], [place], [address], 10/21/2023 07:13:39 10/20/19 24 10/21/2023 CBC WITH DIFFE RENTI AL/PL ATELE T platelets 340 x10e3 /uL 150-45 0 Not Available [facility] ([facility]) [address] [facility], [place], [address], 10/21/2023 07:13:39 10/20/19 24 10/21/2023 CBC WITH DIFFE RENTI AL/PL ATELE T neutrophils 53 % notest ab. Not Available [facility] ([facility]) [address] [facility], [place], [address], 10/21/2023 07:13:39 10/20/19 24 10/21/2023 CBC WITH DIFFE RENTI AL/PL ATELE T lymphs 35 % notest ab. Not Available [facility] ([facility]) [address] [facility], [place], [address], 10/21/2023 07:13:39 10/20/19 24 10/21/2023 CBC WITH DIFFE RENTI AL/PL ATELE T monocytes 8 % notest ab. Not Available [facility] ([facility]) [address] [facility], [place], [address], 10/21/2023 07:13:39 10/20/19 24 10/21/2023 CBC WITH DIFFE RENTI AL/PL ATELE T eos 3 % notest ab. Not Available [facility] ([facility]) [address] [facility], [place], [address], 10/21/2023 07:13:39 10/20/19 24 10/21/2023 CBC WITH DIFFE RENTI AL/PL ATELE T basos 1 % notest ab. Not Available [facility] ([facility]) [address] [facility], [place], [address], 10/21/2023 07:13:39 10/20/19 24 10/21/2023 CBC WITH DIFFE RENTI AL/PL ATELE T neutrophils (absolute) 4.3 x10e3 /uL 1.4-7. 0 Not Available [facility] ([facility]) [address] [facility], [place], [address], 10/21/2023 07:13:39 10/20/19 24 10/21/2023 CBC WITH DIFFE RENTI AL/PL ATELE T lymphs (absolute) 2.9 x10e3 /uL 0.7-3. 1 Not Available [facility] ([facility]) [address] [facility], [place], [address], 10/21/2023 07:13:39 10/20/19 24 10/21/2023 CBC WITH DIFFE RENTI AL/PL ATELE T monocytes(ab solute) 0.7 x10e3 /uL 0.1-0. 9 Not Available [facility] ([facility]) [address] [place], [address], 10/21/2023 07:13:39 10/20/19 24 10/21/2023 CBC WITH DIFFE RENTI AL/PL ATELE T eos (absolute) 0.2 x10e3 /uL 0.0-0. 4 Not Available [facility] ([facility]) [address] [facility], [place], [address], 10/21/2023 07:13:39 10/20/19 24 10/21/2023 CBC WITH DIFFE RENTI AL/PL ATELE T baso (absolute) 0.1 x10e3 /uL 0.0-0. 2 Not Available [facility] ([facility]) [address] [place], [address], 10/21/2023 07:13:39 10/20/19 24 10/21/2023 CBC WITH DIFFE RENTI AL/PL ATELE T immature granulocytes 0 % notest ab. Not Available [facility] ([facility]) [address] [place], [address], 10/21/2023 07:13:39 10/20/1910/21/2023 CBC WITH DIFFE RENTI AL/PL ATELE T immature grans (abs) 0.0 x10e3 /uL 0.0-0. 1 Not Available [facility] ([facility]) [address] [place], [address], 10/21/2023 07:13:39 10/20/1910/21/2023 TRIIO DOTHY BERT E (T3), FREE triiodothyro nine (T3), free 3.8 pg/mL 2.0-4. 4 Not Available [facility] ([facility]) [address] [place], [address], 10/21/2023 07:13:40 03/01/2003/02/2024 LIPID PANEL cholesterol, total 160 mg/dL 100-19 9 Not Available [facility] ([facility]) [address] [place], [address], 03/02/2024 08:22:56 03/01/2003/02/2024 LIPID PANEL triglyceride s 69 mg/dL 0-149 Not Available [facility] ([facility]) [address] [place], [address], 03/02/2024 08:22:56 03/01/2003/02/2024 LIPID PANEL HDL cholesterol 83 mg/dL >39 Not Available [facility] ([facility]) [address] [place], [address], 03/02/2024 08:22:56 03/01/2003/02/2024 LIPID PANEL VLDL cholesterol john 13 mg/dL 5-40 Not Available [facility] ([facility]) [address] [place], [address], 03/02/2024 08:22:56 03/01/2003/02/2024 LIPID PANEL LDL chol calc ([facility]) 64 mg/dL 0-99 Not Available [facility] ([facility]) [address] [place], [address], 03/02/2024 08:22:56 03/01/2003/02/2024 T4, FREE T4,free(dire ct) 1.37 NG/dL 0.82-1 .77 Not Available [facility] ([facility]) [address] [place], [address], 03/02/2024 08:22:56 03/01/2003/02/2024 COMP. METAB OLIC PANEL (14) glucose 104 mg/dL 70-99 above high normal Not Available [facility] ([facility]) [address] [place], [address], 03/02/2024 08:22:57 03/01/2003/02/2024 COMP. METAB OLIC PANEL (14) BUN 15 mg/dL 8-27 Not Available [facility] ([facility]) [address] [place], [address], 03/02/2024 08:22:57 03/01/2003/02/2024 COMP. METAB OLIC PANEL (14) creatinine 0.82 mg/dL 0.57-1 .00 Not Available [facility] ([facility]) [address] [place], [address], 03/02/2024 08:22:57 03/01/20 24 03/02/2024 COMP. METAB OLIC PANEL (14) eGFR 81 mL/mi n/1.7 3 >59 Not Available [facility] ([facility]) [address] [facility], [place], [address], 03/02/2024 08:22:57 03/01/20 24 03/02/2024 COMP. METAB OLIC PANEL (14) BUN/creatini ne ratio 18 12-28 Not Available [facility] ([facility]) [address] [facility], [place], [address], 03/02/2024 08:22:57 03/01/2003/02/2024 COMP. METAB OLIC PANEL (14) sodium 141 mmol/ L 134-14 4 Not Available [facility] ([facility]) [address] [facility], [place], [address], 03/02/2024 08:22:57 03/01/2003/02/2024 COMP. METAB OLIC PANEL (14) potassium 4.6 mmol/ L 3.5-5. 2 Not Available [facility] ([facility]) [address] [facility], [place], [address], 03/02/2024 08:22:57 03/01/20 24 03/02/2024 COMP. METAB OLIC PANEL (14) chloride 105 mmol/ L 96-106 Not Available [facility] ([facility]) [address] [facility], [place], [address], 03/02/2024 08:22:57 03/01/20 24 03/02/2024 COMP. METAB OLIC PANEL (14) carbon dioxide, total 22 mmol/ L 20-29 Not Available [facility] ([facility]) [address] [facility], [place], [address], 03/02/2024 08:22:57 03/01/20 24 03/02/2024 COMP. METAB OLIC PANEL (14) calcium 9.2 mg/dL 8.7-10 .3 Not Available [facility] ([facility]) [address] [place], [address], 03/02/2024 08:22:57 03/01/20 24 03/02/2024 COMP. METAB OLIC PANEL (14) protein, total 6.5 g/dL 6.0-8. 5 Not Available [facility] ([facility]) [address] [place], [address], 03/02/2024 08:22:57 03/01/20 24 03/02/2024 COMP. METAB OLIC PANEL (14) albumin 4.4 g/dL 3.9-4. 9 Not Available [facility] ([facility]) [address] [place], [address], 03/02/2024 08:22:57 03/01/20 24 03/02/2024 COMP. METAB OLIC PANEL (14) globulin, total 2.1 g/dL 1.5-4. 5 Not Available [facility] ([facility]) [address] [place], [address], 03/02/2024 08:22:57 03/01/20 24 03/02/2024 COMP. METAB OLIC PANEL (14) bilirubin, total 0.4 mg/dL 0.0-1. 2 Not Available [facility] ([facility]) [address] [place], [address], 03/02/2024 08:22:57 03/01/2003/02/2024 COMP. METAB OLIC PANEL (14) alkaline phosphatase 75 IU/L 44-121 Not Available [facility] ([facility]) [address] [place], [address], 03/02/2024 08:22:57 03/01/20 24 03/02/2024 COMP. METAB OLIC PANEL (14) AST (SGOT) 27 IU/L 0-40 Not Available [facility] ([facility]) [address] [place], [address], 03/02/2024 08:22:57 03/01/2003/02/2024 COMP. METAB OLIC PANEL (14) ALT (SGPT) 37 IU/L 0-32 above high normal Not Available [facility] ([facility]) [address] [facility], [place], [address], 03/02/2024 08:22:57 03/01/20 24 03/02/2024 VITAM IN B12 AND FOLAT E vitamin B12 695 pg/mL 232-12 45 Not Available [facility] ([facility]) [address] [facility], [place], [address], 03/02/2024 08:22:58 03/01/2003/02/2024 VITAM IN B12 AND FOLAT E folate (folic acid), serum 15.5 NG/mL >3.0 A serum folat e violetta ntrat ion of less than 3.1 ng/mL is consi dered to repre sent clini john defic iency . Not Available [facility] ([facility]) [address] [facility], [place], [address], 03/02/2024 08:22:58 03/01/2003/02/2024 TSH TSH 2.620 uIU/m L 0.450- 4.500 Not Available [facility] ([facility]) [address] [place], [address], 03/02/2024 08:22:58 03/01/2003/02/2024 CBC WITH DIFFE RENTI AL/PL ATELE T WBC 7.4 x10e3 /uL 3.4-10 .8 Not Available [facility] ([facility]) [address] [place], [address], 03/02/2024 08:22:59 03/01/2003/02/2024 CBC WITH DIFFE RENTI AL/PL ATELE T RBC 4.83 x10e6 /uL 3.77-5 .28 Not Available [facility] ([facility]) [address] [place], [address], 03/02/2024 08:22:59 03/01/2003/02/2024 CBC WITH DIFFE RENTI AL/PL ATELE T hemoglobin 14.9 g/dL 11.1-1 5.9 Not Available [facility] ([facility]) [address] [place], [address], 03/02/2024 08:22:59 03/01/2003/02/2024 CBC WITH DIFFE RENTI AL/PL ATELE T hematocrit 45.5 % 34.0-4 6.6 Not Available [facility] ([facility]) [address] [facility], [place], [address], 03/02/2024 08:22:59 03/01/2003/02/2024 CBC WITH DIFFE RENTI AL/PL ATELE T MCV 94 fL 79-97 Not Available [facility] ([facility]) [address] [place], [address], 03/02/2024 08:22:59 03/01/2003/02/2024 CBC WITH DIFFE RENTI AL/PL ATELE T MCH 30.8 pg 26.6-3 3.0 Not Available [facility] ([facility]) [address] [place], [address], 03/02/2024 08:22:59 03/01/2003/02/2024 CBC WITH DIFFE RENTI AL/PL ATELE T MCHC 32.7 g/dL 31.5-3 5.7 Not Available [facility] ([facility]) [address] [place], [address], 03/02/2024 08:22:59 03/01/2003/02/2024 CBC WITH DIFFE RENTI AL/PL ATELE T RDW 12.6 % 11.7-1 5.4 Not Available [facility] ([facility]) [address] [facility], [place], [address], 03/02/2024 08:22:59 03/01/2003/02/2024 CBC WITH DIFFE RENTI AL/PL ATELE T platelets 316 x10e3 /uL 150-45 0 Not Available [facility] ([facility]) [address] [facility], [place], [address], 03/02/2024 08:22:59 03/01/2003/02/2024 CBC WITH DIFFE RENTI AL/PL ATELE T neutrophils 52 % notest ab. Not Available [facility] ([facility]) [address] [facility], [place], [address], 03/02/2024 08:22:59 03/01/2003/02/2024 CBC WITH DIFFE RENTI AL/PL ATELE T lymphs 36 % notest ab. Not Available [facility] ([facility]) [address] [facility], [place], [address], 03/02/2024 08:22:59 03/01/2003/02/2024 CBC WITH DIFFE RENTI AL/PL ATELE T monocytes 8 % notest ab. Not Available [facility] ([facility]) [address] [facility], [place], [address], 03/02/2024 08:22:59 03/01/2003/02/2024 CBC WITH DIFFE RENTI AL/PL ATELE T eos 3 % notest ab. Not Available [facility] ([facility]) [address] [facility], [place], [address], 03/02/2024 08:22:59 03/01/2003/02/2024 CBC WITH DIFFE RENTI AL/PL ATELE T basos 1 % notest ab. Not Available [facility] ([facility]) [address] [facility], [place], [address], 03/02/2024 08:22:59 03/01/2003/02/2024 CBC WITH DIFFE RENTI AL/PL ATELE T neutrophils (absolute) 3.8 x10e3 /uL 1.4-7. 0 Not Available [facility] ([facility]) [address] [facility], [place], [address], 03/02/2024 08:22:59 03/01/2003/02/2024 CBC WITH DIFFE RENTI AL/PL ATELE T lymphs (absolute) 2.7 x10e3 /uL 0.7-3. 1 Not Available [facility] ([facility]) [address] [facility], [place], [address], 03/02/2024 08:22:59 03/01/2003/02/2024 CBC WITH DIFFE RENTI AL/PL ATELE T monocytes(ab solute) 0.6 x10e3 /uL 0.1-0. 9 Not Available [facility] ([facility]) [address] [place], [address], 03/02/2024 08:22:59 03/01/2003/02/2024 CBC WITH DIFFE RENTI AL/PL ATELE T eos (absolute) 0.2 x10e3 /uL 0.0-0. 4 Not Available [facility] ([facility]) [address] [place], [address], 03/02/2024 08:22:59 03/01/2003/02/2024 CBC WITH DIFFE RENTI AL/PL ATELE T baso (absolute) 0.1 x10e3 /uL 0.0-0. 2 Not Available [facility] ([facility]) [address] [place], [address], 03/02/2024 08:22:59 03/01/2003/02/2024 CBC WITH DIFFE RENTI AL/PL ATELE T immature granulocytes 0 % notest ab. Not Available [facility] ([facility]) [address] [facility], [place], [address], 03/02/2024 08:22:59 03/01/2003/02/2024 CBC WITH DIFFE RENTI AL/PL ATELE T immature grans (abs) 0.0 x10e3 /uL 0.0-0. 1 Not Available [facility] ([facility]) [address] [facility], [place], [address], 03/02/2024 08:22:59 03/01/2003/02/2024 TRIIO DOTHY BERT E (T3), FREE triiodothyro nine (T3), free 3.3 pg/mL 2.0-4. 4 Not Available [facility] ([facility]) [address] [facility], [place], [address], 03/02/2024 08:22:59 03/01/2003/02/2024 VITAM IN D, 25-HY DROXY vitamin D, 25-hydroxy 24.8 NG/mL 30.0-1 00.0 below low normal Vitam in D defic iency has been defin ed by the Insti tute of Medic ine and an Endoc rine Socie ty pract ice guide line as a level of serum 25-OH vitam in D less than 20 ng/mL (1,2) . The Endoc [facility]ine [facility] went on to furth er defin e vitam in D insuf ficie ncy as a level betwe en 21 and 29 ng/mL (2). 1. IOM (Inst itute of Medic ine). 2010. Dieta ry refer ence samuel es for calci um and D. Honey anaya DC: The Natio nal [facility] Press . 2. Yara donahue MF, Binkl ey [place], Nain off-F errar i CANO, et al. Evalu ation , treat ment, and preve ntion of vitam in D defic iency : an Endoc rine Socie ty clini john pract ice guide line. JCEM. 2010; 96(7) :191 -. Not Available [facility] ([facility]) [address] [facility], [place], [address], 03/02/2024 08:23:00 06/17/20 24 06/18/2024 VITAM IN [...] Endoc rine Socie ty went on to fur er defin e vitam in D insuf ficie ncy as a level betwe en 21 and 29 ng/mL (2). 1. IOM (Inst itute of Medic ine). 2009. Dieta ry refer ence samuel es for calci um and D. Honey anaya [place]: The Natio nal [facility] Press . 2. Yara donahue MF, Janey araujo NC, Nain off-F errar i CANO, et al. Evalu ation , treat ment, and preve ntion of vitam in D defic iency : an Endoc rine Socie ty clini john pract ice guide line. JCEM. 2010; 96(7) :191 -. Not Available [facility] ([facility]) [address] [facility], [place], [address], 06/18/2024 07:14:52 10/19/19 25 10/19/2024 LIPID PANEL cholesterol, total 171 mg/dL 100-19 9 Not Available [facility] ([facility]) [address] [facility], [place], [address], 10/19/2024 09:06:07 10/19/19 25 10/19/2024 LIPID PANEL triglyceride s 87 mg/dL 0-149 Not Available [facility] ([facility]) [address] [facility], [place], [address], 10/19/2024 09:06:07 10/19/19 25 10/19/2024 LIPID PANEL HDL cholesterol 81 mg/dL >39 Not Available [facility] ([facility]) [address] [place], [address], 10/19/2024 09:06:07 10/19/19 25 10/19/2024 LIPID PANEL VLDL cholesterol john 16 mg/dL 5-40 Not Available [facility] ([facility]) [address] [place], [address], 10/19/2024 09:06:07 10/19/19 25 10/19/2024 LIPID PANEL LDL chol calc ([facility]) 74 mg/dL 0-99 Not Available [facility] ([facility]) [address] [place], [address], 10/19/2024 09:06:07 10/19/19 25 10/19/2024 COMP. METAB OLIC PANEL (14) glucose 98 mg/dL 70-99 Not Available [facility] ([facility]) [address] [place], [address], 10/19/2024 09:06:08 10/19/19 25 10/19/2024 COMP. METAB OLIC PANEL (14) BUN 13 mg/dL 8-27 Not Available [facility] ([facility]) [address] [place], [address], 10/19/2024 09:06:08 10/19/19 25 10/19/2024 COMP. METAB OLIC PANEL (14) creatinine 0.76 mg/dL 0.57-1 .00 Not Available [facility] ([facility]) [address] [place], [address], 10/19/2024 09:06:08 10/19/19 25 10/19/2024 COMP. METAB OLIC PANEL (14) eGFR 89 mL/mi n/1.7 3 >59 Not Available [facility] ([facility]) [address] [facility], [place], [address], 10/19/2024 09:06:08 10/19/19 25 10/19/2024 COMP. METAB OLIC PANEL (14) BUN/creatini ne ratio 17 12-28 Not Available [facility] ([facility]) [address] [facility], [place], [address], 10/19/2024 09:06:08 10/19/19 25 10/19/2024 COMP. METAB OLIC PANEL (14) sodium 140 mmol/ L 134-14 4 Not Available [facility] ([facility]) [address] [facility], [place], [address], 10/19/2024 09:06:08 10/19/19 25 10/19/2024 COMP. METAB OLIC PANEL (14) potassium 4.3 mmol/ L 3.5-5. 2 Not Available [facility] ([facility]) [address] [facility], [place], [address], 10/19/2024 09:06:08 10/19/19 25 10/19/2024 COMP. METAB OLIC PANEL (14) chloride 106 mmol/ L 96-106 Not Available [facility] ([facility]) [address] [facility], [place], [address], 10/19/2024 09:06:08 10/19/19 25 10/19/2024 COMP. METAB OLIC PANEL (14) carbon dioxide, total 20 mmol/ L 20-29 Not Available [facility] ([facility]) [address] [facility], [place], [address], 10/19/2024 09:06:08 10/19/19 25 10/19/2024 COMP. METAB OLIC PANEL (14) calcium 9.2 mg/dL 8.7-10 .3 Not Available [facility] ([facility]) [address] [facility], [place], [address], 10/19/2024 09:06:08 10/19/19 25 10/19/2024 COMP. METAB OLIC PANEL (14) protein, total 6.7 g/dL 6.0-8. 5 Not Available [facility] ([facility]) [address], [place], [address], 10/19/2024 09:06:08 10/19/19 25 10/19/2024 COMP. METAB OLIC PANEL (14) albumin 4.4 g/dL 3.9-4. 9 Not Available [facility] ([facility]) [address], [place], [address], 10/19/2024 09:06:08 10/19/19 25 10/19/2024 COMP. METAB OLIC PANEL (14) globulin, total 2.3 g/dL 1.5-4. 5 Not Available [facility] ([facility]) [address], [place], [address], 10/19/2024 09:06:08 10/19/19 25 10/19/2024 COMP. METAB OLIC PANEL (14) bilirubin, total 0.6 mg/dL 0.0-1. 2 Not Available [facility] ([facility]) [address], [place], [address], 10/19/2024 09:06:08 10/19/19 25 10/19/2024 COMP. METAB OLIC PANEL (14) alkaline phosphatase 69 IU/L 44-121 Not Available [facility] ([facility]) [address], [place], [address], 10/19/2024 09:06:08 10/19/19 25 10/19/2024 COMP. METAB OLIC PANEL (14) AST (SGOT) 32 IU/L 0-40 Not Available [facility] ([facility]) [address], [place], [address], 10/19/2024 09:06:08 10/19/1910/19/2024 COMP. METAB OLIC PANEL (14) ALT (SGPT) 42 IU/L 0-32 above high normal Not Available [facility] ([facility]) [address] [facility], [place], [address], 10/19/2024 09:06:08 10/19/1910/19/2024 CBC WITH DIFFE RENTI AL/PL ATELE T WBC 7.9 x10e3 /uL 3.4-10 .8 Not Available [facility] ([facility]) [address] [facility], [place], [address], 10/19/2024 09:06:09 10/19/1910/19/2024 CBC WITH DIFFE RENTI AL/PL ATELE T RBC 4.68 x10e6 /uL 3.77-5 .28 Not Available [facility] ([facility]) [address] [facility], [place], [address], 10/19/2024 09:06:09 10/19/1910/19/2024 CBC WITH DIFFE RENTI AL/PL ATELE T hemoglobin 14.6 g/dL 11.1-1 5.9 Not Available [facility] ([facility]) [address] [facility], [place], [address], 10/19/2024 09:06:09 10/19/1910/19/2024 CBC WITH DIFFE RENTI AL/PL ATELE T hematocrit 43.2 % 34.0-4 6.6 Not Available [facility] ([facility]) [address] [facility], [place], [address], 10/19/2024 09:06:09 10/19/1910/19/2024 CBC WITH DIFFE RENTI AL/PL ATELE T MCV 92 fL 79-97 Not Available [facility] ([facility]) [address] [facility], [place], [address], 10/19/2024 09:06:09 10/19/19 25 10/19/2024 CBC WITH DIFFE RENTI AL/PL ATELE T MCH 31.2 pg 26.6-3 3.0 Not Available [facility] ([facility]) [address] [facility], [place], [address], 10/19/2024 09:06:09 10/19/19 25 10/19/2024 CBC WITH DIFFE RENTI AL/PL ATELE T MCHC 33.8 g/dL 31.5-3 5.7 Not Available [facility] ([facility]) [address] [facility], [place], [address], 10/19/2024 09:06:09 10/19/1910/19/2024 CBC WITH DIFFE RENTI AL/PL ATELE T RDW 12.6 % 11.7-1 5.4 Not Available [facility] ([facility]) [address] [facility], [place], [address], 10/19/2024 09:06:09 10/19/1910/19/2024 CBC WITH DIFFE RENTI AL/PL ATELE T platelets 335 x10e3 /uL 150-45 0 Not Available [facility] ([facility]) [address] [facility], [place], [address], 10/19/2024 09:06:09 10/19/1910/19/2024 CBC WITH DIFFE RENTI AL/PL ATELE T neutrophils 52 % notest ab. Not Available [facility] ([facility]) [address] [place], [address], 10/19/2024 09:06:09 10/19/19 25 10/19/2024 CBC WITH DIFFE RENTI AL/PL ATELE T lymphs 37 % notest ab. Not Available [facility] ([facility]) [address] [place], [address], 10/19/2024 09:06:09 04/11/10/19/2024 CBC WITH DIFFE RENTI AL/PL ATELE T monocytes 7 % notest ab. Not Available [facility] ([facility]) [address] [facility], [place], [address], 10/19/2024 09:06:09 10/19/1910/19/2024 CBC WITH DIFFE RENTI AL/PL ATELE T eos 3 % notest ab. Not Available [facility] ([facility]) [address] [facility], [place], [address], 10/19/2024 09:06:09 10/19/1910/19/2024 CBC WITH DIFFE RENTI AL/PL ATELE T basos 1 % notest ab. Not Available [facility] ([facility]) [address] [facility], [place], [address], 10/19/2024 09:06:09 10/19/1910/19/2024 CBC WITH DIFFE RENTI AL/PL ATELE T neutrophils (absolute) 4.1 x10e3 /uL 1.4-7. 0 Not Available [facility] ([facility]) [address] [facility], [place], [address], 10/19/2024 09:06:09 10/19/1910/19/2024 CBC WITH DIFFE RENTI AL/PL ATELE T lymphs (absolute) 2.9 x10e3 /uL 0.7-3. 1 Not Available [facility] ([facility]) [address] [facility], [place], [address], 10/19/2024 09:06:09 10/19/1910/19/2024 CBC WITH DIFFE RENTI AL/PL ATELE T monocytes(ab solute) 0.5 x10e3 /uL 0.1-0. 9 Not Available [facility] ([facility]) [address] [facility], [place], [address], 10/19/2024 09:06:09 10/19/1910/19/2024 CBC WITH DIFFE RENTI AL/PL ATELE T eos (absolute) 0.2 x10e3 /uL 0.0-0. 4 Not Available [facility] ([facility]) [address] [facility], [place], [address], 10/19/2024 09:06:09 10/19/1910/19/2024 CBC WITH DIFFE RENTI AL/PL ATELE T baso (absolute) 0.1 x10e3 /uL 0.0-0. 2 Not Available [facility] ([facility]) [address] [facility], [place], [address], 10/19/2024 09:06:09 10/19/1910/19/2024 CBC WITH DIFFE RENTI AL/PL ATELE T immature granulocytes 0 % notest ab. Not Available [facility] ([facility]) [address] [facility], [place], [address], 10/19/2024 09:06:09 10/19/1910/19/2024 CBC WITH DIFFE RENTI AL/PL ATELE T immature grans (abs) 0.0 x10e3 /uL 0.0-0. 1 Not Available [facility] ([facility]) [address] [place], [address], 10/19/2024 09:06:09 10/19/1910/19/2024 VITAM IN D, 25-HY [...] um and D. Honey anaya DC: [facility] . 2. Yara donahue MF, Janey araujo [place], Nain off-F errar i CANO, et al. Evalu ation , treat ment, and preve ntion of vitam in D defic iency : an Endoc rine Socie ty clini john pract ice guide line. JCEM. 2010; 96(7) :1911 -30. Not Available [facility] ([facility]) [address] [facility], [place], [address], 10/19/2024 09:06:11 11/18/19 25 11/06/2024 home sleep testi alexis (PROC ) No observ ation record ed. [facility] [address], [address], [place], [address], 11/20/2024 10:40:01 11/18/19 25 11/17/2024 XR, wrist No observ ation record ed. [address], [place], [address], 11/19/2024 21:23:16 11/26/19 25 11/22/2024 rhyth m strip , EKG* No observ ation record ed. [address], [place], [address], 11/26/2024 21:44:54 11/28/19 25 11/27/2024 MAMMO , scree meghan, digit al, bilat eral No observ ation record ed. [facility] [address], [place], [address], 11/29/2024 09:15:27 Result Notes None recorded. Problems Name Problem SNOMED Code Status Onset Date Resolution Date Notes Provider Name and Address Organization Details Recorded Time Acid reflux 205743781 Active 2023 Dorothea Booker [place] null, [place] [facility] 10:56:47 Environment al allergy 476888678 Active 2023 Dorothea [place] [facility] 4 10:57:31 Hypercholes terolemia 24205773 Active 2023 Dorothea [place] [facility] 4 10:57:53 Hypersomnia 54156901 Active 2023 Lilian Hutson [place] [facility] 4 11:42:24 Fatigue 98661224 Active 2023 Lilian Hut[place] [facility] 4 11:42:25 Chronic rhinitis 90704531 Active 2023 Parish Meza MD Attn: Trini barger,[address] [place], [address], [place] [facility] 4 18:45:34 Vitamin D below reference range 162013102 Active 2023 Parish Meza MD Attn: Trini barger,[address] [place], [address], [place] [facility] 4 18:45:46 Pain in bilateral legs 2842417231667 9108 Active 2023 Lilian Hut[place] [facility] 4 12:25:46 Long-term drug therapy Active 2023 Lilian Hut[place] [facility] 4 12:22:21 Reactive airway disease 369968101385 Active 2023 Parish Meza MD Attn: Trini barger,[address] [place], [address], [place] [facility] 4 12:45:14 HIV screening declined 7177237630402 00 Active 2023 Parish Meza MD Attn: Trini barger,[address] [place], [address], [place] [facility] 4 12:47:03 Problem Notes None recorded. Procedures Surgical History Date Name Laterality Status Provider Name and Address Organization Details Recorded Time Joint Replacement completed CHUN Vogt [facility] 10/20/2023 11:02:08 Knee Surgery completed CHUN Vogt [facility] 10/20/2023 11:02:15 Total hysterectomy completed Dolly Booker CHUN [facility] 10/20/2023 11:02:26 Tonsillectomy completed Dorothea Booker MA [facility] 10/20/2023 11:02:41 Imaging Results None recorded. Procedure Notes None recorded. Medical Equipment None Reported. Allergies Allergen ID Allergen Name Allergen Category Reaction Reaction Severity Criticality Documentation Date Start Date Code Code System Note Provider Name and Address Organization Details Recorded Time 168923 codeine medicatio n anaphylax is hives rash Not available Not available Not available high 10/20/2023 2670 RxNorm CHUN Vogt [facility] 4 10:55:47 583703 Product containin g penicilli n (product) medicatio n hives rash Not available Not available low 10/20/2023 75821 8001 SNOMED CHUN Vogt [facility] 4 10:56:09 930515 tramadol medicatio n itching Not available Not available 10/18/2024 93592 [facility] 5 11:46:13 Medications Name Sig Start Date [...] mcg (50,000 unit) capsule Take 1 capsule by mouth once a week 2024 active Not Available Not Available Not [...] Available Not Available Vitals Date Recorded Body height Body mass index (BMI) Body weight Heart rate Oxygen saturation Oxygen saturation in Arterial blood by Pulse oximetry Systolic blood pressure Diastolic blood pressure Provider Name and Address Organization Details Last Updated DateTime 5 157.48 cm 32.4 kg/m2 06668.5 7 g 88 /min 96 % 96 % 132 mm[Hg] 82 mm[Hg] Karen Palacios [place] - [facility] 5 11:45:51 Date Recorded Body weight Heart rate Oxygen saturation Oxygen saturation in Arterial blood by Pulse oximetry Systolic blood pressure Diastolic blood pressure Provider Name and Address Organization Details Last Updated DateTime 4 41005.9 4 g 97 /min 97 % 97 % 140 mm[Hg] 82 mm[Hg] Dorothea Booker [place] [facility] 4 10:54:43 Date Recorded Body height Body mass index (BMI) Body weight Heart rate Oxygen saturation Oxygen saturation in Arterial blood by Pulse oximetry Systolic blood pressure Diastolic blood pressure Provider Name and Address Organization Details Last Updated DateTime 4 157.48 cm 32.9 kg/m2 44690.6 3 g 78 /min 95 % 95 % 150 mm[Hg] 94 mm[Hg] Inocencia Tomlinson MA [facility] 4 11:46:11 Date Recorded Body height Body mass index (BMI) Body weight Heart rate Oxygen saturation Oxygen saturation in Arterial blood by Pulse oximetry Systolic blood pressure Diastolic blood pressure Provider Name and Address Organization Details Last Updated DateTime 4 157.48 cm 32.6 kg/m2 52551.8 g 74 /min 97 % 97 % 122 mm[Hg] 64 mm[Hg] Dorothea Booker MA [facility] 4 10:58:40 Date Recorded Body height Body mass index (BMI) Body weight Heart rate Oxygen saturation Oxygen saturation in Arterial blood by Pulse oximetry Systolic blood pressure Diastolic blood pressure Provider Name and Address Organization Details Last Updated DateTime 4 157.48 cm 33 kg/m2 91532.3 5 g 72 /min 96 % 96 % 126 mm[Hg] 84 mm[Hg] Karen Palacios MA [facility] 4 11:38:23 Social History Question Answer Notes LastModified by Organizat ion Details LastModified Time Tobacco Smoking Status Never Smoker Dorothea Booker MA [facility] 10/20/2023 11:00:06 Do You Have An Advance [...] Or The Highest Degree You Have Received? [id number] Information not available 10/20/2023 Are There Any [...] anxious, or unable to sleep at night)? [id number] Information not available 10/20/2023 Family History Relationship [...] High Blood Pressure N Atrial Fibrillation N Thyroid Problems N Kidney or Bladder Problems Y GI Problems N Depression N COPD N Blood Clots N Skin Problems Y Anemia Y Heart Attack ([place]) N Anxiety Disorder N Diabetes N Muscle, [...] [facility] 03/01/2024 11:41:33 zoster recombinant 2 completed Inocencia Toml[place], [place] [facility] 03/01/2024 11:41:33 COVID-19, mRNA, LNP-S, PF, 100 mcg/0.5mL dose or 50 mcg/0.25mL dose 1 completed Inocencia Tom[place] [facility] 03/01/2024 11:41:33 COVID-19, mRNA, LNP-S, PF, 100 mcg/0.5mL dose or 50 mcg/0.25mL dose 1 marycarmen Tom[place]inson [place] [facility] 03/01/2024 11:41:33 COVID-19, mRNA, LNP-S, PF, 100 mcg/0.5mL dose or 50 mcg/0.25mL dose 1 completed CHUN [place], [place] [facility] 03/01/2024 11:41:33 COVID-19, mRNA, LNP-S, PF, 100 mcg/0.5mL dose or 50 mcg/0.25mL dose 1 completed CHUN [place] [facility] 03/01/2024 11:41:33 Tdap 3 completed [place]UN [place] [facility] 03/01/2024 11:41:33 Influenza, split virus, quadrivalent, PF 2 completed [place]UN [place] [facility] 03/01/2024 11:41:33 Influenza, split virus, quadrivalent, PF 0 completed [place]UN [place] [facility] 03/01/2024 11:41:33 Influenza, split virus, quadrivalent, PF 9 completed [place]UN [place] [facility] 03/01/2024 11:41:33 Influenza, split virus, quadrivalent, PF 3 completed CHUN [place] [facility] 03/01/2024 11:41:33 Pneumococcal conjugate PCV20, polysaccharide [id number] conjugate, adjuvant, PF 5 completed Parish Meza MD Attn: Accounting[address] [place], [address], [place] [facility] 10/19/2024 13:22:43 Past Encounters Encounter ID Performer Location Encounter Start Date Encounter Closed Date Diagnosis/Indication Diagnosis SNOMED-CT Code Diagnosis ICD10 Code Diagnosis Note [id number] Parish Meza MD [facility] (Adult Med) [address] [place] [id number] 10/20/2023 10:27:49 10/20/2023 12:22:31 Hypersomnia 01147154 G47.10 Fatigue 90902783 R53.83 Acid reflux 746883808 K2 1.9 Hypercholesterolemia 136 33849 E78.00 Chronic rhinitis 9094191 6 J31.0 Vitamin D below reference range 290918064 E55.9 [id number] MD Lei Mcclain (Adult Med) [address] [place] [id number] 03/01/2024 11:21:56 03/01/2024 12:32:55 Fatigue 77109552 R53.83 Pain in bi lateral legs 1462685086 7470530 M79.604 M79.605 Hypercholesterolemia 136 23792 E78.00 Acid reflux 670853779 K2 1.9 Chronic rhinitis 3571924 6 J31.0 Vitamin D below reference range 533042046 E55.9 [id number] MD Lei Mcclain (Adult Med) [address] [place] [id number] 03/29/2024 10:35:26 03/29/2024 11:57:31 Obesity 447255300 E66.8 Low back pain 831542811 M54.50 [id number] MD Lei Mcclain (Adult Med) [address] [place] [id number] 06/21/2024 11:22:40 06/21/2024 12:33:51 Body mass index 30+ - obesity 433197199 Z68.33 Obesity 390673573 E66.9 Vitamin D deficiency 347 16324 E55.9 Hypercholesterolemia 136 10797 E78.00 Long-term drug therapy 192696311 Z79.899 Screening mammography 24 379087 Z12.31 Screening for malignant neoplasm of colon 007930621 Z12.11 Gynecologi c examination 75712882 Z01.419 Acid reflux 648391377 K2 1.9 Chronic rhinitis 3988900 6 J31.0 Vitamin D below reference range 923594409 E55.9 Reactive a irway disease 1445958050 06 J45.909 HIV screen ing declined 1485975665 22323 Z53.20 [id number] MD Lei Mcclain (Adult Med) [address] [place] [address] 0 10/18/2024 11:20:57 10/18/2024 12:30:40 Body mass index 30+ - obesity 527048714 Z68.33 Obesity 299220178 E66.9 Administra tion of pneumococcal vaccine 94646718 Z23 Hypercholesterolemia 136 93402 E78.00 Chronic rhinitis 2568465 6 J31.0 Acid reflux 408030173 K2 1.9 Vitamin D below reference range 132053842 E55.9 Sleep disorder 08751485 G47.9 Health Concerns Section Related Observation LastModified by Organization Detai ls LastModified Time None Recorded Concern Status LastModified by Organization Details LastModified Time None Recorded Advance Directives Directive N: Payers Encounter Date Sequence Insurance Name Policy Number Policy Mccain Covered Member ID Mccain Member ID Guarantor Name 10/20/2023 1 [employer] [id number] 2 Hilary A Sharp [id number] Hilary Sharp 03/01/2024 1 [employer] [id number] 2 Hilary A Sharp [id number] Hilary Sharp 03/29/2024 1 [employer] [id number] 2 Hilary A Sharp [id number] Hilary Sharp 06/21/2024 1 [employer] [id number] 2 Hilary A Sharp [id number] 92 Hilary Sharp 10/18/2024 1 [employer] [id number] 2 Hilary A Sharp [id number] Hilary Sharp Notes Date Note Type [...] month. Parish Meza MD Attn: Accounting,[address] [place], [address], [facility] 10/21/2023 18:47:06 03/01/2024 text/html complains of lenore e fatigue with no specific complaints referable to that some pain in her legs she can not really say whether it is with activity or without activity dyslipidemia she does take the statin. Insomnia has been fair rhinitis has been controlled GERD no breakthrough Parish Meza MD Attn: Accounting, [address] [facility], [place], [address], [place] [facility] 03/02/2024 12:33:09 03/29/2024 text/html having some low back pain that shoots down the legs from time to time pretty significant and nerve conduction test was denied by her insurance company and she does not want to pay for her pain is [id number]-xl-obmcyrky sometimes severe sometimes hard for her to get out of bed and walk in the morning no bowel or bladder incontinence. Obesity trouble losing weight. Chronic rhinitis stable on fluticasone hypertension no headache or dizziness GERD no nausea no vomiting dyslipidemia taking rosuvastatin and she is trying to follow a low-fat diet Parish Meza MD Attn: Accounting, [address] [facility], [place], [address], [place] [facility] 03/29/2024 22:42:22 06/21/2024 text/html she is not [...] Parish Meza MD Attn: Accounting, [address] [facility], [place], [address], [place] [facility] 06/22/2024 12:47:29 10/18/2024 text/html She had a [...] on her low vitamin-D. Karen Palacios MA [facility], [place] - [facility] 10/21/2024 09:12:48 OBGyn Episode No OBEpisode recorded.
--- OUTSIDE RECORDS SUMMARY | 2024-12-06 01:20 | XMS_ITS | Data Portability ---
Author Organization [facility] [employer], Main Office Address [address] [place] [address] Care Team Providers Care Svp Research And Strategic Analysis Name Role Phone PARISH MEZA Primary Care Provider PARISH MEZA Referring Provider Assessment Encounter Date Assessment Date Assessment LastModified by Organization Details LastModified Time 12/30/2022 12/30/2022 Continue current therapy diagnosis discussed follow-up in 4 months [email or web address] Not available 07/02/2023 15:48:54 04/27/2023 04/27/2023 HPI: [...] treatment patient more half of this in mafv-ql-wvao conversation Not available 04/27/2023 12:09:01 05/03/2023 05/03/2023 Continue current therapy follow-up in 4 months [email or web address] Not available 05/06/2023 16:53:46 08/10/2023 08/10/2023 HPI: [...] procedure, administere d by provider 2023 024 [email or web address] In-Office Order, Internal Use Only DO Not Attach Compendium DO Not Attach Compendium, Do Not Delete/merge, [id number] 4 11:10:36 injection/a spiration joint/bursa (PROC) - in office procedure, administere d by provider 2022 023 In-Office Order, Internal Use Only DO Not Attach Compendium DO Not Attach Compendium, Do Not Delete/merge, [id number] 3 12:03:13 Surgeries None recorded. Imaging XR, knee 2022 023 [email or web address] [facility]_[address], [place], [address], 3 12:40:46 Medication Orders Kenalog 10 mg/mL suspension for injection 2023 024 [email or web address] [facility], [address] [facility], [place], [address], 4 11:27:23 ropivacaine (PF) 5 mg/mL (0.5 %) injection solution 2023 024 [email or web address] [facility] [address], [address] [place] [address], [address], 4 11:27:23 Kenalog 10 mg/mL suspension for injection [address] [facility] [address], [address] [place] [address], [address], 3 12:03:13 ropivacaine (PF) 5 mg/mL (0.5 %) injection solution [address], [address] [place] [address], [address], 3 12:03:13 Patient TargetsNo targets recorded. Patient Instructions Encounter Date Encounter Id Patient Instructions Last Modified By Organization Details Last Modified Time 12/29/2022 [id number] patient understands there is no current treatment [...] No observ ation record ed. [facility] [place] [address] [facility], [place], [address], 04/27/2023 12:04:14 Result Notes None recorded. Problems Name Problem SNOMED Code Status Onset Date Resolution Date Notes Provider Name and Address Organization Details Recorded Time Edema of lower extremity 956968188 Active 2021 Not Available [facility] 3 06:03:14 Asthenia 00680707 Active Not Available [facility] 3 06:03:14 Chondromal acia of left knee 6596426663070 9102 Active 2019 Not Available [facility] 3 06:03:14 Abdominal pain 47060496 Active Not Available [facility] 3 06:03:14 Gastroesop hageal reflux disease 208864644 Active Not Available [facility] 3 06:03:14 Pure hyperchole sterolemia 741514635 Active Not Available [facility] 3 06:03:14 Malaise and fatigue 087689926 Active Not Available [facility] 3 06:03:14 Low back pain 344684190 Active Not Available [facility] 3 06:03:14 Current tear of medial cartilage AND/OR meniscus of knee Active 2019 Not Available [facility] 3 06:03:14 Vitamin D deficiency 06236661 Active Not Available [facility] 3 06:03:15 Pain of left knee joint 1000375449045 07 Active 2021 Not Available [facility] 3 06:03:15 Dysuria 97244566 Active 2021 Not Available [facility] 3 06:03:15 Cough 27257777 Active 2022 Not Available [facility] 3 06:03:15 Upper respirator y infection 33972212 Active Not Available [facility] 3 06:03:15 Hyperlipid emia 26526324 Active 2021 Not Available [facility] 3 06:03:15 Pain of joint 15710761 Active Not Available [facility] 3 06:03:15 Osteoporos is 00646106 Active Not Available [facility] 3 06:03:15 Bilateral tinnitus 5999023100447 Active 2022 AMRIVEL Barba, [facility] [employer] [facility] 3 10:23:54 Pain of right knee joint 1949522039458 00 Active 2022 Roselyn quintero, [facility] [employer] [facility] 3 16:15:03 Rhinitis 38142396 Active 2022 Parish Meza MD [address] [facility], [facility] [address], [place], [address] , [facility] [employer] 3 15:48:39 Osteoarthr itis of right knee joint 5941493979541 00 Active 2023 Asia Sellers, RMA null, [facility] [employer] [facility] 4 11:08:50 Problem Notes None recorded. Procedures Surgical History Date Name Laterality Status Provider Name and Address Organization Details Recorded Time 03/08/20 22 Knee Replacement completed Not Available [facility] 09/07/2022 05:56:31 02/10/20 21 Knee arthroscopy/ron debbie completed Not Available [facility] 09/07/2022 05:56:31 08/16/19 17 Excisions - Specify completed Not Available [facility] 09/07/2022 05:56:31 08/16/19 17 Exc tr-ext b9+margie 1.1-2 cm completed Not Available [facility] 09/07/2022 05:56:31 Arthrd ant ntrbd min dsc crv completed Not Available [facility] 09/07/2022 05:56:31 Breast Surgery completed Not Available [facility] 09/07/2022 05:56:31 Imaging Results None recorded. Procedure Notes None recorded. Medical Equipment None Reported. Allergies Allergen ID Allergen Name Allergen Category Reaction Reaction Severity Criticality Documentation Date Start Date Code Code System Note Provider Name and Address Organization Details Recorded Time 63740 tramadol medicatio n itching Not available Not available 09/07/2022 54895 RxNorm Not Available [facility] 3 06:08:55 62588 Product containin g penicilli n (product) medicatio n hives Not available Not available 09/07/2022 18873 8001 SNOMED Not Available [facility] 3 06:08:55 99360 codeine medicatio n nausea vomiting Not available Not available Not available 09/07/2022 2670 RxNorm Not Available [facility] 3 06:08:56 Medications Name Sig Start Date Stop Date Status Note LastModified by Organization Details LastModified Time quetiapine 25 mg tablet 03/13 /2018 completed Not Available Not Available Not Available [...] suspension for injection in office 2023 active [facility]: 0003- 0494- 20 Not Available Not Available [...] administe red by the provider 04/06 completed [facility]: 0409- 4276- 17 Not Available Not Available [...] t Available Vitals Date Recorded Body height Provider Name an d Address Organization Details Last Updated DateTime 08/10/2023 154.94 cm MARIVEL Moreno [facility] [employer] 08/10/2023 11:08:05 Date Recorded Body height Body mass index (BMI) Body weight Body temperature Provider Name and Address Organization Details Last Updated DateTime 12/29/2022 157.48 cm 33.7 kg/m2 57185 g 97.6 [degF] Kelly Taylor RN [facility] [employer] 12/29/2022 10:36:46 Date Recorded Body height Body mass index (BMI) Body weight Body temperature Heart rate Oxygen saturation Oxygen saturation in Arterial blood by Pulse oximetry Systolic blood pressure Diastolic blood pressure Provider Name and Address Organization Details Last Updated DateTime 3 157.48 cm 33.7 kg/m2 77733 g 98.2 [degF] 80 /min 95 % 95 % 124 mm[Hg] 80 mm[Hg] Leidy Gary RN [facility] [employer] 3 12:28:13 Date Recorded Body height Body mass index (BMI) Body weight Provider Name and Address Organization Details Last Updated DateTime 04/27/2023 154.94 cm 34 kg/m2 04128.63 g MARIVEL Moreno [facility] [employer] 04/27/2023 11:18:45 Date Recorded Body height Body mass index (BMI) Body weight Body temperature Heart rate Systolic blood pressure Diastolic blood pressure Provider Name and Address Organization Details Last Updated DateTime 3 154.94 cm 33.8 kg/m2 59604.0 3 g 97.2 [degF] 74 /min 136 mm[Hg] 86 mm[Hg] MARIVEL Puente [facility] [employer] 3 10:44:51 Social History Question Answer Notes LastModified by Organizat ion Details LastModified Time Tobacco Smoking Status Never Smoker Not Available [facility] 09/07/2022 05:55:58 Do You Have An Advance Directive? No MIGRATION.39185 35344 Information not available 09/07/2022 What Is Your Level Of Caffeine Consumption? Moderate MIGRATION.93088 04513 Information not available 09/07/2022 How Much Tobacco Do You Chew? None MIGRATION.89912 05600 Information not available 09/07/2022 In The 14 Days Before Symptom Onset, Have You Had Close Contact With A Laboratory-confi rmed COVID-19 While That Case Was Ill? No MIGRATION.24897 62015 Information not available 09/07/2022 In The 14 Days Before Symptom Onset, Have You Had Close Contact With A Person Who Is Under Investigation For COVID-19 While That Person Was Ill? No MIGRATION.08418 73594 Information not available 09/07/2022 What Type Of Diet Are You Following? REGULAR MIGRATION.51332 00059 Information not available 09/07/2022 Which Illicit Or Recreational Drugs Have You Used? None MIGRATION.91038 67214 Information not available 09/07/2022 What Is The Highest Grade Or Level Of School You Have Completed Or The Highest Degree You Have Received? [id number] MIGRATION.09191 14029 Information not available 09/07/2022 Have There Been Any Changes To Your Family Or Social Situation? No MIGRATION.97755 66932 Information not available 09/07/2022 What Is The Fluoride Status Of Your Home? Unknown MIGRATION.41610 28824 Information not available 09/07/2022 Are There Any Guns Present In Your Home? Yes MIGRATION.93862 11880 Information not available 09/07/2022 Do You Use Insect Repellent Routinely? No MIGRATION.69716 96336 Information not available 09/07/2022 Where Do You Live? [place] MIGRATION.68918 83019 Information not available 09/07/2022 Do You Have A Medical Power Of Graduate Recruiter? No MIGRATION.95871 07237 Information not available 09/07/2022 What Was The Date Of Your Most Recent Tobacco Screening? 05/03/2023 [email or web address] Information not available 05/03/2023 Do You Have Any Pets? Yes MIGRATION.82384 44087 Information not available 09/07/2022 What Is Your Relationship Status? MIGRATION.36056 00484 Information not available 09/07/2022 Do You Use Your Seat Belt Or Car Seat Routinely? Yes MIGRATION.72363 70957 Information not available 09/07/2022 Do You Have Smoke And Carbon Monoxide Detectors In Your Home? Yes MIGRATION.11795 66838 Information not available 09/07/2022 Are You Passively Exposed To Smoke? No MIGRATION.51524 31015 Information not available 09/07/2022 Are There Any Smokers In Your House? No MIGRATION.85211 20230 Information not available 09/07/2022 How Much Tobacco Do You Smoke? No MIGRATION.54212 36562 Information not available 09/07/2022 What Types Of Sporting Activities Do You Participate In? None MIGRATION.90621 70200 Information not available 09/07/2022 Do You Use Sunscreen Routinely? Yes MIGRATION.59043 50833 Information not available 09/07/2022 Has Tobacco Cessation Counseling Been Provided? No Not Needed-ne mayela Smoked MIGRATION.16868 83399 Information not available 09/07/2022 How Many Years Have You Smoked Tobacco? 0 MIGRATION.56414 94940 Information not available 09/07/2022 Have You Recently Traveled Abroad? No MIGRATION.93898 10948 Information not available 09/07/2022 Do You Have Any Dietary Restrictions? No MIGRATION.27453 89194 Information not available 09/07/2022 Sex: Female Functional Status Question Answer Note LastModified by Desino Details LastModified Time Do you use any illicit or recreational drugs? No MIGRATION.277863 6189 Information not available 09/07/2022 Do you or have you ever used any other forms of tobacco or nicotine? No MIGRATION.409282 7917 Information not available 09/07/2022 What is your level of alcohol consumption? None MIGRATION.684525 0443 Information not available 09/07/2022 Do you or have you ever used smokeless tobacco? 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 Never used electronic cigarettes MIGRATION.690402 6298 Information not available 09/07/2022 What is your exercise level? Occasional MIGRATION.466033 8370 Information not available 09/07/2022 Mental Status Question Answer Note LastModified by Organizat ion Details LastModified Time Do you feel stressed (tense, restless, nervous, or anxious, or unable to sleep at night)? [id number] MIGRATION.690685163 6 Information not available 09/07/2022 Family History Relationship Description Onset Age of this Age Resolved Age Notes LastModified by Organization Details LastModified Time Mother Malignant neoplastic disease MIGRATION.299 6963267 Not available 09/07/2022 05:56:38 Mother Alcoholism MIGRATION.744 5950521 Not available 09/07/2022 05:56:38 Mother Hypertensive disorder MIGRATION.676 8029695 Not available 09/07/2022 05:56:38 Mother Heart disease MIGRATION.848 5901081 Not available 09/07/2022 05:56:38 Mother Family history of stroke MIGRATION.675 1861380 Not available 09/07/2022 05:56:38 Father Alcoholism MIGRATION.415 9665774 Not available 09/07/2022 05:56:38 Father Heart disease MIGRATION.200 4541736 Not available 09/07/2022 05:56:38 Brother Alcoholism MIGRATION.135 0682660 Not available 09/07/2022 05:56:38 Brother Heart disease MIGRATION.987 9219520 Not available 09/07/2022 05:56:38 Brother Chronic obstructive pulmonary disease MIGRATION.961 3052459 Not available 09/07/2022 05:56:38 Unspecified Relation Diabetes mellitus MIGRATION.079 1411724 Not available 09/07/2022 05:56:38 Medical History Condition Response NERVE DISEASE N BLINDNESS N RHEUMATIC FEVER N KIDNEY STONES N BLADDER PROBLEMS N MRSA N OTHER # 1 N POLIO N LUNG DISEASE/DISORDER N RADIATION / CHEMOTHERAPY N COPD N Other # 2 N BLOOD DISEASES N EAR OR HEARING PROBLEMS N MUMPS N DEPRESSION (INCLUDING POST ) N BOWEL PROBLEMS N STROKE/TIA N ULCERS N BENIGN PROSTATIC [...] HAVE YOU BEEN HOSPITALIZED OR SEEN IN [facility] IN THE PAST YEAR ? [...] 50 mcg/0.25mL dose 05/31/2021 completed Not Available [facility] 3 06:08:47 COVID-19, mRNA, LNP-S, PF, 100 mcg/0.5mL dose or 50 mcg/0.25mL dose 10/23/2020 completed Not Available [facility] 3 06:08:47 COVID-19, mRNA, LNP-S, PF, 100 mcg/0.5mL dose or 50 mcg/0.25mL dose 09/27/2020 completed Not Available [facility] 3 06:08:48 Influenza, split virus, quadrivalent, PF 06/04/2019 completed Not Available [facility] 3 06:08:48 Influenza, split virus, quadrivalent, PF 04/18/2022 completed Not Available [facility] 3 06:08:48 Past Encounters Encounter ID Performer Location Encounter Start Date Encounter Closed Date Diagnosis/Indication Diagnosis SNOMED-CT Code Diagnosis ICD10 Code Diagnosis Note [id number] Parish Meza MD [facility] [place] [address] [facility] [address] , [place] [address] 11/12/2020 00:00:00 11/12/2020 22:33:37 [id number] SERGEY Lozano [facility] [place] [address] [facility] [address] [place] [address] 11/26/2020 00:00:00 11/26/2020 16:11:26 [id number] Parish Meza MD [facility] [place] [address] [facility] [address] , [place] [address] 01/05/2021 00:00:00 01/11/2021 21:55:15 [id number] Yariel Tomlinson MD [facility] [place] [address] [facility] [address] [place] [address] 02/04/2021 00:00:00 02/04/2021 09:13:51 [id number] Yariel Tomlinson MD [facility] [address] [address] 02/23/2021 00:00:00 02/23/2021 10:52:46 [id number] Yariel Tomlinson MD [facility] [place] [address] [facility] [address] [place] [address] 03/18/2021 00:00:00 03/18/2021 09:53:12 [id number] Parish Meza MD [facility] [place] [address] [facility] [address] , [place] [address] 04/06/2021 00:00:00 04/06/2021 22:52:24 [id number] Parish Meza MD [facility] [address] [place], [address] [address] 08/09/2021 00:00:00 08/12/2021 21:30:54 [id number] Parish Meza MD [facility] [address] [place], [address] [address] 11/24/2021 00:00:00 11/28/2021 12:29:31 [id number] Parish Meza MD [facility] [address] [place], [place] [address]., [address] [address] 12/14/2021 00:00:00 12/14/2021 18:45:43 [id number] Parish Meza MD [facility] [address] [place] [address]., [address] [address] 03/21/2022 00:00:00 03/22/2022 09:07:07 [id number] Parish Meza MD [facility] [address] [place] [address] 04/18/2022 00:00:00 04/24/2022 15:12:56 [id number] Parish Meza MD [facility] [address] [place] [address] 08/16/2022 00:00:00 08/16/2022 15:09:44 [id number] Parish Meza MD [facility] [address] [place] [address] 11/18/2022 09:26:54 11/18/2022 10:22:14 Hyperlipidemia 03981903 E78.5 Cough 63005568 R05.9 Bilateral tinnitus 34931 86260 102 H93.13 [id number] Tera Brandt MD [facility] [place] [address] [place] [address] 12/29/2022 09:43:30 12/29/2022 10:56:26 Bilateral tinnitus 1699558971 102 H93.13 [id number] Parish Meza MD [facility] [address] [address] 12/30/2022 11:34:39 12/30/2022 12:45:23 Gastroesophageal reflux disease 257535350 K21.9 Hyperlipidemia 04766648 E78.5 Rhinitis 30202822 J00 [id number] SERGEY Piña [facility] [address] [place] [address] 04/27/2023 10:20:21 04/27/2023 12:40:46 Pain of right knee joint 5660750597 02847 M25.882 [id number] Parish Meza MD [facility] Internal Med [facility] [address] [facility] 15 [place] [address] 05/03/2023 10:28:22 05/03/2023 11:17:41 Gastroesophageal reflux disease 055025733 K21.9 Hyperlipidemia 69494574 E78.5 Pure hypercholesterolemia 619007048 E78.00 [id number] Roberto Day MD [facility]_[address] [address] 08/10/2023 11:00:43 08/10/2023 11:51:49 Osteoarthritis of right knee joint 9079181025 42269 M17.11 Health Concerns Section Related Observation LastModified by Organization Detai ls LastModified Time None Recorded Concern Status LastModified by Organization Details LastModified Time None Recorded Advance Directives Directive N: Payers Encounter Date Sequence Insurance Name Policy Number Policy Mccain Covered Member ID Mccain Member ID Guarantor Name 12/29/2022 1 [employer] [id number] 2 Hilary A Sharp [id number] Hilary Sharp 12/30/2022 1 [place] [id number] 2 Hilary A Sharp [id number] Hilary Sharp 04/27/2023 1 [place] [id number] 2 Hilary A Sharp [id number] Hilary Sharp 05/03/2023 1 [place] [id number] 2 Hilary A Sharp [id number] 192 Hilary Sharp 08/10/2023 1 [place] [id number] 2 Hilary A Sharp [id number] Hilary Sharp Notes Date Note Type Note Provider Name and Address Organization Details Recorded Time 12/29/2022 text/html This patient developed tinnitus after receiving the COVID vaccine. She had an audiogram demonstrating mild high-frequency hearing loss with normal word recognition scores. Tera Brandt MD [address] [facility] [place] [address], [place], [address], [employer] [facility] [employer] 12/29/2022 10:51:26 12/30/2022 text/html Rhinitis stable GERD fine dyslipidemia trying to follow a low-fat diet Parish Meza MD [address] [place] [address], [place], [address], [employer] 07/02/2023 15:49:19 05/03/2023 text/html Rhinitis stable GERD fine dyslipidemia trying to follow low-fat knee seeing Ortho Parish Meza MD [address] [facility] [place] [address], [place], [address], [employer] [facility] [employer] 05/06/2023 16:54:18 OBGyn Episode No OBEpisode recorded.
--- OUTSIDE RECORDS SUMMARY | 2024-12-06 01:21 | XMS_ITS | Clinical Summary ---
Author Organization [facility] Address [facility] [place] [address] Care Team Providers Care X Ray Service Engineer Name Role Phone Sim Meza MD Primary Care Provider + [phone] Allergies Active Allergy Reactions Criticality Noted Date [...] eszopiclone 2 mg tablet Active influenza quadrivalent 3074-6568 (Fluzone Quad 0591-1581, PF,) 60 mcg (15 mcg x 4)/0.5 mL syringe Fluzone Quad 4196-5354 (PF) 60 mcg (15 mcg x 4)/0.5 [...] (01/31/2022): Added automatically from request for surgery [id number] Abnormal mammogram 12/22/2016 Surgical History Surgery Date Site/Laterality Comments KNEE ARTHROSCOPY 02/09/2021 Left partial meniscectomy - [facility] [place] BACK SURGERY 07/10/2009 - 07/09/2010 C5/6-C6/7 - [...] on file 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 Gender Identity Not on file Sexual Orientation [...] Well Visit/Exam 18-64 1983 Covid-19 Vaccine (4 - 2023-2 5 season) 2024 05/31/2021, 10/23/2020, 10/02/2020 Influenza Vaccine (Season Ended) 2025 04/18/2022, 05/17/2020, 06/04/2019 Zoster Vaccine Completed 01/16/2022, 10/16/2021 Pneumococcal vaccine <65 Aged Out No longer eligible based on patient's age to complete this topic Medical Devices Implanted Type Area City Controller Device Identifier Shelf Expiration Date Model / Serial / Lot [employer] Smartset Medium Viscosity Cement 40gm Bone Sterile 3122-040 - Sna - [id number] Implanted:Qty: 1 on 03/08/2022 by Nicolas White MD at [facility] Bone Cement Left: Knee [employer] Inc 09/07/2023 3122-040 / NA / [id number] [employer] Bsplt Tibial 3 Knee Left Medial Right Lat Mck System [id number] - Sna - [id number] Implanted:Qty: 1 on 03/08/2022 by Nicolas White MD at [facility] Other - see comments Left: Knee [employer] [id number] / NA / [employer] Cmpnt Fem 4 Std Knee Condyle Left Medial Right Lat 564119 - Sna - [id number] Implanted:Qty: 1 on 03/08/2022 by Nicolas White MD at [facility] Other - see comments Left: Knee [employer] [id number] / NA / Damien X3 Uni Onlay Tibial Insert Implanted:Qty: 1 on 03/08/2022 by Nicolas White MD at [facility] Other - see comments Left: Knee [employer] DUP [id number] 06/23/2026 862151-1 -E / NA / [id number] Description:Implant pause pe rformed on all implants 600. 065893-3-T discontinued Plate N/A: Neck Explanted Type Area City Controller Device Identifier Shelf Expiration Date Model / Serial / Lot [employer] 4mm 110mm Pin Fixation Sterile 770328 - Sna - [id number] Explanted:Qty: 1 on 03/08/2022 by Nicolas White MD at [facility] Other - see comments Left: Knee [employer] [id number] 12/24/2026 646704 / NA / [id number] Description:Not intended for implant, for fixational purposes only. [employer] 4mm 140mm Knee Straight Pin Fixation Sterile 000959 - Sna - [id number] Explanted:Qty: 1 on 03/08/2022 by Nicolas White MD at [facility] Other - see comments Left: Knee [employer] [id number] 09/28/2026 [id number] / NA / [id number] Description:Not intended for implant, for fixational purposes only. Insurance [facility] ACCESS CHOICE [employer] Elliptic CHOICE Advance Directives For more information, please contact: [phone] Documents on File Type Date Recorded Patient Checkroom Chief Expl anation Power of Suction Dredge Dumping Supervisor 03/08/2022 5:15 AM * Full Code (Latest Code Status on File) Date Activated Date Inactivated Comments 03/08/2022 8:36 AM 03/08/2022 3:40 PM Care Teams X Ray Service Engineer Relationship Specialty Start Date End Date Sim Meza MD PCP - General 12/22/16
--- OUTSIDE RECORDS SUMMARY | 2024-12-06 01:21 | XMS_ITS | Clinical Summary ---
Author Organization [facility] [employer] Address [address] [place] [address] Care Team Providers Care Network Systems Analyst Name Role Phone Sim Meza MD Primary Care Provider Source Comments [facility] [employer],non-owned Affiliates and Associated Physician Practices is amultiple site organization consisting of ambulatory clinics and hospital sitesin [place], [place], [place] and [place]. This disclosure is being madepursuant to the Care Everywhere program and may not contain all information available regarding this patient. Last updated 18.[facility] [employer] Allergies Active Allergy Reactions Criticality Noted Date [...] this topic Insurance ANTHEM ANTHEM Care Teams Network Systems Analyst Relationship Specialty Start Date End Date Sim Meza MD PCP - General Internal Medicine 01/03/19
--- OUTSIDE RECORDS SUMMARY | 2024-12-06 01:21 | XMS_ITS | Referral Summary ---
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 Gender Identity Not on file Sexual Orientation [...] on file Medical Devices Implanted Type Area Test Skein Winder Device Identifier Shelf Expiration Date Model / Serial / Lot Depuy [employer] Inc Smartset Medium Viscosity Cement 40gm Bone Sterile 312-040 - Sna - [id number] Implanted:Qty: 1 on 03/08/2022 by Nicolas White MD at [facility] Bone Cement Left: Knee [employer] Inc 09/07/20232-040 / NA / [id number] [employer] Bsplt Tibial 3 Knee Left Medial Right Lat Mck System 766694 - Sna - [id number] Implanted:Qty: 1 on 03/08/2022 by Nicolas White MD at [facility] Other - see comments Left: Knee [employer] [id number] / NA / [employer] Cmpnt Fem 4 Std Knee Condyle Left Medial Right Lat 536507 - Sna - [id number] Implanted:Qty: 1 on 03/08/2022 by Nicolas White MD at [facility] Other - see comments Left: Knee [employer] [id number] / NA / Damien X3 Uni Onlay Tibial Insert Implanted:Qty: 1 on 03/08/2022 by Nicolas White MD at [facility] Other - see comments Left: Knee [employer] DUP [id number] 06/23/2026 733454-4 -E / NA / [id number] Description:Implant pause pe rformed on all implants 600. [id number] discontinued Plate N/A: Neck Explanted Type Area Test Skein Winder Device Identifier Shelf Expiration Date Model / Serial / Lot [employer] 4mm 110mm Pin Fixation Sterile [id number] - Sna - [id number] Explanted:Qty: 1 on 03/08/2022 by Nicolas White MD at [facility] Other - see comments Left: Knee [employer] [id number] 12/24/2026 063525 / NA / [id number] Description:Not intended for implant, for fixational purposes only. [employer] 4mm 140mm Knee Straight Pin Fixation Sterile 981938 - Sna - [id number] Explanted:Qty: 1 on 03/08/2022 by Nicolas White MD at [facility] Other - see comments Left: Knee [employer] [id number] 09/28/2026 [id number] / NA / [id number] Description:Not intended for implant, for fixational purposes only. 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
[2024-12-06] MEDS: ACETAMINOPHEN 500 MG TABLET 1000 MG PO (07:00)
[2024-12-06] MEDS: KETOROLAC 15 MG/ML VIAL (*BKC) IV PUSH ×2 (07:00→10:25)
[2024-12-06 07:21] LABS: Basophils Absolute Auto 0.1 K/mm3 (0.0-0.1); Eosinophils Absolute Auto 0.3 K/mm3 (0-0.3); Eosinophils Percent Auto 3.2 % (0-4.4); Hematocrit 41.3 % (37.0-47.0); Hemoglobin 13.6 g/dL (12.0-15.0); Immature Granulocyte Absolute 0.18 K/mm3 (0.00-0.031); Immature Granulocyte Percent A 2.1 % (0-0.5); Lymphocytes Absolute Auto 4.01 K/mm3 (0.9-3.2); Lymphocytes Percent Auto 45.8 % (18.3-44.2); Mean Corpuscular HGB Conc 32.9 g/dl (32-36); Mean Corpuscular Volume 94.1 fl (80-100); Mean Platelet Volume 9.8 fl (7.4-10.4); Monocytes Absolute Auto 0.8 K/mm3 (0.1-0.6); Monocytes Percent Auto 8.8 % (2.6-8.5); Neutrophils Absolute Auto 3.4 K/mm3 (1.3-6.7); Neutrophils Percent Auto 39.1 % (45.5-73.1); Platelet Count Result 323 k/mm3 (150-375); Red Blood Count 4.39 M/mm3 (4.2-5.4); Red Cell Distribution Width 13.1 % (11.5-14.5); White Blood Count 8.8 K/mm3 (4.5-10.0)
[2024-12-06 07:32] LABS: Alanine Aminotransferase 57 U/L (6-35); Albumin Level 4.4 g/dL (3.5-5.1); Alkaline Phosphatase 63 U/L (38-126); Anion Gap 7 mmol/L (4-12); Aspartate Amino Transferase 49 U/L (14-36); Bilirubin,Total 1.2 mg/dL (0.2-1.3); Blood Urea Nitrogen 18 mg/dL (7-17); CRP < 0.5 mg/dL (<1.0); Calcium 9.2 mg/dL (8.4-10.2); Carbon Dioxide 24 mmol/L (22-30); Chloride 108 mmol/L (98-107); Estimated CRCL calculation 72 ml/min; Estimated Glomerular Filt Rate > 60; Glucose 99 mg/dL (65-110); Potassium 3.9 mmol/L (3.4-5.0); Sodium 139 mmol/L (137-145)
--- NOTE | 2024-12-06 07:54 | WPDANESEPPF ---
Anes - Initial Pre Proc Eval Procedure: Operation Date: 12/06/24 09:00 Proposed Procedures p Open Reduction Internal Fixation Left Wrist - Severiano Fletcher MD Date/Time: 12/06/24 07:54 Surgeon: Severiano Fletcher MD Pre Op Diagnosis: left wrist radial fracture Patient Data Age: 59 Gender: F Height: 1.57 m Weight: 80.15 kg Last Vital Signs Temp 36.5 C 12/06/24 07:00 Pulse 73 12/06/24 07:00 BP 128/87 12/06/24 07:00 Pulse Ox 96 12/06/24 07:00 O2 Del Method Room Air 12/06/24 07:00 Allergies Allergy/AdvReac Type Severity Reaction Status Date / Time codeine Allergy Unknown flushed Verified 12/06/24 07:35 Penicillins Allergy Unknown Hives Verified 12/06/24 07:35 Home Medications ?Medication ?Instructions ?Recorded ?Confirmed ?Type ergocalciferol (vitamin D2) 1,250 1,250 mcg PO WEEKLY 08/01/24 11/21/24 History mcg (50,000 unit) capsule losartan 25 mg tablet 25 mg PO DAILY 08/01/24 11/21/24 History pantoprazole 40 mg tablet,delayed 40 mg PO DAILY 08/01/24 11/21/24 History release rosuvastatin 10 mg tablet 10 mg PO DAILY 08/01/24 11/21/24 History acetaminophen 500 mg tablet 1,000 mg (2 x 500 mg) PO TID PRN 11/17/24 12/04/24 Rx (Tylenol Extra Strength) pain #30 tabs ibuprofen 800 mg tablet 800 mg PO TID PRN pain #30 tabs 11/17/24 11/21/24 Rx Laboratory Tests 12/06/24 07:14 WBC 8.8 K/mm3 (4.5-10.0) RBC 4.39 M/mm3 (4.2-5.4) Hgb 13.6 g/dL (12.0-15.0) Hct 41.3 % (37.0-47.0) MCV 94.1 fl (80-100) MCH 31.0 pg (26-34) MCHC 32.9 g/dl (32-36) RDW 13.1 % (11.5-14.5) Plt Count 323 k/mm3 (150-375) MPV 9.8 fl (7.4-10.4) Immature Gran % (Auto) 2.1 H % (0-0.5) Neut % (Auto) 39.1 L % (45.5-73.1) Lymph % (Auto) 45.8 H % (18.3-44.2) Alexander % (Auto) 8.8 H % (2.6-8.5) Eos % (Auto) 3.2 % (0-4.4) Baso % (Auto) 1.0 % (0.2-1.2) Lymph # (Auto) 4.01 H K/mm3 (0.9-3.2) Alexander # (Auto) 0.8 H K/mm3 (0.1-0.6) Eos # (Auto) 0.3 K/mm3 (0-0.3) Baso # (Auto) 0.1 K/mm3 (0.0-0.1) Abs Immat Gran (auto) 0.18 H K/mm3 (0.00-0.031) Absolute Neuts (auto) 3.4 K/mm3 (1.3-6.7) Absolute Nucleated RBC 0.000 K/mm3 (0.0-0.012) Nucleated RBC % 0.0 % (0.0-0.2) Sodium 139 mmol/L (137-145) Potassium 3.9 mmol/L (3.4-5.0) Chloride 108 H mmol/L (98-107) Carbon Dioxide 24 mmol/L (22-30) Anion Gap 7 mmol/L (4-12) BUN 18 H mg/dL (7-17) Creatinine 0.70 mg/dL (0.7-1.0) Estim Creat Clear Calc 72 ml/min Estimated GFR > 60 (59 - ) Glucose 99 mg/dL (65-110) Calcium 9.2 mg/dL (8.4-10.2) Total Bilirubin 1.2 mg/dL (0.2-1.3) AST 49 H U/L (14-36) ALT 57 H U/L (6-35) Alkaline Phosphatase 63 U/L (38-126) C-Reactive Protein < 0.5 mg/dL (<1.0) Total Protein 7.0 g/dL (6.3-8.2) Albumin 4.4 g/dL (3.5-5.1) Patient hx anesthesia problems: post op nausea/vomiting Family hx anesthesia problems: none Results Review: All pre-operative results and documents have been reviewed as part of the pre-operative evaluation. [facility] Past Medical History Medical History (Updated 12/06/24 @ 07:55 by Wes Crane DO) MARLON (obstructive sleep apnea) Hyperlipidemia Obesity HTN (hypertension) Surgical History Surgical History History of partial knee replacement H/O cervical spine surgery Social History Social History Smoking status: Never smoker Substance use type: does not use Living arrangements: with family Spiritual care concerns: No Anes - Eval Final PreProcedure Day of Procedure 12/06/24 07:54 Patient weight: obese Heart: regular rate and rhythm Lungs: clear to auscultation Airway: Mallampati scale class II Neurological: alert and oriented Last oral intake: >/= 8 hours ASA classification: III Emergent: no Anesthetic plan: proceed Anesthesia type and monitoring: general LMA and standard monitoring Results Review: All pre-operative results and documents have been reviewed as part of the pre-operative evaluation. Informed Consent: The patient's anesthetic plan and its attendant risks and benefits were discussed with the patient/family/POA. Questions were solicited and answers provided to the satisfaction of the patient/family/POA.
[2024-12-06] MEDS: LACTATED RINGERS 1,000 ML 30 ML IV CONT ×2 (08:16→10:46)
[2024-12-06] MEDS: SCOPOLAMINE 1 MG PATCH 1 PATCH TRANSDERM (08:16)
--- NOTE | 2024-12-06 09:02 | WPDHPUPDATE1 ---
History and Physical Update Update Date/Time: 12/06/24 09:02 History and Physical has been reviewed, including an updated exam of the patient. There are NO changes in the patient's condition. Risks, benefits, and alternatives have been discussed and questions answered. Patient agrees to proceed with procedure. Procedure discussed with patient is a Left Distal Radius Open Reduction with Internal Fixation with a plate and multiple screws. Risks include but are not limited to: infection, nerve injury, blood vessel injury, non-union, malunion resulting in post traumatic arthritis, hardware irritation requiring hardware removal. Patient and her daughter understand and are willing to proceed.
[2024-12-06] MEDS: ceFAZolin 2 GM/D5W 50 ML 2 GM/50 ML BAG IVPB (09:03)
[2024-12-06] MEDS: LIDO 1%/EPINEPHRINE 1:100,000 20 ML VIAL 50 ML INFILTRATE (09:44)
[2024-12-06] MEDS: ceFAZolin SODIUM 1 GM VIAL 2 GM (09:44)
--- NOTE | 2024-12-06 10:46 | P.HP_ITS ---
H&P: HPI History of Present Illness Date/Time: 12/06/24 10:46 Chief Complaint: Left Distal Radius Fracture Narrative: Patient sustained Left Distal Radius fracture with delay in surgery due to cardiology workup. No other injuries PMFSH Past Medical History Medical History (Updated 12/06/24 @ 10:49 by Severiano Fletcher MD) MARLON (obstructive sleep apnea) Hyperlipidemia Obesity HTN (hypertension) Surgical History Surgical History History of partial knee replacement H/O cervical spine surgery Social History Social History Smoking status: Never smoker Substance use type: does not use Living arrangements: with family Spiritual care concerns: No Meds Home Medications and Allergies Home Medications ?Medication ?Instructions ?Recorded ?Confirmed ?Type ergocalciferol (vitamin D2) 1,250 1,250 mcg PO WEEKLY 08/01/24 11/21/24 History mcg (50,000 unit) capsule losartan 25 mg tablet 25 mg PO DAILY 08/01/24 11/21/24 History pantoprazole 40 mg tablet,delayed 40 mg PO DAILY 08/01/24 11/21/24 History release rosuvastatin 10 mg tablet 10 mg PO DAILY 08/01/24 11/21/24 History acetaminophen 500 mg tablet 1,000 mg (2 x 500 mg) PO TID PRN 11/17/24 12/04/24 Rx (Tylenol Extra Strength) pain #30 tabs ibuprofen 800 mg tablet 800 mg PO TID PRN pain #30 tabs 11/17/24 11/21/24 Rx Allergies Allergy/AdvReac Type Severity Reaction Status Date / Time codeine Allergy Unknown flushed Verified 12/06/24 07:35 Penicillins Allergy Unknown Hives Verified 12/06/24 07:35 Vital Signs Vital Signs - 24 hr 12/06/24 07:00 Temperature 36.5 C Pulse Rate 73 Blood Pressure 128/87 Pulse Oximetry 96 Oxygen Delivery Room Air Exam Narrative: Left wrist in volar splint, minimal swelling, with intact sensation to all digits and good capillary refill H&P: Results Labs Labs: Short CBC 12/06/24 Range/Units 07:14 WBC 8.8 (4.5-10.0) K/mm3 Hgb 13.6 (12.0-15.0) g/dL Hct 41.3 (37.0-47.0) % Plt Count 323 (150-375) k/mm3 BMP 12/06/24 07:14 Sodium 139 Potassium 3.9 Chloride 108 H Carbon Dioxide 24 BUN 18 H Creatinine 0.70 Glucose 99 Calcium 9.2 Liver Function 12/06/24 Range/Units 07:14 Total Bilirubin 1.2 (0.2-1.3) mg/dL AST 49 H (14-36) U/L ALT 57 H (6-35) U/L Alkaline Phosphatase 63 (38-126) U/L Albumin 4.4 (3.5-5.1) g/dL Assessment and Plan Assessment and plan (1) Fracture of left distal radius: Code(s): S52.502A - Unspecified fracture of the lower end of left radius, initial encounter for closed fracture Status: Acute Plan 59 yr old female with Left Distal Radius fracture 19 days after injury. Plan ORIF. Risks benefits alternatives and complications discuessed with patie nt. she agrees to proceed.
--- NOTE | 2024-12-06 10:51 | P.OP_ITS ---
Procedure Note - Detailed Date of Procedure 12/06/24 Pre-op Diagnosis left wrist radial fracture Post-op Diagnosis Same Procedure Performed Left Wrist Distal Radius fracture open reduction with Internal fixation of greater than 3 parts. application of short-arm splint Surgeon Severiano Fletcher MD Anesthesia General Indications displaced greater than 3 part distal radius fracture left Description of Procedure The patient is a 59-year-old female presented with a displaced unstable greater than 3 part distal radius fracture left side on November 17. On the preoperative workup the patient had a abnormal EKG findings by the preoperative anesthesia team which warranted additional workup from the patient's primary care provider as well as the simulation software engineer consulted. This resulted in a significant delay in the surgery was performed today. It was approximately 19 days out from her index injury. The patient was advised already some callus formation and that this would require additional time for surgery for the reduction as well as the dissection and the takedown of the callus at the fracture site. She understands that the result would be different had the opportunity this procedure within 710 days of the injury. Advised her that she still has significant benefit performing this procedure was delayed dissection. after obtaining consent with regards to the risks benefits alternatives and complications of a left distal radius open reduction internal fixation with a volar plate, the patient expressed was then signed and the patient was brought to the operating room and placed in the supine position. The left upper extremity was then prepped and draped in the standard sterile fashion. Time-out was performed to verify correct patient and correct site of surgery correct procedure as well as verifying that 2 g of Ancef were administered within 1 hours of the procedure. Tourniquet was used and elevated at 2250 mmHg. After tourniquet was elevated and then made a volar incision identified the FCR tendon identified the radial artery and explored the interval between these 2 anatomic structures. Dissection was then carried down I then identified the fracture site which already had callus formation. I then proceeded to take down the callus and noted the radial styloid had significant callus formation which required extensive dissection on the radial side to release the radial piece in order to reduce this. I then secured the radial fragment using a reduction clamp as well as a K-wire in a retrograde fashion. I then proceeded to reduce the lunate piece that was also displaced. After this was done I then proceeded to place a volar plate in position and verified the position of the volar plate using fluoroscopy. After the volar plate was placed I then proceeded to place multiple screws distally as well as a standard screw into the shaft to secure the plate. I then noted that after all the pegs are placed the most radial peg was bicortical in the sense that it was going past the cortex on the radial side. Given the instability of the radial fragment and the benefit of having bicortical purchase of this fragment I opted to leave this in place and not to change this out for a pegged that would be intraosseous. The plan is potentially if this bothers the patient that I would remove this at a later date in order to help keep the radial styloid reduced since this was a very unstable fragment. After this was done and then irrigated copiously injected with epinephrine with lidocaine into the volar incision site and obtained hemostasis and closed using Monocryl sutures and Steri-Strips. Then placed a volar splint and the patient was then transferred to the recovery room in stable condition. Fluoroscopy was used to verify correct positioning of the plate as well as to verify that all the screws were indeed in good position. I was able to obtain radial height radial inclination and volar tilt. Plan to see the patient back in about 7-10 days from the date of surgery. She is to use her sling at all times elevate and ice her wrist. There are no complications. Implants Accu Med volar plate Estimated Blood Loss 10 Complications No immediate complications Condition Stable Disposition PACU
[2024-12-06] MEDS: ONDANSETRON INJ 4 MG/2 ML VIAL IV PUSH (11:27)
[2024-12-06] MEDS: fentaNYL CITRATE INJ (*CRX) 100 MCG/2 ML VIAL 25 MCG IV PUSH ×2 (11:52→11:59)
[2024-12-06] MEDS: diphenhydrAMINE HCl INJ 50 MG/ML VIAL 12.5 MG IV PUSH ×2 (12:30→12:58)
== END 2024-12-06 14:49 | disposition home or self-care (01) ==
PROVIDERS: PCP Internal Medicine; Visit Provider Orthopaedic Surgery
PROC: (CPT 25575; principal; 2024-12-06 09:00)
DX: S52.572A Other intraarticular fracture of lower end of left radius, initial encounter for closed fracture (principal); E78.5 Hyperlipidemia, unspecified; I10 Essential (primary) hypertension; G47.33 Obstructive sleep apnea (adult) (pediatric); X58.XXXA Exposure to other specified factors, initial encounter; E66.9 Obesity, unspecified; Z68.32 Body mass index [BMI] 32.0-32.9, adult; Z79.1 Long term (current) use of non-steroidal anti-inflammatories (NSAID); Z98.890 Other specified postprocedural states; Z98.1 Arthrodesis status
CPT/HCPCS: 25609; 36415; 80053; 85025; 86140; 99199; A9270; C1713; J0690; J1100; J1171; J1200; J1885; J2003; J2004; J2250; J2405; J2704; J3010; J7120

== ENCOUNTER 2025-02-06 08:10 | Outpatient (CLI) | payer BC, SELFPAY ==
--- NOTE | ~2025-02-06 | MMUS_ITS ---
EXAMINATION: MM diagnostic juliette RT w rhona, US breast RT complete HISTORY: Follow-up right breast masses. TECHNIQUE: Additional 3-D tomosynthesis images of the right breast were performed and synthetic 2-D i mages were generated. CAD analysis was submitted and interpreted. High resolution complete right fransico st ultrasound was performed. COMPARISON: Comparison to multiple prior studies sequentially, with oldest reviewed study dated 10/26. BREAST PARENCHYMAL COMPOSITION: Not dense: There are scattered areas of fibroglandular density. FINDINGS: MAMMOGRAPHIC FINDINGS: There are multiple masses of the right breast some which are waxing and waning compared with prior st udies. There are no suspicious calcifications or architectural distortion. ULTRASOUND: Complete US of all 4 quadrants of the right breast/s and retroareolar region was reviewed. Multiple s imple cysts of the right breast, largest measuring 2.9 cm maximum dimension. Cluster of microcysts at 12:00 near the nipple measuring 6 mm. 3 mm cyst at 5:00, 1 cm from the nipple. No suspicious masses to suggest malignancy. IMPRESSION: 1. No evidence for malignancy in the right breast. Benign cysts, largest measuring 2.9 cm. 2. Routine yearly screening mammogram and regular clinical breast examination are recommended. BI-RADS Category 2: Benign finding(s). Reviewed, dictated and finalized at location B. IMPRESSION: 1. No evidence for malignancy in the right breast. Benign cysts, largest measur ing 2.9 cm. 2. Routine yearly screening mammogram and regular clinical breast examination a re recommended. BI-RADS Category 2: Benign finding(s).
== END 2025-02-06 08:11 | disposition home or self-care (01) ==
LOC: MICIMG 08:11
PROVIDERS: PCP Internal Medicine; Visit Provider Internal Medicine
DX: R92.8 Other abnormal and inconclusive findings on diagnostic imaging of breast (principal)
CPT/HCPCS: 76641; 77061; 77065; G0279